=== PATIENT | female | born 1940 | race Caucasian/White ===

== ENCOUNTER 2016-12-23 20:05 | Inpatient (IN) | payer OTHER, MEDICARE ==
[~2016-12-23] VITALS: Ht 154.9 cm; Wt 76.3 kg
[~2016-12-23 20:05] MED LIST: AMLO5TAB2 PO; COEN100C; FURO40TA PO; GABA300C5 PO; INSUINJ3 SQ; LEVEMIR SQ; LIPI20TA PO; MELA5TAB15 PO; METO25TA3 PO; NOVOINJ6; PANT40TA3 PO; PLAV75TA29 PO; ZETI10TA5 PO
[2016-12-23 20:13] VITALS: BP 194/79; PULSE 51; RESP 16; TEMP 98.6; O2SAT 97
--- NOTE | 2016-12-23 20:36 | PD ---
Physical Exam Time Seen by Provider: 20:31 Narrative 76yo F presents after being seen at [facility] in [facility] for chest pain and SOB. [facility] waanted to admit her and She asked to be discharged because her son does not like that hospital and told her to come to [place]. Gonzalo came strait here from [facility]. She currently does not have chest pain or SOB. She said they did put a nitro patch on her chest when she was there. She says she only wants to talk to a doctor. Patient seen in triage. VS reviewed. Awaiting bed placement. Data Data Last Documented VS Vital Signs Date Time Temp Pulse Resp B/P (MAP) Pulse Ox O2 Delivery O2 Flow Rate FiO2 12/23/16 20:13 98.6 51 16 194/79 (117) 97 Room Air MDM Supervised Visit with CAMERON: Marielena Platt Dec 23, 2016 20:36
--- NOTE | 2016-12-23 20:59 | PD ---
HPI Chief Complaint: Medical Clearance Time Seen by Provider: 20:59 Travel History International Travel<30 days: No Contact w/Intl Traveler<30days: No Traveled to known affect area: No History of Present Illness HPI 76-year-old female with history of CAD, hypertension, diabetes, remote CVA, presents to the emergency department for evaluation of chest pain and shortness of breath. Patient states it first started 1 week ago. She contacted her primary care provider who advised she come to the emergency department at that time. Patient did not do that. She waited, thinking that it may get better, however it worsened throughout the week and today she ended up at [facility] for evaluation of this. She tells me they were going to admit her as they were concerned about her kidneys and her potassium. The gave her medication for this and she is uncertain what. She states that her intensive care specialist came and evaluated her kidneys with ultrasound and was also concerned. She states that she feels better than she did prior to arriving there, however she still is short of breath. She is not having any chest pain. Her son is a chiropractor in [facility] and did not want her to be admitted at that hospital, so he advised they come here. Unable to obtain the patient's records at this time to further understand the patient's visit there. PFSH Past Medical History Arthritis: Yes Asthma: No Autoimmune Disease: No Anxiety: Yes Depression: No Heart Rhythm Problems: No Cancer: No Cardiovascular Problems: Yes (SEVERE CAD, TIA) High Cholesterol: Yes Chemotherapy: No Chest Pain: Yes Congestive Heart Failure: No COPD: No Cerebrovascular Accident: Yes (CVA X 10 YEARS AGO AND CVA X3 RECENT 2016) Diabetes: Yes Endocrine: Yes GERD: No Genitourinary: No Headaches: Yes (OCCASIONAL ) Hiatal Hernia: No Hypertension: Yes Immune Disorder: No Kidney Stones: No Musculoskeletal: Yes Neurologic: Yes (strtoke 10 years ago) Psychiatric: Yes Reproductive: No Respiratory: Yes Migraines: No Radiation Therapy: No Renal Failure: No Seizures: No Sickle Cell Disease: No Sleep Apnea: No Thyroid Disease: No Ulcer: No Past Surgical History Abdominal Surgery: No AICD: No Arteriovenous Shunt: No Cardiac Surgery: Yes (cath procedure) Ear Surgery: No Endocrine Surgery: No Eye Surgery: Yes (BILATERAL CATARACT SURGERY) Genitourinary Surgery: No Gynecologic Surgery: No Insulin Pump: No Joint Replacement: No Oral Surgery: No Pacemaker: No Thoracic Surgery: No Other Surgery: Yes (2 C-SECTIONS) Social History Alcohol Use: No Tobacco Use: No Substance Use: No Allergies-Medications (Allergen,Severity, Reaction): Coded Allergies: Lactobacillus acidophilus (Verified Allergy, Severe, 12/23/16) Lactobacillus bulgaricus (Verified Allergy, Severe, 12/23/16) Lactobacillus gasseri (Verified Allergy, Severe, 12/23/16) Streptococcus thermophilus (Verified Allergy, Severe, 12/23/16) lovastatin (Verified Allergy, Severe, 12/23/16) N/V Reported Meds & Prescriptions Reported Meds & Active Scripts Active Gabapentin 300 Mg Cap 300 Mg PO BID Reported Levemir Inj (Insulin Detemir) 1,000 unit/ 10 ML Vial 56 Units SQ BID Do not mix with any other Insulin. Nitroglycerin SL (Nitroglycerin) 0.4 Mg Subl 0.4 Mg SL DIRECTED PRN ONE TABLET UNDER THE TONGUE NEEDED FOR CHEST PAIN, MAY REPEAT EVERY FIVE MINUTES FOR A TOTAL OF 3 DOSES OR CALL 911 IF NO RELIEF Lisinopril 5 Mg Tab 5 Mg PO DAILY Folic Acid 400 Mcg Tab 400 Mcg PO DAILY Aspirin 81 Mg Chew 81 Mg CHEW DAILY Novolin N U-100 Inj (Insulin NPH (Human) (Isophane) Inj) 100 Unit/Ml Inj 1 Units SLIDING SCALE Plavix (Clopidogrel Bisulfate) 75 Mg Tab 75 Mg PO DAILY Metoprolol Tartrate 25 Mg Tab 25 Mg PO BID Review of Systems Except as stated in HPI: all other systems reviewed are Neg Physical Exam Narrative GENERAL: Nourished female patient, appears well but between sentences and short of breath while she is talking to me. SKIN: Focused skin assessment warm/dry. HEAD: Atraumatic. Normocephalic. EYES: Pupils equal and round. No scleral icterus. No injection or drainage. ENT: No nasal bleeding or discharge. Mucous membranes pink and moist. NECK: Trachea midline. No JVD. CARDIOVASCULAR: Bradycardic rate. 2/6 murmur appreciated. RESPIRATORY: No accessory muscle use. Diminished, possibly due to girth.. Breath sounds equal bilaterally. GASTROINTESTINAL: Abdomen soft, non-tender, nondistended. Hepatic and splenic margins not palpable. MUSCULOSKELETAL: No obvious deformities. No clubbing. No cyanosis. No edema. NEUROLOGICAL: Awake and alert. No obvious cranial nerve deficits. Motor grossly within normal limits. Normal speech. Data Data Last Documented VS Vital Signs Date Time Temp Pulse Resp B/P (MAP) Pulse Ox O2 Delivery O2 Flow Rate FiO2 12/23/16 23:01 71 20 184/65 (104) 98 Room Air 12/23/16 20:13 98.6 Orders Orders Electrocardiogram (12/23/16 20:36) Complete Blood Count With Diff (12/23/16 21:09) Basic Metabolic Panel (Bmp) (12/23/16 21:09) B-Type Natriuretic Peptide (12/23/16 21:09) Act Partial Throm Time (Ptt) (12/23/16 21:09) Prothrombin Time / Inr (Pt) (12/23/16 21:09) Magnesium (Mg) (12/23/16 21:09) Ckmb (Isoenzyme) Profile (12/23/16 21:09) Troponin I (12/23/16 21:09) Urinalysis - C+S If Indicated (12/23/16 21:09) Iv Access Insert/Monitor (12/23/16 21:09) Electrocardiogram (12/23/16 21:09) Ecg Monitoring (12/23/16 21:09) Oximetry (12/23/16 21:09) Oxygen Administration (12/23/16 21:09) Chest, Single Ap (12/23/16 21:09) Sodium Chloride 0.9% Flush (Ns Flush) (12/23/16 21:15) Albuterol-Ipratropium Neb (Duoneb Neb) (12/23/16 21:15) CKMB (12/23/16 21:35) CKMB% (12/23/16 21:35) Ventilation & Perfusion Scan (12/23/16 ) Labs Laboratory Tests Test 12/23/16 21:35 12/23/16 22:10 White Blood Count 14.3 TH/MM3 Red Blood Count 3.63 MIL/MM3 Hemoglobin 11.5 GM/DL Hematocrit 34.8 % Mean Corpuscular Volume 95.9 FL Mean Corpuscular Hemoglobin 31.6 PG Mean Corpuscular Hemoglobin Concent 32.9 % Red Cell Distribution Width 13.9 % Platelet Count 308 TH/MM3 Mean Platelet Volume 9.0 FL Neutrophils (%) (Auto) 66.7 % Lymphocytes (%) (Auto) 24.0 % Monocytes (%) (Auto) 8.1 % Eosinophils (%) (Auto) 0.7 % Basophils (%) (Auto) 0.5 % Neutrophils # (Auto) 9.5 TH/MM3 Lymphocytes # (Auto) 3.4 TH/MM3 Monocytes # (Auto) 1.2 TH/MM3 Eosinophils # (Auto) 0.1 TH/MM3 Basophils # (Auto) 0.1 TH/MM3 CBC Comment DIFF FINAL Differential Comment Prothrombin Time 12.0 SEC Prothromb Time International Ratio 1.1 RATIO Activated Partial Thromboplast Time 25.6 SEC Blood Urea Nitrogen 55 MG/DL Creatinine 2.37 MG/DL Random Glucose 59 MG/DL Calcium Level 9.0 MG/DL Magnesium Level 3.0 MG/DL Sodium Level 139 MEQ/L Potassium Level 4.9 MEQ/L Chloride Level 105 MEQ/L Carbon Dioxide Level 26.1 MEQ/L Anion Gap 8 MEQ/L Estimat Glomerular Filtration Rate 20 ML/MIN Total Creatine Kinase 107 U/L Creatine Kinase MB 4.9 NG/ML Troponin I 0.02 NG/ML B-Type Natriuretic Peptide 1149 PG/ML Urine Color LIGHT-YELLOW Urine Turbidity CLEAR Urine pH 5.0 Urine Specific [place] 1.008 Urine Protein NEG mg/dL Urine Glucose (UA) NEG mg/dL Urine Ketones NEG mg/dL Urine Occult Blood NEG Urine Nitrite NEG Urine Bilirubin NEG Urine Urobilinogen LESS THAN 2.0 MG/DL Urine Leukocyte Esterase NEG Urine RBC 1 /hpf Urine Bacteria RARE /hpf Urine Hyaline Casts 2 /lpf Microscopic Urinalysis Comment CULT NOT INDICATED MDM Medical Decision Making Medical Screen Exam Complete: Yes Emergency Medical Condition: Yes Medical Record Reviewed: Yes Differential Diagnosis CHF versus pneumonia versus ACS versus electrolyte abnormality Narrative Course 76 year-old female presents to the emergency department for evaluation. Patient has been evaluated today at [facility] for chest pain and shortness of breath worsening over the last week. Here she states that she feels better but she would rather be admitted here and there. I have asked community development coordinator to obtain records, however I am told at this time there is nobody available at that hospital to get us records. Patient is not having any pain, however she is short of breath between sentences. Laboratory Tests Test 12/23/16 21:35 8/24/17 22:10 White Blood Count 14.3 TH/MM3 Red Blood Count 3.63 MIL/MM3 Hemoglobin 11.5 GM/DL Hematocrit 34.8 % Mean Corpuscular Volume 95.9 FL Mean Corpuscular Hemoglobin 31.6 PG Mean Corpuscular Hemoglobin Concent 32.9 % Red Cell Distribution Width 13.9 % Platelet Count 308 TH/MM3 Mean Platelet Volume 9.0 FL Neutrophils (%) (Auto) 66.7 % Lymphocytes (%) (Auto) 24.0 % Monocytes (%) (Auto) 8.1 % Eosinophils (%) (Auto) 0.7 % Basophils (%) (Auto) 0.5 % Neutrophils # (Auto) 9.5 TH/MM3 Lymphocytes # (Auto) 3.4 TH/MM3 Monocytes # (Auto) 1.2 TH/MM3 Eosinophils # (Auto) 0.1 TH/MM3 Basophils # (Auto) 0.1 TH/MM3 CBC Comment DIFF FINAL Differential Comment Prothrombin Time 12.0 SEC Prothromb Time International Ratio 1.1 RATIO Activated Partial Thromboplast Time 25.6 SEC Blood Urea Nitrogen 55 MG/DL Creatinine 2.37 MG/DL Random Glucose 59 MG/DL Calcium Level 9.0 MG/DL Magnesium Level 3.0 MG/DL Sodium Level 139 MEQ/L Potassium Level 4.9 MEQ/L Chloride Level 105 MEQ/L Carbon Dioxide Level 26.1 MEQ/L Anion Gap 8 MEQ/L Estimat Glomerular Filtration Rate 20 ML/MIN Total Creatine Kinase 107 U/L Creatine Kinase MB 4.9 NG/ML Troponin I 0.02 NG/ML B-Type Natriuretic Peptide 1149 PG/ML Urine Color LIGHT-YELLOW Urine Turbidity CLEAR Urine pH 5.0 Urine Specific [place] 1.008 Urine Protein NEG mg/dL Urine Glucose (UA) NEG mg/dL Urine Ketones NEG mg/dL Urine Occult Blood NEG Urine Nitrite NEG Urine Bilirubin NEG Urine Urobilinogen LESS THAN 2.0 MG/DL Urine Leukocyte Esterase NEG Urine RBC 1 /hpf Urine Bacteria RARE /hpf Urine Hyaline Casts 2 /lpf Microscopic Urinalysis Comment CULT NOT INDICATED Pt's creatinine has doubled since the last lab work that we have here in 2005. Her BNP is 1149. Patient was given Lasix at the other facility and is urinating a lot here in the emergency department. She was also given Kayexalate and is happy loose stools. He shouldn't is also hypoglycemic here with a blood sugar of 59. She is given orange juice. Check, blood sugar is 86. I discussed the patient with my attending physician who agrees that is in the patient's best interest to be admitted observation. We also further evaluate for possible PE by VQ scan. This is ordered. A call is placed to [facility] for admission. Diagnosis Primary Impression: Shortness of breath Additional Impressions: CHF (congestive heart failure) Qualified Codes: I50.9 - Heart failure, unspecified Acute kidney injury Hypoglycemia Chest pain Qualified Codes: R07.9 - Chest pain, unspecified Admitting Information Admitting Physician Requests: Observation Condition: Stable AppleAnalisa aj FIORELLA Dec 23, 2016 20:59
[2016-12-23] MEDS ORDERED: SODIUM CHLORIDE 0.9% FLUSH 10 ML FLUSH IVF PRN (21:15)
[2016-12-23] MEDS: RESP: ALBUTEROL 2.5 MG/IPRATROPIUM 0.5 MG NEB (SCH) INH ×2 (21:21→21:22)
[2016-12-23 21:30] VITALS: BP 180/65; PULSE 50; RESP 22; O2SAT 98
--- NOTE | 2016-12-23 21:45 | RADRPT ---
EXAM DATE/TIME: 12/23/2016 21:24 [facility] COMPARISON: CHEST SINGLE AP, December 25, 2015, 14:42. INDICATIONS : Shortness of breath. MEDICAL HISTORY : None. SURGICAL HISTORY : None. ENCOUNTER: Initial ACUITY: 3 weeks PAIN SCORE: 0/10 LOCATION: Bilateral chest FINDINGS: Portable AP view the chest demonstrates a normal-sized cardiac silhouette with calcification of the a daniel. There is stable interstitial prominence bilaterally. No effusion, consolidation, or pneumothora x is appreciated. The bones and soft tissues demonstrate no acute finding. CONCLUSION: Stable chest x-ray. No acute cardiopulmonary abnormality is identified. Joe Ellsworth MD on December 23, 2016 at 21:42 Board Certified Radiologist. This report was verified electronically.
[2016-12-23 22:11] VITALS: BP 180/77; PULSE 65; RESP 20; O2SAT 98
[2016-12-23 22:13] LABS: AUTOMATED NEUTROPHIL # 9.5 TH/MM3 (1.8-7.7); BASOPHIL # 0.1 TH/MM3 (0-0.2); BASOPHIL % 0.5 % (0.0-2.0); EOSINOPHIL # 0.1 TH/MM3 (0-0.4); EOSINOPHIL % 0.7 % (0.0-4.0); HEMATOCRIT 34.8 % (35.0-46.0); HEMO FLAGS DIFF FINAL; LYMPHOCYTE # 3.4 TH/MM3 (1.0-4.8); MEAN CELL VOLUME 95.9 FL (80.0-100.0); MEAN CORPUSCULAR HEMOGLOBIN 31.6 PG (27.0-34.0); MEAN CORPUSCULAR HGB CONC 32.9 % (32.0-36.0); MONO % 8.1 % (0.0-8.0); NEUT % 66.7 % (16.0-70.0); PLATELET COUNT 308 TH/MM3 (150-450); RED BLOOD COUNT 3.63 MIL/MM3 (4.00-5.30); RED CELL DISTRIBUTION WIDTH 13.9 % (11.6-17.2); WHITE BLOOD COUNT 14.3 TH/MM3 (4.0-11.0)
[2016-12-23 22:21] VITALS: BP 173/74; PULSE 63
[2016-12-23 22:27] LABS: ANION GAP 8 MEQ/L (5-15); BICARBONATE 26.1 MEQ/L (21.0-32.0); BLOOD UREA NITROGEN 55 MG/DL (7-18); CHLORIDE 105 MEQ/L (98-107); GLOMERULAR FILTRATION RATE 20 ML/MIN (>89); POTASSIUM 4.9 MEQ/L (3.5-5.1); SODIUM (NA) 139 MEQ/L (136-145)
[2016-12-23 22:31] LABS: CREATINE KINASE 107 U/L (26-192)
[2016-12-23 22:32] LABS: BACTERIA, URINE RARE /hpf; BLOOD, URINE NEG (NEG); COMMENT (UR) CULT NOT INDICATED; CULTURE IF INDICATED CULT NOT INDICATED; GLUCOSE,URINE NEG (NEG); HYALINE CAST, URINE 2 /lpf (RARE); KETONE, URINE NEG (NEG); NITRITE,URINE NEG (NEG); URINE COLOR LIGHT-YELLOW (YELLW/STRAW)
[2016-12-23] MEDS ORDERED: ASPI81CH CHEW (22:32)
[2016-12-23] MEDS ORDERED: FOLI400T PO (22:32)
[2016-12-23] MEDS ORDERED: LISI-519 PO (22:33)
[2016-12-23 22:34] LABS: APTT (PATIENT) 25.6 SEC (24.3-30.1); INTERNATIONAL NORMALIZED RATIO 1.1 RATIO
[2016-12-23] MEDS ORDERED: NITR1SUB3 SL (22:34)
[2016-12-23] MEDS ORDERED: NOVOLOGMXP SQ (22:38)
[2016-12-23] MEDS ORDERED: LEVEMIR SQ (22:40)
[2016-12-23 22:44] LABS: CKMB 4.9 NG/ML (0.5-3.6)
[2016-12-23 23:01] VITALS: BP 184/65; PULSE 71; RESP 20; O2SAT 98
[2016-12-23] MEDS ORDERED: NALOXONE HCL 0.4 MG/ML AMP IV PRN (23:30)
[2016-12-23] MEDS ORDERED: SODIUM CHLORIDE 0.9% FLUSH 10 ML FLUSH IV FLUSH PRN (23:30)
[2016-12-24] VITALS (12 sets, daily range): BP systolic 114–187; BP diastolic 50–87; PULSE 49–75; RESP 12–22; TEMP 97.5–98.7; O2SAT 96–100
[2016-12-24] MEDS ORDERED: METO25TA3 PO (00:45)
[2016-12-24] MEDS ORDERED: NITROGLYCERIN 2% OINT 1 GM PACKET TOPICAL ONE (01:00)
--- NOTE | 2016-12-24 01:26 | RADRPT ---
EXAM DATE/TIME: 12/24/2016 00:55 [facility] COMPARISON: No previous studies available for comparison. INDICATIONS : Chest pain with dyspnea. DOSE: 8.8 mCi Tc99m MAA IV 1.3 mCi Tc99m DTPA aerosol MEDICAL HISTORY : Myocardial infarction. Diabetes mellitus type 2. Hypertension. Stroke. SURGICAL HISTORY : Cardiac catherization. ENCOUNTER: Initial ACUITY: 1 week PAIN SCALE: 4/10 LOCATION: chest TECHNIQUE: Following five minutes of tidal breathing of DTPA aerosol, planar images of the lungs were performed in eight projections. The patient was then injected with MAA, and eight-view perfusion scan was perf ormed. FINDINGS: There is a homogeneous pattern of aerosol delivery to the periphery of both lungs. No focal ventilat ory defects are seen. The perfusion lung scan demonstrates a homogenous pattern of uptake in both lungs. No segmental or s ubsegmental defects are seen. CONCLUSION: Normal examination. Josef Villanueva MD on December 24, 2016 at 1:24 Board Certified Radiologist. This report was verified electronically.
[2016-12-24 04:29] LABS: AUTOMATED NEUTROPHIL # 9.6 TH/MM3 (1.8-7.7); BASOPHIL # 0.1 TH/MM3 (0-0.2); BASOPHIL % 0.7 % (0.0-2.0); EOSINOPHIL # 0.1 TH/MM3 (0-0.4); EOSINOPHIL % 0.6 % (0.0-4.0); HEMATOCRIT 31.7 % (35.0-46.0); HEMO FLAGS DIFF FINAL; LYMPH % 24.7 % (9.0-44.0); LYMPHOCYTE # 3.6 TH/MM3 (1.0-4.8); MEAN CELL VOLUME 96.4 FL (80.0-100.0); MEAN CORPUSCULAR HGB CONC 32.1 % (32.0-36.0); MONO % 7.7 % (0.0-8.0); NEUT % 66.3 % (16.0-70.0); PLATELET COUNT 198 TH/MM3 (150-450); RED BLOOD COUNT 3.29 MIL/MM3 (4.00-5.30); RED CELL DISTRIBUTION WIDTH 13.9 % (11.6-17.2); WHITE BLOOD COUNT 14.5 TH/MM3 (4.0-11.0)
[2016-12-24 04:48] LABS: BICARBONATE 24.9 MEQ/L (21.0-32.0); POTASSIUM 4.6 MEQ/L (3.5-5.1)
[2016-12-24] MEDS ORDERED: DEXTROSE 50% IN WATER 50 ML VIAL(D50) IV PRN (10:15)
[2016-12-24] MEDS ORDERED: GLUCAGON 1 MG/ML VIAL OTHER PRN (10:15)
--- NOTE | 2016-12-24 10:38 | HHI.HP ---
[facility] V[facility]ctor Bond DO Admission Diagnosis dyspnea, chest pain, chf Diagnoses: Chief Complaint: Shortness of breath Travel History International Travel<30 Days: No Contact w/Intl Traveler <30 Da: No Traveled to Known Affected Are: No History of Present Illness Written by Anibal Lawler, acting as scribe for Dr. Colón on 12/24/16 at 10:37. 76-year-old female with a past medical history of CAD, CVA, DM presented for shortness of breath. The patient has been having worsening shortness of breath and generalized ill feeling for the past week with associated chest pain or lower from any swelling.. She saw her PCP a week ago recommended she come to the ED, but she wanted to wait and see if she got better, and when she didn't she went to the hospital and [facility]. She was told that her kidneys were much worse than normal. She saw her 's senior mobile developer, Dr. Nicolas, who did an ultrasound of her kidneys and was very concerned. She states she was given medicine to make her urinate and feels like her breathing is better after that. She reports good urine output. She denies any problems with her kidneys prior to yesterday. She states that she has a history of blockages in her heart , but refused heart bypass in the past. She isn't having chest pain for the last week that has been relieved by nitroglycerin. Her weir fisherman is Dr. Olmstead. Discussed with her and her son, and they agree for assessment for renal failure and possible CHF, but do not want any invasive testing done. The patient denies any fever, chills, or cough, but has noticed some dysphagia recently. Review of Systems Except as stated in HPI: all other systems reviewed are Neg Past Family Social History Past Medical History CVA History of coronary artery disease, refused bypass Diabetes mellitus Past Surgical History Cardiac catheterization 2 PEG placement and removal Reported Medications Reported Meds & Active Scripts Active Gabapentin 300 Mg Cap 300 Mg PO BID Reported Metoprolol Tartrate 25 Mg Tab 25 Mg PO DAILY Levemir Inj (Insulin Detemir) 1,000 unit/ 10 ML Vial 56 Units SQ BID Do not mix with any other Insulin. Nitroglycerin SL (Nitroglycerin) 0.4 Mg Subl 0.4 Mg SL DIRECTED PRN ONE TABLET UNDER THE TONGUE NEEDED FOR CHEST PAIN, MAY REPEAT EVERY FIVE MINUTES FOR A TOTAL OF 3 DOSES OR CALL 911 IF NO RELIEF Lisinopril 5 Mg Tab 5 Mg PO DAILY Folic Acid 400 Mcg Tab 400 Mcg PO DAILY Aspirin 81 Mg Chew 81 Mg CHEW DAILY Novolin N U-100 Inj (Insulin NPH (Human) (Isophane) Inj) 100 Unit/Ml Inj 1 Units SLIDING SCALE Plavix (Clopidogrel Bisulfate) 75 Mg Tab 75 Mg PO DAILY Allergies: Coded Allergies: Lactobacillus acidophilus (Verified Allergy, Severe, 12/23/16) Lactobacillus bulgaricus (Verified Allergy, Severe, 12/23/16) Lactobacillus gasseri (Verified Allergy, Severe, 12/23/16) Streptococcus thermophilus (Verified Allergy, Severe, 12/23/16) lovastatin (Verified Allergy, Severe, 12/23/16) N/V Active Ordered Medications Current Medications Medications (Trade) Dose Ordered Sig/Helene Route Start Time Stop Time Status Last Admin (NS Flush) 2 ml UNSCH PRN IV FLUSH 12/23/16 23:30 (NS Flush) 2 ml BID IV FLUSH 12/24/16 09:00 (Narcan Inj) 0.4 mg UNSCH PRN IV 12/23/16 23:30 (Aspirin Chew) 81 mg DAILY CHEW 12/25/16 09:00 (Plavix) 75 mg DAILY PO 12/25/16 09:00 (Neurontin) 300 mg BID PO 12/24/16 21:00 (Lopressor) 25 mg DAILY PO 12/25/16 09:00 (D50w (Vial) Inj) 50 ml UNSCH PRN IV 12/24/16 10:15 (Glucagon Inj) 1 mg UNSCH PRN OTHER 12/24/16 10:15 (NovoLOG SUPPLEMENTAL SCALE) 1 ACHS SLIDING SCALE SQ 12/24/16 11:00 (Levemir Inj) 56 units BID SQ 12/24/16 11:15 UNV Family History Follow after car accident Mother at age 91 and was healthy Social History Former tobacco use Rare alcohol use Physical Exam Vital Signs Vital Signs Date Time Temp Pulse Resp B/P (MAP) Pulse Ox O2 Delivery O2 Flow Rate FiO2 12/24/16 07:06 97.7 55 16 141/56 (84) 98 12/24/16 03:22 98.0 75 16 140/78 (98) 97 12/24/16 01:09 12/24/16 00:40 64 20 169/72 (104) 100 Nasal Cannula 2.00 12/24/16 00:10 98.7 61 22 187/87 (120) 99 Nasal Cannula 2.00 12/23/16 23:01 71 20 184/65 (104) 98 Room Air 12/23/16 22:21 63 173/74 (107) 12/23/16 22:11 65 20 180/77 (111) 98 Room Air 12/23/16 21:30 50 22 180/65 (103) 98 Room Air 12/23/16 21:30 98 Room Air 12/23/16 21:30 98 Room Air 12/23/16 20:13 98.6 51 16 194/79 (117) 97 Room Air Physical Exam GENERAL: Well-developed well-nourished. In no acute distress. SKIN: Warm and dry. No lesions noted. HEENT: Normocephalic. Pupils equal and round. Mucous membranes pink and moist. CARDIOVASCULAR: Regular rate and rhythm. No murmur appreciated. RESPIRATORY: No accessory muscle use. Clear to auscultation. Diminished breath sounds bilateral bases. No crackles. GASTROINTESTINAL: Abdomen soft, non-tender, nondistended. Bowel sounds x4. MUSCULOSKELETAL: No obvious deformities. No clubbing or cyanosis. Trace lower extremity edema. NEUROLOGICAL: Awake and alert. No focal neurological deficits. Moves upper and lower extremities spontaneously. Normal speech. PSYCHIATRIC: Appropriate mood and affect; insight and judgment normal. Laboratory Laboratory Tests Test 12/23/16 21:35 12/23/16 22:10 12/24/16 03:56 12/24/16 09:10 White Blood Count 14.3 14.5 Red Blood Count 3.63 3.29 Hemoglobin 11.5 10.2 Hematocrit 34.8 31.7 Mean Corpuscular Volume 95.9 96.4 Mean Corpuscular Hemoglobin 31.6 31.0 Mean Corpuscular Hemoglobin Concent 32.9 32.1 Red Cell Distribution Width 13.9 13.9 Platelet Count 308 198 Mean Platelet Volume 9.0 9.2 Neutrophils (%) (Auto) 66.7 66.3 Lymphocytes (%) (Auto) 24.0 24.7 Monocytes (%) (Auto) 8.1 7.7 Eosinophils (%) (Auto) 0.7 0.6 Basophils (%) (Auto) 0.5 0.7 Neutrophils # (Auto) 9.5 9.6 Lymphocytes # (Auto) 3.4 3.6 Monocytes # (Auto) 1.2 1.1 Eosinophils # (Auto) 0.1 0.1 Basophils # (Auto) 0.1 0.1 CBC Comment DIFF FINAL DIFF FINAL Differential Comment Prothrombin Time 12.0 Prothromb Time International Ratio 1.1 Activated Partial Thromboplast Time 25.6 Blood Urea Nitrogen 55 54 Creatinine 2.37 2.20 Random Glucose 59 132 Calcium Level 9.0 8.9 Magnesium Level 3.0 Sodium Level 139 140 Potassium Level 4.9 4.6 Chloride Level 105 105 Carbon Dioxide Level 26.1 24.9 Anion Gap 8 10 Estimat Glomerular Filtration Rate 20 22 Total Creatine Kinase 107 87 Creatine Kinase MB 4.9 Troponin I 0.02 0.02 B-Type Natriuretic Peptide 1149 Urine Color LIGHT-YELLOW Urine Turbidity CLEAR Urine pH 5.0 Urine Specific [place] 1.008 Urine Protein NEG Urine Glucose (UA) NEG Urine Ketones NEG Urine Occult Blood NEG Urine Nitrite NEG Urine Bilirubin NEG Urine Urobilinogen LESS THAN 2.0 Urine Leukocyte Esterase NEG Urine RBC 1 Urine Bacteria RARE Urine Hyaline Casts 2 Microscopic Urinalysis Comment CULT NOT INDICATED Result Diagram: 12/24/16 0356 12/24/16 0356 Imaging Last Impressions Chest X-Ray 12/23/162108 Signed Impressions: Service Date/Time: November 21:24 - CONCLUSION: Stable chest x-ray. No acute cardiopulmonary abnormality is identified. Joe Ellsworth MD Lung Scan-V Nuclear Medicine 12/23/16 0000 Signed Impressions: Service Date/Time: Saturday, December 24, 2016 00:55 - CONCLUSION: Normal examination. MD Swathi Lim VTE Risk Assessment Kirsteni VTE Risk Assessment: Mod/High Risk (score >= 2) Caprini Risk Assessment Model Point Value = 1 Point Value = 2 Point Value = 3 Point Value = 5 Age 41-60 Minor surgery BMI > 25 kg/m2 Swollen legs Varicose veins or History of unexplained or recurrent spontaneous Oral contraceptives or hormone replacement Sepsis (< 1 month) Serious lung disease, including pneumonia (< 1 month) Abnormal pulmonary function Acute myocardial infarction Congestive heart failure (< 1 month) History of inflammatory bowel disease Medical patient at bed rest Age 61-74 Arthroscopic surgery Major open surgery (> 45 min) Laparoscopic surgery (> 45 min) Malignancy Confined to bed (> 72 hours) Immobilizing plaster cast Central venous access Age >= 75 History of VTE Family history of VTE Factor V Leiden Prothrombin [id number] Lupus anticoagulant Anticardiolipin antibodies Elevated serum homocysteine Heparin-induced thrombocytopenia Other congenital or acquired thrombophilia Stroke (< 1 month) Elective arthroplasty Hip, pelvis, or leg fracture Acute spinal cord injury (< 1 month) Prophylaxis Regimen Total Risk Factor Score Risk Level Prophylaxis Regimen 0-1 Low Early ambulation 2 Moderate Order ONE of the following: *Sequential Compression Device (SCD) *Heparin 5000 units SQ BID 3-4 Higher Order ONE of the following medications: *Heparin 5000 units SQ TID *Enoxaparin/Lovenox 40 mg SQ daily (WT < 150 kg, CrCl > 30 mL/min) *Enoxaparin/Lovenox 30 mg SQ daily (WT < 150 kg, CrCl > 10-29 mL/min) *Enoxaparin/Lovenox 30 mg SQ BID (WT < 150 kg, CrCl > 30 mL/min) AND/OR *Sequential Compression Device (SCD) 5 or more Highest Order ONE of the following medications: *Heparin 5000 units SQ TID (Preferred with Epidurals) *Enoxaparin/Lovenox 40 mg SQ daily (WT < 150 kg, CrCl > 30 mL/min) *Enoxaparin/Lovenox 30 mg SQ daily (WT < 150 kg, CrCl > 10-29 mL/min) *Enoxaparin/Lovenox 30 mg SQ BID (WT < 150 kg, CrCl > 30 mL/min) AND *Sequential Compression Device (SCD) Assessment and Plan Assessment and Plan 76-year-old female with a past medical history of CAD, CVA, DM presented for shortness of breath Shortness of breath: Suspect secondary to CHF/volume overload. Reviewed: Chest x-ray stable with no acute process. VQ scan negative. BNP 1149 -Consult nephrology and cardiology for assistance with volume management -Check echocardiogram -Continue metoprolol Chest pain: Reported history of medically managed CAD. Reviewed: Troponin negative 3. EKG with sinus bradycardia and nonspecific ST changes. -Radiology consulted -Continue aspirin, Plavix, beta rico MYCHAL on CKD: Creatinine 2.2, previously 1.19 on 01/01/16. -Nephrology consulted -Renal ultrasound ordered Diabetes mellitus: -Monitor Accu-Cheks -Resume home Levemir -Continue sliding scale NovoLog coverage DVT prophylaxis: SCDs This note was transcribed by scribhanna [Bucky Barnett]. I, Dr. Lucero Colón personally performed the history, physical exam, and medical decision making; and confirmed the accuracy of the information in the transcribed note. Authenticated by Dr. Lucero Colón on 12/24/16 at 10:56. Discussed Condition With Patient, patient's and son, RN Anibal Lawler Dec 24, 2016 10:38 Lucero Colón MD Dec 24, 2016 10:57
--- NOTE | 2016-12-24 11:59 | EKG ---
Date Performed: 12/24/2016 Time Performed: 03:49:25 PTAGE: 76 years EKG: ATRIAL FIBRILLATION WITH SLOW VENTRICULAR RESPONSE MODERATE ST DEPRESSION Consider anterola teral myocardial infarction - age indeterminate ABNORMAL ECG PREVIOUS TRACING : 12/23/2016 21.10 DOCTOR: Deepak Figueroa Interpretating Date/Time 12/24/2016 11:51:25
--- NOTE | 2016-12-24 11:59 | PD.CONS ---
HPI Consult Requested By Primary Care Physician Víctor Bond DO History of Present Illness 76-year-old female with a past medical history of severe CAD, CVA, DM presented for shortness of breath.She reports worsening shortness of breath for the past week. She reports states that history of CAD, but refused heart bypass in the past. She reports episodic chest pain relieved by nitroglycerin. Her lead mobile developer is Dr. Olmstead. She does not want any invasive testing. The patient denies any fever, chills, cough, nausea, vomiting, or diarrhea or noncompliance with medications. Negative troponin x3, however BNP markedly elevated. Cardiology consulted for further management and evaluation. Review of Systems Consitutional: DENIES: Fatigue, Fever, Chills, Weight gain, Weight loss Eyes: DENIES: Amaurosis [place], Change in vision HEENT: DENIES: Lightheadedness, Change in hearing Respiratory: COMPLAINS OF: Shortness of breath Cardiovascular: COMPLAINS OF: Chest pain Gastrointestinal: DENIES: Nausea, Vomiting, Change in bowel habits, Reflux, Bloody stools, Melena Genitourinary: DENIES: Urinary incontinence, Difficulty voiding Integumentary: DENIES: Rash Neurologic: DENIES: Tingling or numbness, Memory problems, Poor Balance, Stroke symptoms Musculoskeletal: DENIES: Joint pain, Muscle pain, Limited range of motion, Back pain Psychiatric: DENIES: Anxiety, Depression, Sleep disturbances Hematologic: DENIES: Bruising tendencies, Bleeding tendencies Endocrine: DENIES: Weight gain, Weight loss, Thyroid disease Past Family Social History Allergies: Coded Allergies: Lactobacillus acidophilus (Verified Allergy, Severe, 12/23/16) Lactobacillus bulgaricus (Verified Allergy, Severe, 12/23/16) Lactobacillus gasseri (Verified Allergy, Severe, 12/23/16) Streptococcus thermophilus (Verified Allergy, Severe, 12/23/16) lovastatin (Verified Allergy, Severe, 12/23/16) N/V Past Medical History CVA History of coronary artery disease, refused bypass Diabetes mellitus Past Surgical History Cardiac catheterization 2 PEG placement and removal Reported Medications Reported Meds & Active Scripts Active Gabapentin 300 Mg Cap 300 Mg PO BID Reported Metoprolol Tartrate 25 Mg Tab 25 Mg PO DAILY Levemir Inj (Insulin Detemir) 1,000 unit/ 10 ML Vial 56 Units SQ BID Do not mix with any other Insulin. Nitroglycerin SL (Nitroglycerin) 0.4 Mg Subl 0.4 Mg SL DIRECTED PRN ONE TABLET UNDER THE TONGUE NEEDED FOR CHEST PAIN, MAY REPEAT EVERY FIVE MINUTES FOR A TOTAL OF 3 DOSES OR CALL 911 IF NO RELIEF Lisinopril 5 Mg Tab 5 Mg PO DAILY Folic Acid 400 Mcg Tab 400 Mcg PO DAILY Aspirin 81 Mg Chew 81 Mg CHEW DAILY Novolin N U-100 Inj (Insulin NPH (Human) (Isophane) Inj) 100 Unit/Ml Inj 1 Units SLIDING SCALE Plavix (Clopidogrel Bisulfate) 75 Mg Tab 75 Mg PO DAILY Active Ordered Medications Current Medications Medications (Trade) Dose Ordered Sig/Helene Route Start Time Stop Time Status Last Admin (NS Flush) 2 ml UNSCH PRN IV FLUSH 12/23/16 23:30 (NS Flush) 2 ml BID IV FLUSH 12/24/16 09:00 (Narcan Inj) 0.4 mg UNSCH PRN IV 12/23/16 23:30 (Aspirin Chew) 81 mg DAILY CHEW 12/25/16 09:00 (Plavix) 75 mg DAILY PO 12/25/16 09:00 (Neurontin) 300 mg BID PO 12/24/16 21:00 (Lopressor) 25 mg DAILY PO 12/25/16 09:00 (D50w (Vial) Inj) 50 ml UNSCH PRN IV 12/24/16 10:15 (Glucagon Inj) 1 mg UNSCH PRN OTHER 12/24/16 10:15 (NovoLOG SUPPLEMENTAL SCALE) 1 ACHS SLIDING SCALE SQ 12/24/16 11:00 (Levemir Inj) 56 units BID SQ 12/24/16 11:15 Family History Noncontributory Social History Denies alcohol, tobacco or illicit drug use Physical Exam Vital Signs Vital Signs Date Time Temp Pulse Resp B/P (MAP) Pulse Ox O2 Delivery O2 Flow Rate FiO2 12/24/16 11:35 98.1 50 16 114/50 (71) 97 12/24/16 07:06 97.7 55 16 141/56 (84) 98 12/24/16 03:22 98.0 75 16 140/78 (98) 97 12/24/16 01:09 12/24/16 00:40 64 20 169/72 (104) 100 Nasal Cannula 2.00 12/24/16 00:10 98.7 61 22 187/87 (120) 99 Nasal Cannula 2.00 12/23/16 23:01 71 20 184/65 (104) 98 Room Air 12/23/16 22:21 63 173/74 (107) 12/23/16 22:11 65 20 180/77 (111) 98 Room Air 12/23/16 21:30 50 22 180/65 (103) 98 Room Air 12/23/16 21:30 98 Room Air 12/23/16 21:30 98 Room Air 12/23/16 20:13 98.6 51 16 194/79 (117) 97 Room Air Physical Exam GENERAL: Well-nourished, well-developed patient. SKIN: Warm and dry. HEAD: Normocephalic. EYES: No scleral icterus. No injection or drainage. NECK: Supple, trachea midline. No JVD or lymphadenopathy. CARDIOVASCULAR: Regular rate and rhythm without murmurs, gallops, or rubs. RESPIRATORY: Breath sounds equal bilaterally. No accessory muscle use. GASTROINTESTINAL: Abdomen soft, non-tender, nondistended. EXTREMITIES: No cyanosis, or edema. NEUROLOGICAL: Awake, alert, and oriented x 3. Laboratory Laboratory Tests Test 12/23/16 21:35 12/23/16 22:10 12/24/16 03:56 12/24/16 09:10 White Blood Count 14.3 14.5 Red Blood Count 3.63 3.29 Hemoglobin 11.5 10.2 Hematocrit 34.8 31.7 Mean Corpuscular Volume 95.9 96.4 Mean Corpuscular Hemoglobin 31.6 31.0 Mean Corpuscular Hemoglobin Concent 32.9 32.1 Red Cell Distribution Width 13.9 13.9 Platelet Count 308 198 Mean Platelet Volume 9.0 9.2 Neutrophils (%) (Auto) 66.7 66.3 Lymphocytes (%) (Auto) 24.0 24.7 Monocytes (%) (Auto) 8.1 7.7 Eosinophils (%) (Auto) 0.7 0.6 Basophils (%) (Auto) 0.5 0.7 Neutrophils # (Auto) 9.5 9.6 Lymphocytes # (Auto) 3.4 3.6 Monocytes # (Auto) 1.2 1.1 Eosinophils # (Auto) 0.1 0.1 Basophils # (Auto) 0.1 0.1 CBC Comment DIFF FINAL DIFF FINAL Differential Comment Prothrombin Time 12.0 Prothromb Time International Ratio 1.1 Activated Partial Thromboplast Time 25.6 Blood Urea Nitrogen 55 54 Creatinine 2.37 2.20 Random Glucose 59 132 Calcium Level 9.0 8.9 Magnesium Level 3.0 Sodium Level 139 140 Potassium Level 4.9 4.6 Chloride Level 105 105 Carbon Dioxide Level 26.1 24.9 Anion Gap 8 10 Estimat Glomerular Filtration Rate 20 22 Total Creatine Kinase 107 87 67 Creatine Kinase MB 4.9 Troponin I 0.02 0.02 0.02 B-Type Natriuretic Peptide 1149 Urine Color LIGHT-YELLOW Urine Turbidity CLEAR Urine pH 5.0 Urine Specific [place] 1.008 Urine Protein NEG Urine Glucose (UA) NEG Urine Ketones NEG Urine Occult Blood NEG Urine Nitrite NEG Urine Bilirubin NEG Urine Urobilinogen LESS THAN 2.0 Urine Leukocyte Esterase NEG Urine RBC 1 Urine Bacteria RARE Urine Hyaline Casts 2 Microscopic Urinalysis Comment CULT NOT INDICATED Result Diagram: 12/24/16 0356 12/24/16 0356 Imaging Last Impressions Chest X-Ray 12/23/162108 Signed Impressions: Service Date/Time: November 21:24 - CONCLUSION: Stable chest x-ray. No acute cardiopulmonary abnormality is identified. Joe Ellsworth MD Lung Scan- Nuclear Medicine 12/23/16 0000 Signed Impressions: Service Date/Time: Saturday, December 24, 2016 00:55 - CONCLUSION: Normal examination. Josef Villanueva MD Assessment and Plan Problem List: (1) CHF (congestive heart failure) ICD Codes: I50.9 - Heart failure, unspecified Status: Acute Plan: 1. IV diuresis 2. Strict I&O 3. Daily weight 4. Low salt diet 5. 2Decho 6. Cont ASA, Plavix, 7. Decrease dose of Metoprolol given significant bradycardia 8. Start Imdur 30mg PO daily 9. BP control Will be available PRN for any other questions or concerns (2) CAD (coronary artery disease) ICD Codes: I25.10 - Atherosclerotic heart disease of [place] coronary artery without angina pectoris Status: Chronic (3) MYCHAL (acute kidney injury) ICD Codes: N17.9 - Acute kidney failure, unspecified Status: Acute (4) DM (diabetes mellitus) ICD Codes: E11.9 - Type 2 diabetes mellitus without complications Status: Chronic (5) Dysphagia as late effect of cerebrovascular accident (CVA) ICD Codes: I69.391 - Dysphagia following cerebral infarction Status: Acute (6) HTN (hypertension) ICD Codes: I10 - Essential (primary) hypertension Status: Chronic (7) Shortness of breath ICD Codes: R06.02 - Shortness of breath Status: Acute (8) Chest pain ICD Codes: R07.9 - Chest pain, unspecified Status: Acute Problem Qualifiers (1) CHF (congestive heart failure): Qualified Codes: I50.9 - Heart failure, unspecified (2) Chest pain: Qualified Codes: R07.9 - Chest pain, unspecified Alex Delacruz MD Dec 24, 2016 11:59
--- NOTE | 2016-12-24 11:59 | EKG ---
Date Performed: 12/23/2016 Time Performed: 21:10:58 PTAGE: 76 years EKG: SINUS BRADYCARDIA WITH SHORT SD INTERVAL NONSPECIFIC ST & T-WAVE ABNORMALITY Consider anter olateral ischemia BORDERLINE ECG NO PREVIOUS TRACING DOCTOR: Deepak Figueroa Interpretating Date/Time 12/24/2016 11:51:01
[2016-12-24] MEDS: INSULIN ASPART SUPPLEMENTAL SCALE SQ SCH ×3 (13:37→21:52)
[2016-12-24] MEDS: INSULIN DETEMIR 100 UNITS/ML VIAL SQ SCH ×2 (14:24→21:51)
[2016-12-24] MEDS: SODIUM CHLORIDE 0.9% FLUSH 10 ML FLUSH IV FLUSH SCH ×2 (14:24→21:52)
[2016-12-24] MEDS ORDERED: FUROSEMIDE 20 MG/2 ML VIAL IV PUSH ONE (16:30)
--- NOTE | 2016-12-24 17:13 | ECHRPT ---
Indication: Heart failure, unspecified CONCLUSIONS Normal left ventricular size. Moderate concentric left ventricular hypertrophy. Moderate thickening of the mitral valve leaflets. Trace mitral valve regurgitation. Aortic valve sclerosis is present. There is moderate tricuspid regurgitation. There is estimated mild pulmonary hypertension present (48mmHg). The pulmonary valve is not well visualized. BP: 141 / 56 HR: 55 Rhythm: Sinus MEASUREMENTS (Male / Female) Normal Values Technical Quality:Good 2D ECHO LV Diastolic Diameter PLAX 3.5 cm 4.2 - 5.9 / 3.9 - 5.3 cm LV Systolic Diameter PLAX 2.7 cm IVS Diastolic Thickness 1.7 cm 0.6 - 1.0 / 0.6 - 0.9 cm LVPW Diastolic Thickness 1.0 cm 0.6 - 1.0 / 0.6 - 0.9 cm LV Relative Wall Thickness 0.8 RV Internal Dim ED PLAX 1.8 cm LA Systolic Diameter LX 3.2 cm 3.0 - 4.0 / 2.7 - 3.8 cm DOPPLER AV Peak Velocity 183.0 cm/s AV Peak Gradient 13.4 mmHg LVOT Peak Velocity 103.0 cm/s LVOT Peak Gradient 4.2 mmHg MV Peak Velocity 228.0 cm/s MV Peak Gradient 20.8 mmHg MV Mean Velocity 76.5 cm/s MV Mean Gradient 4.0 mmHg Mitral E Point Velocity 167.0 cm/s Mitral A Point Velocity 66.3 cm/s Mitral E to A Ratio 2.5 TR Peak Velocity 309.0 cm/s TR Peak Gradient 38.2 mmHg FINDINGS LEFT VENTRICLE Normal left ventricular size. Moderate concentric left ventricular hypertrophy. The left ventricular systolic function is normal with an estimated ejection fraction in the range of 60-65%. RIGHT VENTRICLE Normal right ventricular size and systolic function. LEFT ATRIUM The left atrial size is normal. RIGHT ATRIUM The right atrial size is normal. ATRIAL SEPTUM Normal atrial septal thickness without atrial level shunting by limited color doppler interrogation. AORTA The aortic root and proximal ascending aorta are normal in size on limited imaging. MITRAL VALVE Moderate thickening of the mitral valve leaflets. Trace mitral valve regurgitation. AORTIC VALVE Aortic valve sclerosis is present. TRICUSPID VALVE There is moderate tricuspid regurgitation. There is estimated mild pulmonary hypertension present (48mmHg). PULMONARY VALVE The pulmonary valve is not well visualized. VESSELS The inferior vena cava is normal in size. PERICARDIUM No pericardial effusion. Alex Delacruz MD (Electronically Signed) Final Date:24 December 2016 17:12
--- NOTE | 2016-12-24 17:23 | RADRPT ---
EXAM DATE/TIME: 12/24/2016 14:45 [facility] COMPARISON: No previous studies available for comparison. INDICATIONS : Worsening renal function. MEDICAL HISTORY : Congestive heart failure. Hypertension. Stroke. Dyspnea. Arthritis. Endocrine disorder. SURGICAL HISTORY : section. Bilateral cataract. Cardiac cath. ENCOUNTER: Initial ACUITY: 1 day PAIN SCORE: 0/10 LOCATION: Bilateral flank MEASUREMENTS: RIGHT KIDNEY: 10.4 x 4.5 x 3.9 cm LEFT KIDNEY: 11.2 x 4.3 x 5.4 cm FINDINGS: RIGHT KIDNEY: Renal cortex is normal in thickness and echotexture. No hydronephrosis, stone, or mass. LEFT KIDNEY: Renal cortex is normal in thickness and echotexture. No hydronephrosis, stone, or mass. BLADDER: Likely decompressed and not visualized. Incidental note of bilateral pleural effusions. CONCLUSION: 1. No evidence for obstructive uropathy. 2. Bladder is not visualized and likely completely decompressed. 3. Bilateral pleural effusions. Pacheco Rubio MD on December 24, 2016 at 17:20 Board Certified Radiologist. This report was verified electronically.
--- NOTE | 2016-12-24 21:25 | MB ---
cc: LAWANDA CONCEPCION MD DATE OF CONSULTATION 12/24/16 REASON FOR CONSULTATION Elevated BUN and creatinine for evaluation. HISTORY OF PRESENT ILLNESS This is a 76-year-old female with past medical history of hypertension, diabetes mellitus, ischemic heart disease, history of cerebrovascular accident, possible chronic kidney disease, came to the hospital because of worsening shortness of breath. I was called to see the patient because of elevated BUN and creatinine. The patient went to [facility] and she has elevated creatinine there and was seen by Dr. Nicolas and was told that she has some kidney dysfunction. Looking back it seems like her creatinine has been 1.1-1.3 in December of 2015. The patient denies any known history of renal disease before. She has history of ischemic heart disease and was recommended to go for coronary artery bypass grafting. This was about a year ago and at that time she refused that. She did not have any chest pain but she has this worsening shortness of breath more with exertion, has mild cough. There is no palpitation, no nausea, vomiting. No history of diarrhea. No dysuria, hematuria. She has pain in the both feet because of the neuropathy from diabetes and has been taking gabapentin and also taking Advil. According to her Advil is more effective than gabapentin. PAST MEDICAL HISTORY Hypertension, diabetes mellitus, peripheral neuropathy, ischemic heart disease, possible congestive heart failure, chronic kidney disease with some acute worsening. PAST SURGICAL HISTORY Cardiac catheterization, section, PEG placement and removal. REVIEW OF SYSTEMS The patient has generalized weakness, feeling tired, has worsening shortness of breath, more with exertion. There is no chest pain or palpitation. No history of fever. Has cough which is mainly dry. No nausea, vomiting. No abdominal pain. No history of diarrhea. She has pain and numbness in her feet because of diabetic nephropathy. SOCIAL HISTORY Patient . There is past history of smoking. Occasionally drinks alcoholic beverages. FAMILY HISTORY Noncontributory. ALLERGIES She has multiple allergies including lovastatin, lactobacillus and thermophilus. MEDICATION Currently she is on: 1. Neurontin 300 milligrams b.i.d. 2. Levemir 56 units b.i.d. 3. Aspirin 81 milligrams daily. 4. Plavix 75 milligrams once a day. 5. Metoprolol 25 milligrams once a day. 6. Insulin aspart sliding scale. 7. Narcan as needed. PHYSICAL EXAMINATION GENERAL: On examination the patient is awake, alert. She is sitting in the chair, not in acute distress. VITAL SIGNS: The last blood pressure 142/69, temperature is 97.5, oxygen saturation 96%. HEENT: Pupils are mid constricted. Nonicteric sclera, conjunctiva pale. NECK: Supple. JVD is not elevated. LUNGS: The patient has bilateral decreased air entry with occasional wheezing. HEART: S1-S2. Regular rhythm. ABDOMEN: Abdomen is soft, lax, ___ obese. There is no tenderness. EXTREMITIES: She has 1+ leg edema. INVESTIGATION WBC count is 14.5, hemoglobin 10.2, platelet count 198, neutrophils 66.3, sodium is 140. Potassium 4.6, chloride 105, bicarb 24.6, BUN 54, creatinine 2.2, glucose 132, calcium 8.9. Troponin I 0.02. BNP is 1149, INR is 1.1. Urinalysis showing that there is no proteinuria. IMAGING STUDIES The patient had ultrasound of the kidneys done which shows that both kidneys are normal in size. No evidence of obstruction. Bladder not visualized. Bilateral pleural effusions. Chest x-ray was done which shows no acute lung disease identified. VQ scan of the lung was done which was negative for any pulmonary embolism. CARDIOLOGY STUDIES Echocardiogram was done which shows that her left ventricular size is normal. There is concentric left ventricular hypertrophy. The ejection fraction estimated at 60-65%. No pericardial effusion. ASSESSMENT/PLAN 1. Chronic kidney disease, acute kidney injury. 2. Shortness of breath with possibility of diastolic dysfunction. 3. Diabetes mellitus. 4. Hypertension. 5. Anemia. 6. The patient has no proteinuria and normal size kidneys. Most likely she has hypertensive or diabetic renal disease with chronic kidney disease and there is some acute worsening possibly related to cardiorenal syndrome. At present she he is not on any diuretic. She got just one dose of Lasix. She possibly has some acute damage also because of the nonsteroidal anti-inflammatory drugs. I discussed with the patient and told her to avoid taking that. The creatinine is slightly better, now is 2.2 so possibly there is an acute element. The patient wants to follow with Dr. Nicolas after discharge since he is also taking care of her . If the creatinine continued to improve the patient can be discharged from the nephrology standpoint. Thank you for the consultation. Dr. Venegas will follow the patient over the weekend. MD SANAM AustinJ/EO /7:26 PM /9:04 PM
[2016-12-24] MEDS: GABAPENTIN 300 MG CAP PO SCH (21:52)
[2016-12-25 00:15] VITALS: PULSE 57
[2016-12-25 03:52] VITALS: BP 161/72; PULSE 56; RESP 16; TEMP 97.9; O2SAT 96
[2016-12-25 04:05] VITALS: PULSE 55
[2016-12-25 06:47] LABS: AUTOMATED NEUTROPHIL # 6.9 TH/MM3 (1.8-7.7); BASOPHIL # 0.1 TH/MM3 (0-0.2); BASOPHIL % 0.9 % (0.0-2.0); EOSINOPHIL # 0.4 TH/MM3 (0-0.4); HEMO FLAGS DIFF FINAL; LYMPH % 27.8 % (9.0-44.0); LYMPHOCYTE # 3.3 TH/MM3 (1.0-4.8); MEAN CELL VOLUME 96.2 FL (80.0-100.0); MEAN CORPUSCULAR HGB CONC 33.3 % (32.0-36.0); MONO % 9.3 % (0.0-8.0); PLATELET COUNT 232 TH/MM3 (150-450); RED BLOOD COUNT 3.22 MIL/MM3 (4.00-5.30); RED CELL DISTRIBUTION WIDTH 13.9 % (11.6-17.2); WHITE BLOOD COUNT 11.8 TH/MM3 (4.0-11.0)
[2016-12-25] MEDS: INSULIN ASPART SUPPLEMENTAL SCALE SQ SCH (07:00)
[2016-12-25 07:19] VITALS: BP 185/78; PULSE 55; RESP 16; TEMP 97.5; O2SAT 97
[2016-12-25 07:24] LABS: POTASSIUM 4.1 MEQ/L (3.5-5.1)
[2016-12-25] MEDS: GABAPENTIN 300 MG CAP PO SCH (08:27)
[2016-12-25] MEDS: INSULIN DETEMIR 100 UNITS/ML VIAL SQ SCH (08:27)
[2016-12-25] MEDS: SODIUM CHLORIDE 0.9% FLUSH 10 ML FLUSH IV FLUSH SCH (08:27)
--- NOTE | 2016-12-25 08:40 | PD.CARD.PN ---
Subjective Subjective Remarks " I feel better" Objective Medications Current Medications Medications (Trade) Dose Ordered Sig/Helene Route Start Time Stop Time Status Last Admin (NS Flush) 2 ml UNSCH PRN IV FLUSH 12/23/16 23:30 (NS Flush) 2 ml BID IV FLUSH 12/24/16 09:00 12/25/16 08:27 (Narcan Inj) 0.4 mg UNSCH PRN IV 12/23/16 23:30 (Aspirin Chew) 81 mg DAILY CHEW 12/25/16 09:00 12/25/16 08:27 (Plavix) 75 mg DAILY PO 12/25/16 09:00 12/25/16 08:27 (Neurontin) 300 mg BID PO 12/24/16 21:00 12/25/16 08:27 (Lopressor) 25 mg DAILY PO 12/25/16 09:00 12/25/16 08:27 (D50w (Vial) Inj) 50 ml UNSCH PRN IV 12/24/16 10:15 (Glucagon Inj) 1 mg UNSCH PRN OTHER 12/24/16 10:15 (NovoLOG SUPPLEMENTAL SCALE) 1 ACHS SLIDING SCALE SQ 12/24/16 11:00 12/24/16 21:52 (Levemir Inj) 56 units BID SQ 12/24/16 11:15 12/24/16 21:51 Vital Signs / I&O Vital Signs Date Time Temp Pulse Resp B/P (MAP) Pulse Ox O2 Delivery O2 Flow Rate FiO2 12/25/16 07:19 97.5 55 16 185/78 (113) 97 12/25/16 04:05 55 12/25/16 03:52 97.9 56 16 161/72 (101) 96 12/25/16 00:15 57 12/24/16 23:34 97.5 61 17 168/72 (104) 98 12/24/16 20:05 54 12/24/16 19:41 97.8 55 12 139/59 (85) 98 12/24/16 18:00 55 12/24/16 15:37 97.5 54 18 142/69 (93) 96 12/24/16 12:00 49 12/24/16 11:35 98.1 50 16 114/50 (71) 97 I/O 12/24/16 12/24/16 12/24/16 12/25/16 8/26/17 8/26/17 07:00 15:00 23:00 07:00 15:00 23:00 Intake Total 50 ml Balance 50 ml Intake Oral 50 ml Physical Exam GENERAL: Well-nourished, well-developed patient. SKIN: Warm and dry. HEAD: Normocephalic. EYES: No scleral icterus. No injection or drainage. NECK: Supple, trachea midline. No JVD or lymphadenopathy. CARDIOVASCULAR: Regular rate and rhythm without murmurs, gallops, or rubs. RESPIRATORY: Breath sounds equal bilaterally. No accessory muscle use. GASTROINTESTINAL: Abdomen soft, non-tender, nondistended. EXTREMITIES: No cyanosis, or edema. NEUROLOGICAL: Awake, alert, and oriented x 3. Non-focal. Laboratory Laboratory Tests Test 12/24/16 09:10 12/25/16 06:24 Total Creatine Kinase 67 U/L Troponin I 0.02 NG/ML White Blood Count 11.8 TH/MM3 Red Blood Count 3.22 MIL/MM3 Hemoglobin 10.3 GM/DL Hematocrit 31.0 % Mean Corpuscular Volume 96.2 FL Mean Corpuscular Hemoglobin 32.0 PG Mean Corpuscular Hemoglobin Concent 33.3 % Red Cell Distribution Width 13.9 % Platelet Count 232 TH/MM3 Mean Platelet Volume 8.7 FL Neutrophils (%) (Auto) 59.0 % Lymphocytes (%) (Auto) 27.8 % Monocytes (%) (Auto) 9.3 % Eosinophils (%) (Auto) 3.0 % Basophils (%) (Auto) 0.9 % Neutrophils # (Auto) 6.9 TH/MM3 Lymphocytes # (Auto) 3.3 TH/MM3 Monocytes # (Auto) 1.1 TH/MM3 Eosinophils # (Auto) 0.4 TH/MM3 Basophils # (Auto) 0.1 TH/MM3 CBC Comment DIFF FINAL Differential Comment Blood Urea Nitrogen 47 MG/DL Creatinine 1.74 MG/DL Random Glucose 49 MG/DL Calcium Level 8.6 MG/DL Sodium Level 138 MEQ/L Potassium Level 4.1 MEQ/L Chloride Level 102 MEQ/L Carbon Dioxide Level 27.0 MEQ/L Anion Gap 9 MEQ/L Estimat Glomerular Filtration Rate 28 ML/MIN Assessment and Plan Problem List: (1) CHF (congestive heart failure) ICD Codes: I50.9 - Heart failure, unspecified Status: Acute Plan: Plan: 1. Cont ASA, Plavix, 2. Start Imdur 30mg PO daily 3. Start Norvasc 5mg PO daily Sign off (2) CAD (coronary artery disease) ICD Codes: I25.10 - Atherosclerotic heart disease of [place] coronary artery without angina pectoris Status: Chronic (3) MYCHAL (acute kidney injury) ICD Codes: N17.9 - Acute kidney failure, unspecified Status: Acute (4) DM (diabetes mellitus) ICD Codes: E11.9 - Type 2 diabetes mellitus without complications Status: Chronic (5) Dysphagia as late effect of cerebrovascular accident (CVA) ICD Codes: I69.391 - Dysphagia following cerebral infarction Status: Acute (6) HTN (hypertension) ICD Codes: I10 - Essential (primary) hypertension Status: Chronic (7) Shortness of breath ICD Codes: R06.02 - Shortness of breath Status: Acute (8) Chest pain ICD Codes: R07.9 - Chest pain, unspecified Status: Acute Problem Qualifiers (1) CHF (congestive heart failure): Qualified Codes: I50.9 - Heart failure, unspecified (2) Chest pain: Qualified Codes: R07.9 - Chest pain, unspecified Lowry-Alex Stephens MD Dec 25, 2016 08:40
[2016-12-25] MEDS ORDERED: CLOPIDOGREL 75 MG TAB PO SCH (09:00)
[2016-12-25] MEDS ORDERED: amLODIPine BESYLATE 5 MG TAB PO SCH (09:00)
[2016-12-25] MEDS ORDERED: ASPIRIN 81 MG CHEW TAB CHEW SCH (09:00)
[2016-12-25] MEDS ORDERED: METOPROLOL TARTRATE 25 MG TAB PO SCH (09:00)
[2016-12-25 10:32] VITALS: PULSE 62
[2016-12-25 11:00] VITALS: BP 136/62; O2SAT 92
[2016-12-25] MEDS ORDERED: AMLO5 PO (11:06)
[2016-12-25] MEDS ORDERED: ISOS30TA3 PO (11:06)
--- NOTE | 2016-12-25 11:06 | HHI.DCPOC ---
Discharge Care Plan Diagnosis: (1) HTN (hypertension) (2) DM (diabetes mellitus) (3) CAD (coronary artery disease) (4) Acute kidney injury (5) CHF (congestive heart failure) (6) Shortness of breath Goals to Promote Your Health * To prevent worsening of your condition and complications * To maintain your health at the optimal level Directions to Meet Your Goals Take your medications as prescribed Follow your dietary instruction Follow activity as directed Keep your appointments as scheduled Take your immunizations and boosters as scheduled If your symptoms worsen call your PCP, if no PCP go to Urgent Care Center or Emergency Room Smoking is Dangerous to Your Health. Avoid second hand smoke Call the 24-hour hour crisis hotline for domestic abuse at Mehnaz Mcgraw PA-C Dec 25, 2016 11:06
--- NOTE | 2016-12-25 11:28 | HHI.PR ---
Subjective Remarks Follow up for MYCHAL, chest pain, shortness of breath. The patient reports feeling much better today and wants to go home. She denies any further chest pains or shortness of breath. She has ambulated without difficulty. She admits to heavy sodium use, counseled on restricting sodium intake. She has no other medical complaints at this time. Objective Vitals Vital Signs Date Time Temp Pulse Resp B/P (MAP) Pulse Ox O2 Delivery O2 Flow Rate FiO2 12/25/16 11:00 136/62 (86) 92 12/25/16 10:32 62 12/25/16 07:19 97.5 55 16 185/78 (113) 97 12/25/16 04:05 55 12/25/16 03:52 97.9 56 16 161/72 (101) 96 12/25/16 00:15 57 12/24/16 23:34 97.5 61 17 168/72 (104) 98 12/24/16 20:05 54 12/24/16 19:41 97.8 55 12 139/59 (85) 98 12/24/16 18:00 55 12/24/16 15:37 97.5 54 18 142/69 (93) 96 12/24/16 12:00 49 12/24/16 11:35 98.1 50 16 114/50 (71) 97 I/O 12/24/16 12/24/16 12/24/16 12/25/16 12/25/16 12/25/16 07:00 15:00 23:00 07:00 15:00 23:00 Intake Total 50 ml Balance 50 ml Intake Oral 50 ml Result Diagram: 12/25/16 0624 12/25/16 0624 Imaging Last Impressions Renal Ultrasound 12/24/16 0000 Signed Impressions: Service Date/Time: Saturday, December 24, 2016 14:45 - CONCLUSION: 1. No evidence for obstructive uropathy. 2. Bladder is not visualized and likely completely decompressed. 3. Bilateral pleural effusions. Pacheco Rubio MD Chest X-Ray [id number]/[id number] Signed Impressions: Service Date/Time: November 21:24 - CONCLUSION: Stable chest x-ray. No acute cardiopulmonary abnormality is identified. Joe Ellsworth MD Lung Scan- Nuclear Medicine 12/23/16 0000 Signed Impressions: Service Date/Time: Saturday, December 24, 2016 00:55 - CONCLUSION: Normal examination. Josef Villanueva MD Objective Remarks GENERAL: Well-nourished, well-developed elderly female patient in NAD. SKIN: Warm and dry. No rash. HEENT: Normocephalic. Atraumatic.Pupils equal and round. Mucous membranes pink and moist. CARDIOVASCULAR: Regular rate and rhythm. S1, S2 noted. No murmur appreciated. RESPIRATORY: No accessory muscle use. Clear to auscultation. Breath sounds equal bilaterally. GASTROINTESTINAL: Abdomen soft, non-tender, nondistended. Normoactive bowel sounds x4. MUSCULOSKELETAL: No obvious deformities. Extremities without clubbing, cyanosis , or edema. NEUROLOGICAL: Awake and alert. No obvious cranial nerve deficits. Motor grossly within normal limits. Normal speech. PSYCHIATRIC: Appropriate mood and affect; insight and judgment normal. Medications and IVs Current Medications Medications (Trade) Dose Ordered Sig/Helene Route Start Time Stop Time Status Last Admin (NS Flush) 2 ml UNSCH PRN IV FLUSH 12/23/16 23:30 (NS Flush) 2 ml BID IV FLUSH 12/24/16 09:00 12/25/16 08:27 (Narcan Inj) 0.4 mg UNSCH PRN IV 12/23/16 23:30 (Aspirin Chew) 81 mg DAILY CHEW 12/25/16 09:00 12/25/16 08:27 (Plavix) 75 mg DAILY PO 12/25/16 09:00 12/25/16 08:27 (Neurontin) 300 mg BID PO 12/24/16 21:00 12/25/16 08:27 (Lopressor) 25 mg DAILY PO 12/25/16 09:00 12/25/16 08:27 (D50w (Vial) Inj) 50 ml UNSCH PRN IV 12/24/16 10:15 (Glucagon Inj) 1 mg UNSCH PRN OTHER 12/24/16 10:15 (NovoLOG SUPPLEMENTAL SCALE) 1 ACHS SLIDING SCALE SQ 12/24/16 11:00 12/24/16 21:52 (Levemir Inj) 56 units BID SQ 12/24/16 11:15 12/24/16 21:51 (Imdur) 30 mg DAILY@07 PO 12/26/16 07:00 (Norvasc) 5 mg DAILY PO 12/25/16 09:00 12/25/16 09:30 A/P Assessment and Plan 76-year-old female with a past medical history of CAD, CVA, DM presented for shortness of breath Dyspnea: Suspect secondary to CHF/volume overload. Reviewed: CXR stable with no acute process. VQ scan negative. BNP elevated at 1149 -Consult nephrology and cardiology for assistance with volume management -Given IV Lasix 20mg x1 -Echocardiogram with EF 60-65% mod TR, aortic valve sclerosis, mild pulmonary hypertension -Continue BB -patient counseled on low sodium diet and monitoring weight -SOB much improved, O2 sat stable on room air -cardiology cleared for d/c Chest pain: Reported history of medically managed CAD. Reviewed: Troponin negative 3. EKG with sinus bradycardia and nonspecific ST changes. -Cardiology consulted, no further work up initiated, chest pains resolved -Continue aspirin, Plavix, beta rico -Cardiology started patient on Imdur -outpatient f/up with employment manager Dr. Olmstead MYCHAL on CKD: Creatinine 2.2, previously 1.19 on 01/01/16. -Cr trended 2.37 --> 2.20 --> 1.74 -Renal ultrasound with no acute findings -Nephrology consulted, cleared for discharge with downtrending creatinine -Outpatient follow up with chief librarian branch Dr. Nicolas Diabetes mellitus: -Monitor Accu-Cheks -Resume home Levemir -Continue sliding scale NovoLog coverage Hypertension: BP uncontrolled -Continued patient's metoprolol, d/c lisinopril with MYCHAL -cardiology also added Norvasc and Imdur, BP much improved DVT prophylaxis: SCDs Discharge Planning Patient had a remarkable response to treatment with more rapid improvement than expected. She is being discharged home. PT eval done, no PT needed at discharge. Discharge patient to home Condition on discharge: Improved Heart Healthy/Diabetic Diet as tolerated Ad Bridgette activity Rx written: Norvasc 5 mg daily, Imdur 30 mg daily Follow-up with primary care physician Dr. Bond, employment manager Dr. Olmstead, chief librarian branch Dr. Maria Isabel Mcgraw,Mehnaz Ireland PA-C Dec 25, 2016 11:28
--- NOTE | 2016-12-25 18:52 | EKG ---
Date Performed: 12/24/2016 Time Performed: 09:10:25 PTAGE: 76 years EKG: JUNCTIONAL RHYTHM NONSPECIFIC ST & T-WAVE ABNORMALITY ABNORMAL ECG PREVIOUS TRACING : 12/24/2016 03.49 Compared to prior tracing no significant change DOCTOR: Keyona Tavarez Interpretating Date/Time 12/25/2016 18:52:05
[2016-12-26] MEDS ORDERED: ISOSORBIDE MONONITRATE 30 MG TAB PO SCH (07:00)
[2017-01-31] MEDS ORDERED: GABA300C5 PO (10:54)
== END 2016-12-25 11:57 | disposition home or self-care (01) | DRG 292 ==
LOC: NEPC 20:05 → NEDA 23:17 → NEPHCDU 12-24 01:49 → OBSVTOIN 12-24 11:09
PROVIDERS: ADMIT Family Medicine; ATTEND Family Medicine
DX: I13.0 Hypertensive heart and chronic kidney disease with heart failure and stage 1 through stage 4 chronic kidney disease, or unspecified chronic kidney disease (principal); N17.9 Acute kidney failure, unspecified; E11.22 Type 2 diabetes mellitus with diabetic chronic kidney disease; E11.42 Type 2 diabetes mellitus with diabetic polyneuropathy; D64.9 Anemia, unspecified; I50.9 Heart failure, unspecified; R07.9 Chest pain, unspecified; M19.90 Unspecified osteoarthritis, unspecified site; F41.9 Anxiety disorder, unspecified; I25.10 Atherosclerotic heart disease of native coronary artery without angina pectoris; N18.9 Chronic kidney disease, unspecified; E11.649 Type 2 diabetes mellitus with hypoglycemia without coma; E78.00 Pure hypercholesterolemia, unspecified; I27.2 Other secondary pulmonary hypertension; I35.8 Other nonrheumatic aortic valve disorders; Z79.4 Long term (current) use of insulin; I69.391 Dysphagia following cerebral infarction; Z87.891 Personal history of nicotine dependence
CPT/HCPCS: 71010; 76775; 78582; 80048; 81001; 82550; 82552; 82948; 83735; 83880; 84484; 85025; 85610; 85730; 93005; 93306; 94640; 94664; 99285; A9540; A9567; G0378; G8987-GP; G8988-GP; J1815; J1940

== ENCOUNTER 2016-12-31 13:56 | Inpatient (IN) | payer OTHER, MEDICARE ==
[~2016-12-31] VITALS: Ht 154.9 cm; Wt 79.0 kg
[2016-12-31] VITALS (10 sets, daily range): BP systolic 115–188; BP diastolic 53–92; PULSE 38–104; RESP 14–20; TEMP 98.8–98.9; O2SAT 93–99
[~2016-12-31 13:56] MED LIST changes: +AMLO5 PO; -AMLO5TAB2 PO; +ASPI81CH CHEW; -COEN100C; +FOLI400T PO; -FURO40TA PO; -INSUINJ3 SQ; +ISOS30TA3 PO; -LIPI20TA PO; -MELA5TAB15 PO; +NITR1SUB3 SL; -PANT40TA3 PO; -ZETI10TA5 PO
--- NOTE | 2016-12-31 15:02 | PD ---
Physical Exam Date Seen by Provider: Dec 31, 2016 Time Seen by Provider: 14:59 Narrative 76 yr old female with DM, HTN, CHF, here with trouble breathing. Recently discharged 2 days ago for heart failure. Tells me she was put on two meds and thinks this could be the issues. states she may have had seizures while sitting in the lobby. She c/o confusion for 2 days. PCP Varun. Data Data Last Documented VS Vital Signs Date Time Temp Pulse Resp B/P (MAP) Pulse Ox O2 Delivery O2 Flow Rate FiO2 12/31/16 15:01 98.9 104 20 163/92 (115) 97 MDM Medical Record Reviewed: Yes Supervised Visit with CAMERON: No Condition: Stable Gauri Hassan Dec 31, 2016 15:02
[2016-12-31] MEDS ORDERED: SODIUM CHLORIDE 0.9% FLUSH 10 ML FLUSH IVF PRN ×2 (15:15)
[2016-12-31 15:37] LABS: AUTOMATED NEUTROPHIL # 10.7 TH/MM3 (1.8-7.7); BASOPHIL # 0.1 TH/MM3 (0-0.2); BASOPHIL % 0.6 % (0.0-2.0); EOSINOPHIL % 0.2 % (0.0-4.0); HEMATOCRIT 37.3 % (35.0-46.0); HEMO FLAGS DIFF FINAL; LYMPHOCYTE # 1.7 TH/MM3 (1.0-4.8); MEAN CELL VOLUME 96.9 FL (80.0-100.0); MEAN CORPUSCULAR HEMOGLOBIN 30.7 PG (27.0-34.0); MEAN CORPUSCULAR HGB CONC 31.7 % (32.0-36.0); MONO % 4.9 % (0.0-8.0); NEUT % 81.3 % (16.0-70.0); PLATELET COUNT 286 TH/MM3 (150-450); RED BLOOD COUNT 3.85 MIL/MM3 (4.00-5.30); RED CELL DISTRIBUTION WIDTH 14.4 % (11.6-17.2); WHITE BLOOD COUNT 13.1 TH/MM3 (4.0-11.0)
[2016-12-31 15:54] LABS: APTT (PATIENT) 24.7 SEC (24.3-30.1); PROTHROMBIN TIME - PATIENT 10.7 SEC (9.8-11.6)
[2016-12-31 16:11] LABS: POTASSIUM 6.5 MEQ/L (3.5-5.1)
[2016-12-31] MEDS ORDERED: FUROSEMIDE 40 MG/4 ML VIAL IV PUSH ONE (16:15)
--- NOTE | 2016-12-31 16:16 | RADRPT ---
EXAM DATE/TIME: 12/31/2016 15:35 [facility] COMPARISON: CHEST PA & LAT, December 29, 2015, 17:17. INDICATIONS : Patient complains of shortness of breath. Patient was here two days ago for shortness of breath. MEDICAL HISTORY : Hypertension. Myocardial infarction. Cardiovascular disease. Diabetic. SURGICAL HISTORY : Cardiac catheterization. ENCOUNTER: Initial ACUITY: 1 day PAIN SCORE: 0/10 LOCATION: chest FINDINGS: PA and lateral views the chest show interstitial prominence to the lungs which is a new finding. Tiny effusions blunt the posterior costophrenic sulci bilaterally. These are new. Heart is mildly enlarge d. Bony structures are unremarkable. CONCLUSION: Bilateral interstitial prominence with small effusions and cardiomegaly. Interstitial edema suspected . Trace Flood Jr., MD on December 31, 2016 at 16:09 Board Certified Radiologist. This report was verified electronically.
[2016-12-31] MEDS ORDERED: ATROPINE SULFATE 1 MG/10 ML SYRINGE ONE (16:31)
[2016-12-31] MEDS ORDERED: SODIUM BICARBONATE 8.4% SOLN 50 MEQ/50 ML VIAL SLOW IVP ONE (16:45)
[2016-12-31] MEDS ORDERED: DEXTROSE 50% IN WATER 50 ML VIAL(D50) IV PUSH ONE (16:45)
[2016-12-31] MEDS ORDERED: INSULIN HUMAN REGULAR 1,000 UNITS/10 ML VIAL IV PUSH ONE (16:45)
[2016-12-31] MEDS ORDERED: SODIUM POLYSTYRENE SULFONATE SUSP 15 GM/60 ML CUP PO ONE (16:45)
[2016-12-31] MEDS ORDERED: CALCIUM GLUCONATE 10% 1 GM/10 ML VIAL SLOW IVP ONE (16:45)
[2016-12-31] MEDS ORDERED: DEXTROSE 50% IN WATER 50 ML SYRINGE IV ONE (17:00)
--- NOTE | 2016-12-31 17:23 | PD ---
HPI Chief Complaint: Respiratory Symptoms Time Seen by Provider: 16:13 Travel History International Travel<30 days: No Contact w/Intl Traveler<30days: No Traveled to known affect area: No History of Present Illness HPI Patient is a 76-year-old female with history of CAD, CVA, diabetes, returns to emergency room for evaluation of shortness of breath. Patient reports that she was discharged from the hospital 2 days ago after evaluation for CHF. Patient reports that she was initially admitted to the hospital because shortness of breath. Patient reports that for the past 2 days, she is not feeling any better. Patient reports that she still feels very short of breath at rest as well as exertion. Patient denies any chest pain at this time, denies any fevers or chills. Patient denies any headache or dizziness. Patient's reports the patient had a seizure-like episode while sitting the lobby care prior to coming into the emergency room. Patient with complaints of shortness of breath at this time. PFSH Past Medical History Arthritis: Yes Asthma: No Autoimmune Disease: No Anxiety: Yes Depression: No Heart Rhythm Problems: Yes (chf) Cancer: No Cardiac Catheterization: Yes (twice) Cardiovascular Problems: Yes (HTN, CHF) High Cholesterol: No Chemotherapy: No Chest Pain: Yes Congestive Heart Failure: Yes COPD: No Cerebrovascular Accident: Yes (CVA X 10 YEARS AGO AND CVA X3 RECENT 2016) Diabetes: Yes Patient Takes Glucophage: No Endocrine: Yes GERD: No Genitourinary: No Headaches: Yes (OCCASIONAL ) Hiatal Hernia: No Hypertension: Yes Immune Disorder: No Kidney Stones: No Musculoskeletal: Yes Neurologic: Yes (strtoke 10 years ago) Psychiatric: Yes Reproductive: No Respiratory: Yes Migraines: No Radiation Therapy: No Renal Failure: No Seizures: No Sickle Cell Disease: No Sleep Apnea: No Thyroid Disease: No Ulcer: No Past Surgical History Abdominal Surgery: No AICD: No Arteriovenous Shunt: No Cardiac Surgery: Yes (cath procedure) Coronary Artery Bypass Graft: No Ear Surgery: No Endocrine Surgery: No Eye Surgery: Yes (BILATERAL CATARACT SURGERY) Genitourinary Surgery: No Gynecologic Surgery: No Insulin Pump: No Joint Replacement: No Oral Surgery: No Pacemaker: No Thoracic Surgery: No Other Surgery: Yes (2 C-SECTIONS) Social History Alcohol Use: No Tobacco Use: No Substance Use: No Allergies-Medications (Allergen,Severity, Reaction): Coded Allergies: Lactobacillus acidophilus (Verified Allergy, Severe, 12/31/16) Lactobacillus bulgaricus (Verified Allergy, Severe, 12/31/16) Lactobacillus gasseri (Verified Allergy, Severe, 12/31/16) Streptococcus thermophilus (Verified Allergy, Severe, 12/31/16) lovastatin (Verified Allergy, Severe, 12/31/16) N/V Reported Meds & Prescriptions Reported Meds & Active Scripts Active Norvasc (Amlodipine Besylate) 5 Mg Tab 5 Mg PO DAILY Isosorbide Mononitrate ER (Isosorbide Mononitrate) 30 Mg Conrad 30 Mg PO DAILY@07 Gabapentin 300 Mg Cap 300 Mg PO BID Reported Metoprolol Tartrate 25 Mg Tab 25 Mg PO DAILY Levemir Inj (Insulin Detemir) 1,000 unit/ 10 ML Vial 56 Units SQ BID Do not mix with any other Insulin. Nitroglycerin SL (Nitroglycerin) 0.4 Mg Subl 0.4 Mg SL DIRECTED PRN ONE TABLET UNDER THE TONGUE NEEDED FOR CHEST PAIN, MAY REPEAT EVERY FIVE MINUTES FOR A TOTAL OF 3 DOSES OR CALL 911 IF NO RELIEF Folic Acid 400 Mcg Tab 400 Mcg PO DAILY Aspirin 81 Mg Chew 81 Mg CHEW DAILY Novolin N U-100 Inj (Insulin NPH (Human) (Isophane) Inj) 100 Unit/Ml Inj 1 Units SLIDING SCALE Plavix (Clopidogrel Bisulfate) 75 Mg Tab 75 Mg PO DAILY Review of Systems General / Constitutional: No: Fever Eyes: No: Visual changes HENT: No: Headaches Cardiovascular: No: Chest Pain or Discomfort Respiratory: Positive: Shortness of Breath Gastrointestinal: No: Abdominal Pain Genitourinary: No: Dysuria Musculoskeletal: No: Pain Skin: No Rash Neurologic: No: Weakness Psychiatric: No: Depression Endocrine: No: Polydipsia Hematologic/Lymphatic: No: Easy Bruising Physical Exam Narrative GENERAL: Moderate distress SKIN: Focused skin assessment warm/dry. HEAD: Atraumatic. Normocephalic. EYES: Pupils equal and round. No scleral icterus. No injection or drainage. ENT: No nasal bleeding or discharge. Mucous membranes pink and moist. NECK: Trachea midline. No JVD. CARDIOVASCULAR: Bradycardic. No murmur appreciated. RESPIRATORY: No accessory muscle use. Clear to auscultation. Breath sounds equal bilaterally. GASTROINTESTINAL: Abdomen soft, non-tender, nondistended. Hepatic and splenic margins not palpable. MUSCULOSKELETAL: No obvious deformities. No clubbing. No cyanosis. No edema. NEUROLOGICAL: Awake and alert. No obvious cranial nerve deficits. Motor grossly within normal limits. Normal speech. PSYCHIATRIC: Appropriate mood and affect; insight and judgment normal. Data Data Last Documented VS Vital Signs Date Time Temp Pulse Resp B/P (MAP) Pulse Ox O2 Delivery O2 Flow Rate FiO2 12/31/16 18:10 40 18 180/74 (109) 99 Room Air 12/31/16 17:25 2.00 12/31/16 15:01 98.9 Orders Orders Complete Blood Count With Diff (12/31/16 15:03) Basic Metabolic Panel (Bmp) (12/31/16 15:03) B-Type Natriuretic Peptide (12/31/16 15:03) Urinalysis - C+S If Indicated (12/31/16 15:03) Electrocardiogram (12/31/16 15:03) Sodium Chloride 0.9% Flush (Ns Flush) (12/31/16 15:15) Act Partial Throm Time (Ptt) (12/31/16 15:04) Prothrombin Time / Inr (Pt) (12/31/16 15:04) Sodium Chloride 0.9% Flush (Ns Flush) (12/31/16 15:15) Chest, Pa & Lat (12/31/16 15:03) Furosemide Inj (Lasix Inj) (12/31/16 16:15) Atropine Inj (Atropine Inj) (12/31/16 16:31) Magnesium (Mg) (12/31/16 16:35) Potassium, Serum (K) (12/31/16 19:35) Calcium Gluconate Inj (Calcium Gluconate (12/31/16 16:45) Insulin Human Regular Inj (Novolin R Inj (12/31/16 16:45) Sodium Bicarbonate 8.4% Inj (Sodium Bica (12/31/16 16:45) Sodium Polysty Sulfate Liq (Kayexalate L (12/31/16 16:45) Ct Brain W/O Iv Contrast(Rout) (12/31/16 16:40) Ecg Monitoring (12/31/16 16:40) Oximetry (12/31/16 16:40) Dextrose 50% In Estephanie (Syr) Inj (D50w (Syr (12/31/16 17:00) Atropine Inj (Atropine Inj) (12/31/16 17:30) Atropine Inj (Atropine Inj) (12/31/16 17:45) Admit Order (Ed Use Only) (12/31/16 18:52) Labs Laboratory Tests Test 12/31/16 15:20 12/31/16 16:30 White Blood Count 13.1 TH/MM3 Red Blood Count 3.85 MIL/MM3 Hemoglobin 11.8 GM/DL Hematocrit 37.3 % Mean Corpuscular Volume 96.9 FL Mean Corpuscular Hemoglobin 30.7 PG Mean Corpuscular Hemoglobin Concent 31.7 % Red Cell Distribution Width 14.4 % Platelet Count 286 TH/MM3 Mean Platelet Volume 8.3 FL Neutrophils (%) (Auto) 81.3 % Lymphocytes (%) (Auto) 13.0 % Monocytes (%) (Auto) 4.9 % Eosinophils (%) (Auto) 0.2 % Basophils (%) (Auto) 0.6 % Neutrophils # (Auto) 10.7 TH/MM3 Lymphocytes # (Auto) 1.7 TH/MM3 Monocytes # (Auto) 0.6 TH/MM3 Eosinophils # (Auto) 0.0 TH/MM3 Basophils # (Auto) 0.1 TH/MM3 CBC Comment DIFF FINAL Differential Comment Prothrombin Time 10.7 SEC Prothromb Time International Ratio 1.0 RATIO Activated Partial Thromboplast Time 24.7 SEC Blood Urea Nitrogen 41 MG/DL Creatinine 2.69 MG/DL Random Glucose 282 MG/DL Calcium Level 9.4 MG/DL Sodium Level 136 MEQ/L Potassium Level 6.5 MEQ/L Chloride Level 103 MEQ/L Carbon Dioxide Level 24.0 MEQ/L Anion Gap 9 MEQ/L Estimat Glomerular Filtration Rate 17 ML/MIN B-Type Natriuretic Peptide 936 PG/ML Magnesium Level 2.7 MG/DL MDM Medical Decision Making Medical Screen Exam Complete: Yes Emergency Medical Condition: Yes Interpretation(s) Initial EKG at 1601: Junctional rhythm at 65 bpm EKG at 1626: Bradycardic at 26 bpm Vital Signs Date Time Temp Pulse Resp B/P (MAP) Pulse Ox O2 Delivery O2 Flow Rate FiO2 12/31/16 17:25 44 16 163/71 (101) 98 Nasal Cannula 2.00 12/31/16 16:45 66 12/31/16 16:25 38 16 139/67 (91) 98 Nasal Cannula 2.00 12/31/16 15:01 98.9 104 20 163/92 (115) 97 Differential Diagnosis Differential includes coronary artery disease, CHF, medication overdose, hyperkalemia, possible new onset seizure, electrolyte abnormality Narrative Course 76-year-old female returns to emergency room with complete or shortness of breath. Recently seen and admitted and discharged from the hospital or similar symptoms, patient was admitted for CHF exacerbation. Patient reports that since being home, she has not been feeling any better and return to the emergency for evaluation. Presentation to emergency room, patient is bradycardic with a heart rate in the high 20s. Patient denies chest pain/sob. Patient asymptomatic. Patient was given atropine 0.5mg - HR went up to 66. External pacer pads currently on patiet. 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 BNP 936 - Cr 2.69 which is elevated from baseline Chest x-ray shows bilateral interstitial prominence with small effusions and cardiomegaly, interstitial edema suspected lasix ordered for patient Patient with continued bradycardia. patient asymptomatic will admit to ICU Critical Care Narrative Aggregate critical care time was 30 minutes. Time to perform other separately billable procedures was not included in the critical care time. My time did not include minutes spent treating any other patients simultaneously or on activities that did not directly contribute to the patient's treatment. The services I provided to this patient were to treat and/or prevent clinically significant deterioration that could result in: , decompensation, deterioration I provided critical care services requiring my management, as noted below: Chart data review, documentation time, medication orders and management, vital sign assessments/reviewing monitor data, ordering and reviewing lab tests, ordering and interpreting/reviewing x-rays and diagnostic studies, care of the patient and discussion of the patient with the admitting physicians. Diagnosis Primary Impression: Bradycardia Additional Impressions: CHF exacerbation Hyperkalemia Condition: Stable Sarah Vuong DO Dec 31, 2016 17:23
[2016-12-31] MEDS ORDERED: ATROPINE SULFATE 1 MG/ML VIAL IV PUSH ONE ×2 (17:30→17:45)
--- NOTE | 2016-12-31 19:22 | HHI.HP ---
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 She has known coronary artery disease but refused bypass in the past and indicated that she did not want any invasive testing during her hospitalization. Serial troponins were negative and she was evaluated by cardiology, Dr. Lowry, and she was diuresed and started on Imdur and Norvasc. She was continued on metoprolol. She states that ever since discharge she "has not been thinking right" and has been having "wild dreams". She states she is otherwise neurologically at baseline with left hemiparesis. She and her state that her speech is at baseline but she has intermittently had some confusion. She presented to [facility] emergency department today because she remains dypneic with orthopnea. While in the waiting room she had 2 episodes where her legs stiffened for 10 seconds. These episodes were 15 minutes apart. Her did not take noted any eye deviation. He states she was unresponsive during the episode but has returned quickly to neurologic baseline. She was brought back to the ED when this episode occurred and she was in junctional rhythm in the 20s. She was given atropine and responded with heart rate in the 40s to 50s, hypertensive in the 180s. She is alert and talkative. Pacer pads are in place. Labs indicate MYCHAL overlying CKD with creatinine of 2.69 and potassium of 6.5 without reported hemolysis. She was treated medically with Kayexalate, bicarbonate, insulin, calcium gluconate. Patient denies chest pain, headache, new focal neurologic deficit. Remainder review of systems negative Past Family Social History Allergies: Coded Allergies: Lactobacillus acidophilus (Verified Allergy, Severe, 12/31/16) Lactobacillus bulgaricus (Verified Allergy, Severe, 12/31/16) Lactobacillus gasseri (Verified Allergy, Severe, 12/31/16) Streptococcus thermophilus (Verified Allergy, Severe, 12/31/16) lovastatin (Verified Allergy, Severe, 12/31/16) N/V Past Medical History Stroke reportedly 10 years ago with residual left hemiparesis and incontinence. She states she had an additional stroke after cardiac catheterization Diabetes mellitus Hypertension History of coronary artery disease, previously refused bypass. 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 Olmstead Chronic diastolic heart failure Chronic kidney disease stage 3-4 Past Surgical History Cardiac catheterization. section 2 PEG placement and removal Bilateral cataract surgery Reported Medications Plavix 75 mg by mouth daily Isosorbide mononitrate 30 mils grams by mouth daily Metoprolol 25 mg by mouth daily Norvasc 5 mill grams by mouth daily Aspirin 81 mill grams by mouth daily Gabapentin 100 mg by mouth twice a day Detemir 56 units subcutaneous twice a day Sliding scale...unclear regimen. Folic acid 400 g by mouth to Family History Patient denies family history of coronary artery disease Social History She is formally a 2 pack per day smoker for about 50 years. She quit smoking 10 years ago after her stroke Very rarely drinks alcohol Illicit drug use Her son is a chiropractor who lives in [place]. His number is [phone] Physical Exam Vital Signs Vital Signs Date Time Temp Pulse Resp B/P (MAP) Pulse Ox O2 Delivery O2 Flow Rate FiO2 12/31/16 18:10 40 18 180/74 (109) 99 Room Air 12/31/16 17:25 44 16 163/71 (101) 98 Nasal Cannula 2.00 12/31/16 16:45 66 12/31/16 16:25 38 16 139/67 (91) 98 Nasal Cannula 2.00 12/31/16 15:01 98.9 104 20 163/92 (115) 97 Physical Exam GENERAL: Well-nourished, well-developed patient who is laying in ED stretcher. Alert and talkative. SKIN: Warm and dry, well perfused.. HEAD: Atraumatic. Normocephalic. EYES: Pupils equal and round, reactive bilaterally. No scleral icterus. No injection or drainage. ENT: No nasal bleeding or discharge. Mucous membranes pink and moist. NECK: Trachea midline. No JVD. CARDIOVASCULAR: Regular, heart rate 50s on the monitor.. No murmurs rubs or gallops. RESPIRATORY: No accessory muscle use. Clear to auscultation. Breath sounds equal bilaterally. On room air GASTROINTESTINAL: Abdomen soft, non-tender, nondistended. Bowel sounds present MUSCULOSKELETAL: Extremities without clubbing, cyanosis, or edema. No obvious deformities. NEUROLOGICAL: Awake and alert. Speech seems slightly slurred but patient has been stated this is baseline. Pupils reactive and neck struck her movements intact. Normal tongue protrusion. Strength 5 out of 5 right upper and right lower extremities. Strength 4 out of 5 left upper extremity biceps and triceps. 5 out of 5 left ankle dorsiflexion, 4 out of 5 left ankle plantarflexion. She reports intact sensation to soft touch. She has normal naming. Laboratory Laboratory Tests Test 12/31/16 15:20 12/31/16 16:30 White Blood Count 13.1 Red Blood Count 3.85 Hemoglobin 11.8 Hematocrit 37.3 Mean Corpuscular Volume 96.9 Mean Corpuscular Hemoglobin 30.7 Mean Corpuscular Hemoglobin Concent 31.7 Red Cell Distribution Width 14.4 Platelet Count 286 Mean Platelet Volume 8.3 Neutrophils (%) (Auto) 81.3 Lymphocytes (%) (Auto) 13.0 Monocytes (%) (Auto) 4.9 Eosinophils (%) (Auto) 0.2 Basophils (%) (Auto) 0.6 Neutrophils # (Auto) 10.7 Lymphocytes # (Auto) 1.7 Monocytes # (Auto) 0.6 Eosinophils # (Auto) 0.0 Basophils # (Auto) 0.1 CBC Comment DIFF FINAL Differential Comment Prothrombin Time 10.7 Prothromb Time International Ratio 1.0 Activated Partial Thromboplast Time 24.7 Blood Urea Nitrogen 41 Creatinine 2.69 Random Glucose 282 Calcium Level 9.4 Sodium Level 136 Potassium Level 6.5 Chloride Level 103 Carbon Dioxide Level 24.0 Anion Gap 9 Estimat Glomerular Filtration Rate 17 B-Type Natriuretic Peptide 936 Magnesium Level 2.7 Result Diagram: 12/31/16 1520 12/31/16 1520 Caprini VTE Risk Assessment Caprini VTE Risk Assessment: Mod/High Risk (score >= 2) Caprini Risk Assessment Model Point Value = 1 Point Value = 2 Point Value = 3 Point Value = 5 Age 41-60 Minor surgery BMI > 25 kg/m2 Swollen legs Varicose veins or History of unexplained or recurrent spontaneous Oral contraceptives or hormone replacement Sepsis (< 1 month) Serious lung disease, including pneumonia (< 1 month) Abnormal pulmonary function Acute myocardial infarction Congestive heart failure (< 1 month) History of inflammatory bowel disease Medical patient at bed rest Age 61-74 Arthroscopic surgery Major open surgery (> 45 min) Laparoscopic surgery (> 45 min) Malignancy Confined to bed (> 72 hours) Immobilizing plaster cast Central venous access Age >= 75 History of VTE Family history of VTE Factor V Leiden Prothrombin [id number] Lupus anticoagulant Anticardiolipin antibodies Elevated serum homocysteine Heparin-induced thrombocytopenia Other congenital or acquired thrombophilia Stroke (< 1 month) Elective arthroplasty Hip, pelvis, or leg fracture Acute spinal cord injury (< 1 month) Prophylaxis Regimen Total Risk Factor Score Risk Level Prophylaxis Regimen 0-1 Low Early ambulation 2 Moderate Order ONE of the following: *Sequential Compression Device (SCD) *Heparin 5000 units SQ BID 3-4 Higher Order ONE of the following medications: *Heparin 5000 units SQ TID *Enoxaparin/Lovenox 40 mg SQ daily (WT < 150 kg, CrCl > 30 mL/min) *Enoxaparin/Lovenox 30 mg SQ daily (WT < 150 kg, CrCl > 10-29 mL/min) *Enoxaparin/Lovenox 30 mg SQ BID (WT < 150 kg, CrCl > 30 mL/min) AND/OR *Sequential Compression Device (SCD) 5 or more Highest Order ONE of the following medications: *Heparin 5000 units SQ TID (Preferred with Epidurals) *Enoxaparin/Lovenox 40 mg SQ daily (WT < 150 kg, CrCl > 30 mL/min) *Enoxaparin/Lovenox 30 mg SQ daily (WT < 150 kg, CrCl > 10-29 mL/min) *Enoxaparin/Lovenox 30 mg SQ BID (WT < 150 kg, CrCl > 30 mL/min) AND *Sequential Compression Device (SCD) Assessment and Plan Assessment and Plan NEURO: History of stroke with residual left-sided weakness Acute delirium ?Seizure Had ???seizure event in waiting room though this very likely could be secondary to syncope due to symptomatic bradycardia. Does have h/o stroke with residual L sided weakness but without known h/o seizure Does not appear postictal Describes mental status changes that appear c/w acute delirium ever since recent hospital discharge. Followup CT brain that is pending. Obtain MRI and EEG. Anticonvulsant does not appear to be indicated at this time. Will avoid benzodiazepines. Check B 12, TSH RESP: Dyspnea History of tobacco abuse On room air CXR 12/31 with interstitial opacities consistent with edema.. Received Lasix 60 mg IV. Shortness of breath previously worked up with negative V/Q scan 12/24/16 CV: Acute symptomatic bradycardia Chronic diastolic heart failure Coronary artery disease Hypertension Echo 12/24/16 - Normal left ventricular size with EF 60-65%. +LVH ; moderate thickening of mitral valve leaflets. +Aortic valve sclerosis +mod TR mild pulmonary artery hypertension (48 mmHg) Hold metoprolol due to bradycardia. Atropine 0.5 mg IV as needed for symptomatic bradycardia. Patient is currently hypertensive, alert and communicative without apparent symptoms with heart rate 46-55 so do not feel requires further therapy. Medically treating hyperkalemia which may be contributing.. Holding beta rico Resume Plavix 75 mg by mouth daily is CT brain is negative for hemorrhage Serial cardiac markers. Consult cardiology as she may require pacemaker if symptomatic bradycardia does not improve and to allow for optimization of therapy for chronic diastolic heart failure GI: NPO currently. Speech therapy to evaluate due to history of significant dysphagia FEN/RENAL: Acute hyperkalemia Acute kidney injury overlying chronic kidney disease stage III-IV Chronic urinary incontinence Renal u/s 12/24 - no e/o obstruction. Acute hyperkalemia treated medically with Kayexalate, bicarbonate, insulin, dextrose. Will follow up BMP. Nephrology consult if renal function and hyperkalemia and are not improving ID: Mild leukocytosis (consistently elevated 11-16 during all prior admits...? Chronic aspiration) UA negative for evidence of infection HEME: Coags and hemoglobin normal. Platelet count is normal. ENDO: Diabetes mellitus Patient did not eat dinner tonight. She took detemir this morning. Glucose 102. Will hold detemir. Medium dose insulin sliding scale ac/hs. Follow-up TSH as per above PROPH: Heparin 5000 subcutaneous every 8 hours for DVT prophylaxis if head CT is negative for hemorrhage. Protonix 40 mg by mouth daily for stress ulcer prophylaxis. ACCESS: Peripheral IV providing adequate access at this time. updated. Patient's son is a chiropractor and reportedly he would like an update tomorrow Level III H&P Chioma Carranza MD Dec 31, 2016 19:22
[2016-12-31] MEDS ORDERED: SODIUM CHLORIDE 0.9% FLUSH 10 ML FLUSH IV FLUSH PRN (19:30)
[2016-12-31] MEDS ORDERED: SENNOSIDES 8.6 MG TAB PO PRN (19:30)
[2016-12-31] MEDS ORDERED: MISCELLANEOUS NURSING INFORMATION XX SCH (19:30)
[2016-12-31] MEDS ORDERED: ONDANSETRON HCL 4 MG/2 ML VIAL IV PRN (19:30)
[2016-12-31] MEDS ORDERED: ACETAMINOPHEN 325 MG TAB PO PRN (19:30)
[2016-12-31] MEDS ORDERED: DEXTROSE 50% IN WATER 50 ML VIAL(D50) IV PRN (19:30)
[2016-12-31] MEDS ORDERED: MAGNESIUM HYDROXIDE SUSP 30 ML CUP PO PRN (19:30)
[2016-12-31] MEDS ORDERED: GLUCAGON 1 MG/ML VIAL OTHER PRN (19:30)
[2016-12-31] MEDS ORDERED: RESP: ALBUTEROL 2.5 MG/3 ML NEB (PRN) INH (19:30)
[2016-12-31] MEDS ORDERED: CHLORHEXIDINE GLUCONATE 2 % 1 PACK (2 CLOTHS) TOP PRN (19:30)
[2016-12-31] MEDS ORDERED: BISACODYL 10 MG SUPP RECTAL PRN (19:30)
[2016-12-31] MEDS ORDERED: LACTULOSE SYRUP 20 GM/30 ML CUP PO PRN (19:30)
[2016-12-31 20:24] LABS: BLOOD GAS BASE EXCESS 1.7 mmol/L (-2-2); BLOOD GAS CARBOXYHEMOGLOBIN 1.6 % (0-4); BLOOD GAS HCO3 26 mmol/L (22-26); BLOOD GAS METHEMOGLOBIN 0.5 % (0-2); BLOOD GAS O2 HGB SATURATION 89 % (90-100); BLOOD GAS OXYGEN CONTENT 14.1 Vol % (12.0-20.0); BLOOD GAS PCO2 44 mmHg (38-42); BLOOD GAS PO2 69 mmHG (61-120); BLOOD GAS TOTAL HGB 11.3 G/DL (12.0-16.0); TEMP CORR TO 98.6
[2016-12-31 20:25] LABS: CRITICAL VALUE YES; DRAW SITE LT RADIAL; FIO2 21 %; NUMBER OF ARTERIAL PUNCTURES 2; STAT YES; ULNAR PULSE PRESENT
[2016-12-31 20:34] LABS: BACTERIA, URINE RARE /hpf; BLOOD, URINE NEG (NEG); COMMENT (UR) CULT NOT INDICATED; CULTURE IF INDICATED CULT NOT INDICATED; GLUCOSE,URINE TRACE mg/dL (NEG); KETONE, URINE NEG (NEG); NITRITE,URINE NEG (NEG); SQUAMOUS EPITHELIAL CELL URINE <1 /hpf (0-5); URINE COLOR LIGHT-YELLOW (YELLW/STRAW)
[2016-12-31] MEDS: DOCUSATE SODIUM 50 MG/SENNA 8.6 MG TAB PO SCH (21:00)
[2016-12-31] MEDS: SODIUM CHLORIDE 0.9% FLUSH 10 ML FLUSH IV FLUSH SCH (21:00)
[2016-12-31] MEDS: INSULIN ASPART SUPPLEMENTAL SCALE SQ SCH (22:15)
[2016-12-31] MEDS: CHLORHEXIDINE GLUCONATE 2 % 1 PACK (2 CLOTHS) TOP SCH (22:44)
[2017-01-01] VITALS (17 sets, daily range): BP systolic 138–188; BP diastolic 58–119; PULSE 62–74; RESP 15–24; TEMP 98.2–98.9; O2SAT 93–97
[2017-01-01] MEDS ORDERED: hydrALAZINE HCL 20 MG/ML VIAL IV PUSH PRN ×2 (00:15→08:15)
[2017-01-01 02:38] LABS: BASOPHIL # 0.2 TH/MM3 (0-0.2); BASOPHIL % 1.2 % (0.0-2.0); EOSINOPHIL # 0.2 TH/MM3 (0-0.4); EOSINOPHIL % 1.8 % (0.0-4.0); HEMATOCRIT 33.7 % (35.0-46.0); HEMO FLAGS DIFF FINAL; LYMPH % 31.3 % (9.0-44.0); LYMPHOCYTE # 4.3 TH/MM3 (1.0-4.8); MEAN CELL VOLUME 95.5 FL (80.0-100.0); MEAN CORPUSCULAR HEMOGLOBIN 31.3 PG (27.0-34.0); MEAN CORPUSCULAR HGB CONC 32.7 % (32.0-36.0); MONO % 6.9 % (0.0-8.0); NEUT % 58.8 % (16.0-70.0); PLATELET COUNT 250 TH/MM3 (150-450); RED BLOOD COUNT 3.53 MIL/MM3 (4.00-5.30); RED CELL DISTRIBUTION WIDTH 13.8 % (11.6-17.2); WHITE BLOOD COUNT 13.6 TH/MM3 (4.0-11.0)
[2017-01-01 03:35] LABS: ALKALINE PHOSPHATASE 84 U/L (45-117); ALT (GPT) 41 U/L (10-53); ANION GAP 9 MEQ/L (5-15); AST (GOT) 20 U/L (15-37); BICARBONATE 29.1 MEQ/L (21.0-32.0); BLOOD UREA NITROGEN 40 MG/DL (7-18); CHLORIDE 104 MEQ/L (98-107); GLOMERULAR FILTRATION RATE 23 ML/MIN (>89); MAGNESIUM 2.4 MG/DL (1.5-2.5); POTASSIUM 4.7 MEQ/L (3.5-5.1); SODIUM (NA) 142 MEQ/L (136-145); TOTAL BILIRUBIN ADULT 0.5 MG/DL (0.2-1.0)
[2017-01-01] MEDS: INSULIN ASPART SUPPLEMENTAL SCALE SQ SCH ×4 (06:24→21:00)
[2017-01-01] MEDS ORDERED: ISOSORBIDE MONONITRATE 30 MG TAB PO SCH (07:00)
--- NOTE | 2017-01-01 07:02 | PD.TRANSFR ---
Transfer Summary Admission Date Dec 31, 2016 at 18:54 Admitting Diagnosis Bradycardia, CHF exacerbation Diagnoses: (1) Bradycardia Diagnosis: Principal (2) CHF exacerbation Diagnosis: Principal (3) Leukocytosis Diagnosis: Principal (4) MYCHAL (acute kidney injury) Diagnosis: Principal Significant Findings Chest x-ray 12/31 - bilateral pleural effusions Transfer Summary/Subjective 76-year-old female with history of CAD on baby aspirin and Plavix, right basal ganglia/thalamic CVA, diabetes mellitus and congestive heart failure unclear etiology really presented to [place] ED evaluation of shortness of breath. Patient reports that she was discharged from the hospital 2 days ago after evaluation for CHF/evaluated by Dr. Lowry. Patient reports that she was initially admitted to the hospital because shortness of breath. Patient denies any chest pain at this time, denies any fevers or chills. Patient denies any headache or dizziness. Patient's reports the patient had a seizure- like episode while sitting the lobby care prior to coming into the emergency room. Patient with complaints of shortness of breath at this time. She was noted to be bradycardiac with elevated potassium of 6.5. Received 2 g calcium gluconate, one ampule D50, insulin R 10 units IV and one ampule sodium bicarbonate. Also received 0.5 mg atropine 1 now. Objective Vital Signs Date Time Temp Pulse Resp B/P (MAP) Pulse Ox O2 Delivery O2 Flow Rate FiO2 01/01/17 06:00 66 01/01/17 04:00 98.9 15 166/119 (135) 94 12/31/16 21:32 Room Air 12/31/16 17:25 2.00 Intake and Output 01/01/17 01/01/17 01/02/17 08:00 16:00 00:00 Intake Total 0 ml Output Total 1150 ml Balance -1150 ml Result Diagram: 01/01/17 0212 01/01/17 0212 Imaging Last Impressions Chest X-Ray 12/31/16 1503 Signed Impressions: Service Date/Time: Saturday, December 31, 2016 15:35 - CONCLUSION: Bilateral interstitial prominence with small effusions and cardiomegaly. Interstitial edema suspected. Trace Flood Jr., MD Objective Remarks GENERAL: 68-year-old female, resting in bed in no acute distress SKIN: Warm and dry. HEAD: Atraumatic. Normocephalic. EYES: Pupils equal and round. No scleral icterus. No injection or drainage. ENT: No nasal bleeding or discharge. Mucous membranes pink and moist. NECK: Trachea midline. No JVD. CARDIOVASCULAR: Regular rate and rhythm. 1/6 murmur appreciated at the left upper sternal border. RESPIRATORY: Diminished breath sounds at the bases bilaterally. Few crackles appreciated anteriorly cleared with cough GASTROINTESTINAL: Abdomen soft, non-tender, nondistended. I Yi bowel sounds MUSCULOSKELETAL: Extremities without clubbing, cyanosis, or edema. No obvious deformities. NEUROLOGICAL: Awake and alert. No facial droop. Strength 4-5 left upper extremity. 5 out of 5 right upper lobe extremity. Normal sensation.. Five out of 5 muscle strength in the arms and legs. Normal speech. Gait was not assessed. No pronator drift. Urinary Catheter: No Assessment to: Continue A/P Assessment and Plan NEURO: History of right basal ganglia/thalamic with residual left-sided weakness Acute delirium unclear etiology Tonic/clonic activity question of seizure Neuropathy - diabetes Documented questionable seizure activity event in waiting room and/ CT brain ordered last night still not completed. 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 Her latest documented EEG 12/2015 showed generalized slowing with no epileptiform. B12 elevated. TSH within normal limits Seizure precautions Holding gabapentin 300 mg by mouth twice a day in light of delirium. Check level. Resume when clinically indicated RESP: History of prior Tobaccoism Prior document of COPD. No PFTs available Bilateral pleural effusions CXR 12/31 with interstitial processes. Received Lasix 60 mg IV. Shortness of breath previously worked up with negative V/Q scan 12/24/16 Nasal cannula to maintain saturations greater than or equal to 92% Incentive spirometry while awake Albuterol/ipratropium aerosols every 6 hours with albuterol aerosols every 2 hours. Dyspnea Speech therapy rule out aspiration. Does have history dysphasia. She crushes all her pills with applesauce at home. CV: Acute symptomatic bradycardia Chronic diastolic heart failure Coronary artery disease Hypertension Echo 12/24/16 - Normal left ventricular size with EF 60-65%. +LVH ; moderate thickening of mitral valve leaflets. +Aortic valve sclerosis +mod TR mild pulmonary artery hypertension (48 mmHg) Holding metoprolol 25 mg by mouth twice a day Continue amlodipine 5 mg by mouth daily and isosorbide dinitrate 10 mg 3 times a day (holding isosorbide mononitrate 30 mg daily in light of dysphasia/unable to crush Resume Clopidogrel 75 mg by mouth daily and aspirin 81 mg by mouth daily if brain imaging is negative for hemorrhage Cardiology consultation GI: Placed on mechanical soft diet./ADA 1800 kcal Speech therapy to evaluate for dysphasia Pantoprazole for GI prophylaxis Docusate sodium/senna 1 tablet twice a day for bowel regimen FEN/RENAL: Acute hyperkalemia Acute kidney injury overlying chronic kidney disease stage III-IV - resolving Chronic urinary incontinence Check urine electrolytes and eosinophils Potassium has been corrected currently within normal limits. ID: UA negative for evidence of infection Will check blood cultures 2. Currently no indication for empiric Biaxin at this time HEME: Mild leukocytosis Normocytic anemia Monitor CBC daily. Follow trends. Coags and hemoglobin normal. Platelet count is normal. ENDO: Diabetes mellitus Home medication is detemir 55 units twice a day with isophane sliding-scale insulin scale Medium dose Novulog insulin sliding scale ac/hs. Follow-up TSH normal at 1.2 PROPH: Heparin 5000 subcutaneous every 8 hours for DVT prophylaxis if head CT is negative for hemorrhage. Pantoprazole 40 mg by mouth daily for stress ulcer prophylaxis. ACCESS: Peripheral IV providing adequate access at this time. Level II follow-up. Patient is stable from a critical care medicine standpoint. Assign care to hospitalist in a.m. 01/02 Guy Mejia MD Jan 01, 2017 07:02
[2017-01-01] MEDS ORDERED: NITROGLYCERIN 2% OINT 1 GM PACKET TOPICAL PRN (08:15)
--- NOTE | 2017-01-01 09:22 | RADRPT ---
EXAM DATE/TIME: 01/01/2017 08:37 [place] COMPARISON: MRI BRAIN W/O CONTRAST, December 21, 2015, 8:18. INDICATIONS : Seizures. MEDICAL HISTORY : Diabetes mellitus type 2. Congestive heart failure. Cardiovascular disease. CVA. SURGICAL HISTORY : section. ENCOUNTER: Initial ACUITY: 1 day PAIN SCORE: 0/10 LOCATION: cranial TECHNIQUE: Multiplanar, multisequence MRI of the brain was performed without contrast. FINDINGS: Diffusion weighted images demonstrate no evidence for acute infarction. There is mild diffuse atrophy identified. There is a remote right lacunar infarct. No signs of acute infarct, mass or hemorrhage. CONCLUSION: 1. Atrophy and remote right thalamic lacunar infarct. Gustavo Charles MD on January 01, 2017 at 9:19 Board Certified Radiologist. This report was verified electronically.
[2017-01-01] MEDS: DOCUSATE SODIUM 50 MG/SENNA 8.6 MG TAB PO SCH ×2 (09:26→20:37)
[2017-01-01] MEDS: PANTOPRAZOLE SOD 40 MG DELAYED RELEASE TAB PO SCH (09:26)
[2017-01-01] MEDS: amLODIPine BESYLATE 5 MG TAB PO SCH (09:26)
[2017-01-01] MEDS: SODIUM CHLORIDE 0.9% FLUSH 10 ML FLUSH IV FLUSH SCH ×2 (09:28→20:37)
--- NOTE | 2017-01-01 09:46 | EKG ---
Date Performed: 12/31/2016 Time Performed: 16:26:04 PTAGE: 76 years EKG: ATRIAL FIBRILLATION WITH SLOW VENTRICULAR RESPONSE NONSPECIFIC ST & T-WAVE ABNORMALITY ABNO RMAL RHYTHM ECG INTERPRETATION BASED ON A DEFAULT AGE OF 40 YEARS PREVIOUS TRACING : 12/24/2016 09.10 DOCTOR: Josef Shrestha Interpretating Date/Time 01/01/2017 09:44:44
--- NOTE | 2017-01-01 09:48 | EKG ---
Date Performed: 12/31/2016 Time Performed: 16:01:11 PTAGE: 76 years EKG: ECTOPIC ATRIAL RHYTHM ST DEVIATION AND MODERATE T-WAVE ABNORMALITY, CONSIDER LATERAL ISCHEM IA ABNORMAL ECG NO PREVIOUS TRACING DOCTOR: Josef Shrestha Interpretating Date/Time 01/01/2017 09:47:38
[2017-01-01] MEDS: RESP: ALBUTEROL 2.5 MG/IPRATROPIUM 0.5 MG NEB (SCH) NEB ×3 (10:00→22:21)
[2017-01-01] MEDS: ISOSORBIDE DINITRATE 10 MG TAB PO SCH ×2 (12:36→22:24)
--- NOTE | 2017-01-01 17:13 | EKG ---
Date Performed: 01/01/2017 Time Performed: 14:03:10 PTAGE: 76 years EKG: Sinus rhythm . Lateral ST-T changes are nonspecific Borderline ECG PREVIOUS TRACING : 12/31/2016 16.26 DOCTOR: Josef Shrestha Interpretating Date/Time 01/01/2017 17:13:21
--- NOTE | 2017-01-01 17:16 | MB ---
cc: LAWANDA CONCEPCION MD DATE OF CONSULTATION 01/01/17 REASON FOR CONSULTATION Elevated BUN and creatinine for evaluation. HISTORY OF PRESENT ILLNESS This is a 76-year-old female known to me from her previous admission with past medical history of hypertension, diabetes mellitus, ischemic heart disease, cerebrovascular accident, chronic kidney disease who came to the hospital because of shortness of breath. I was called to see the patient for elevated BUN and creatinine. She has known history of chronic kidney disease, was seen by Dr. Nicolas in the past and I saw her when she was here about a week ago. At that time, her creatinine was 2.3 and 2.2 and it improved to 1.7 when she was discharged. She again came with a creatinine of 2.6. The patient came mainly because of worsening shortness of breath and also she has bradycardia. Now the patient is feeling better. Her breathing improved and she is currently on room air. The potassium was elevated at 6.5 when she came in and it improved with medical treatment. The patient is passing urine. She is feeling much better and the creatinine has come down now to 2.0. Her baseline seems to be close to 1.7 or 1.8. She was taking nonsteroidal anti-inflammatory drugs before, but has stopped taking it since she was here the last time when I saw her. She denies any vomiting. She has mild nausea, has decreased appetite, not drinking too much fluid, not eating well according to the . No history of diarrhea. PAST MEDICAL HISTORY 1. Hypertension, 2. Diabetes mellitus, 3. Ischemic heart disease, 4. Cerebrovascular accident 5. Congestive heart failure, 6. Chronic kidney disease. PAST SURGICAL HISTORY 1. Caesarean section 2. Placement of PEG and removal 3. Cardiac catheterization. REVIEW OF SYSTEMS There is no history of fever. No headache, dizziness. She has nausea, decreased appetite, not eating well, has shortness of breath. There was no chest pain. No palpitation. No abdominal pain. No history of diarrhea. She has not been taking any nonsteroidal anti-inflammatory drugs since she was discharged from here. SOCIAL HISTORY The patient is . Past history of smoking. There is no history of heavy alcoholism. FAMILY HISTORY Noncontributory. ALLERGIES LOVASTATIN LACTOBACILLUS MEDICATIONS Currently 1. Nelly-Colace 1 tablet b.i.d. 2. Protonix 40 mg once a day. 3. Norvasc 5 mg daily. 4. Aspirin 81 mg daily. 5. Plavix 75 mg once a day. 6. DuoNeb nebulizer 7. Isordil 10 mg q. 8-hour. 8. Insulin sliding scale. 9. Tylenol as needed. 10. Zofran as needed PHYSICAL EXAMINATION GENERAL: The patient is awake, alert. She is not in acute distress. VITAL SIGNS: The last blood pressure was 138/60, before that her blood pressure had been high. HEENT: Pupils mid constricted. Nonicteric sclerae, conjunctivae normal. NECK: Supple. JVD is not elevated. LUNGS: The patient has bilateral decreased air entry with occasional wheezing. HEART: S1, S2, regular rhythm. ABDOMEN: Distended, soft, lax. There is no tenderness. Bowel sounds positive. EXTREMITIES: She has mild edema in the legs. WBC count is 13.6, hemoglobin 11.0, platelet count of 250, neutrophils 58.8%. Sodium 142. Potassium 4.7, chloride 104, bicarb 29.1, BUN 40, creatinine 2.0, glucose 62, AST, ALT normal. Trop I is less than 0.02, albumin 3.3. Vitamin B12 1200, TSH 2.1. INR 1.0. Urinalysis showing that there is no proteinuria. IMAGING STUDIES The patient had ultrasound of the kidneys done when she was here the last time and it showed that both kidneys were normal in size. No evidence of obstruction. Bladder is not visualized because it is decompressed, bilateral pleural effusion. ASSESSMENT/PLAN 1. Chronic kidney disease acute kidney injury 2. Hyperkalemia. 3. Bradycardia. 4. Hypertension 5. History of cerebrovascular accident 6. Diabetes mellitus The patient has high potassium when she came in. Now the potassium has normalized. She also has acute kidney injury with history of chronic kidney disease. 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 Her blood pressure has been on the higher side. Currently she is on amlodipine. Need to be monitored closely and if it is still high, we will increase the amlodipine dose. She does not have proteinuria. She was told again to avoid nonsteroidal anti-inflammatory drugs. Avoid any nephrotoxins. Thank you for the consultation. I will follow the patient while she is in the hospital. MD TOMAS Austin/ /1:20 PM /4:59 PM
--- NOTE | 2017-01-01 17:48 | MB ---
cc: ASTRID COLLINS M.D. DATE OF CONSULTATION 01/01/17 ELECTROPHYSIOLOGY CONSULT REASON FOR CONSULTATION Syncopal episode and severe bradycardia. HISTORY OF PRESENT ILLNESS Mrs. Louie is a 76-year-old female with history of coronary artery disease, symptomatic congestive heart failure despite ejection fraction around 60%. The patient refused any invasive procedure. She has a severe coronary artery disease and refused also having coronary artery bypass grafting. She was recently admitted in the hospital, was discharged home. Yesterday morning she was at home, the reported seizure like episode. She was brought to the emergency room. Heart rate was in the 20s. She received atropine, heart rate increased in the 60s. Potassium was 6.5. Subsequently condition significantly improved. Potassium stabilized. She was in ICU and transferred to the step-down unit. I was consulted for evaluation. The chart was reviewed. The patient was evaluated. I did have a long conversation with her and her . ALLERGIES LACTOBACILLUS, LOVASTATIN. SOCIAL HISTORY The patient denies smoking and drinking. FAMILY HISTORY Noncontributory to her current medical condition. MEDICATIONS The patient currently is on: 1. Acetaminophen. 2. Amlodipine 5 milligrams a day. 3. Aspirin 81 milligrams a day for. 4. Plavix 75 milligrams a day. 5. Lasix IV. 6. Imdur 30 milligrams a day. 7. Protonix 40 milligrams a day. REVIEW OF SYSTEMS Currently she refers no chest pain or dizziness. No chest discomfort. No syncope, no near syncope. No vomiting. No fever. PHYSICAL EXAMINATION GENERAL: Alert, fully oriented, pleasant, in bed. VITAL SIGNS: Blood pressure is 138/60, pulse in the ___ telemetry currently is 67, respiratory rate 18. LUNGS: Ventilated. CARDIOVASCULAR: S1-S2 regular. ABDOMEN: Soft. No mass. No bruits. EXTREMITIES: With no edema. Electrocardiogram indicated sinus rhythm, is in a low atrial rhythm, diffuse ST changes. LABORATORY DATA Hemoglobin is 11.0, white blood cells 13.6, potassium today at 2 in the morning at 4.7. Troponin 0.02. ASSESSMENT AND RECOMMENDATIONS Mrs. Louie's condition significantly improved. No chest pain. No shortness of breath. Heart rate is in the 60s. Potassium corrected. Last echo, as mentioned before, ejection fraction is around 60, 65%. At this point my recommendation, continue with current management. If the patient has some pauses or develops symptomatic bradycardia then pacing support will be considered. As mentioned before case is discussed extensively with her and her . Astrid Collins MD HS/CLAUDIA /2:22 PM /5:33 PM
--- NOTE | 2017-01-01 20:04 | MG ---
cc: KHLOE EDWARDS MD Lab No: [id number] Date: 01/01/17 Age: 76 Sex: F Race: DATE OF [address] Carranza Admitted with shortness of breath. Photic done. Awake, drowsy, asleep study. MRI shows atrophy. EEG last year showed encephalopathy. Female admitted with trouble breathing, discharged with heart failure. She had a witnessed seizure apparently by her while in the waiting room and confused. Imdur Apresoline Protonix Norvas DESCRIPTION OF RECORD The patient has an alpha rhythm of 8 to 8.5 Hz, 20 microvolts symmetrical background, fairly well-organized and diffuse. No epileptiform features are seen. Hyperventilation was not performed. Photic stimulation does elicit a driving response. IMPRESSION Overall normal-appearing EEG. There are no epileptiform features in this one recording. Clinical correlation. Khloe Edwards MD DF/ /6:47 PM /7:52 PM
[2017-01-02] VITALS (13 sets, daily range): BP systolic 129–147; BP diastolic 54–65; PULSE 68–86; RESP 16–18; TEMP 98.1–98.4; O2SAT 96
[2017-01-02] MEDS: CHLORHEXIDINE GLUCONATE 2 % 1 PACK (2 CLOTHS) TOP SCH (04:00)
[2017-01-02] MEDS: RESP: ALBUTEROL 2.5 MG/IPRATROPIUM 0.5 MG NEB (SCH) NEB ×2 (04:03→07:37)
[2017-01-02] MEDS: ISOSORBIDE DINITRATE 10 MG TAB PO SCH (05:34)
[2017-01-02] MEDS: INSULIN ASPART SUPPLEMENTAL SCALE SQ SCH ×2 (06:09→10:59)
[2017-01-02] MEDS: DOCUSATE SODIUM 50 MG/SENNA 8.6 MG TAB PO SCH (07:58)
[2017-01-02] MEDS: PANTOPRAZOLE SOD 40 MG DELAYED RELEASE TAB PO SCH (07:58)
[2017-01-02] MEDS: amLODIPine BESYLATE 5 MG TAB PO SCH (07:58)
[2017-01-02] MEDS: SODIUM CHLORIDE 0.9% FLUSH 10 ML FLUSH IV FLUSH SCH (07:58)
[2017-01-02 08:01] LABS: HEMATOCRIT 33.3 % (35.0-46.0); MEAN CORPUSCULAR HEMOGLOBIN 32.3 PG (27.0-34.0); PLATELET COUNT 199 TH/MM3 (150-450); RED CELL DISTRIBUTION WIDTH 13.9 % (11.6-17.2); REVIEW FLAG FINAL; WHITE BLOOD COUNT 10.2 TH/MM3 (4.0-11.0)
[2017-01-02 08:42] LABS: BICARBONATE 26.5 MEQ/L (21.0-32.0); MAGNESIUM 1.9 MG/DL (1.5-2.5); POTASSIUM 4.4 MEQ/L (3.5-5.1)
--- NOTE | 2017-01-02 08:58 | HHI.PR ---
Subjective Remarks This is a pleasant 76 y/o Female who was admitted to Intensive Care Unit on 05/18 with Diagnosis of Bradycardia, CHF exacerbation on CXR Bilateral pleural Effusions, she has CAD, Baby aspirin and Plavix, right basal ganglia/thalamic CVA, diabetes mellitus and congestive heart failure unclear etiology really presented to [place] ED evaluation of shortness of breath. Patient reports that she was discharged from the hospital 2 days ago after evaluation for CHF/evaluated by Dr. Lowry. Patient reports that she was initially admitted to the hospital because shortness of breath. Patient denies any chest pain at this time, denies any fevers or chills. Patient denies any headache or dizziness. Patient's reports the patient had a seizure- like episode while sitting the lobby care prior to coming into the emergency room. Patient with complaints of shortness of breath at this time. She was noted to be bradycardiac with elevated potassium of 6.5. Received 2 g calcium gluconate, one ampule D50, insulin R 10 units IV and one ampule sodium bicarbonate. Also received 0.5 mg atropine 1. Transferred to Medical floor and follow up by Hospitalist Team. 01/02: Nephrology specialist and Cardiology following, as per music specialist the patient is improving her condition, recommended to continue present care. Probable pacing is continue with Bradycardia. Discussed at this time with music specialist Doctor Jeffery Yan today sinus rhythm, no bradycardia, doing better, has Atherosclerotic Heart disease of [place] coronary artery without angina pectoris, states the patient is able to be discharge from his standpoint will follow Cardiology and Nephrology as outpatient. Objective Vital Signs Date Time Temp Pulse Resp B/P (MAP) Pulse Ox O2 Delivery O2 Flow Rate FiO2 01/02/17 06:00 68 01/02/17 05:00 74 01/02/17 04:00 73 01/02/17 04:00 98.1 73 18 135/58 (83) 96 01/02/17 03:00 69 01/02/17 02:00 68 01/02/17 01:00 74 01/02/17 00:00 98.4 72 18 146/54 (84) 96 01/02/17 00:00 72 01/01/17 23:00 67 01/01/17 22:00 72 01/01/17 21:00 67 01/01/17 20:00 98.2 70 20 150/64 (92) 97 01/01/17 20:00 70 01/01/17 18:00 74 01/01/17 17:00 68 01/01/17 16:34 16 01/01/17 16:00 65 01/01/17 16:00 98.4 69 18 141/58 (85) 96 01/01/17 15:00 66 01/01/17 14:00 70 01/01/17 12:00 70 01/01/17 12:00 70 21 93 01/01/17 12:00 70 21 93 01/01/17 10:00 68 20 93 01/01/17 10:00 68 01/01/17 10:00 68 I/O 01/01/17 01/01/17 01/01/17 01/02/17 01/02/17 01/02/17 06:59 14:59 22:59 06:59 14:59 22:59 Intake Total 0 ml 420 ml 420 ml 240 ml Output Total 1150 ml 600 ml 350 ml 550 ml Balance -1150 ml -180 ml 70 ml -310 ml Intake Oral 420 ml 420 ml 240 ml IV Total 0 ml Output Urine Total 1150 ml 600 ml 350 ml 550 ml # Bowel Movements 0 0 0 Result Diagram: 01/02/17 0735 01/02/17 0735 Imaging Last Impressions Brain MRI 01/01/17 0725 Signed Impressions: Service Date/Time: Sunday, January 01, 2017 08:37 - CONCLUSION: 1. Atrophy and remote right thalamic lacunar infarct. Gustavo Charles MD Chest X-Ray 12/31/16 1503 Signed Impressions: Service Date/Time: Saturday, December 31, 2016 15:35 - CONCLUSION: Bilateral interstitial prominence with small effusions and cardiomegaly. Interstitial edema suspected. Trace Flood Jr., MD Procedures None Other Results Laboratory Tests Test 12/31/16 15:20 12/31/16 19:55 12/31/16 20:05 01/01/17 02:00 Prothrombin Time 10.7 SEC Prothromb Time International Ratio 1.0 RATIO Activated Partial Thromboplast Time 24.7 SEC B-Type Natriuretic Peptide 936 PG/ML Urine Color LIGHT-YELLOW Urine Turbidity CLEAR Urine pH 5.0 Urine Specific [place] 1.009 Urine Protein NEG mg/dL Urine Glucose (UA) TRACE mg/dL Urine Ketones NEG mg/dL Urine Occult Blood NEG Urine Nitrite NEG Urine Bilirubin NEG Urine Urobilinogen LESS THAN 2.0 MG/DL Urine Leukocyte Esterase TRACE Urine WBC LESS THAN 1 /hpf Urine Squamous Epithelial Cells <1 /hpf Urine Bacteria RARE /hpf Microscopic Urinalysis Comment CULT NOT INDICATED Blood Gas Puncture Site LT RADIAL Blood Gas Patient Temperature 98.6 Blood Gas HCO3 26 mmol/L Blood Gas Base Excess 1.7 mmol/L Blood Gas Oxygen Saturation 89 % Arterial Blood pH 7.39 Arterial Blood Partial Pressure CO2 44 mmHg Arterial Blood Partial Pressure O2 69 mmHG Arterial Blood Oxygen Content 14.1 Vol % Arterial Blood Carboxyhemoglobin 1.6 % Arterial Blood Methemoglobin 0.5 % Blood Gas Hemoglobin 11.3 G/DL Blood Gas Inspired Oxygen 21 % Nasal Screen MRSA (PCR) MRSA NOT DETECTED Test 01/01/17 02:12 01/01/17 11:49 01/01/17 13:20 01/02/17 07:35 Neutrophils (%) (Auto) 58.8 % Lymphocytes (%) (Auto) 31.3 % Monocytes (%) (Auto) 6.9 % Eosinophils (%) (Auto) 1.8 % Basophils (%) (Auto) 1.2 % Neutrophils # (Auto) 8.0 TH/MM3 Lymphocytes # (Auto) 4.3 TH/MM3 Monocytes # (Auto) 0.9 TH/MM3 Eosinophils # (Auto) 0.2 TH/MM3 Basophils # (Auto) 0.2 TH/MM3 CBC Comment DIFF FINAL Differential Comment Blood Urea Nitrogen 40 MG/DL 35 MG/DL Creatinine 2.09 MG/DL 1.78 MG/DL Random Glucose 62 MG/DL 188 MG/DL Total Protein 7.2 GM/DL Albumin 3.3 GM/DL Calcium Level 9.3 MG/DL 8.9 MG/DL Phosphorus Level 4.8 MG/DL 4.7 MG/DL Magnesium Level 2.4 MG/DL 1.9 MG/DL Alkaline Phosphatase 84 U/L Aspartate Amino Transf (AST/SGOT) 20 U/L Alanine Aminotransferase (ALT/SGPT) 41 U/L Total Bilirubin 0.5 MG/DL Sodium Level 142 MEQ/L 138 MEQ/L Potassium Level 4.7 MEQ/L 4.4 MEQ/L Chloride Level 104 MEQ/L 101 MEQ/L Carbon Dioxide Level 29.1 MEQ/L 26.5 MEQ/L Troponin I LESS THAN 0.02 NG/ML Vitamin B12 Level 1200 PG/ML Thyroid Stimulating Hormone 3rd Gen 2.110 uIU/ML Total Creatine Kinase 70 U/L Urine Eosinophils NONE SEEN /HPF Urine Random Sodium 91 MEQ/L White Blood Count 10.2 TH/MM3 Red Blood Count 3.50 MIL/MM3 Hemoglobin 11.3 GM/DL Hematocrit 33.3 % Mean Corpuscular Volume 95.0 FL Mean Corpuscular Hemoglobin 32.3 PG Mean Corpuscular Hemoglobin Concent 34.0 % Red Cell Distribution Width 13.9 % Platelet Count 199 TH/MM3 Mean Platelet Volume 8.8 FL Anion Gap 11 MEQ/L Estimat Glomerular Filtration Rate 28 ML/MIN Objective Remarks GENERAL: No acute distress, in sitting position no chest pain wants to go home. SKIN: Warm and dry. HEAD: Atraumatic. Normocephalic. EYES: Pupils equal and round. No scleral icterus. No injection or drainage. ENT: No nasal bleeding or discharge. Mucous membranes pink and moist. NECK: Trachea midline. No JVD. CARDIOVASCULAR: Regular rate and rhythm. 1/6 murmur appreciated at the left upper sternal border. RESPIRATORY: Diminished breath sounds at the bases bilaterally. GASTROINTESTINAL: Abdomen soft, non-tender, nondistended. MUSCULOSKELETAL: Extremities without clubbing, cyanosis, or edema. NEUROLOGICAL: Awake and alert. No focal deficits. Medications and IVs Current Medications Medications (Trade) Dose Ordered Sig/Helene Route Start Time Stop Time Status Last Admin (NS Flush) 2 ml UNSCH PRN IV FLUSH 12/31/16 19:30 (NS Flush) 2 ml BID IV FLUSH 12/31/16 21:00 01/02/17 07:58 (Tylenol) 650 mg Q6H PRN PO 12/31/16 19:30 01/01/17 15:47 (Protonix) 40 mg DAILY PO 01/01/17 09:00 01/02/17 07:58 (Zofran Inj) 4 mg Q6H PRN IV 12/31/16 19:30 (Albuterol Neb) 2.5 mg Q2HR NEB PRN INH 12/31/16 19:30 Miscellaneous Information 1 Q361D XX 12/31/16 19:30 12/31/16 19:30 (Chlorhexidine 2% Cloth) 3 pack Taper DAILY@04 TOP 01/01/17 04:00 12/28/17 03:59 12/31/16 22:44 (Chlorhexidine 2% Cloth) 3 pack UNSCH PRN TOP 12/31/16 19:30 (Nelly-Colace) 1 tab BID PO 12/31/16 21:00 01/02/17 07:58 (Milk Of Magnesia Liq) 30 ml Q12H PRN PO 12/31/16 19:30 (Senokot) 17.2 mg Q12H PRN PO 12/31/16 19:30 (Dulcolax Supp) 10 mg DAILY PRN RECTAL 12/31/16 19:30 (Lactulose Liq) 30 ml DAILY PRN PO 12/31/16 19:30 (D50w (Vial) Inj) 50 ml UNSCH PRN IV 12/31/16 19:30 (Glucagon Inj) 1 mg UNSCH PRN OTHER 12/31/16 19:30 (NovoLOG SUPPLEMENTAL SCALE) 1 ACHS SLIDING SCALE SQ 12/31/16 21:00 01/02/17 06:09 (Norvasc) 5 mg DAILY PO 01/01/17 09:00 01/02/17 07:58 (Duoneb Neb) 1 ampule Q6HR NEB NEB 01/01/17 10:00 01/02/17 07:37 (Isordil) 10 mg Q8HR PO 01/01/17 14:00 01/02/17 05:34 (Apresoline Inj) 10 mg Q1HR PRN IV PUSH 01/01/17 08:15 (Nitroglycerin 2% Oint) 2 inch Q6HR PRN TOPICAL 01/01/17 08:15 (Aspirin Chew) 81 mg DAILY CHEW 01/02/17 09:00 01/02/17 07:58 (Plavix) 75 mg DAILY PO 01/02/17 09:00 01/02/17 07:58 A/P Assessment and Plan 1. 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 B12 elevated. TSH within normal limits Seizure precautions 2. COPD/Bilateral Pleural Effusions, CXR 12/31 with interstitial processes. Received Lasix 60 mg IV. Shortness of breath previously worked up with negative V/Q scan 12/24/16 Nasal cannula to maintain saturations greater than or equal to 92% Bronchodilator, Mucolytic and Incentive spirometry. Optimize medicines for discharge home. 3. Chronic Diastolic Heart Failure/CAD/Hypertension Echo 12/24/16 - Normal left ventricular size with EF 60-65%. +LVH ; moderate thickening of mitral valve leaflets. +Aortic valve sclerosis +mod TR mild pulmonary artery hypertension (48 mmHg) music specialist following. discussed with Doctor Jeffery Yan music specialist recommend to discharge home and follow as outpatient the Bradycardia improved. 4. Acute Kidney Injury on chronic Kidney disease III-IV/Chronic Urinary Incontinence. at this time at baseline will follow with Nephrology as outpatient. 5. Empiric antibiotic management with Biaxin UA negative for infection following Blood cultures x 2, continue Biaxin to complete seven days. 6. DM II continue Long lasting Insulin and sliding scale. 7. Hyperkalemia improved. Continue Mechanical soft diet/ADA 1800 Kcal Speech therapy to rule out for dysphagia, patient eating at this time without difficulty. GI prophylaxis PPIs. DVT prophylaxis with Heparin Discharge Planning discharge home with [facility] for PT. to decrease fall risk. Yahir Shaffer MD Jan 02, 2017 08:58
[2017-01-02] MEDS ORDERED: ASPIRIN 81 MG CHEW TAB CHEW SCH (09:00)
[2017-01-02] MEDS ORDERED: CLOPIDOGREL 75 MG TAB PO SCH (09:00)
[2017-01-02] MEDS ORDERED: MAGNESIUM OXIDE 400 MG TAB PO ONE (09:15)
--- NOTE | 2017-01-02 12:43 | HHI.PR ---
Subjective Remarks Feeling good Objective Vital Signs Date Time Temp Pulse Resp B/P (MAP) Pulse Ox O2 Delivery O2 Flow Rate FiO2 01/02/17 12:00 98.2 77 16 147/65 (92) 96 01/02/17 12:00 68 01/02/17 11:00 68 01/02/17 10:00 82 01/02/17 09:00 86 01/02/17 08:00 98.1 80 16 129/57 (81) 96 01/02/17 08:00 74 01/02/17 07:00 72 01/02/17 06:00 68 01/02/17 05:00 74 01/02/17 04:00 73 01/02/17 04:00 98.1 73 18 135/58 (83) 96 01/02/17 03:00 69 01/02/17 02:00 68 01/02/17 01:00 74 01/02/17 00:00 98.4 72 18 146/54 (84) 96 01/02/17 00:00 72 01/01/17 23:00 67 01/01/17 22:00 72 01/01/17 21:00 67 01/01/17 20:00 98.2 70 20 150/64 (92) 97 01/01/17 20:00 70 01/01/17 18:00 74 01/01/17 17:00 68 01/01/17 16:34 16 01/01/17 16:00 65 01/01/17 16:00 98.4 69 18 141/58 (85) 96 01/01/17 15:00 66 01/01/17 14:00 70 I/O 01/01/17 01/01/17 01/01/17 01/02/17 01/02/17 01/02/17 07:00 15:00 23:00 07:00 15:00 23:00 Intake Total 0 ml 420 ml 420 ml 240 ml Output Total 1150 ml 600 ml 350 ml 550 ml Balance -1150 ml -180 ml 70 ml -310 ml Intake Oral 420 ml 420 ml 240 ml IV Total 0 ml Output Urine Total 1150 ml 600 ml 350 ml 550 ml # Bowel Movements 0 0 0 Result Diagram: 01/02/1735 01/02/17 0735 Imaging Alert, fully oriented Lungs: ventilated HeartS1, S2 regular , no gallop Abdomen: soft, no mass Ext: no edema Last Impressions Brain MRI 01/01/17 0779 Signed Impressions: Service Date/Time: Sunday, January 01, 2017 08:37 - CONCLUSION: 1. Atrophy and remote right thalamic lacunar infarct. Gustavo Charles MD Chest X-Ray 12/31/16 1503 Signed Impressions: Service Date/Time: Saturday, December 31, 2016 15:35 - CONCLUSION: Bilateral interstitial prominence with small effusions and cardiomegaly. Interstitial edema suspected. Trace Flood Jr., MD Current Medications Medications (Trade) Dose Ordered Sig/Helene Route Start Time Stop Time Status Last Admin (NS Flush) 2 ml UNSCH PRN IV FLUSH 12/31/16 19:30 (NS Flush) 2 ml BID IV FLUSH 12/31/16 21:00 01/02/17 07:58 (Tylenol) 650 mg Q6H PRN PO 12/31/16 19:30 01/01/17 15:47 (Protonix) 40 mg DAILY PO 01/01/17 09:00 01/02/17 07:58 (Zofran Inj) 4 mg Q6H PRN IV 12/31/16 19:30 (Albuterol Neb) 2.5 mg Q2HR NEB PRN INH 12/31/16 19:30 Miscellaneous Information 1 Q361D XX 12/31/16 19:30 12/31/16 19:30 (Chlorhexidine 2% Cloth) 3 pack Taper DAILY@04 TOP 01/01/17 04:00 12/28/17 03:59 12/31/16 22:44 (Chlorhexidine 2% Cloth) 3 pack UNSCH PRN TOP 12/31/16 19:30 (Nelly-Colace) 1 tab BID PO 12/31/16 21:00 01/02/17 07:58 (Milk Of Magnesia Liq) 30 ml Q12H PRN PO 12/31/16 19:30 (Senokot) 17.2 mg Q12H PRN PO 12/31/16 19:30 (Dulcolax Supp) 10 mg DAILY PRN RECTAL 12/31/16 19:30 (Lactulose Liq) 30 ml DAILY PRN PO 12/31/16 19:30 (D50w (Vial) Inj) 50 ml UNSCH PRN IV 12/31/16 19:30 (Glucagon Inj) 1 mg UNSCH PRN OTHER 12/31/16 19:30 (NovoLOG SUPPLEMENTAL SCALE) 1 ACHS SLIDING SCALE SQ 12/31/16 21:00 01/02/17 10:59 (Norvasc) 5 mg DAILY PO 01/01/17 09:00 01/02/17 07:58 (Duoneb Neb) 1 ampule Q6HR NEB NEB 01/01/17 10:00 01/02/17 07:37 (Isordil) 10 mg Q8HR PO 01/01/17 14:00 01/02/17 05:34 (Apresoline Inj) 10 mg Q1HR PRN IV PUSH 01/01/17 08:15 (Nitroglycerin 2% Oint) 2 inch Q6HR PRN TOPICAL 01/01/17 08:15 (Aspirin Chew) 81 mg DAILY CHEW 01/02/17 09:00 01/02/17 07:58 (Plavix) 75 mg DAILY PO 01/02/17 09:00 01/02/17 07:58 Procedures None Assessment and Plan Problem List: (1) Bradycardia ICD Codes: R00.1 - Bradycardia, unspecified Status: Acute Plan: Sinus rhythm. HR 63 No ifrah recorded Doing better Continuer with current management (2) HTN (hypertension) ICD Codes: I10 - Essential (primary) hypertension Status: Chronic Plan: SBP 147 (3) CAD (coronary artery disease) ICD Codes: I25.10 - Atherosclerotic heart disease of [place] coronary artery without angina pectoris Status: Chronic Plan: No chest pain reported Jeffery Yan MD Jan 02, 2017 12:43
--- NOTE | 2017-01-02 13:43 | HHI.FF ---
Face to Face Verification Diagnosis: (1) Encephalopathy acute (2) Bradycardia (3) Hemiparesis Physical Therapy Order: Evaluate and Treat, Improve ambulation, Strength and gait training I have seen patient Liz Louie on 01/02/17. My clinical findings support the need for the requested home health care services because: Ltd mobility - disease progression I certify that my clinical findings support that this patient is homebound because: Unsafe to leave home unassisted Yahir Shaffer MD Jan 02, 2017 13:43
[2017-01-02] MEDS ORDERED: SYMB160A INH (13:47)
--- NOTE | 2017-01-02 13:54 | HHI.DS ---
Discharge Summary Admission Date Dec 31, 2016 at 18:54 Discharge Date: Jan 02, 2017 Admitting Diagnosis Bradycardia, CHF exacerbation (1) Bradycardia ICD Code: R00.1 - Bradycardia, unspecified Diagnosis: Principal Status: Acute (2) CHF exacerbation ICD Code: I50.9 - Heart failure, unspecified Diagnosis: Principal Status: Acute (3) Leukocytosis ICD Code: D72.829 - Elevated white blood cell count, unspecified Diagnosis: Principal Status: Acute (4) MYCHAL (acute kidney injury) ICD Code: N17.9 - Acute kidney failure, unspecified Diagnosis: Principal Status: Acute (5) Hyperkalemia ICD Code: E87.5 - Hyperkalemia Diagnosis: Principal Status: Acute Procedures None Brief History - From Admission 76 year-old [id number] female with past medical history 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 12/24-12/25 due to symptoms of dyspnea and was treated for acute CHF exacerbation. She has known coronary artery disease but refused bypass in the past and indicated that she did not want any invasive testing during her hospitalization. Serial troponins were negative and she was evaluated by cardiology, Dr. Lowry, and she was diuresed and started on Imdur and Norvasc. She was continued on metoprolol. She states that ever since discharge she "has not been thinking right" and has been having "wild dreams". She states she is otherwise neurologically at baseline with left hemiparesis. She and her state that her speech is at baseline but she has intermittently had some confusion. She presented to [facility] emergency department today because she remains dypneic with orthopnea. While in the waiting room she had 2 episodes where her legs stiffened for 10 seconds. These episodes were 15 minutes apart. Her did not take noted any eye deviation. He states she was unresponsive during the episode but has returned quickly to neurologic baseline. She was brought back to the ED when this episode occurred and she was in junctional rhythm in the 20s. She was given atropine and responded with heart rate in the 40s to 50s, hypertensive in the 180s. She is alert and talkative. Pacer pads are in place. Labs indicate MYCHAL overlying CKD with creatinine of 2.69 and potassium of 6.5 without reported hemolysis. She was treated medically with Kayexalate, bicarbonate, insulin, calcium gluconate. Patient denies chest pain, headache, new focal neurologic deficit. Remainder review of systems negative CBC/BMP: 01/02/17 0735 01/02/17 0735 Significant Findings Laboratory Tests Test 12/31/16 15:20 12/31/16 16:30 12/31/16 19:10 12/31/16 19:55 White Blood Count 13.1 TH/MM3 (4.0-11.0) Red Blood Count 3.85 MIL/MM3 (4.00-5.30) Mean Corpuscular Hemoglobin Concent 31.7 % (32.0-36.0) Neutrophils (%) (Auto) 81.3 % (16.0-70.0) Neutrophils # (Auto) 10.7 TH/MM3 (1.8-7.7) Blood Urea Nitrogen 41 MG/DL (7-18) Creatinine 2.69 MG/DL (0.50-1.00) Random Glucose 282 MG/DL (74-106) Potassium Level 6.5 MEQ/L (3.5-5.1) 5.5 MEQ/L (3.5-5.1) Estimat Glomerular Filtration Rate 17 ML/MIN (>89) B-Type Natriuretic Peptide 936 PG/ML (0-100) Magnesium Level 2.7 MG/DL (1.5-2.5) Troponin I LESS THAN 0.02 NG/ML Urine Leukocyte Esterase TRACE (NEG) Urine Bacteria RARE /hpf (NONE) Test 12/31/16 20:05 01/01/17 02:00 01/01/17 02:12 01/01/17 11:49 Blood Gas Oxygen Saturation 89 % (90-100) Arterial Blood Partial Pressure CO2 44 mmHg (38-42) Blood Gas Hemoglobin 11.3 G/DL (12.0-16.0) White Blood Count 13.6 TH/MM3 (4.0-11.0) Red Blood Count 3.53 MIL/MM3 (4.00-5.30) Hemoglobin 11.0 GM/DL (11.6-15.3) Hematocrit 33.7 % (35.0-46.0) Neutrophils # (Auto) 8.0 TH/MM3 (1.8-7.7) Blood Urea Nitrogen 40 MG/DL (7-18) Creatinine 2.09 MG/DL (0.50-1.00) Random Glucose 62 MG/DL (74-106) Albumin 3.3 GM/DL (3.4-5.0) Estimat Glomerular Filtration Rate 23 ML/MIN (>89) Troponin I LESS THAN 0.02 NG/ML Vitamin B12 Level 1200 PG/ML (193-986) Test 01/01/17 13:20 01/02/17 07:35 Red Blood Count 3.50 MIL/MM3 (4.00-5.30) Hemoglobin 11.3 GM/DL (11.6-15.3) Hematocrit 33.3 % (35.0-46.0) Blood Urea Nitrogen 35 MG/DL (7-18) Creatinine 1.78 MG/DL (0.50-1.00) Random Glucose 188 MG/DL (74-106) Estimat Glomerular Filtration Rate 28 ML/MIN (>89) Imaging Last Impressions Brain MRI 01/01/17 0725 Signed Impressions: Service Date/Time: Sunday, January 01, 2017 08:37 - CONCLUSION: 1. Atrophy and remote right thalamic lacunar infarct. Gustavo Charles MD Chest X-Ray 12/31/16 1503 Signed Impressions: Service Date/Time: Saturday, December 31, 2016 15:35 - CONCLUSION: Bilateral interstitial prominence with small effusions and cardiomegaly. Interstitial edema suspected. Trace Flood Jr., MD PE at Discharge GENERAL: No acute distress, in sitting position no chest pain wants to go home. SKIN: Warm and dry. HEAD: Atraumatic. Normocephalic. EYES: Pupils equal and round. No scleral icterus. No injection or drainage. ENT: No nasal bleeding or discharge. Mucous membranes pink and moist. NECK: Trachea midline. No JVD. CARDIOVASCULAR: Regular rate and rhythm. 1/6 murmur appreciated at the left upper sternal border. RESPIRATORY: Diminished breath sounds at the bases bilaterally. GASTROINTESTINAL: Abdomen soft, non-tender, nondistended. MUSCULOSKELETAL: Extremities without clubbing, cyanosis, or edema. NEUROLOGICAL: Awake and alert. No focal deficits. Transfer Summary 76-year-old female with history of CAD on baby aspirin and Plavix, right basal ganglia/thalamic CVA, diabetes mellitus and congestive heart failure unclear etiology really presented to [facility] ED evaluation of shortness of breath. Patient reports that she was discharged from the hospital 2 days ago after evaluation for CHF/evaluated by Dr. Lowry. Patient reports that she was initially admitted to the hospital because shortness of breath. Patient denies any chest pain at this time, denies any fevers or chills. Patient denies any headache or dizziness. Patient's reports the patient had a seizure- like episode while sitting the lobby care prior to coming into the emergency room. Patient with complaints of shortness of breath at this time. She was noted to be bradycardiac with elevated potassium of 6.5. Received 2 g calcium gluconate, one ampule D50, insulin R 10 units IV and one ampule sodium bicarbonate. Also received 0.5 mg atropine 1 now. Hospital Course This is a pleasant 76 y/o Female who was admitted to Intensive Care Unit on 05/18 with Diagnosis of Bradycardia, CHF exacerbation on CXR Bilateral pleural Effusions, she has CAD, Baby aspirin and Plavix, right basal ganglia/thalamic CVA, diabetes mellitus and congestive heart failure unclear etiology really presented to [facility] ED evaluation of shortness of breath. Patient reports that she was discharged from the hospital 2 days ago after evaluation for CHF/evaluated by Dr. Lowry. Patient reports that she was initially admitted to the hospital because shortness of breath. Patient denies any chest pain at this time, denies any fevers or chills. Patient denies any headache or dizziness. Patient's reports the patient had a seizure- like episode while sitting the lobby care prior to coming into the emergency room. Patient with complaints of shortness of breath at this time. She was noted to be bradycardiac with elevated potassium of 6.5. Received 2 g calcium gluconate, one ampule D50, insulin R 10 units IV and one ampule sodium bicarbonate. Also received 0.5 mg atropine 1. Transferred to Medical floor and follow up by Hospitalist Team. 01/02: Nephrology specialist and Cardiology following, as per sales and training specialist the patient is improving her condition, recommended to continue present care. Probable pacing is continue with Bradycardia. Discussed at this time with sales and training specialist Doctor Jeffery Yan today sinus rhythm, no bradycardia, doing better, has Atherosclerotic Heart disease of ute coronary artery without angina pectoris, states the patient is able to be discharge from his standpoint will follow Cardiology and Nephrology as outpatient. Assessment and Plan 1. 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 B12 elevated. TSH within normal limits Seizure precautions 2. COPD/Bilateral Pleural Effusions, CXR 12/31 with interstitial processes. Received Lasix 60 mg IV. Shortness of breath previously worked up with negative V/Q scan 12/24/16 Nasal cannula to maintain saturations greater than or equal to 92% Bronchodilator, Mucolytic and Incentive spirometry. Optimize medicines for discharge home. 3. Chronic Diastolic Heart Failure/CAD/Hypertension Echo 12/24/16 - Normal left ventricular size with EF 60-65%. +LVH ; moderate thickening of mitral valve leaflets. +Aortic valve sclerosis +mod TR mild pulmonary artery hypertension (48 mmHg) sales and training specialist following. discussed with Doctor Jeffery Yan sales and training specialist recommend to discharge home and follow as outpatient the Bradycardia improved. 4. Acute Kidney Injury on chronic Kidney disease III-IV/Chronic Urinary Incontinence. at this time at baseline will follow with Nephrology as outpatient. 5. Empiric antibiotic management with Biaxin UA negative for infection following Blood cultures x 2, continue Biaxin to complete seven days. 6. DM II continue Long lasting Insulin and sliding scale. 7. Hyperkalemia improved. Continue Mechanical soft diet/ADA 1800 Kcal Speech therapy to rule out for dysphagia, patient eating at this time without difficulty. GI prophylaxis PPIs. DVT prophylaxis with Heparin Discharge Planning discharge home with [facility] for PT. to decrease fall risk. Pt Condition on Discharge: Good Discharge Disposition: Disch w/ Home Health Serv Discharge Time: <= 30 minutes Discharge Instructions DIET: Follow Instructions for: Heart Healthy Diet Activities you can perform: Regular-No Restrictions Other Activity Instructions: Follow PT recommendations at home. Yahir Shaffer MD Jan 02, 2017 13:54
--- NOTE | 2017-01-02 14:48 | HHI.NPPN ---
Subjective History of Present Illness 76-year-old female known to me from her previous admission with past medical history of hypertension, diabetes mellitus, ischemic heart disease, cerebrovascular accident, chronic kidney disease who came to the hospital because of shortness of breath. I was called to see the patient for elevated BUN and creatinine. She has known history of chronic kidney disease, was seen by Dr. Nicolas in the past and I saw her when she was here about a week ago. Additional Remarks Patient is feeling better, no SOB, no chest pain. Objective Data Data Vital Signs Date Time Temp Pulse Resp B/P (MAP) Pulse Ox O2 Delivery O2 Flow Rate FiO2 01/02/17 12:00 98.2 77 16 147/65 (92) 96 01/02/17 12:00 68 01/02/17 11:00 68 01/02/17 10:00 82 01/02/17 09:00 86 01/02/17 08:00 98.1 80 16 129/57 (81) 96 01/02/17 08:00 74 01/02/17 07:00 72 01/02/17 06:00 68 01/02/17 05:00 74 01/02/17 04:00 73 01/02/17 04:00 98.1 73 18 135/58 (83) 96 01/02/17 03:00 69 01/02/17 02:00 68 01/02/17 01:00 74 01/02/17 00:00 98.4 72 18 146/54 (84) 96 01/02/17 00:00 72 01/01/17 23:00 67 01/01/17 22:00 72 01/01/17 21:00 67 01/01/17 20:00 98.2 70 20 150/64 (92) 97 01/01/17 20:00 70 01/01/17 18:00 74 01/01/17 17:00 68 01/01/17 16:34 16 01/01/17 16:00 65 01/01/17 16:00 98.4 69 18 141/58 (85) 96 01/01/17 15:00 66 -: 01/02/17 0735 01/02/17 0735 Physical Exam General Appearance: No Acute Distress, Comfortable Eyes Eye Exam: Pupils Equal Throat Throat Exam: Oral Mucosa Anchor & Moist Neck Neck Exam: Neck Supple Pulmonary Resp Exam: Breath Sounds Equal, No Distress, Rhonchi, Decreased Bases Cardiology CV Exam: Regular, Normal Sinus Rhythm Gastrointestinal/Abdomen GI Exam: Soft, Non-Tender, Bowel Sounds Present Extremeties Extremities Exam: Trace Edema Neurologic Neuro Exam: Alert, Awake, Oriented Psychiatric Psych Exam: Appropriate Responses Assessment/Plan Assessment Summary: MYCHAL/Acute Renal Failure, CKD Stage III Problem List: (1) Chronic kidney disease (CKD) ICD Codes: N18.9 - Chronic kidney disease, unspecified (2) HTN (hypertension) ICD Codes: I10 - Essential (primary) hypertension Status: Chronic (3) DM (diabetes mellitus) ICD Codes: E11.9 - Type 2 diabetes mellitus without complications Status: Chronic (4) MYCHAL (acute kidney injury) ICD Codes: N17.9 - Acute kidney failure, unspecified Status: Acute Plan Patient has further improvement in the Creatinine. Possibly at her baseline. She has chronic kidney disease, possibly related to Hypertensive or Diabetic renal disease. Now for D/C, to follow with Dr. Nicolas. Dwight Salas MD Jan 02, 2017 14:48
--- NOTE | 2017-01-02 15:36 | HHI.FF ---
Face to Face Verification Diagnosis: (1) Bradycardia (2) Encephalopathy acute (3) Hemiparesis Physical Therapy Order: Evaluate and Treat, Improve ambulation, Strength and gait training Home Health Nursing Order: Medical education Signs/symptoms of disease process Medication education-adverse effect Nursing assessment with vital signs I have seen patient Liz Louie on 01/02/17. My clinical findings support the need for the requested home health care services because: Ltd mobility - disease progression I certify that my clinical findings support that this patient is homebound because: Unsafe to leave home unassisted Yahir Shaffer MD Jan 02, 2017 15:36
[2017-01-31] MEDS ORDERED: GABA300C5 PO (10:54)
== END 2017-01-02 14:33 | disposition home health service (06) | DRG 309 ==
LOC: NEPC 13:56 → NEDA 18:54 → HIME 22:30 → HCIS 01-01 13:43
PROVIDERS: ADMIT Internal Medicine; ATTEND Internal Medicine
DX: R00.1 Bradycardia, unspecified (principal); N17.9 Acute kidney failure, unspecified; I69.354 Hemiplegia and hemiparesis following cerebral infarction affecting left non-dominant side; E11.22 Type 2 diabetes mellitus with diabetic chronic kidney disease; I50.32 Chronic diastolic (congestive) heart failure; I13.0 Hypertensive heart and chronic kidney disease with heart failure and stage 1 through stage 4 chronic kidney disease, or unspecified chronic kidney disease; I27.2 Other secondary pulmonary hypertension; N18.3 Chronic kidney disease, stage 3 (moderate); J44.9 Chronic obstructive pulmonary disease, unspecified; R56.9 Unspecified convulsions; I25.10 Atherosclerotic heart disease of native coronary artery without angina pectoris; M19.90 Unspecified osteoarthritis, unspecified site; F41.9 Anxiety disorder, unspecified; D72.829 Elevated white blood cell count, unspecified; E11.40 Type 2 diabetes mellitus with diabetic neuropathy, unspecified; R32 Unspecified urinary incontinence; I08.2 Rheumatic disorders of both aortic and tricuspid valves; E87.5 Hyperkalemia; R63.0 Anorexia; R11.0 Nausea; Z79.4 Long term (current) use of insulin; Z87.891 Personal history of nicotine dependence
CPT/HCPCS: 36600; 70551; 71020; 80048; 80053; 80171; 81001; 82550; 82607; 82805; 82948; 83735; 83880; 84100; 84132; 84300; 84443; 84484; 85025; 85027; 85610; 85730; 87205; 87641; 93005; 94640; 94664; 95819; 96374; 96375; J0360; J0461; J0610; J1815; J1940

== ENCOUNTER 2017-05-07 13:52 | Emergency (ER) | payer OTHER ==
[~2017-05-07 13:52] MED LIST changes: +ASPI-516 CHEW; -ASPI81CH CHEW; +CEFU1TAB18 PO; -METO25TA3 PO
[2017-05-07 13:54] VITALS: BP 136/62; PULSE 78; RESP 16; TEMP 98.7; O2SAT 98
[2017-05-07] MEDS ORDERED: SODIUM CHLORIDE 0.9% FLUSH 10 ML FLUSH IVF PRN (14:30)
--- NOTE | 2017-05-07 14:36 | PD ---
HPI Chief Complaint: Respiratory Symptoms Time Seen by Provider: 14:13 Travel History International Travel<30 days: No Contact w/Intl Traveler<30days: No Traveled to known affect area: No History of Present Illness HPI 76 y/o female presents with cough, congestion and general ill feeling over the past couple of days. Her is here in the hospital of pneumonia. Multiple sick contacts at home with similar symptoms. She states she did not get the flu shot this year but has had the pneumonia vaccine. She states her sugars have been okay with the last one being 190 which is good for her as she usually is in the 300s. She feels worse when she moves around. She denies other modifying factors. Duration is past couple of days. She is present with her daughter who helps supplement history. Quality is cough. Severity is progressive per daughter. PFSH Past Medical History Arthritis: Yes (Bilateral hands.) Asthma: No Autoimmune Disease: No Blood Disorders: No Anxiety: No Depression: No Heart Rhythm Problems: No Cancer: No Cardiac Catheterization: Yes (twice) Cardiovascular Problems: Yes (HTN, CHF) High Cholesterol: No Chemotherapy: No Chest Pain: Yes (heart cath 2016) Congestive Heart Failure: Yes COPD: No Cerebrovascular Accident: Yes (CVA X 10 YEARS AGO AND CVA 2016) Diabetes: Yes Endocrine: Yes GERD: No Genitourinary: No Headaches: Yes (OCCASIONAL ) Hiatal Hernia: No Hypertension: Yes Immune Disorder: No Kidney Stones: No Musculoskeletal: Yes Neurologic: Yes (2 strokes, 10 years/1 year ago) Psychiatric: No Reproductive: No Respiratory: Yes Migraines: No Radiation Therapy: No Renal Failure: No Seizures: No Sickle Cell Disease: No Sleep Apnea: No Thyroid Disease: No Ulcer: No Past Surgical History Abdominal Surgery: No AICD: No Arteriovenous Shunt: No Cardiac Surgery: Yes (cath procedure) Coronary Artery Bypass Graft: No Ear Surgery: No Endocrine Surgery: No Eye Surgery: Yes (BILATERAL CATARACT SURGERY) Genitourinary Surgery: No Gynecologic Surgery: No Insulin Pump: No Joint Replacement: No Oral Surgery: No Pacemaker: No Thoracic Surgery: No Other Surgery: Yes (2 C-SECTIONS) Social History Alcohol Use: No Tobacco Use: No Substance Use: No Allergies-Medications (Allergen,Severity, Reaction): Coded Allergies: Lactobacillus acidophilus (Verified Allergy, Severe, 12/31/16) Lactobacillus bulgaricus (Verified Allergy, Severe, 12/31/16) Lactobacillus gasseri (Verified Allergy, Severe, 12/31/16) Streptococcus thermophilus (Verified Allergy, Severe, 12/31/16) lovastatin (Verified Allergy, Severe, 12/31/16) N/V Reported Meds & Prescriptions Reported Meds & Active Scripts Active Azithromycin 250 Mg Tab 250 Mg PO DIRECTED Take 2 tabs (500 mg) on day 1 then 1 tab daily x 4 days. Ceftin (Cefuroxime Axetil) 250 Mg Tab 250 Mg PO DAILY Gabapentin 300 Mg Cap 300 Mg PO BID Norvasc (Amlodipine Besylate) 5 Mg Tab 5 Mg PO DAILY Isosorbide Mononitrate ER (Isosorbide Mononitrate) 30 Mg [place] 30 Mg PO DAILY@07 Reported Levemir Inj (Insulin Detemir) 1,000 unit/ 10 ML Vial 56 Units SQ BID Do not mix with any other Insulin. Nitroglycerin SL (Nitroglycerin) 0.4 Mg Subl 0.4 Mg SL DIRECTED PRN ONE TABLET UNDER THE TONGUE NEEDED FOR CHEST PAIN, MAY REPEAT EVERY FIVE MINUTES FOR A TOTAL OF 3 DOSES OR CALL 911 IF NO RELIEF Folic Acid 400 Mcg Tab 400 Mcg PO DAILY Aspirin 81 Mg Chew 81 Mg CHEW DAILY Novolin N U-100 Inj (Insulin NPH (Human) (Isophane) Inj) 100 Unit/Ml Inj 1 Units SLIDING SCALE Plavix (Clopidogrel Bisulfate) 75 Mg Tab 75 Mg PO DAILY Review of Systems Except as stated in HPI: all other systems reviewed are Neg Physical Exam Narrative GENERAL: Well-nourished, well-developed patient. Well-appearing SKIN: Warm and dry. HEAD: Normocephalic and atraumatic. EYES: No injection or drainage. ENT: No nasal drainage noted. Bilateral TMs clear, posterior oropharynx without exudate or erythema NECK: Supple, trachea midline. No meningeal signs CARDIOVASCULAR: Regular rate and rhythm RESPIRATORY: Breath sounds equal bilaterally. No accessory muscle use. GASTROINTESTINAL: Abdomen soft, non-tender, nondistended. EXTREMITIES: No edema. NEUROLOGICAL: Awake and alert. Motor and sensory grossly within normal limits. Normal speech. Data Data Last Documented VS Vital Signs Date Time Temp Pulse Resp B/P (MAP) Pulse Ox O2 Delivery O2 Flow Rate FiO2 05/07/17 17:24 79 16 141/60 (87) 96 Room Air 05/07/17 13:54 98.7 Orders Orders Complete Blood Count With Diff (05/07/17 14:20) Basic Metabolic Panel (Bmp) (05/07/17 14:20) Influenzae A/B Antigen (05/07/17 14:20) Iv Access Insert/Monitor (05/07/17 14:20) Ecg Monitoring (05/07/17 14:20) Oximetry (05/07/17 14:20) Chest, Pa & Lat (05/07/17 14:20) Sodium Chloride 0.9% Flush (Ns Flush) (05/07/17 14:30) Urinalysis - C+S If Indicated (05/07/17 15:13) Sodium Chlorid 0.9% 500 Ml Inj (Ns 500 M (05/07/17 15:15) Urine Culture (05/07/17 16:15) Ed Discharge Order (05/07/17 17:44) Labs Laboratory Tests Test 05/07/17 14:35 05/07/17 16:15 White Blood Count 17.6 TH/MM3 Red Blood Count 4.26 MIL/MM3 Hemoglobin 13.3 GM/DL Hematocrit 40.0 % Mean Corpuscular Volume 94.0 FL Mean Corpuscular Hemoglobin 31.3 PG Mean Corpuscular Hemoglobin Concent 33.3 % Red Cell Distribution Width 12.9 % Platelet Count 177 TH/MM3 Mean Platelet Volume 9.3 FL Neutrophils (%) (Auto) 80.6 % Lymphocytes (%) (Auto) 10.6 % Monocytes (%) (Auto) 8.0 % Eosinophils (%) (Auto) 0.3 % Basophils (%) (Auto) 0.5 % Neutrophils # (Auto) 14.2 TH/MM3 Lymphocytes # (Auto) 1.9 TH/MM3 Monocytes # (Auto) 1.4 TH/MM3 Eosinophils # (Auto) 0.1 TH/MM3 Basophils # (Auto) 0.1 TH/MM3 CBC Comment AUTO DIFF Differential Comment AUTO DIFF CONFIRMED Blood Urea Nitrogen 34 MG/DL Creatinine 1.57 MG/DL Random Glucose 172 MG/DL Calcium Level 9.3 MG/DL Sodium Level 137 MEQ/L Potassium Level 5.2 MEQ/L Chloride Level 108 MEQ/L Carbon Dioxide Level 21.9 MEQ/L Anion Gap 7 MEQ/L Estimat Glomerular Filtration Rate 32 ML/MIN Urine Color YELLOW Urine Turbidity CLEAR Urine pH 5.0 Urine Specific [place] 1.015 Urine Protein TRACE mg/dL Urine Glucose (UA) NEG mg/dL Urine Ketones NEG mg/dL Urine Occult Blood NEG Urine Nitrite NEG Urine Bilirubin NEG Urine Urobilinogen LESS THAN 2.0 MG/DL Urine Leukocyte Esterase NEG Urine WBC LESS THAN 1 /hpf Urine Squamous Epithelial Cells <1 /hpf Urine Calcium Oxalate Crystals FEW /hpf Urine Bacteria RARE /hpf Urine Mucus FEW /lpf Microscopic Urinalysis Comment CATH-CULTURE IND MDM Medical Decision Making Medical Screen Exam Complete: Yes Emergency Medical Condition: Yes Medical Record Reviewed: Yes (past history confirmed) Interpretation(s) CBC & BMP Diagram 05/07/17 14:35 Calcium Level 9.3 Last 24 hours Impressions Chest X-Ray 05/07/17 1420 Signed Impressions: Service Date/Time: Tuesday, May 07, 2017 14:40 - CONCLUSION: 1. No acute cardiopulmonary disease. Pj Layton MD Creatinine near baseline, patient only has mild hypokalemia. Discussed this with daughter and how to avoid with diet and need to follow up closely Differential Diagnosis Pneumonia, URI, pharyngitis, renal failure Narrative Course Will check blood work, influenza, chest x-ray and reevaluate Chest x-ray shows no pneumonia. Lengthy discussion with patient and daughter and agreed to azithromycin for possible bronchitis and close follow-up with primary care physician, Patient denies any new complaints and states that they are feeling better. Patient happy with care, all questions answered. Patient knows that follow up is incumbent on them and to return to the emergency room immediately if new or worsening symptoms develop. Patient given strict return precautions, vitals reviewed and are normal, agrees to further workup as an outpatient. Diagnosis Primary Impression: Upper respiratory infection Qualified Codes: J06.9 - Acute upper respiratory infection, unspecified Additional Impression: Leukocytosis Qualified Codes: D72.829 - Elevated white blood cell count, unspecified Patient Instructions: General Instructions Additional Instructions: return as needed, follow with primary tuesday, tylenol as needed for pain, keep hydrated Med/Other Pt SpecificInfo: Prescription(s) given Scripts Azithromycin (Azithromycin) 250 Mg Tab 250 MG PO DIRECTED for Infection, #6 TAB 0 Refills Take 2 tabs (500 mg) on day 1 then 1 tab daily x 4 days. Prov: Selma Velarde MD 05/07/17 Disposition: 01 DISCHARGE HOME Condition: Stable Selma Velarde MD May 07, 2017 14:36
[2017-05-07 14:39] VITALS: O2SAT 98
[2017-05-07 14:49] LABS: AUTOMATED NEUTROPHIL # 14.2 TH/MM3 (1.8-7.7); BASOPHIL # 0.1 TH/MM3 (0-0.2); BASOPHIL % 0.5 % (0.0-2.0); EOSINOPHIL # 0.1 TH/MM3 (0-0.4); EOSINOPHIL % 0.3 % (0.0-4.0); HEMOGLOBIN 13.3 GM/DL (11.6-15.3); LYMPH % 10.6 % (9.0-44.0); LYMPHOCYTE # 1.9 TH/MM3 (1.0-4.8); MEAN CORPUSCULAR HEMOGLOBIN 31.3 PG (27.0-34.0); MEAN CORPUSCULAR HGB CONC 33.3 % (32.0-36.0); MEAN PLATELET VOLUME 9.3 FL (7.0-11.0); MONOCYTE # 1.4 TH/MM3 (0-0.9); NEUT % 80.6 % (16.0-70.0); RED BLOOD COUNT 4.26 MIL/MM3 (4.00-5.30); RED CELL DISTRIBUTION WIDTH 12.9 % (11.6-17.2); WHITE BLOOD COUNT 17.6 TH/MM3 (4.0-11.0)
[2017-05-07 15:07] LABS: BICARBONATE 21.9 MEQ/L (21.0-32.0); CALCIUM 9.3 MG/DL (8.5-10.1); CREATININE 1.57 MG/DL (0.50-1.00)
[2017-05-07] MEDS ORDERED: SODIUM CHLORID 0.9% 500 ML INJ 500 ML IV ONE (15:15)
[2017-05-07 15:51] LABS: PLATELET COUNT 177 TH/MM3 (150-450)
--- NOTE | 2017-05-07 15:57 | RADRPT ---
EXAM DATE/TIME: 05/07/2017 14:40 [facility] COMPARISON: CHEST PA & LAT, December 31, 2016, 15:35. INDICATIONS : Short of breath. Cough. MEDICAL HISTORY : Congestive heart failure. Diabetes mellitus type II. Hypertension. SURGICAL HISTORY : None. ENCOUNTER: Initial ACUITY: 2 days PAIN SCORE: 0/10 LOCATION: Bilateral chest. FINDINGS: PA and lateral views of the chest demonstrate the lungs to be symmetrically aerated without evidence of mass, infiltrate or effusion. The cardiomediastinal contours are unremarkable. Osseous structure s are intact. There is prominence of the aortic knob is with calcification characteristic of atherosc lerotic vascular disease. CONCLUSION: 1. No acute cardiopulmonary disease. Pj Layton MD on May 07, 2017 at 15:55 Board Certified Radiologist. This report was verified electronically.
[2017-05-07 16:45] LABS: BACTERIA, URINE RARE /hpf; BILIRUBIN, URINE NEG (NEG); BLOOD, URINE NEG (NEG); CALCIUM OXALATE CRYSTALS,URINE FEW /hpf; GLUCOSE,URINE NEG (NEG); KETONE, URINE NEG (NEG); MUCUS URINE FEW /lpf (OCC); NITRITE,URINE NEG (NEG); SQUAMOUS EPITHELIAL CELL URINE <1 /hpf (0-5); URINE COLOR YELLOW (YELLW/STRAW); URINE LEUKOCYTE ESTERASE NEG (NEG)
[2017-05-07 17:24] VITALS: BP 141/60; PULSE 79; RESP 16; O2SAT 96
[2017-05-07] MEDS ORDERED: AZIT250T3 PO (17:46)
== END 2017-05-07 18:28 | disposition home or self-care (01) ==
LOC: NEPE 13:52
DX: J06.9 Acute upper respiratory infection, unspecified (principal); D72.829 Elevated white blood cell count, unspecified; E87.6 Hypokalemia; M19.042 Primary osteoarthritis, left hand; M19.041 Primary osteoarthritis, right hand; I11.0 Hypertensive heart disease with heart failure; I50.9 Heart failure, unspecified; E11.9 Type 2 diabetes mellitus without complications; Z86.73 Personal history of transient ischemic attack (TIA), and cerebral infarction without residual deficits
CPT/HCPCS: 71046; 80048; 81001; 85025; 87086; 87804; 96360; 99284; J7040

== ENCOUNTER 2017-05-13 13:42 | Emergency (ER) | payer OTHER ==
[~2017-05-13] VITALS: Ht 154.9 cm; Wt 71.8 kg
[~2017-05-13 13:42] MED LIST changes: +AZIT250T3 PO
[2017-05-13 13:48] VITALS: BP 106/54; PULSE 72; RESP 16; TEMP 98.1; O2SAT 93
--- NOTE | 2017-05-13 15:18 | RADRPT ---
EXAM DATE/TIME: 05/13/2017 14:34 [facility] COMPARISON: CHEST PA & LAT, May 07, 2017, 14:40. INDICATIONS : Weak from coughing, sent by the dr. MEDICAL HISTORY : Congestive heart failure. Hypertension Stroke. renal failure. SURGICAL HISTORY : None. ENCOUNTER: Initial ACUITY: 3 weeks PAIN SCORE: 0/10 LOCATION: Bilateral chest FINDINGS: PA and lateral views of the chest demonstrate the lungs to be symmetrically aerated without evidence of mass, infiltrate or effusion. Interval improvement from 05/07/17 The cardiomediastinal contours are unremarkable. Osseous structures are intact. CONCLUSION: Improved without infiltrate or failure Víctor Aleman MD FACR on May 13, 2017 at 15:15 Board Certified Radiologist. This report was verified electronically.
[2017-05-13] MEDS ORDERED: SODIUM CHLOR 0.9% 250 ML INJ 250 ML IV ONE (16:00)
[2017-05-13] MEDS ORDERED: RESP: ALBUTEROL 2.5 MG/IPRATROPIUM 0.5 MG NEB (SCH) NEB ONE (16:00)
[2017-05-13] MEDS ORDERED: methylPREDNISolone SOD SUCC 125 MG/2 ML VIAL IV PUSH ONE (16:00)
--- NOTE | 2017-05-13 16:09 | PD ---
HPI Chief Complaint: Cold / Flu Symptoms Time Seen by Provider: 15:02 Travel History International Travel<30 days: No Contact w/Intl Traveler<30days: No Traveled to known affect area: No History of Present Illness HPI The patient is a 76-year-old female who presents emergency department for cough and cold symptoms. The patient developed cough and cold symptoms approximately one month ago. The daughter states the entire family appeared to have some type of viral infection, most family members improved, however, the patient and her continue to have symptoms. The patient's was then diagnosed with pneumonia and was admitted to the hospital where he had fluid drained off of a long period the daughter states the patient was in the emergency department 2 days ago and had a chest x-ray performed, flu test performed, and laboratory evaluation performed. The patient is already been treated with Zithromax, finished a course of antibiotics, but continues to have some generalized symptoms. The patient does note a productive cough producing brown sputum. She does note decreased appetite, but was able to the oranges and raspberries this morning with apple sauce to take her medications. The patient does complain of some generalized fatigue. She denies any chest pain, nausea, vomiting, diarrhea, or abdominal pain. She does complain of chest wall pain with coughing. 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 Shell, who referred them to the emergency department for further evaluation. PFSH Past Medical History Hx Anticoagulant Therapy: Yes Arthritis: Yes (Bilateral hands.) Asthma: No Autoimmune Disease: No Blood Disorders: No Anxiety: No Depression: No Heart Rhythm Problems: No Cancer: No Cardiac Catheterization: Yes (twice) Cardiovascular Problems: Yes (CHF) High Cholesterol: No Chemotherapy: No Chest Pain: Yes (heart cath 2016) Congestive Heart Failure: Yes COPD: No Cerebrovascular Accident: Yes Diabetes: Yes Endocrine: Yes GERD: No Genitourinary: No Headaches: Yes (OCCASIONAL ) Hiatal Hernia: No Hypertension: Yes Immune Disorder: No Kidney Stones: No Musculoskeletal: Yes Neurologic: Yes (2 strokes, 10 years/1 year ago) Psychiatric: No Reproductive: No Respiratory: Yes Migraines: No Radiation Therapy: No Renal Failure: No Seizures: No Sickle Cell Disease: No Sleep Apnea: No Thyroid Disease: No Ulcer: No Past Surgical History Abdominal Surgery: No AICD: No Arteriovenous Shunt: No Cardiac Surgery: Yes (cath procedure) Coronary Artery Bypass Graft: No Ear Surgery: No Endocrine Surgery: No Eye Surgery: Yes (BILATERAL CATARACT SURGERY) Genitourinary Surgery: No Gynecologic Surgery: No Insulin Pump: No Joint Replacement: No Oral Surgery: No Pacemaker: No Thoracic Surgery: No Other Surgery: Yes (2 C-SECTIONS) Social History Alcohol Use: No Tobacco Use: No Substance Use: No Allergies-Medications (Allergen,Severity, Reaction): Coded Allergies: Lactobacillus acidophilus (Verified Allergy, Severe, 12/31/16) Lactobacillus bulgaricus (Verified Allergy, Severe, 12/31/16) Lactobacillus gasseri (Verified Allergy, Severe, 12/31/16) Streptococcus thermophilus (Verified Allergy, Severe, 12/31/16) lovastatin (Verified Allergy, Severe, 12/31/16) N/V Reported Meds & Prescriptions Reported Meds & Active Scripts Active Albuterol Neb (Albuterol Sulfate) 2.5 Mg/3 Ml Neb 2.5 Mg NEB Q4HR NEB PRN Ventolin Hfa 18 GM Inh (Albuterol Sulfate) 90 Mcg/Act Aer 2 Puff INH Q4H PRN Deltasone (Prednisone) 20 Mg Tab 40 Mg PO DAILY 4 Days Azithromycin 250 Mg Tab 250 Mg PO DIRECTED Take 2 tabs (500 mg) on day 1 then 1 tab daily x 4 days. Gabapentin 300 Mg Cap 300 Mg PO BID Norvasc (Amlodipine Besylate) 5 Mg Tab 5 Mg PO DAILY Isosorbide Mononitrate ER (Isosorbide Mononitrate) 30 Mg Conrad 30 Mg PO DAILY@07 Reported Levemir Inj (Insulin Detemir) 1,000 unit/ 10 ML Vial 56 Units SQ BID Do not mix with any other Insulin. Nitroglycerin SL (Nitroglycerin) 0.4 Mg Subl 0.4 Mg SL DIRECTED PRN ONE TABLET UNDER THE TONGUE NEEDED FOR CHEST PAIN, MAY REPEAT EVERY FIVE MINUTES FOR A TOTAL OF 3 DOSES OR CALL 911 IF NO RELIEF Folic Acid 400 Mcg Tab 400 Mcg PO DAILY Aspirin 81 Mg Chew 81 Mg CHEW DAILY Novolin N U-100 Inj (Insulin NPH (Human) (Isophane) Inj) 100 Unit/Ml Inj 1 Units SLIDING SCALE Plavix (Clopidogrel Bisulfate) 75 Mg Tab 75 Mg PO DAILY Review of Systems Except as stated in HPI: all other systems reviewed are Neg General / Constitutional: No: Fever, Chills HENT: Positive: Lightheadedness Cardiovascular: Positive: Chest Pain or Discomfort (secondary to coughing) Respiratory: Positive: Cough, Wheezing, No: Shortness of Breath Gastrointestinal: Positive: Loss of Appetite, No: Nausea, Vomiting, Abdominal Pain Musculoskeletal: Positive: Weakness, No: Edema Neurologic: Positive: Weakness Physical Exam Narrative GENERAL: Awake, alert, pleasant 76-year-old female appears her stated age is in no acute respiratory distress. SKIN: Focused skin assessment warm/dry. HEAD: Atraumatic. Normocephalic. EYES: Pupils equal and round. No scleral icterus. No injection or drainage. ENT: No nasal bleeding or discharge. Slightly dry mucous membranes. NECK: Trachea midline. No JVD. CARDIOVASCULAR: Regular rate and rhythm. No murmur appreciated. RESPIRATORY: No accessory muscle use. Scattered wheezes noted. GASTROINTESTINAL: Abdomen soft, non-tender, nondistended. No rebound tenderness. MUSCULOSKELETAL: No obvious deformities. No clubbing. No cyanosis. No edema. NEUROLOGICAL: Awake and alert. No obvious cranial nerve deficits. Motor grossly within normal limits. Normal speech. PSYCHIATRIC: Appropriate mood and affect; insight and judgment normal. Data Data Last Documented VS Vital Signs Date Time Temp Pulse Resp B/P (MAP) Pulse Ox O2 Delivery O2 Flow Rate FiO2 05/13/17 17:58 74 15 124/60 (81) 96 05/13/17 15:40 Room Air 05/13/17 13:48 98.1 Orders Orders Complete Blood Count With Diff (05/13/17 14:16) Basic Metabolic Panel (Bmp) (05/13/17 14:16) B-Type Natriuretic Peptide (05/13/17 14:16) Act Partial Throm Time (Ptt) (05/13/17 14:16) Prothrombin Time / Inr (Pt) (05/13/17 14:16) Magnesium (Mg) (05/13/17 14:16) Ckmb (Isoenzyme) Profile (05/13/17 14:16) Troponin I (05/13/17 14:16) Urinalysis - C+S If Indicated (05/13/17 14:16) Electrocardiogram (05/13/17 14:16) Chest, Pa & Lat (05/13/17 14:16) Methylprednisolone So Succ Inj (Solumedr (05/13/17 16:00) Albuterol-Ipratropium Neb (Duoneb Neb) (05/13/17 16:00) Sodium Chlor 0.9% 250 Ml Inj (Ns 250 Ml (05/13/17 16:00) Sodium Chlorid 0.9% 500 Ml Inj (Ns 500 M (05/13/17 17:30) Labs Laboratory Tests Test 05/13/17 15:40 05/13/17 18:35 White Blood Count 12.0 TH/MM3 Red Blood Count 3.96 MIL/MM3 Hemoglobin 12.2 GM/DL Hematocrit 37.2 % Mean Corpuscular Volume 93.8 FL Mean Corpuscular Hemoglobin 30.8 PG Mean Corpuscular Hemoglobin Concent 32.9 % Red Cell Distribution Width 12.9 % Platelet Count 272 TH/MM3 Mean Platelet Volume 9.2 FL Neutrophils (%) (Auto) 71.0 % Lymphocytes (%) (Auto) 18.7 % Monocytes (%) (Auto) 7.3 % Eosinophils (%) (Auto) 2.1 % Basophils (%) (Auto) 0.9 % Neutrophils # (Auto) 8.5 TH/MM3 Lymphocytes # (Auto) 2.2 TH/MM3 Monocytes # (Auto) 0.9 TH/MM3 Eosinophils # (Auto) 0.3 TH/MM3 Basophils # (Auto) 0.1 TH/MM3 CBC Comment DIFF FINAL Differential Comment Prothrombin Time 10.2 SEC Prothromb Time International Ratio 1.0 RATIO Activated Partial Thromboplast Time 19.2 SEC Blood Urea Nitrogen 36 MG/DL Creatinine 2.05 MG/DL Random Glucose 122 MG/DL Calcium Level 10.3 MG/DL Magnesium Level 2.5 MG/DL Sodium Level 137 MEQ/L Potassium Level 5.0 MEQ/L Chloride Level 102 MEQ/L Carbon Dioxide Level 28.6 MEQ/L Anion Gap 6 MEQ/L Estimat Glomerular Filtration Rate 23 ML/MIN Total Creatine Kinase 37 U/L Troponin I LESS THAN 0.02 NG/ML B-Type Natriuretic Peptide 92 PG/ML Urine Color YELLOW Urine Turbidity HAZY Urine pH 5.0 Urine Specific Alva 1.019 Urine Protein TRACE mg/dL Urine Glucose (UA) NEG mg/dL Urine Ketones NEG mg/dL Urine Occult Blood NEG Urine Nitrite NEG Urine Bilirubin NEG Urine Urobilinogen LESS THAN 2.0 MG/DL Urine Leukocyte Esterase NEG Urine RBC LESS THAN 1 /hpf Urine WBC 1 /hpf Urine Squamous Epithelial Cells 1 /hpf Urine Hyaline Casts 12 /lpf Urine Mucus FEW /lpf Microscopic Urinalysis Comment CATH-CULT NOT IND MDM Medical Decision Making Medical Screen Exam Complete: Yes Emergency Medical Condition: Yes Medical Record Reviewed: Yes Interpretation(s) Laboratory Tests Test 05/13/17 15:40 05/13/17 18:35 White Blood Count 12.0 TH/MM3 Red Blood Count 3.96 MIL/MM3 Hemoglobin 12.2 GM/DL Hematocrit 37.2 % Mean Corpuscular Volume 93.8 FL Mean Corpuscular Hemoglobin 30.8 PG Mean Corpuscular Hemoglobin Concent 32.9 % Red Cell Distribution Width 12.9 % Platelet Count 272 TH/MM3 Mean Platelet Volume 9.2 FL Neutrophils (%) (Auto) 71.0 % Lymphocytes (%) (Auto) 18.7 % Monocytes (%) (Auto) 7.3 % Eosinophils (%) (Auto) 2.1 % Basophils (%) (Auto) 0.9 % Neutrophils # (Auto) 8.5 TH/MM3 Lymphocytes # (Auto) 2.2 TH/MM3 Monocytes # (Auto) 0.9 TH/MM3 Eosinophils # (Auto) 0.3 TH/MM3 Basophils # (Auto) 0.1 TH/MM3 CBC Comment DIFF FINAL Differential Comment Prothrombin Time 10.2 SEC Prothromb Time International Ratio 1.0 RATIO Activated Partial Thromboplast Time 19.2 SEC Blood Urea Nitrogen 36 MG/DL Creatinine 2.05 MG/DL Random Glucose 122 MG/DL Calcium Level 10.3 MG/DL Magnesium Level 2.5 MG/DL Sodium Level 137 MEQ/L Potassium Level 5.0 MEQ/L Chloride Level 102 MEQ/L Carbon Dioxide Level 28.6 MEQ/L Anion Gap 6 MEQ/L Estimat Glomerular Filtration Rate 23 ML/MIN Total Creatine Kinase 37 U/L Troponin I LESS THAN 0.02 NG/ML B-Type Natriuretic Peptide 92 PG/ML Urine Color YELLOW Urine Turbidity HAZY Urine pH 5.0 Urine Specific Alva 1.019 Urine Protein TRACE mg/dL Urine Glucose (UA) NEG mg/dL Urine Ketones NEG mg/dL Urine Occult Blood NEG Urine Nitrite NEG Urine Bilirubin NEG Urine Urobilinogen LESS THAN 2.0 MG/DL Urine Leukocyte Esterase NEG Urine RBC LESS THAN 1 /hpf Urine WBC 1 /hpf Urine Squamous Epithelial Cells 1 /hpf Urine Hyaline Casts 12 /lpf Urine Mucus FEW /lpf Microscopic Urinalysis Comment CATH-CULT NOT IND Last Impressions Chest X-Ray 05/13/17 1416 Signed Impressions: Service Date/Time: Saturday, May 13, 2017 14:34 - CONCLUSION: Improved without infiltrate or failure Víctor Aleman MD FACR Differential Diagnosis Differential diagnosis includes bronchitis, pneumonia, pleural effusion, influenza, viral syndrome, dehydration, pulmonary edema, congestive heart failure, cardiomyopathy. Narrative Course IV was established, labs are drawn and sent, and the patient was placed on cardiac telemetry monitoring and continuous pulse oximetry monitoring. EKG was ordered and interpreted. Chest x-rays obtained. I reviewed the patient's results from several days ago, her chest x-ray was unremarkable at that time and influenza screen was negative. Repeat chest x-ray was obtained in triage, there are no acute changes. White count is lower, at 12.0. BNP is unremarkable. Creatinine is slightly elevated at 2, her baseline appears to be between 1.5 and 2.4. Lab requested a repeat UA, therefore, a repeat UA was sent to lab. If UA is positive, we'll treat for UTI, if negative will treat with prednisone and albuterol inhaler and nebulizers for her bronchitis. Diagnosis Primary Impression: Bronchitis Additional Impression: Dehydration Patient Instructions: General Instructions Additional Instructions: Medications as directed. Please provide the family a copy of labs and x-ray results at discharge. Follow-up with your primary physician. Return if symptoms worsen or progress. Med/Other Pt SpecificInfo: Prescription(s) given Scripts Albuterol Neb (Albuterol Neb) 2.5 Mg/3 Ml Neb 2.5 MG NEB Q4HR NEB Y for SHORTNESS OF BREATH, #60 NEBULE 0 Refills Prov: Nirmal Alvarado MD 05/13/17 Albuterol 18 GM Inh (Ventolin Hfa 18 GM Inh) 90 Mcg/Act Aer 2 PUFF INH Q4H Y for SHORTNESS OF BREATH, #1 INHALER 0 Refills Prov: Nirmal Alvarado MD 05/13/17 Prednisone (Deltasone) 20 Mg Tab 40 MG PO DAILY for 4 Days, #8 TAB 0 Refills Prov: Nirmal Alvarado MD 05/13/17 Disposition: 01 DISCHARGE HOME Condition: Stable Nirmal Alvarado MD May 13, 2017 16:09
[2017-05-13 16:12] LABS: AUTOMATED NEUTROPHIL # 8.5 TH/MM3 (1.8-7.7); BASOPHIL # 0.1 TH/MM3 (0-0.2); BASOPHIL % 0.9 % (0.0-2.0); EOSINOPHIL # 0.3 TH/MM3 (0-0.4); EOSINOPHIL % 2.1 % (0.0-4.0); HEMATOCRIT 37.2 % (35.0-46.0); HEMOGLOBIN 12.2 GM/DL (11.6-15.3); LYMPH % 18.7 % (9.0-44.0); LYMPHOCYTE # 2.2 TH/MM3 (1.0-4.8); MEAN CELL VOLUME 93.8 FL (80.0-100.0); MEAN CORPUSCULAR HEMOGLOBIN 30.8 PG (27.0-34.0); MEAN CORPUSCULAR HGB CONC 32.9 % (32.0-36.0); MEAN PLATELET VOLUME 9.2 FL (7.0-11.0); MONO % 7.3 % (0.0-8.0); MONOCYTE # 0.9 TH/MM3 (0-0.9); PLATELET COUNT 272 TH/MM3 (150-450); RED BLOOD COUNT 3.96 MIL/MM3 (4.00-5.30); RED CELL DISTRIBUTION WIDTH 12.9 % (11.6-17.2)
[2017-05-13 16:22] LABS: PROTHROMBIN TIME - PATIENT 10.2 SEC (9.8-11.6)
[2017-05-13 16:33] LABS: BICARBONATE 28.6 MEQ/L (21.0-32.0); BLOOD UREA NITROGEN 36 MG/DL (7-18); CALCIUM 10.3 MG/DL (8.5-10.1); CHLORIDE 102 MEQ/L (98-107); CREATININE 2.05 MG/DL (0.50-1.00); GLOMERULAR FILTRATION RATE 23 ML/MIN (>89); GLUCOSE,RANDOM 122 MG/DL (74-106); MAGNESIUM 2.5 MG/DL (1.5-2.5); SODIUM (NA) 137 MEQ/L (136-145)
[2017-05-13 16:38] LABS: TROPONIN I LESS THAN 0.02 NG/ML (0.02-0.05)
[2017-05-13] MEDS ORDERED: SODIUM CHLORID 0.9% 500 ML INJ 500 ML IV ONE (17:30)
[2017-05-13 17:58] VITALS: BP 124/60; PULSE 74; RESP 15; O2SAT 96
[2017-05-13] MEDS ORDERED: VENTAER INH (18:45)
[2017-05-13] MEDS ORDERED: PRED-503 PO (18:45)
[2017-05-13] MEDS ORDERED: ALBU0.08 NEB (18:45)
[2017-05-13 18:50] LABS: BILIRUBIN, URINE NEG (NEG); BLOOD, URINE NEG (NEG); GLUCOSE,URINE NEG (NEG); HYALINE CAST, URINE 12 /lpf (RARE); KETONE, URINE NEG (NEG); MUCUS URINE FEW /lpf (OCC); NITRITE,URINE NEG (NEG); SQUAMOUS EPITHELIAL CELL URINE 1 /hpf (0-5); URINE COLOR YELLOW (YELLW/STRAW); URINE LEUKOCYTE ESTERASE NEG (NEG)
--- NOTE | 2017-05-14 16:49 | EKG ---
Date Performed: 05/13/2017 Time Performed: 15:34:26 PTAGE: 76 years EKG: Sinus rhythm Compared to previous tracing, ST-T wave changes markedly improved from the prior tracing NORMAL ECG PREVIOUS TRACING : 04/22/2017 02.23 DOCTOR: Saran Lee Interpretating Date/Time 05/14/2017 16:47:48
== END 2017-05-13 19:57 | disposition home or self-care (01) ==
LOC: NEPE 13:42
DX: J40 Bronchitis, not specified as acute or chronic (principal); E86.0 Dehydration; E11.9 Type 2 diabetes mellitus without complications; I11.0 Hypertensive heart disease with heart failure; I50.9 Heart failure, unspecified; Z79.02 Long term (current) use of antithrombotics/antiplatelets; Z79.4 Long term (current) use of insulin; Z79.899 Other long term (current) drug therapy; Z86.73 Personal history of transient ischemic attack (TIA), and cerebral infarction without residual deficits
CPT/HCPCS: 71046; 80048; 81001; 82550; 83735; 83880; 84484; 85025; 85610; 85730; 93005; 94664; 96374; 99285; J2930; J7040; J7050

== ENCOUNTER 2017-08-05 13:52 | Inpatient (IN) | payer OTHER, MEDICARE ==
[~2017-08-05] VITALS: Ht 154.9 cm; Wt 73.9 kg
[2017-08-05] VITALS (7 sets, daily range): BP systolic 121–150; BP diastolic 56–70; PULSE 71–82; RESP 16–18; TEMP 97.1–97.9; O2SAT 95–99
[~2017-08-05 13:52] MED LIST changes: +ALBU0.08 NEB; -CEFU1TAB18 PO; +PRED-503 PO; +VENTAER INH
[2017-08-05] MEDS ORDERED: NOVOLOGP2 SQ (16:20)
--- NOTE | 2017-08-05 16:27 | PD ---
HPI Chief Complaint: Fall Time Seen by Provider: 16:03 Travel History International Travel<30 days: No Contact w/Intl Traveler<30days: No Traveled to known affect area: No History of Present Illness HPI 76-year-old female patient with history of previous CAD, CVA, CHF, presents to the ER today because she states that she had fallen when she was trying to get out of bed this morning onto her right side, hit her head, and has been having dizziness since she hit her head. She is not sure whether she lost consciousness. She denies any chest pains, complains of right shoulder pains. She denies any vomiting or any other issues. She states that she uses a walker and she feels that since then she does not feel quite right and cannot get up well. Modifying Factors: None Associated Signs & Symptoms: Fall, head injury, dizziness Risk Factors: Elderly PFSH Past Medical History Hx Anticoagulant Therapy: Yes Arthritis: Yes (Bilateral hands.) Asthma: No Autoimmune Disease: No Blood Disorders: No Anxiety: No Depression: No Heart Rhythm Problems: No Cancer: No Cardiac Catheterization: Yes (twice) Cardiovascular Problems: Yes (CHF) High Cholesterol: No Chemotherapy: No Chest Pain: Yes (heart cath 2016) Congestive Heart Failure: Yes COPD: No Cerebrovascular Accident: Yes (CVA X 2, TIA X 3) Diabetes: Yes Patient Takes Glucophage: No Endocrine: Yes GERD: No Genitourinary: No Headaches: Yes (OCCASIONAL ) Hiatal Hernia: No Hypertension: Yes Immune Disorder: No Kidney Stones: No Musculoskeletal: Yes Neurologic: Yes (2 strokes, 10 years/1 year ago) Psychiatric: No Reproductive: No Respiratory: Yes Migraines: No Radiation Therapy: No Renal Failure: No Seizures: No Sickle Cell Disease: No Sleep Apnea: No Thyroid Disease: No Ulcer: No ?: Not Menopausal: Yes Past Surgical History Abdominal Surgery: No AICD: No Arteriovenous Shunt: No Cardiac Surgery: Yes (cath procedure) Coronary Artery Bypass Graft: No Ear Surgery: No Endocrine Surgery: No Eye Surgery: Yes (BILATERAL CATARACT SURGERY) Genitourinary Surgery: No Gynecologic Surgery: No Insulin Pump: No Joint Replacement: No Oral Surgery: No Pacemaker: No Thoracic Surgery: No Other Surgery: Yes (2 C-SECTIONS) Social History Alcohol Use: No Tobacco Use: No Substance Use: No Allergies-Medications (Allergen,Severity, Reaction): Coded Allergies: Lactobacillus acidophilus (Verified Allergy, Severe, 08/05/17) Lactobacillus bulgaricus (Verified Allergy, Severe, 08/05/17) Lactobacillus gasseri (Verified Allergy, Severe, 08/05/17) Streptococcus thermophilus (Verified Allergy, Severe, 08/05/17) lovastatin (Verified Allergy, Severe, 08/05/17) N/V Reported Meds & Prescriptions Reported Meds & Active Scripts Active Gabapentin 300 Mg Cap 300 Mg PO BID Norvasc (Amlodipine Besylate) 5 Mg Tab 5 Mg PO DAILY Reported Novolog Inj (Insulin Aspart) 1,000 Unit/10 Ml Vial 0 SQ DIRECTED Sliding Scale as directed. Levemir Inj (Insulin Detemir) 1,000 unit/ 10 ML Vial 56 Units SQ BID Do not mix with any other Insulin. Nitroglycerin SL (Nitroglycerin) 0.4 Mg Subl 0.4 Mg SL DIRECTED PRN ONE TABLET UNDER THE TONGUE NEEDED FOR CHEST PAIN, MAY REPEAT EVERY FIVE MINUTES FOR A TOTAL OF 3 DOSES OR CALL 911 IF NO RELIEF Folic Acid 400 Mcg Tab 400 Mcg PO DAILY Aspirin 81 Mg Chew 81 Mg CHEW DAILY Plavix (Clopidogrel Bisulfate) 75 Mg Tab 75 Mg PO DAILY Review of Systems Except as stated in HPI: all other systems reviewed are Neg Physical Exam Narrative GENERAL: Well-developed elderly female patient currently in mild distress. Awake and oriented 3. SKIN: Focused skin assessment warm/dry. HEAD: Small hematomas to the posterior scalp and top of the scalp. Normocephalic. EYES: Pupils equal and round. No scleral icterus. No injection or drainage. ENT: No nasal bleeding or discharge. Mucous membranes pink and moist. NECK: Trachea midline. No JVD. CARDIOVASCULAR: Regular rate and rhythm. No murmur appreciated. RESPIRATORY: No accessory muscle use. Clear to auscultation. Breath sounds equal bilaterally. GASTROINTESTINAL: Abdomen soft, non-tender, nondistended. Hepatic and splenic margins not palpable. MUSCULOSKELETAL: No obvious deformities. No clubbing. No cyanosis. No edema. NEUROLOGICAL: Awake and alert. No obvious cranial nerve deficits. Motor grossly within normal limits. Normal speech. PSYCHIATRIC: Appropriate mood and affect; insight and judgment normal. Data Data Last Documented VS Vital Signs Date Time Temp Pulse Resp B/P (MAP) Pulse Ox O2 Delivery O2 Flow Rate FiO2 08/05/17 16:33 78 18 95 Room Air 08/05/17 13:54 97.1 Orders Orders Electrocardiogram (08/05/17 16:18) Complete Blood Count With Diff (08/05/17 16:18) Comprehensive Metabolic Panel (08/05/17 16:18) Troponin I (08/05/17 16:18) Act Partial Throm Time (Ptt) (08/05/17 16:18) Prothrombin Time / Inr (Pt) (08/05/17 16:18) Urinalysis - C+S If Indicated (08/05/17 16:18) Chest, Single Ap (08/05/17 16:18) Ct Brain W/O Iv Contrast(Rout) (08/05/17 16:18) Ecg Monitoring (08/05/17 16:18) Iv Access Insert/Monitor (08/05/17 16:18) Oximetry (08/05/17 16:18) Sodium Chloride 0.9% Flush (Ns Flush) (08/05/17 16:30) Shoulder, Complete (>2vws) (08/05/17 ) Admit Order (Ed Use Only) (08/05/17 18:30) Labs Laboratory Tests Test 08/05/17 16:25 White Blood Count 12.8 TH/MM3 Red Blood Count 4.17 MIL/MM3 Hemoglobin 13.3 GM/DL Hematocrit 39.4 % Mean Corpuscular Volume 94.5 FL Mean Corpuscular Hemoglobin 31.8 PG Mean Corpuscular Hemoglobin Concent 33.6 % Red Cell Distribution Width 13.7 % Platelet Count 212 TH/MM3 Mean Platelet Volume 9.5 FL Neutrophils (%) (Auto) 73.6 % Lymphocytes (%) (Auto) 16.8 % Monocytes (%) (Auto) 7.3 % Eosinophils (%) (Auto) 1.8 % Basophils (%) (Auto) 0.5 % Neutrophils # (Auto) 9.4 TH/MM3 Lymphocytes # (Auto) 2.1 TH/MM3 Monocytes # (Auto) 0.9 TH/MM3 Eosinophils # (Auto) 0.2 TH/MM3 Basophils # (Auto) 0.1 TH/MM3 CBC Comment AUTO DIFF Prothrombin Time 10.5 SEC Prothromb Time International Ratio 1.0 RATIO Activated Partial Thromboplast Time 23.3 SEC Blood Urea Nitrogen 19 MG/DL Creatinine 1.55 MG/DL Random Glucose 267 MG/DL Total Protein 7.9 GM/DL Albumin 3.4 GM/DL Calcium Level 9.6 MG/DL Alkaline Phosphatase 81 U/L Aspartate Amino Transf (AST/SGOT) 23 U/L Alanine Aminotransferase (ALT/SGPT) 17 U/L Total Bilirubin 0.3 MG/DL Sodium Level 138 MEQ/L Potassium Level 4.7 MEQ/L Chloride Level 103 MEQ/L Carbon Dioxide Level 26.2 MEQ/L Anion Gap 9 MEQ/L Estimat Glomerular Filtration Rate 32 ML/MIN Troponin I 0.21 NG/ML [facility] Medical Decision Making Medical Screen Exam Complete: Yes Emergency Medical Condition: Yes Medical Record Reviewed: Yes Interpretation(s) EKG shows A. fib at a rate of 77 bpm with T-wave depressions in the lateral leads. No signs of acute ST elevations. Laboratory Tests Test 08/05/17 16:25 White Blood Count 12.8 TH/MM3 (4.0-11.0) Neutrophils (%) (Auto) 73.6 % (16.0-70.0) Neutrophils # (Auto) 9.4 TH/MM3 (1.8-7.7) Activated Partial Thromboplast Time 23.3 SEC (24.3-30.1) Blood Urea Nitrogen 19 MG/DL (7-18) Creatinine 1.55 MG/DL (0.50-1.00) Random Glucose 267 MG/DL (74-106) Estimat Glomerular Filtration Rate 32 ML/MIN (>89) Troponin I 0.21 NG/ML (0.02-0.05) Last [address] 08/05/17 1618 Signed Impressions: Service Date/Time: Saturday, August 05, 2017 16:45 - CONCLUSION: 1. No acute findings in the brain. Trace Carver MD Chest X-Ray 08/05/17 1618 Signed Impressions: Service Date/Time: Saturday, August 05, 2017 16:25 - CONCLUSION: The lungs are clear. Trace Carver MD Shoulder X-Ray 08/05/17 0000 Signed Impressions: Service Date/Time: Saturday, August 05, 2017 16:38 - CONCLUSION: 1. Daniel of calcium inferior to the glenoid may be associated with triceps tendon origin/tendinopathy. 2. Otherwise negative. No acute osseous injury. No significant degenerative changes. Jan Damon MD Differential Diagnosis Head injury, dizziness: Contusions versus concussion versus intracranial injuries Narrative Course X-rays and CAT scans do not show any signs of acute injuries. She did not have any chest pains. However, lab work is showing an elevated troponin of unknown reason. At this point, considering the dizziness and symptoms, my plan would be to admit her for further evaluation of her heart. Case was discussed with Dr. Granados for admission. Diagnosis Primary Impression: Fall Additional Impressions: Impaired mobility and activities of daily living Elevated troponin Admitting Information Admitting Physician Requests: Admit Yakelin Torres MD Aug 05, 2017 16:27
[2017-08-05] MEDS ORDERED: SODIUM CHLORIDE 0.9% FLUSH 10 ML FLUSH IVF PRN (16:30)
[2017-08-05 16:52] LABS: HEMATOCRIT 39.4 % (35.0-46.0); HEMOGLOBIN 13.3 GM/DL (11.6-15.3); MEAN CELL VOLUME 94.5 FL (80.0-100.0); MEAN CORPUSCULAR HEMOGLOBIN 31.8 PG (27.0-34.0); MEAN CORPUSCULAR HGB CONC 33.6 % (32.0-36.0); MEAN PLATELET VOLUME 9.5 FL (7.0-11.0); NEUT % 73.6 % (16.0-70.0); PLATELET COUNT 212 TH/MM3 (150-450); RED BLOOD COUNT 4.17 MIL/MM3 (4.00-5.30); RED CELL DISTRIBUTION WIDTH 13.7 % (11.6-17.2); WHITE BLOOD COUNT 12.8 TH/MM3 (4.0-11.0)
[2017-08-05 16:53] LABS: AUTOMATED NEUTROPHIL # 9.4 TH/MM3 (1.8-7.7); BASOPHIL # 0.1 TH/MM3 (0-0.2); BASOPHIL % 0.5 % (0.0-2.0); EOSINOPHIL # 0.2 TH/MM3 (0-0.4); EOSINOPHIL % 1.8 % (0.0-4.0); LYMPH % 16.8 % (9.0-44.0); LYMPHOCYTE # 2.1 TH/MM3 (1.0-4.8); MONO % 7.3 % (0.0-8.0); MONOCYTE # 0.9 TH/MM3 (0-0.9)
--- NOTE | 2017-08-05 16:56 | RADRPT ---
EXAM DATE/TIME: 08/05/2017 16:38 [facility] COMPARISON: No previous studies available for comparison. INDICATIONS : Trauma. Fall. MEDICAL HISTORY : Congestive heart failure. Hypertension Stroke. renal failure. SURGICAL HISTORY : section. ENCOUNTER: Initial ACUITY: 1 day PAIN SCORE: 5/10 LOCATION: Right Shoulder. FINDINGS: Multiple view examination of the right shoulder demonstrates no evidence of fracture or dislocation. The glenohumeral and acromioclavicular joints are maintained. There is normal range of motion betwe en internal and external rotation. Bony mineralization is normal. Tiny daniel of calcium identified i nferior to the glenoid may be associated with the triceps tendon origin. CONCLUSION: 1. Daniel of calcium inferior to the glenoid may be associated with triceps tendon origin/tendinopathy . 2. Otherwise negative. No acute osseous injury. No significant degenerative changes. Jan Damon MD on August 05, 2017 at 16:49 Board Certified Radiologist. This report was verified electronically.
[2017-08-05 16:59] LABS: PROTHROMBIN TIME - PATIENT 10.5 SEC (9.8-11.6)
--- NOTE | 2017-08-05 16:59 | RADRPT ---
EXAM DATE/TIME: 08/05/2017 16:25 [facility] COMPARISON: CHEST SINGLE AP, April 22, 2017, 1:55. INDICATIONS : Pain in chest and shortness of breath after falling today. MEDICAL HISTORY : Diabetes mellitus type II. Congestive heart failure. Hypertension. SURGICAL HISTORY : None. ENCOUNTER: Initial ACUITY: 1 day PAIN SCORE: 5/10 LOCATION: Bilateral chest FINDINGS: A single view of the chest demonstrates the lungs to be symmetrically aerated without evidence of mas s, infiltrate or effusion. Stable thin linear area of scarring in lateral left lung. The cardiomedi astinal contours are unremarkable. Osseous structures are intact. CONCLUSION: The lungs are clear. Trace Carver MD on August 05, 2017 at 16:56 Board Certified Radiologist. This report was verified electronically.
[2017-08-05 17:05] LABS: ALBUMIN 3.4 GM/DL (3.4-5.0); AST (GOT) 23 U/L (15-37); BICARBONATE 26.2 MEQ/L (21.0-32.0); BLOOD UREA NITROGEN 19 MG/DL (7-18); CALCIUM 9.6 MG/DL (8.5-10.1); CHLORIDE 103 MEQ/L (98-107); CREATININE 1.55 MG/DL (0.50-1.00); GLOMERULAR FILTRATION RATE 32 ML/MIN (>89); GLUCOSE,RANDOM 267 MG/DL (74-106); SODIUM (NA) 138 MEQ/L (136-145)
[2017-08-05 17:09] LABS: ALKALINE PHOSPHATASE 81 U/L (45-117); ALT (GPT) 17 U/L (10-53); TOTAL BILIRUBIN ADULT 0.3 MG/DL (0.2-1.0); TOTAL PROTEIN 7.9 GM/DL (6.4-8.2); TROPONIN I 0.21 NG/ML (0.02-0.05)
--- NOTE | 2017-08-05 17:46 | RADRPT ---
EXAM DATE/TIME: 08/05/2017 16:45 [place] COMPARISON: CT BRAIN W/O CONTRAST, January 08, 2016, 12:44. INDICATIONS : Fell getting out of bed this morning, states there is a lump on the back of her head. RADIATION DOSE: 39.37 CTDIvol (mGy) MEDICAL HISTORY : Cerebrovascular disease. Cardiovascular disease Congestive heart failure.Diabetes, HTN SURGICAL HISTORY : Angioplasty, ENCOUNTER: Initial ACUITY: 1 day PAIN SCALE: 5/10 LOCATION: occipital TECHNIQUE: Multiple contiguous axial images were obtained of the head. Using automated exposure control and adj ustment of the mA and/or kV according to patient size, radiation dose was kept as low as reasonably a chievable to obtain optimal diagnostic quality images. DICOM format image data is available electro nically for review and comparison. FINDINGS: CEREBRUM: The ventricles are normal for age. No evidence of midline shift, mass lesion, hemorrhage or acute in farction. Small lacunar infarct in the medial right thalamus. No extra-axial fluid collections are s een. POSTERIOR FOSSA: The cerebellum and brainstem are intact. The 4th ventricle is midline. The cerebellopontine angle i s unremarkable. EXTRACRANIAL: The visualized portion of the orbits is intact. SKULL: The calvaria is intact. No evidence of skull fracture. CONCLUSION: 1. No acute findings in the brain. Trace Carver MD on August 05, 2017 at 17:42 Board Certified Radiologist. This report was verified electronically.
[2017-08-05] MEDS ORDERED: ONDANSETRON HCL 4 MG/2 ML VIAL IVP PRN (18:30)
[2017-08-05] MEDS ORDERED: ACETAMINOPHEN 325 MG TAB PO PRN (18:30)
[2017-08-05] MEDS ORDERED: LACTULOSE SYRUP 20 GM/30 ML CUP PO PRN (18:30)
[2017-08-05] MEDS ORDERED: SENNOSIDES 8.6 MG TAB PO PRN (18:30)
[2017-08-05] MEDS ORDERED: NALOXONE HCL 0.4 MG/ML AMP IV PUSH PRN (18:30)
[2017-08-05] MEDS ORDERED: MAGNESIUM HYDROXIDE SUSP 30 ML CUP PO PRN (18:30)
[2017-08-05] MEDS ORDERED: BISACODYL 10 MG SUPP RECTAL PRN (18:30)
[2017-08-05] MEDS ORDERED: SODIUM CHLORIDE 0.9% FLUSH 10 ML FLUSH IV FLUSH PRN (18:30)
[2017-08-05 19:14] LABS: BACTERIA, URINE MANY /hpf; BILIRUBIN, URINE NEG (NEG); BLOOD, URINE NEG (NEG); GLUCOSE,URINE 150 mg/dL (NEG); HYALINE CAST, URINE 8 /lpf (RARE); KETONE, URINE NEG (NEG); NITRITE,URINE POS (NEG); SQUAMOUS EPITHELIAL CELL URINE 7 /hpf (0-5); URINE COLOR YELLOW (YELLW/STRAW); URINE LEUKOCYTE ESTERASE LARGE (NEG); WHITE BLOOD CELL CLUMPS RARE
[2017-08-05] MEDS: SODIUM CHLOR 0.9% 1000 ML INJ 1,000 ML IV SCH (19:32)
[2017-08-05] MEDS: SODIUM CHLORIDE 0.9% FLUSH 10 ML FLUSH IV FLUSH SCH (19:32)
[2017-08-05] MEDS ORDERED: GLUCAGON 1 MG/ML VIAL OTHER PRN (20:30)
--- NOTE | 2017-08-05 20:34 | HHI.HP ---
HPI Service [facility] Primary Care Physician Víctor Bond, DO Admission Diagnosis Fall/dizziness/elevated troponin . Diagnoses: (1) Fall (2) Elevated troponin Chief Complaint: Dizziness after a fall Travel History International Travel<30 Days: No Contact w/Intl Traveler <30 Da: No Traveled to Known Affected Are: No History of Present Illness Mrs. Louie is a 76-year-old female with a history of CVA 2, TIA 3, congestive heart failure, hypertension, arthritis, and diabetes who presents to the emergency room on 08/05/2017 reporting that she had fallen while trying to get out of bed, hit her head, and has been having dizziness since that time. Laboratory studies revealed elevated troponin in the emergency room and the patient was admitted to the hospitalist service for further evaluation. Head CT with no acute findings in the brain. Chest x-ray shows no acute abnormalities. Right shoulder x-ray shows a maria del carmen of calcium inferior to the glenoid that might be associated with triceps tendon origin tendinopathy, otherwise a negative study. The patient is seen in the CDU. She reports that she has been feeling dizzy for about the past 4-5 months. She reports that she became so dizzy upon standing up today that she fell despite having a walker to steady her. She continued to feel dizzy in the CDU and I ordered some meclizine for her and she does report improvement at the time of my visit. She also reports that she has been having chest pain since last year that is intermittent and worse when laying flat. She was not having chest pain at the time of her fall. She did hit her head and had a CT scan which was negative. She also hurt her right arm in the shoulder area and the x-ray was negative with the exception of a maria del carmen of calcium inferior to the glenoid. She denies any associated fever, chills, shortness of breath, diaphoresis, nausea, vomiting, hematuria, dysuria, or frequency. Review of Systems Except as stated in HPI: all other systems reviewed are Neg Past Family Social History Past Medical History CVA 2 - 2007 and 2017 TIA 3 Congestive heart failure Coronary artery disease status post angioplasty Hypertension Arthritis Diabetes mellitus . Past Surgical History Cardiac catheterization. section 2 PEG placement and removal Bilateral cataract surgery . Reported Medications Reported Meds & Active Scripts Active Gabapentin 300 Mg Cap 300 Mg PO BID Norvasc (Amlodipine Besylate) 5 Mg Tab 5 Mg PO DAILY Reported Novolog Inj (Insulin Aspart) 1,000 Unit/10 Ml Vial 0 SQ DIRECTED Sliding Scale as directed. Levemir Inj (Insulin Detemir) 1,000 unit/ 10 ML Vial 56 Units SQ BID Do not mix with any other Insulin. Nitroglycerin SL (Nitroglycerin) 0.4 Mg Subl 0.4 Mg SL DIRECTED PRN ONE TABLET UNDER THE TONGUE NEEDED FOR CHEST PAIN, MAY REPEAT EVERY FIVE MINUTES FOR A TOTAL OF 3 DOSES OR CALL 911 IF NO RELIEF Folic Acid 400 Mcg Tab 400 Mcg PO DAILY Aspirin 81 Mg Chew 81 Mg CHEW DAILY Plavix (Clopidogrel Bisulfate) 75 Mg Tab 75 Mg PO DAILY . Allergies: Coded Allergies: Lactobacillus acidophilus (Verified Allergy, Severe, 08/05/17) Lactobacillus bulgaricus (Verified Allergy, Severe, 08/05/17) Lactobacillus gasseri (Verified Allergy, Severe, 08/05/17) Streptococcus thermophilus (Verified Allergy, Severe, 08/05/17) lovastatin (Verified Allergy, Severe, 08/05/17) N/V Family History Mother with dementia, in her 's Father killed accidentally Denies FH of CVA or CAD . Social History Tobacco: Formerly smoked for about 50 years and quit smoking in 2007 Alcohol: Very rarely drinks alcohol Her son is a chiropractor who lives in [place]. His number is [phone] Physical Exam Vital Signs Vital Signs Date Time Temp Pulse Resp B/P (MAP) Pulse Ox O2 Delivery O2 Flow Rate FiO2 08/05/17 18:37 71 18 144/63 (90) 95 Room Air 08/05/17 16:33 78 18 95 Room Air 08/05/17 16:08 75 18 150/70 (96) 99 Room Air 08/05/17 16:08 82 18 99 Room Air 08/05/17 13:54 97.1 82 16 126/61 (82) 97 Physical Exam CONSTITUTIONAL: This is a very pleasant, elderly female patient, in no apparent distress. INTEGUMENTARY: No rashes. Cool and dry. HEAD: Atraumatic. Normocephalic. EYES: No scleral icterus. No injection or drainage. ENT: Nose without bleeding, purulent drainage. NECK: Trachea midline. No JVD. CARDIOVASCULAR: Regular rate and rhythm without murmurs, gallops, or rubs. Trace bilateral lower extremity edema, diminished but palpable bilateral dorsalis pedis. RESPIRATORY: Clear to auscultation. Breath sounds equal bilaterally. No wheezes , rales, or rhonchi. GASTROINTESTINAL: Abdomen soft, non-tender, nondistended. No guarding. MUSCULOSKELETAL: Extremities without clubbing, cyanosis. No calf tenderness. NEUROLOGICAL: Awake and alert. Sensory grossly within normal limits. Minimal left herberth-paresis. Normal speech. . Laboratory Laboratory Tests Test 08/05/17 16:25 08/05/17 18:25 08/05/17 19:05 White Blood Count 12.8 Red Blood Count 4.17 Hemoglobin 13.3 Hematocrit 39.4 Mean Corpuscular Volume 94.5 Mean Corpuscular Hemoglobin 31.8 Mean Corpuscular Hemoglobin Concent 33.6 Red Cell Distribution Width 13.7 Platelet Count 212 Mean Platelet Volume 9.5 Neutrophils (%) (Auto) 73.6 Lymphocytes (%) (Auto) 16.8 Monocytes (%) (Auto) 7.3 Eosinophils (%) (Auto) 1.8 Basophils (%) (Auto) 0.5 Neutrophils # (Auto) 9.4 Lymphocytes # (Auto) 2.1 Monocytes # (Auto) 0.9 Eosinophils # (Auto) 0.2 Basophils # (Auto) 0.1 CBC Comment AUTO DIFF Differential Comment AUTO DIFF CONFIRMED Platelet Estimate NORMAL Platelet Morphology Comment CLUMPED Red Cell Morphology Comment NORMAL Prothrombin Time 10.5 Prothromb Time International Ratio 1.0 Activated Partial Thromboplast Time 23.3 Blood Urea Nitrogen 19 Creatinine 1.55 Random Glucose 267 Total Protein 7.9 Albumin 3.4 Calcium Level 9.6 Alkaline Phosphatase 81 Aspartate Amino Transf (AST/SGOT) 23 Alanine Aminotransferase (ALT/SGPT) 17 Total Bilirubin 0.3 Sodium Level 138 Potassium Level 4.7 Chloride Level 103 Carbon Dioxide Level 26.2 Anion Gap 9 Estimat Glomerular Filtration Rate 32 Troponin I 0.21 0.18 Urine Color YELLOW Urine Turbidity HAZY Urine pH 5.0 Urine Specific [place] 1.026 Urine Protein TRACE Urine Glucose (UA) 150 Urine Ketones NEG Urine Occult Blood NEG Urine Nitrite POS Urine Bilirubin NEG Urine Urobilinogen LESS THAN 2.0 Urine Leukocyte Esterase LARGE Urine RBC 6 Urine WBC 74 Urine WBC Clumps RARE Urine Squamous Epithelial Cells 7 Urine Bacteria MANY Urine Hyaline Casts 8 Microscopic Urinalysis Comment CULTURE INDICATED Date/Time Source Procedure Growth Status 08/05/17 18:25 Urine Clean Catch Urine Culture Pending Received Result Diagram: 08/05/17 1625 08/05/17 1625 Imaging Last Impressions Head CT 08/05/17 1618 Signed Impressions: Service Date/Time: Saturday, August 05, 2017 16:45 - CONCLUSION: 1. No acute findings in the brain. Trace Carver MD Chest X-Ray 08/05/17 1618 Signed Impressions: Service Date/Time: Saturday, August 05, 2017 16:25 - CONCLUSION: The lungs are clear. Trace Carver MD Shoulder X-Ray 08/05/17 0000 Signed Impressions: Service Date/Time: Saturday, August 05, 2017 16:38 - CONCLUSION: 1. Maria Del Carmen of calcium inferior to the glenoid may be associated with triceps tendon origin/tendinopathy. 2. Otherwise negative. No acute osseous injury. No significant degenerative changes. Jan Damon MD Caprini VTE Risk Assessment Caprini VTE Risk Assessment: Mod/High Risk (score >= 2) Caprini Risk Assessment Model Point Value = 1 Point Value = 2 Point Value = 3 Point Value = 5 Age 41-60 Minor surgery BMI > 25 kg/m2 Swollen legs Varicose veins or History of unexplained or recurrent spontaneous Oral contraceptives or hormone replacement Sepsis (< 1 month) Serious lung disease, including pneumonia (< 1 month) Abnormal pulmonary function Acute myocardial infarction Congestive heart failure (< 1 month) History of inflammatory bowel disease Medical patient at bed rest Age 61-74 Arthroscopic surgery Major open surgery (> 45 min) Laparoscopic surgery (> 45 min) Malignancy Confined to bed (> 72 hours) Immobilizing plaster cast Central venous access Age >= 75 History of VTE Family history of VTE Factor V Leiden Prothrombin [id number] Lupus anticoagulant Anticardiolipin antibodies Elevated serum homocysteine Heparin-induced thrombocytopenia Other congenital or acquired thrombophilia Stroke (< 1 month) Elective arthroplasty Hip, pelvis, or leg fracture Acute spinal cord injury (< 1 month) Prophylaxis Regimen Total Risk Factor Score Risk Level Prophylaxis Regimen 0-1 Low Early ambulation 2 Moderate Order ONE of the following: *Sequential Compression Device (SCD) *Heparin 5000 units SQ BID 3-4 Higher Order ONE of the following medications: *Heparin 5000 units SQ TID *Enoxaparin/Lovenox 40 mg SQ daily (WT < 150 kg, CrCl > 30 mL/min) *Enoxaparin/Lovenox 30 mg SQ daily (WT < 150 kg, CrCl > 10-29 mL/min) *Enoxaparin/Lovenox 30 mg SQ BID (WT < 150 kg, CrCl > 30 mL/min) AND/OR *Sequential Compression Device (SCD) 5 or more Highest Order ONE of the following medications: *Heparin 5000 units SQ TID (Preferred with Epidurals) *Enoxaparin/Lovenox 40 mg SQ daily (WT < 150 kg, CrCl > 30 mL/min) *Enoxaparin/Lovenox 30 mg SQ daily (WT < 150 kg, CrCl > 10-29 mL/min) *Enoxaparin/Lovenox 30 mg SQ BID (WT < 150 kg, CrCl > 30 mL/min) AND *Sequential Compression Device (SCD) Assessment and Plan Assessment and Plan Mrs. Louie is a 76-year-old female with a history of CVA 2, TIA 3, congestive heart failure, hypertension, arthritis, and diabetes who presents to the emergency room on 08/05/2017 reporting that she had fallen while trying to get out of bed, hit her head, and has been having dizziness since that time. Laboratory studies revealed elevated troponin in the emergency room and the patient was admitted to the hospitalist service for further evaluation. Fall Dizziness -Head CT with no acute findings in the brain -Continuous cardiac telemetry to monitor for cardiac arrhythmia -Consult physical therapy to prevent further debility -Meclizine 25 mg p.o. q8h PRN dizziness UTI -UA consistent with urinary tract infection Leukocytosis with neutrophilia -Ceftriaxone 1 gm IV q24h -await urine culture results and adjust treatment if indicated -Repeat CBC in a.m. and follow results Type 2 Diabetes Mellitus - Accu-Cheks before meals and at bedtime with low-dose NovoLog sliding scale coverage - Hypoglycemia protocol - Monitor trends and blood glucose readings and adjust treatments as indicated Troponin I elevation of uncertain significance -Troponin I is 0.21 and 0.18 -await third result -May be secondary to chronic renal insufficiency though currently trending downward -Further cardiac workup pending trend and patient's symptoms -currently asymptomatic Chronic atypical chest pain -The patient had a cardiac catheterization for this last year but denies having a stent placed -she states that when she woke up from the cardiac catheterization, she had suffered multiple strokes. She indicates she would not be interested in ever having another cardiac catheterization again. -Her EKG on admission is personally reviewed and showed some lateral T-wave inversions in lateral leads which was not present on her last twelve-lead EKG in May -I have ordered another 12-lead EKG for comparison -Consider consulting cardiology if abnormalities persist Chronic renal insufficiency -BUN 19, creatinine 1.55, estimated GFR 32 -stable compared to other previous labs -IVF hydration with NS at 100 cc/hr -Avoid nephrotoxins -Repeat BMP in a.m. and follow trends and renal indices DVT prophylaxis -Heparin 5000 units subq q24h . Discussed Condition With Dr. Granados, patient, and RN . Bertha Olivares Aug 05, 2017 20:34
[2017-08-05] MEDS: DOCUSATE SODIUM 50 MG/SENNA 8.6 MG TAB PO SCH (22:22)
[2017-08-05] MEDS: MECLIZINE HCL 25 MG TAB PO SCH (22:22)
[2017-08-05] MEDS: HEPARIN SODIUM - SQ 10,000 UNITS/ML VIAL SQ SCH (22:23)
[2017-08-05] MEDS: GABAPENTIN 300 MG CAP PO SCH (22:23)
[2017-08-05] MEDS: INSULIN ASPART SUPPLEMENTAL SCALE SQ SCH (22:24)
[2017-08-05] MEDS: INSULIN DETEMIR 100 UNITS/ML VIAL SQ SCH (22:24)
[2017-08-05] MEDS: cefTRIAXone INJ 1,000 MG in SODIUM CHLORIDE 0.9% INJ 100 ML IV SCH (22:25)
[2017-08-06] VITALS (10 sets, daily range): BP systolic 125–191; BP diastolic 58–98; PULSE 71–102; RESP 18–22; TEMP 98–98.7; O2SAT 85–99
[2017-08-06 04:31] LABS: AUTOMATED NEUTROPHIL # 6.7 TH/MM3 (1.8-7.7); BASOPHIL # 0.1 TH/MM3 (0-0.2); BASOPHIL % 0.7 % (0.0-2.0); EOSINOPHIL # 0.3 TH/MM3 (0-0.4); EOSINOPHIL % 2.4 % (0.0-4.0); HEMATOCRIT 32.6 % (35.0-46.0); HEMOGLOBIN 11.2 GM/DL (11.6-15.3); LYMPH % 25.1 % (9.0-44.0); LYMPHOCYTE # 2.7 TH/MM3 (1.0-4.8); MEAN CELL VOLUME 93.7 FL (80.0-100.0); MEAN CORPUSCULAR HEMOGLOBIN 32.2 PG (27.0-34.0); MEAN CORPUSCULAR HGB CONC 34.4 % (32.0-36.0); MEAN PLATELET VOLUME 9.5 FL (7.0-11.0); MONO % 8.7 % (0.0-8.0); MONOCYTE # 0.9 TH/MM3 (0-0.9); NEUT % 63.1 % (16.0-70.0); PLATELET COUNT 202 TH/MM3 (150-450); RED BLOOD COUNT 3.48 MIL/MM3 (4.00-5.30); RED CELL DISTRIBUTION WIDTH 13.7 % (11.6-17.2); WHITE BLOOD COUNT 10.7 TH/MM3 (4.0-11.0)
[2017-08-06 04:39] LABS: BICARBONATE 26.4 MEQ/L (21.0-32.0); CALCIUM 8.2 MG/DL (8.5-10.1); CREATININE 1.32 MG/DL (0.50-1.00)
[2017-08-06 04:43] LABS: TROPONIN I 0.13 NG/ML (0.02-0.05)
[2017-08-06] MEDS: SODIUM CHLOR 0.9% 1000 ML INJ 1,000 ML IV SCH ×2 (05:10→14:33)
[2017-08-06] MEDS: MECLIZINE HCL 25 MG TAB PO SCH ×3 (05:10→22:00)
[2017-08-06] MEDS: HEPARIN SODIUM - SQ 10,000 UNITS/ML VIAL SQ SCH ×2 (05:10→14:31)
[2017-08-06] MEDS: INSULIN ASPART SUPPLEMENTAL SCALE SQ SCH ×4 (08:00→21:00)
[2017-08-06] MEDS: GABAPENTIN 300 MG CAP PO SCH ×2 (08:13→21:00)
[2017-08-06] MEDS: DOCUSATE SODIUM 50 MG/SENNA 8.6 MG TAB PO SCH ×2 (08:13→21:00)
[2017-08-06] MEDS: CLOPIDOGREL 75 MG TAB PO SCH (08:14)
[2017-08-06] MEDS: SODIUM CHLORIDE 0.9% FLUSH 10 ML FLUSH IV FLUSH SCH ×2 (08:14→21:00)
[2017-08-06] MEDS: ASPIRIN 81 MG CHEW TAB CHEW SCH (08:14)
[2017-08-06] MEDS: INSULIN DETEMIR 100 UNITS/ML VIAL SQ SCH ×2 (09:00→21:00)
--- NOTE | 2017-08-06 12:46 | HHI.PR ---
Subjective Remarks Follow-up visit history of CVA 2, TIA 3, CHF, HTN, DM. Patient seen and examined today laying in bed. No acute issues overnight as reported by patient. States she is not dizzy But she has not gotten out of bed. Denies pain and discomfort. Denies SOB/ dyspnea. Denies chest pain, palpitations, headaches. Denies fevers, chills, n/v/d. Denies dysuria. Objective Vitals Vital Signs Date Time Temp Pulse Resp B/P (MAP) Pulse Ox O2 Delivery O2 Flow Rate FiO2 08/06/17 12:00 98.3 79 18 129/97 (108) 97 08/06/17 08:00 98.0 74 18 127/58 (81) 97 08/06/17 03:40 98.0 86 20 125/59 (81) 96 08/05/17 23:01 97.9 82 16 121/56 (77) 98 08/05/17 20:50 75 08/05/17 20:32 97.7 72 16 146/64 (91) 99 08/05/17 18:37 71 18 144/63 (90) 95 Room Air 08/05/17 16:33 78 18 95 Room Air 08/05/17 16:08 75 18 150/70 (96) 99 Room Air 08/05/17 16:08 82 18 99 Room Air 08/05/17 13:54 97.1 82 16 126/61 (82) 97 I/O 08/05/17 08/05/17 08/05/17 08/06/17 08/06/17 08/06/17 07:00 15:00 23:00 07:00 15:00 23:00 Intake Total 100 ml Balance 100 ml Intake IV Total 100 ml Result Diagram: 08/06/17 0351 08/06/17 0351 Imaging Last Impressions Head CT 08/05/171617 Signed Impressions: Service Date/Time: Saturday, August 05, 2017 16:45 - CONCLUSION: 1. No acute findings in the brain. Trace Carver MD Chest X-Ray 08/05/171617 Signed Impressions: Service Date/Time: Saturday, August 05, 2017 16:25 - CONCLUSION: The lungs are clear. Trace Carver MD Shoulder X-Ray 08/05/17 0000 Signed Impressions: Service Date/Time: Saturday, August 05, 2017 16:38 - CONCLUSION: 1. Daniel of calcium inferior to the glenoid may be associated with triceps tendon origin/tendinopathy. 2. Otherwise negative. No acute osseous injury. No significant degenerative changes. Jan Damon MD Objective Remarks GENERAL: This is a well-nourished, well-developed patient, in no apparent distress. SKIN: Warm and dry HEENT: Normocephalic. Pupils equal round and reactive. Nose without bleeding. Airway patent. Left facial droop. NECK: Trachea midline. No JVD. Supple. CARDIOVASCULAR: Regular rate and rhythm without murmurs, gallops, or rubs. RESPIRATORY: Clear to auscultation. Breath sounds equal bilaterally. No wheezes , rales, or rhonchi. GASTROINTESTINAL: Abdomen soft, non-tender, nondistended. Bowel Sounds normoactive x4. MUSCULOSKELETAL: Extremities without clubbing, cyanosis, or edema. NEUROLOGICAL: Awake and alert. Oriented to place, person. Left upper extremity weakness. Mildly slurred speech. A/P Problem List: (1) Fall ICD Code: W19.XXXA - Unspecified fall, initial encounter (2) Elevated troponin ICD Code: R74.8 - Abnormal levels of other serum enzymes Status: Acute Assessment and Plan 76-year-old female with a history of CVA 2, TIA 3, congestive heart failure, hypertension, arthritis, and diabetes who presents to the emergency room on 2017 reporting that she had fallen while trying to get out of bed, hit her head , and has been having dizziness since that time. Laboratory studies revealed elevated troponin in the emergency room and the patient was admitted to the hospitalist service for further evaluation. Status post fall Dizziness -Head CT with no acute findings in the brain -Continuous cardiac telemetry to monitor for cardiac arrhythmia -Consult physical therapy to prevent further debility -Meclizine 25 mg p.o. q8h PRN dizziness UTI -UA consistent with urinary tract infection Leukocytosis with neutrophilia -Ceftriaxone 1 gm IV q24h -Urine culture gram-positive leny >100K, pending sensitivity -No leukocytosis, recent WBC 10.7 Type 2 Diabetes Mellitus -Accu-Cheks before meals and at bedtime with low-dose NovoLog sliding scale coverage -Levemir 56 units twice daily - Hypoglycemia protocol - Monitor Accu-Cheks Troponin I elevation of uncertain significance -Troponin I is 0.21 and 0.18, 0.13 -May be secondary to chronic renal insufficiency though currently trending downward -Asymptomatic Chronic atypical chest pain -The patient had a cardiac catheterization for this last year but denies having a stent placed -she states that when she woke up from the cardiac catheterization, she had suffered multiple strokes. She indicates she would not be interested in ever having another cardiac catheterization again. -EKG showed Afib with some lateral T-wave inversions in lateral leads which was not present on her last twelve-lead EKG in May -Repeat EKG today. Consider consulting cardiology if abnormalities persist Chronic renal insufficiency - CUSHION SEWER 1.55 --> 1.32 -IVF hydration with NS at 100 cc/hr -Avoid nephrotoxins -Improving HTN -Continue home medication -Trend BP DVT prophylaxis -Heparin 5000 units subq q24h Discharge Planning Discharge when clinically improved. Physical therapy recommends rehab for patient. Maru Valiente Aug 06, 2017 12:46
--- NOTE | 2017-08-06 19:35 | EKG ---
Date Performed: 08/05/2017 Time Performed: 16:21:43 PTAGE: 76 years EKG: ATRIAL FIBRILLATION DIFFUSE NONSPECIFIC ST-T CHANGE Compared to previous tracing, there's a rhythm change from Sinus rhythm to atrial fibrillation. The ST-T changes are more prominent ABNORMAL ECG PREVIOUS TRACING : 05/13/17 @ 1534 DOCTOR: Smooth Edwards Interpretating Date/Time 08/06/2017 19:33:46
[2017-08-06] MEDS ORDERED: NITROGLYCERIN 0.4 MG SL 25 TABS/BTL SL ONE (21:07)
[2017-08-06] MEDS ORDERED: FUROSEMIDE 40 MG/4 ML VIAL IV PUSH ONE (21:15)
[2017-08-06] MEDS ORDERED: HEPARIN SODIUM - IV 10,000 UNITS/10 ML VIAL IV PUSH ONE (21:30)
[2017-08-06] MEDS ORDERED: NITROGLYCERIN-D5W 50 MG/250 ML 250 ML IV PRN (21:30)
[2017-08-06] MEDS: NITROGLYCERIN 0.4 MG SL 25 TABS/BTL SL PRN ×2 (21:34→21:56)
[2017-08-06 21:54] LABS: AUTOMATED NEUTROPHIL # 8.3 TH/MM3 (1.8-7.7); BASOPHIL # 0.1 TH/MM3 (0-0.2); BASOPHIL % 0.7 % (0.0-2.0); EOSINOPHIL # 0.6 TH/MM3 (0-0.4); EOSINOPHIL % 3.9 % (0.0-4.0); HEMATOCRIT 44.3 % (35.0-46.0); HEMOGLOBIN 14.6 GM/DL (11.6-15.3); LYMPH % 30.1 % (9.0-44.0); LYMPHOCYTE # 4.3 TH/MM3 (1.0-4.8); MEAN CELL VOLUME 96.4 FL (80.0-100.0); MEAN CORPUSCULAR HEMOGLOBIN 31.9 PG (27.0-34.0); MEAN PLATELET VOLUME 8.6 FL (7.0-11.0); MONO % 7.4 % (0.0-8.0); MONOCYTE # 1.1 TH/MM3 (0-0.9); NEUT % 57.9 % (16.0-70.0); PLATELET COUNT 318 TH/MM3 (150-450); RED CELL DISTRIBUTION WIDTH 13.9 % (11.6-17.2); WHITE BLOOD COUNT 14.3 TH/MM3 (4.0-11.0)
--- NOTE | 2017-08-06 22:07 | PD.CONS ---
[facility] Service Critical Care Medicine Consult Requested By Family medicine service, Dr. Glover Reason for Consult Critical care management of patient with hypercapnic respiratory failure Primary Care Physician Víctor Bond, History of Present Illness History from patient is somewhat limited due to labored breathing but history was obtained from patient, review of medical record, discussion with family medicine residents, discussion with bedside nurse Ms. Louie is a 76-year-old female with past medical history of CAD , CHF with preserved ejection fraction, hypertension, diabetes, chronic kidney disease stage III, prior tobacco abuse, prior stroke x2 with residual L sided weakness for which she uses a walker to ambulate. She presented to [facility] emergency department the afternoon of 08/05/16 after she fell while trying to get out of bed and hit her head and right shoulder. No certain LOC. She was complaining of dizziness. CT brain was negative for acute abnormality. At the time of admission she was not complaining of any chest pain but was admitted to the CDU because of troponin of 0.21. Pandaroel Galeassherron called due to respiratory distress with hypoxia. She had gotten up to go to the bathroom and then sats were 80% on RA. She was placed on NC and then NR. She was complaining of chest pain in midchest, lower half of sternum, 5-7/10 severity, nonpleuritic, "tightness". Skin is diaphoretic. No nausea or vomiting or radiation of pain. Blood pressure is 199/88. She states she often has similar symptoms when she lays down to sleep at night and it is relieved with NTG 1-3 doses. This is similar in quality but worse in severity. She has had a dry nonproductive cough that she states is chronic. No fever. No hemoptysis. No leg swelling or calf pain EKG was obtained and shows sinus rhythm with a rate of 97. There is lateral ST depression in V4 through V6. There is no ST elevation. These were present on EKG 08/05 and on a prior tracing 04/2017. Troponins have been downtrending. She has been started on a nitroglycerin drip and heparin drip per family medicine and repeat labs have been drawn. She is in acute hypercapnic respiratory failure with pH of 7.23/ PCO2 of 64/PaO2 of 138. I have recommended initiation of BiPAP. Chest x-ray demonstrates vascular congestion and she has received Lasix 40 mg IV. Patient had prior cardiac catheterization in December 2015 that reportedly showed three-vessel coronary disease. The plan was initially to proceed with CABG however this was canceled after her post catheterization course was complicated by an acute stroke. She previously was followed by Dr. Olmstead but states that Dr. Shell is her electricity trader now. Past Family Social History Allergies: Coded Allergies: Lactobacillus acidophilus (Verified Allergy, Severe, 08/05/17) Lactobacillus bulgaricus (Verified Allergy, Severe, 08/05/17) Lactobacillus gasseri (Verified Allergy, Severe, 08/05/17) Streptococcus thermophilus (Verified Allergy, Severe, 08/05/17) lovastatin (Verified Allergy, Severe, 08/05/17) N/V Past Medical History Coronary artery disease Stroke about 10 years ago Stroke 1 year ago with residual left-sided weakness Diabetes Hypertension Peripheral neuropathy Chronic kidney disease stage III Obesity Former tobacco abuse Past Surgical History Bilateral cataract surgery section 2 Reported Medications Plavix 75 mill grams p.o. daily Nitroglycerin 0.4 mg sublingual as needed for chest pain Norvasc 5 mill grams p.o. daily Aspirin 81 mg p.o. daily Gabapentin 300 mg p.o. twice daily Insulin sliding scale Detemir 56 units subcu twice daily Folic acid 400 mcg p.o. daily Family History Mother with dementia, in her 's Father killed in an accident Denies FH of CAD or stroke. . Social History Former smoker, 2ppd for 50 years, who quit smoking 10 years ago Very rare EtOH use No illicit drug use Uses a walker to ambulate Her son is a chiropractor who lives in [place]. Physical Exam Vital Signs Vital Signs Date Time Temp Pulse Resp B/P (MAP) Pulse Ox O2 Delivery O2 Flow Rate FiO2 08/06/17 21:35 102 22 191/88 (122) 98 08/06/17 20:43 96 20 188/98 (128) 96 08/06/17 20:35 85 08/06/17 19:33 98.0 78 18 135/62 (86) 98 08/06/17 16:00 98.7 77 18 148/62 (90) 96 08/06/17 12:00 98.3 79 18 129/97 (108) 97 08/06/17 08:00 98.0 74 18 127/58 (81) 97 08/06/17 08:00 71 08/06/17 03:40 98.0 86 20 125/59 (81) 96 08/05/17 23:01 97.9 82 16 121/56 (77) 98 Physical Exam GENERAL: Well-nourished, well-developed patient who is sitting up in CDU bed, tachypneic and in distress on nonrebreather. SKIN: Diaphoretic HEAD: Atraumatic. Normocephalic. EYES: Pupils equal and round. No scleral icterus. No injection or drainage. ENT: No nasal bleeding or discharge. Mucous membranes pink and moist. NECK: Trachea midline. No JVD. CARDIOVASCULAR: Regular rate and rhythm, tachycardic around 105.. No murmurs rubs or gallops appreciated. RESPIRATORY: Tachypneic but without accessory muscle use. Bibasilar rales. Speaks short sentences. No wheeze GASTROINTESTINAL: Abdomen soft, non-tender, nondistended. Bowel sounds present. MUSCULOSKELETAL: Extremities without clubbing, cyanosis, or edema. No obvious deformities. NEUROLOGICAL: Awake and alert, oriented. No obvious cranial nerve deficits. Strength 5/5 RUE and RLE. 4/5 LUE and LLE. Laboratory Laboratory Tests Test 08/06/17 03:51 08/06/17 21:13 08/06/17 21:15 White Blood Count 10.7 14.3 Red Blood Count 3.48 4.60 Hemoglobin 11.2 14.6 Hematocrit 32.6 44.3 Mean Corpuscular Volume 93.7 96.4 Mean Corpuscular Hemoglobin 32.2 31.9 Mean Corpuscular Hemoglobin Concent 34.4 33.0 Red Cell Distribution Width 13.7 13.9 Platelet Count 202 318 Mean Platelet Volume 9.5 8.6 Neutrophils (%) (Auto) 63.1 57.9 Lymphocytes (%) (Auto) 25.1 30.1 Monocytes (%) (Auto) 8.7 7.4 Eosinophils (%) (Auto) 2.4 3.9 Basophils (%) (Auto) 0.7 0.7 Neutrophils # (Auto) 6.7 8.3 Lymphocytes # (Auto) 2.7 4.3 Monocytes # (Auto) 0.9 1.1 Eosinophils # (Auto) 0.3 0.6 Basophils # (Auto) 0.1 0.1 CBC Comment DIFF FINAL DIFF FINAL Differential Comment Blood Urea Nitrogen 18 Creatinine 1.32 Random Glucose 122 Calcium Level 8.2 Sodium Level 142 Potassium Level 4.1 Chloride Level 108 Carbon Dioxide Level 26.4 Anion Gap 8 Estimat Glomerular Filtration Rate 39 Troponin I 0.13 Blood Gas Puncture Site RT RADIAL Blood Gas Patient Temperature 98.6 Blood Gas HCO3 26 Blood Gas Base Excess -0.9 Blood Gas Oxygen Saturation 97 Arterial Blood pH 7.23 Arterial Blood Partial Pressure CO2 64 Arterial Blood Partial Pressure O2 138 Arterial Blood Oxygen Content 19.1 Arterial Blood Carboxyhemoglobin 1.0 Arterial Blood Methemoglobin 0.5 Blood Gas Hemoglobin 13.9 Oxygen Delivery Device Non-Rebreathing Mask Blood Gas Liter Flow 15 Date/Time Source Procedure Growth Status 08/05/17 18:25 Urine Clean Catch Urine Culture - Preliminary Gram Negative Xavi Resulted Result Diagram: 08/06/17211408/06/17 0351 Assessment and Plan Assessment and Plan NEURO: History of stroke 2 with residual left-sided weakness Peripheral neuropathy Continue gabapentin 300 mg p.o. 3 times daily Has been receiving meclizine 25 mg p.o. every 8 hours for dizziness. On dual antiplatelet therapy. Appears may have had statin intolerance in past, will address with patient when she is more capable of providing history. RESP: Acute hypoxemic and hypercapnic respiratory failure Former smoker Bipap now and titrate off when able Duoneb q6 hours. Diuresis and HTN management as per below. CV: Chest pain Coronary artery disease Hypertension Hyperlipidemia Chronic diastolic heart failure Pulmonary hypertension Patient has uncontrolled hypertension in setting of diastolic heart failure and now with pulmonary edema. Labetalol now to address HTN, continue NTG drip which is relieving chest pain. Has received Lasix 40 mg IV. Has moderate pulmonary HTN with PAP 48 mmHg on Echo 12/24 so will make aggressive efforts to correct her respiratory acidemia with Bipap. Resume norvasc 5 mg po daily. She has been off betablocker ever since bradycardic episode in Dec 2016 which was associated with potassium level of 6.5. Would probably benefit from parts counterman beta rico for CAD but will defer to cardiology. EKG with no ST elevation, will repeat. Trend troponins. Continue ASA/Plavix Cardiology has been consulted, will f/u recommendations. GI: Obesity Heart healthy diet. FEN/RENAL: Chronic kidney disease stage III Insert Mery while on Bipap and receiving diuretics ID: UTI On rocephin since 08/05 #2. Urine culture 08/05 +GNR. Will followup identification and sensitivity. HEME: No acute hematologic issues ENDO: Diabetes mellitus Continue detemir 56 units subcu twice daily Continue NovoLog low-dose sliding scale PROPH: Heparin drip as per above will provide DVT prophylaxis. Famotidine 10 mg p.o. twice daily for stress ulcer prophylaxis ACCESS: Peripheral IV providing adequate access at this time. Patient is critically ill with chest pain and hypercapnic respiratory failure. She is at risk for further decompensation Plan of care discussed with patient. Discussed with family life educator who responded to the initial [facility] Critical care time 45 minutes exclusive of separately billable procedures Chioma Carranza MD Aug 06, 2017 22:07
--- NOTE | 2017-08-06 22:12 | HHI.PR ---
Addendum to Inpatient Note Additional Information S: Elkin called at 2100 for SOB, CP. Patient is a 76 yo F with PMH of CVA x2, TIA x3, CHF, HTN, DM who was admitted after a fall due to dizziness. Nursing staff reports patient became SOB and started complaining of crushing chest pain after getting up to go to the bathroom. O2 sats dropped to 85 prior to being placed on Oxygen. She had received Nitroglycerin, IV Lasix x 1 prior to resident team arriving and she reported her chest pain was "medium" on a severity scale. Her breathing had improved on non-rebreather. O: VS Afebrile, HR 102, RR 22 BP 190's/110's, 98% on non-rebreather Gen: in moderate respiratory distress, non-rebreather in place. Answering questions appropriately. Occasionally moaning CV: tachycardic in the 100's. Regular rate with no murmurs appreciated Resp: Bibasilar rales appreciated. Moving air well bilaterally Abd: soft, nontender Ext: no BLE edema noted, no calf tenderness A/P: 76 yo F with PMH of CVA x2, TIA x3, CHF, HTN, DM who was admitted after a fall due to dizziness. Elkin called for acute SOB and chest pain. Transferring patient to the unit. -EKG showing ST depression in V4, V5 - not noted on prior EKG Spoke with and consulting Cardiology Starting Heparin drip protocol Starting Nitro drip protocol repeat troponin pending (had been elevated to 0.21 but trending down on admission) CKMB pending D dimer pending -CXR showing bibasilar pulmonary congestion Received Lasix 40mg IV x1 Echocardiogram pending -ABG showing PH 7.23 with CO2 retention (64) Spoke with and consulting roller cleaner, will likely require Bipap SDW Demetrio Momin MD R1 Aug 06, 2017 22:12
--- NOTE | 2017-08-06 22:18 | RADRPT ---
EXAM DATE/TIME: 08/06/2017 21:25 [facility] COMPARISON: CHEST SINGLE AP, August 05, 2017, 16:25. INDICATIONS : Short of breath and chest pain MEDICAL HISTORY : Cerebrovascular disease. Cardiovascular disease Congestive heart failure.Diabetes, HTN SURGICAL HISTORY : Angioplasty ENCOUNTER: Subsequent ACUITY: 3 days PAIN SCORE: 5/10 LOCATION: chest FINDINGS: The heart size is normal. The lung shows a diffuse increased interstitial markings. There is further aveolar density seen at the right base. The costophrenic angles are grossly clear. CONCLUSION: Suspected edema. Joe Carrizales MD on August 06, 2017 at 22:15 Board Certified Radiologist. This report was verified electronically.
[2017-08-06 22:31] LABS: BICARBONATE 24.2 MEQ/L (21.0-32.0); BLOOD UREA NITROGEN 18 MG/DL (7-18); CHLORIDE 104 MEQ/L (98-107); CREATININE 1.36 MG/DL (0.50-1.00); GLOMERULAR FILTRATION RATE 38 ML/MIN (>89); GLUCOSE,RANDOM 164 MG/DL (74-106); SODIUM (NA) 136 MEQ/L (136-145); TROPONIN I 0.05 NG/ML (0.02-0.05)
[2017-08-06] MEDS ORDERED: CHLORHEXIDINE GLUCONATE 2 % 1 PACK (2 CLOTHS)(extra cloths) TOPICAL PRN (23:00)
[2017-08-06] MEDS ORDERED: LORazepam 2 MG/ML VIAL IV PUSH ONE (23:30)
[2017-08-06] MEDS ORDERED: LABETALOL HCL 100 MG/20 ML VIAL IV PUSH PRN (23:30)
[2017-08-06 23:31] LABS: INTERNATIONAL NORMALIZED RATIO 1.1 RATIO; PROTHROMBIN TIME - PATIENT 10.8 SEC (9.8-11.6)
[2017-08-06 23:33] LABS: D-DIMER 1.54 MG/L FEU (0.00-0.50)
[2017-08-06] MEDS: cefTRIAXone INJ 1,000 MG in SODIUM CHLORIDE 0.9% INJ 100 ML IV SCH (23:35)
[2017-08-06] MEDS: HEPARIN-D5W 25,000 U/250 ML 250 ML IV PRN (23:36)
[2017-08-07] VITALS (21 sets, daily range): BP systolic 120–149; BP diastolic 56–69; PULSE 67–86; RESP 12–25; TEMP 98.1–98.9; O2SAT 92–100
[2017-08-07] MEDS: RESP: ALBUTEROL 2.5 MG/IPRATROPIUM 0.5 MG NEB (SCH) NEB ×5 (00:34→20:27)
[2017-08-07 02:21] LABS: BILIRUBIN, URINE NEG (NEG); BLOOD, URINE NEG (NEG); GLUCOSE,URINE NEG (NEG); HYALINE CAST, URINE 8 /lpf (RARE); KETONE, URINE NEG (NEG); MUCUS URINE FEW /lpf (OCC); NITRITE,URINE NEG (NEG); URINE COLOR COLORLESS (YELLW/STRAW); URINE LEUKOCYTE ESTERASE NEG (NEG)
[2017-08-07] MEDS ORDERED: HEPARIN SODIUM - IV 10,000 UNITS/10 ML VIAL IV PUSH PRN ×2 (03:30)
[2017-08-07] MEDS: CHLORHEXIDINE GLUCONATE 2 % 1 PACK (2 CLOTHS)(taper/protocol) TOPICAL SCH (03:45)
[2017-08-07] MEDS: MECLIZINE HCL 25 MG TAB PO SCH ×3 (06:00→21:24)
[2017-08-07] MEDS: INSULIN DETEMIR 100 UNITS/ML VIAL SQ SCH ×2 (08:17→21:00)
[2017-08-07] MEDS: DOCUSATE SODIUM 50 MG/SENNA 8.6 MG TAB PO SCH ×2 (08:17→21:00)
[2017-08-07] MEDS: ASPIRIN 81 MG CHEW TAB CHEW SCH (08:17)
[2017-08-07] MEDS: amLODIPine BESYLATE 5 MG TAB PO SCH (08:17)
[2017-08-07] MEDS: GABAPENTIN 300 MG CAP PO SCH ×2 (08:17→21:00)
[2017-08-07] MEDS: FAMOTIDINE 20 MG TAB PO SCH ×2 (08:17→21:00)
[2017-08-07] MEDS: CLOPIDOGREL 75 MG TAB PO SCH (08:18)
[2017-08-07] MEDS: SODIUM CHLORIDE 0.9% FLUSH 10 ML FLUSH IV FLUSH SCH ×2 (08:18→21:00)
[2017-08-07] MEDS: INSULIN ASPART SUPPLEMENTAL SCALE SQ SCH ×4 (08:25→21:00)
--- NOTE | 2017-08-07 10:50 | HHI.CCPN ---
Subjective Remarks/Hospital Course Ms. Louie is a 76-year-old female with past medical history of CAD , CHF with preserved ejection fraction, hypertension, diabetes, chronic kidney disease stage III, prior tobacco abuse, prior stroke x2 with residual L sided weakness for which she uses a walker to ambulate. She presented to [facility] emergency department the afternoon of 08/05/16 after she fell while trying to get out of bed and hit her head and right shoulder. No certain LOC. She was complaining of dizziness. CT brain was negative for acute abnormality. At the time of admission she was not complaining of any chest pain but was admitted to the CDU because of troponin of 0.21. Tasia Granger called due to respiratory distress with hypoxia. She had gotten up to go to the bathroom and then sats were 80% on RA. She was placed on NC and then NR. She was complaining of chest pain in midchest, lower half of sternum, 5-7/10 severity, nonpleuritic, "tightness". Skin is diaphoretic. No nausea or vomiting or radiation of pain. Blood pressure is 199/88. She states she often has similar symptoms when she lays down to sleep at night and it is relieved with NTG 1-3 doses. This is similar in quality but worse in severity. She has had a dry nonproductive cough that she states is chronic. No fever. No hemoptysis. No leg swelling or calf pain EKG was obtained and shows sinus rhythm with a rate of 97. There is lateral ST depression in V4 through V6. There is no ST elevation. These were present on EKG 08/05 and on a prior tracing 04/2017. Troponins have been downtrending. She has been started on a nitroglycerin drip and heparin drip per family medicine and repeat labs have been drawn. She is in acute hypercapnic respiratory failure with pH of 7.23/ PCO2 of 64/PaO2 of 138. I have recommended initiation of BiPAP. Chest x-ray demonstrates vascular congestion and she has received Lasix 40 mg IV. Patient had prior cardiac catheterization in December 2015 that reportedly showed three-vessel coronary disease. The plan was initially to proceed with CABG however this was canceled after her post catheterization course was complicated by an acute stroke. She previously was followed by Dr. Olmstead but states that Dr. Shell is her medication technician now. SUBJ 08/07: Patient lying comfortably on bed no chest pain. Currently on heparin and IV nitroglycerin infusions. Troponin peaked at 0.89. Discussed with Dr. An patient is not interested in cardiac catheterization or any invasive procedure. Objective Vital Signs Date Time Temp Pulse Resp B/P (MAP) Pulse Ox O2 Delivery O2 Flow Rate FiO2 08/07/17 07:36 100 Simple Mask 7.00 08/07/17 06:13 68 134/63 08/07/17 04:00 98.1 13 08/06/17 22:48 40 Intake and Output 08/07/17 08/07/17 08/08/17 08:00 16:00 00:00 Intake Total 75.7 ml Output Total 700 ml Balance -624.3 ml Result Diagram: 08/06/17211408/06/172114 Other Results Laboratory Tests Test 08/06/17 21:13 Blood Gas Puncture Site RT RADIAL Blood Gas Patient Temperature 98.6 Blood Gas HCO3 26 mmol/L (22-26) Blood Gas Base Excess -0.9 mmol/L (-2-2) Blood Gas Oxygen Saturation 97 % (90-100) Arterial Blood pH 7.23 (7.380-7.420) Arterial Blood Partial Pressure CO2 64 mmHg (38-42) Arterial Blood Partial Pressure O2 138 mmHG (61-120) Arterial Blood Oxygen Content 19.1 Vol % (12.0-20.0) Arterial Blood Carboxyhemoglobin 1.0 % (0-4) Arterial Blood Methemoglobin 0.5 % (0-2) Blood Gas Hemoglobin 13.9 G/DL (12.0-16.0) Oxygen Delivery Device Non-Rebreathing Mask Blood Gas Liter Flow 15 L/M Objective Remarks GENERAL: Well-nourished, well-developed patient who is lying in ICU bed, appears comfortable SKIN: Dry HEAD: Atraumatic. Normocephalic. EYES: Pupils equal and round. No scleral icterus. No injection or drainage. ENT: No nasal bleeding or discharge. Mucous membranes pink and moist. NECK: Trachea midline. No JVD. CARDIOVASCULAR: Regular rate and rhythm, tachycardic. No murmurs rubs or gallops appreciated. RESPIRATORY: Air entry equal bilaterally. Bibasilar rales. Speaks short sentences. No wheeze GASTROINTESTINAL: Abdomen soft, non-tender, nondistended. Bowel sounds present. MUSCULOSKELETAL: Extremities without clubbing, cyanosis, or edema. No obvious deformities. NEUROLOGICAL: Awake and alert, oriented. No obvious cranial nerve deficits. Strength 5/5 RUE and RLE. 4/5 LUE and LLE. A/P Assessment and Plan NEURO: History of stroke 2 with residual left-sided weakness Peripheral neuropathy Continue gabapentin 300 mg p.o. 3 times daily Has been receiving meclizine 25 mg p.o. every 8 hours for dizziness. On dual antiplatelet therapy. Appears may have had statin intolerance in past RESP: Acute hypoxemic and hypercapnic respiratory failure-improving Former smoker Bipap PRN, currently on nasal cannula Duoneb q6 hours. Diuresis and HTN management as per below. CV: Chest pain/NSTEMI Coronary artery disease Hypertension Hyperlipidemia Chronic diastolic heart failure Pulmonary hypertension Patient has uncontrolled hypertension in setting of diastolic heart failure and now with pulmonary edema. Labetalol now to address HTN, continue NTG drip which is relieving chest pain- wean to DC nitroglycerin Continue heparin drip for another 24 hours Continue aspirin Plavix Has received Lasix 40 mg IV. Give additional 20 mg IV x1 Has moderate pulmonary HTN with PAP 48 mmHg on Echo 12/24 so will make aggressive efforts to correct her respiratory acidemia with Bipap. Resume norvasc 5 mg po daily. She has been off beta rico ever since bradycardic episode in Dec 2016 which was associated with potassium level of 6.5. Would probably benefit from fdc beta rico for CAD but will defer to cardiology. EKG with no ST elevation, troponin peaked at 0.89 Cardiology has been consulted, Dr. An. Patient requests no invasive procedures GI: Obesity Heart healthy diet. FEN/RENAL: Chronic kidney disease stage III Insert Ordonez while on Bipap and receiving diuretics ID: UTI On rocephin since 08/05 #3. Urine culture 08/05 +GNR. Will followup identification and sensitivity. HEME: No acute hematologic issues ENDO: Diabetes mellitus Continue detemir Continue NovoLog low-dose sliding scale PROPH: Heparin drip as per above will provide DVT prophylaxis. Famotidine 10 mg p.o. twice daily for stress ulcer prophylaxis ACCESS: Peripheral IV providing adequate access at this time. Patient is critically ill with chest pain and hypercapnic respiratory failure. She is at risk for further decompensation Plan of care discussed with patient. Level 2 Consult hospitalist to assume care in a.m. Transfer to [facility] Tanisha Diaz MD Aug 07, 2017 10:50
[2017-08-07] MEDS ORDERED: ISOSORBIDE MONONITRATE 30 MG CR TAB (IMDUR) PO ONE (15:00)
[2017-08-07] MEDS ORDERED: PILL SPLITTER OTHER PRN (15:00)
--- NOTE | 2017-08-07 15:31 | MB ---
cc: Jonathan An DO DATE: 08/07/2017 REASON FOR CONSULTATION: Elevated troponin, chest pain, abnormal EKG. HISTORY OF PRESENT ILLNESS: Liz Louie is a pleasant 76-year-old female who originally presented to [facility] Emergency Room on 08/05/2017 due to a fall while getting out of bed. Apparently, she was attempting to get out of bed, fell and hit her head and has been having some dizziness since the episode. After being admitted, she started noticing she was having significant chest pain that was worse when lying flat. EKG was done and there was a concern for ST depressions laterally, although in reviewing of this, it appears to be similar to her previous that she has had for a number of years. Pain within the center of her chest has been crushing in nature. She was upgraded to the ICU, started on a heparin drip and a nitroglycerin drip at 5 mg per minute. In seeing her this morning, she states that she has no chest pain and feels much better than last night. She states that she has had these episodes where she gets pain with lying down and it is usually relieved with 1 to 3 nitroglycerin doses. As far as previous cardiac history goes, she saw one of my partners, Dr. Olmstead and had a cardiac catheterization in 12/2015 at [facility] which showed 3-vessel disease. She was recommended to have CABG, but this was canceled after her course post-catheterization was complicated by an acute stroke. Since that time, she states that she had 5 strokes initially after the catheterization and then no further strokes. She now follows with my partner, Dr. Shell in the outpatient office. PAST MEDICAL HISTORY: 1. Coronary artery disease. 2. History of cerebrovascular accident after cardiac catheterization (12/2015) with residual left-sided weakness. 3. Diabetes. 4. Hypertension. 5. Peripheral neuropathy. 6. Chronic kidney disease, stage III. 7. Obesity. 8. Former tobacco abuse. PAST SURGICAL HISTORY: 1. Cardiac catheterization (12/2015), which showed triple vessel disease. 2. Bilateral cataract surgery. 3. x 2. ALLERGIES: 1. LACTOBACILLUS. 2. LOVASTATIN. MEDICATIONS: 1. Plavix 75 mg daily. 2. Nitro sublingual as needed. 3. Norvasc 5 mg daily. 4. Aspirin 81 mg daily. 5. Gabapentin 300 mg b.i.d. 6. NovoLog sliding scale. 7. Levemir 56 units b.i.d. 8. Folic acid 400 mcg daily. FAMILY HISTORY: Denies premature coronary artery disease or sudden cardiac within the family. SOCIAL HISTORY: The patient previously smoked 2 packs a day for 50 years, but quit around 10 years ago. She denies alcohol or drug abuse. REVIEW OF SYSTEMS: Fourteen systems were reviewed including osteopathic pertinent positives and negatives above, otherwise negative. PHYSICAL EXAMINATION: VITAL SIGNS: Temperature 98.1, heart rate 71, blood pressure 124/57, respirations 15, pulse oximetry 100%. GENERAL: The patient appears well in no acute distress, alert, awake and oriented x 3. HEENT: Extraocular muscles intact. Minimal weakness noted on the left side of the face. Extraocular muscles intact. Mucous membranes moist. NECK: Supple. No JVD at 45 degrees. No carotid bruits heard bilaterally. Carotid upstroke is brisk in nature. HEART: Regular rate and rhythm. Positive first and second heart sounds, but noted murmurs, gallops or rubs. LUNGS: Clear to auscultation bilaterally. No wheezes, rales or rhonchi. ABDOMEN: Soft, nontender, nondistended. No organomegaly noted. EXTREMITIES: Show no clubbing, cyanosis or edema. Femoral and distal pulses are intact bilaterally. NEUROLOGIC: Left-sided weakness globally is noted. No focal deficits noted. SKIN: Warm, dry and intact. OSTEOPATHIC: No kyphoscoliosis, lordosis or paraspinal tender points. LABORATORY DATA: Hemoglobin 14.6, hematocrit 44.3, platelets 318. Potassium 4.1, BUN 18, creatinine 1.36. Troponin 0.89. Electrocardiogram (08/07/2017 at 01:29) sinus rhythm with PACs, poor R-wave progression, probable normal variant, ST-T wave changes anterior laterally. No significant change from previous. IMPRESSIONS: 1. NSTEMI. 2. Known multivessel coronary artery disease. 3. History of stroke after cardiac catheterization with residual left-sided weakness. 4. Peripheral neuropathy. 5. History of tobacco abuse. 6. Hypertension. 7. Hyperlipidemia. RECOMMENDATIONS: 1. Ms. Louie appeared to have chest pain last night which was concerning for coronary insufficiency and has an elevated troponin. 2. I sat down and discussed with her a long time consideration of ischemic evaluation and she states that due to her previous history of stroke after her cardiac catheterization and known 3-vessel disease that she would not want cardiac catheterization or the possibility of coronary artery bypass grafting in the future. She wants to continue on medical therapy. 3. As she has these episodes of chest pain when lying down, this may be due to an overall increase in her LVEDP with heart failure. Nitroglycerin usually relieves these episodes and so I will place her on Imdur therapy daily. I would also continue her on her Norvasc for its antianginal effects and will plan to add metoprolol tartrate at a low dose, which can be titrated up. 4. Would attempt to wean off nitroglycerin drip at the minimal dose that it is at. 5. Would leave her on heparin for another 24 hours. 6. Further recommendations will be made based on the hospital course. Thank you for allowing me to see Liz Louie. If there are any questions, please do not hesitate to call. Jonathan An DO VGP/TL , 02:48 PM , 03:30 PM
[2017-08-07] MEDS: HEPARIN-D5W 25,000 U/250 ML 250 ML IV PRN (15:36)
[2017-08-07] MEDS: METOPROLOL TARTRATE 25 MG TAB PO SCH (21:00)
[2017-08-07] MEDS: cefTRIAXone INJ 1,000 MG in SODIUM CHLORIDE 0.9% INJ 100 ML IV SCH (21:00)
[2017-08-08] VITALS (27 sets, daily range): BP systolic 110–137; BP diastolic 53–65; PULSE 64–85; RESP 19–20; TEMP 98–99.8; O2SAT 92–98
[2017-08-08] MEDS: RESP: ALBUTEROL 2.5 MG/IPRATROPIUM 0.5 MG NEB (SCH) NEB ×4 (03:40→21:39)
[2017-08-08] MEDS: CHLORHEXIDINE GLUCONATE 2 % 1 PACK (2 CLOTHS)(taper/protocol) TOPICAL SCH (04:00)
[2017-08-08] MEDS: ISOSORBIDE MONONITRATE 30 MG CR TAB (IMDUR) PO SCH (06:14)
[2017-08-08] MEDS: MECLIZINE HCL 25 MG TAB PO SCH (06:14)
[2017-08-08] MEDS: INSULIN ASPART SUPPLEMENTAL SCALE SQ SCH ×4 (08:00→21:00)
[2017-08-08] MEDS: amLODIPine BESYLATE 5 MG TAB PO SCH (09:22)
[2017-08-08] MEDS: DOCUSATE SODIUM 50 MG/SENNA 8.6 MG TAB PO SCH ×2 (09:22→20:50)
[2017-08-08] MEDS: GABAPENTIN 300 MG CAP PO SCH ×2 (09:22→20:49)
[2017-08-08] MEDS: ASPIRIN 81 MG CHEW TAB CHEW SCH (09:22)
[2017-08-08] MEDS: SODIUM CHLORIDE 0.9% FLUSH 10 ML FLUSH IV FLUSH SCH ×2 (09:22→20:49)
[2017-08-08] MEDS: METOPROLOL TARTRATE 25 MG TAB PO SCH ×2 (09:22→20:49)
[2017-08-08] MEDS: CLOPIDOGREL 75 MG TAB PO SCH (09:22)
[2017-08-08] MEDS: FAMOTIDINE 20 MG TAB PO SCH ×2 (09:23→20:50)
[2017-08-08] MEDS: INSULIN DETEMIR 100 UNITS/ML VIAL SQ SCH ×2 (09:25→20:55)
--- NOTE | 2017-08-08 09:38 | HHI.PR ---
Subjective Remarks Patient complains of weakness and fatigue. No respiratory distress. No chest pain. Objective Vital Signs Date Time Temp Pulse Resp B/P (MAP) Pulse Ox O2 Delivery O2 Flow Rate FiO2 08/08/17 09:00 77 08/08/17 08:00 73 08/08/17 07:00 98.8 75 19 123/55 (77) 94 08/08/17 07:00 77 08/08/17 06:04 75 08/08/17 05:12 77 08/08/17 04:12 98.1 71 136/65 (88) 92 08/08/17 04:00 77 08/08/17 03:41 92 21 08/08/17 03:00 68 08/08/17 02:00 68 08/08/17 01:00 70 08/08/17 00:16 94 Room Air 08/08/17 00:14 98.0 85 137/60 (85) 94 08/08/17 00:00 80 08/07/17 23:00 80 08/07/17 22:39 98.2 81 134/58 (83) 100 08/07/17 22:37 100 Nasal Cannula 2.00 08/07/17 22:00 78 08/07/17 21:00 84 08/07/17 20:30 99 Nasal Cannula 2.00 08/07/17 20:00 82 08/07/17 16:00 98.2 86 20 149/60 (89) 93 08/07/17 16:00 86 08/07/17 15:00 72 15 133/58 (83) 94 08/07/17 15:00 72 08/07/17 14:00 72 15 125/56 (79) 98 08/07/17 14:00 72 08/07/17 13:00 69 12 120/58 (78) 99 08/07/17 13:00 69 08/07/17 12:00 71 08/07/17 12:00 98.6 71 19 136/69 (91) 96 08/07/17 11:00 73 25 138/62 (87) 98 08/07/17 11:00 73 08/07/17 10:00 68 14 133/62 (85) 96 08/07/17 10:00 68 I/O 08/07/17 08/07/17 08/07/17 08/08/17 08/08/17 4/9/18 07:00 15:00 23:00 07:00 15:00 23:00 Intake Total 175.7 ml 588 ml 372 ml Output Total 700 ml 550 ml 100 ml Balance -524.3 ml 38 ml 272 ml Intake Oral 0 ml 480 ml 150 ml IV Total 175.7 ml 108 ml 222 ml Output Urine Total 700 ml 550 ml 100 ml # Voids 1 1 # Bowel Movements 0 0 Result Diagram: 08/06/17211408/06/172114 Objective Remarks GENERAL: NAD, A&Ox3 HEAD: Normocephalic. NECK: Supple, trachea midline. No lymphadenopathy. EYES: No scleral icterus. No injection or drainage. CARDIOVASCULAR: Regular rate and rhythm without murmurs, gallops, or rubs. RESPIRATORY: Breath sounds equal bilaterally. No accessory muscle use. GASTROINTESTINAL: Abdomen soft, non-tender, nondistended. MUSCULOSKELETAL: No cyanosis, or edema. SKIN: Warm and dry. NEURO: No focal neurological deficitis. Global weakness. A/P Problem List: (1) Dysphagia as late effect of cerebrovascular accident (CVA) ICD Code: I69.391 - Dysphagia following cerebral infarction Status: Acute (2) Apraxia ICD Code: R48.2 - Apraxia Status: Acute (3) DM (diabetes mellitus) ICD Code: E11.9 - Type 2 diabetes mellitus without complications Status: Chronic Assessment and Plan 76-year-old female admitted secondary to hypoxia who also had NSTEMI and CVA History of stroke 2 Left Side Hemiplegia Peripheral neuropathy Continue gabapentin 300 mg p.o. 3 times daily Continue Meclizine PT Acute hypoxemic/hypercapnic respiratory failure Improved O2 as needed PRN Nebulized treatments Chest pain Status post NSTEMI Coronary artery disease Chronic CHF (diastolic) Aspirin Plavix Diuresis if needed Hypertension Pulmonary HTN Continue baseline treatment Follow blood pressures Adjust treatments as needed Daily Norvasc Hyperlipidemia Statin intolerance Follow as an outpatient Chronic kidney disease stage III Follow renal function Avoid nephrotoxins UTI Continue Rocephin Follow urine cultures Diabetes mellitus type 2 Follow blood sugars Insulin sliding scale Diabetic diet Continue detemir DVT Prophylaxis Heparin Dane Ulrich MD Aug 08, 2017 09:38
--- NOTE | 2017-08-08 09:43 | EKG ---
Date Performed: 08/06/2017 Time Performed: 15:40:14 PTAGE: 76 years EKG: Sinus rhythm Diffuse nonspecific ST-T wave change PREVIOUS TRACING 08/05/17 Since previous tracing, there is a rhythm change from atrial fib rillation to sinus rhythm. ST-T changes are about the same. DOCTOR: Smooth Edwards Interpretating Date/Time 08/08/2017 09:41:48
--- NOTE | 2017-08-08 09:43 | EKG ---
Date Performed: 08/06/2017 Time Performed: 20:51:39 PTAGE: 76 years EKG: Sinus rhythm Diffuse nonspecific ST-T wave change PREVIOUS TRACING : 08/05/2017 16.21 Since previous tracing, no significant change. DOCTOR: Smooth Edwards Interpretating Date/Time 08/08/2017 09:42:15
--- NOTE | 2017-08-08 09:44 | EKG ---
Date Performed: 08/07/2017 Time Performed: 01:29:28 PTAGE: 76 years EKG: Sinus rhythm with PAC(s). Dfiffuse nonspecific ST-T wave changes Abnormal ECG PREVIOUS TRACING Since previous tracing, no significant change. DOCTOR: Smooth Edwards Interpretating Date/Time 08/08/2017 09:43:05
[2017-08-08] MEDS ORDERED: diphenhydrAMINE HCL 2%/ZINC ACETATE 0.1% CREAM 30 APPLIC/30 GM TUBE TOPICAL PRN (14:15)
--- NOTE | 2017-08-08 14:49 | PD.CARD.PN ---
Subjective Subjective Remarks No events overnight Lethargic today, most likely secondary to Meclizine No chest pain Objective Medications Current Medications Medications (Trade) Dose Ordered Sig/Helene Route Start Time Stop Time Status Last Admin (NS Flush) 2 ml UNSCH PRN IV FLUSH 08/05/17 18:30 (NS Flush) 2 ml BID IV FLUSH 08/05/17 21:00 08/08/17 09:22 (Tylenol) 650 mg Q4H PRN PO 08/05/17 18:30 (Zofran Inj) 4 mg Q6H PRN IVP 08/05/17 18:30 (Narcan Inj) 0.4 mg UNSCH PRN IV PUSH 08/05/17 18:30 (Nelly-Colace) 1 tab BID PO 08/05/17 21:00 08/08/17 09:22 (Milk Of Magnesia Liq) 30 ml Q12H PRN PO 08/05/17 18:30 (Senokot) 17.2 mg Q12H PRN PO 08/05/17 18:30 (Dulcolax Supp) 10 mg DAILY PRN RECTAL 08/05/17 18:30 (Lactulose Liq) 30 ml DAILY PRN PO 08/05/17 18:30 Ceftriaxone Sodium 1000 mg/ Sodium Chloride 100 ml @ 200 mls/hr Q24H IV 08/05/17 21:00 08/07/17 21:00 (Aspirin Chew) 81 mg DAILY CHEW 08/06/17 09:00 08/08/17 09:22 (Plavix) 75 mg DAILY PO 08/06/17 09:00 08/08/17 09:22 (Neurontin) 300 mg BID PO 08/05/17 21:00 08/08/17 09:22 (D50w (Vial) Inj) 50 ml UNSCH PRN IV PUSH 08/05/17 20:30 (Glucagon Inj) 1 mg UNSCH PRN OTHER 08/05/17 20:30 (NovoLOG SUPPLEMENTAL SCALE) 1 ACHS SLIDING SCALE SQ 08/05/17 21:00 08/07/17 17:00 (Levemir Inj) 56 units BID SQ 08/05/17 21:00 08/08/17 09:25 (Nitrostat Sl) 0.4 mg Q5M PRN SL 08/06/17 21:15 08/06/17 21:56 (Heparin Inj) 5,000 units UNSCH PRN IV PUSH 08/07/17 03:30 (Heparin Inj) 2,500 units UNSCH PRN IV PUSH 08/07/17 03:30 08/07/17 22:31 Heparin Sodium/ Dextrose 250 ml @ 9 mls/hr TITRATE PRN IV 08/06/17 21:30 08/07/17 15:36 Nitroglycerin/ Dextrose 250 ml @ 1.5 mls/hr TITRATE PRN IV 08/06/17 21:30 08/06/17 23:35 Miscellaneous Information Patient in critical care unit? Ass... Q361D .XX 08/06/17 23:00 (Chlorhexidine 2% Cloth) 3 pack DAILY@04 TOPICAL 08/07/17 04:00 08/11/17 04:01 08/07/17 03:45 (Chlorhexidine 2% Cloth) 3 pack UNSCH PRN TOPICAL 08/06/17 23:00 08/11/17 22:47 (Trandate Inj) 10 mg Q4H PRN IV PUSH 08/06/17 23:30 (Duoneb Neb) 1 ampule Q6HR NEB NEB 08/06/17 23:30 08/08/17 12:01 (Norvasc) 5 mg DAILY PO 08/07/17 09:00 08/08/17 09:22 (Pepcid) 10 mg BID PO 08/07/17 09:00 08/08/17 09:23 (Lopressor) 12.5 mg Q12HR PO 08/07/17 21:00 08/08/17 09:22 (Imdur) 30 mg DAILY@07 PO 08/08/17 07:00 08/08/17 06:14 (Pill Splitter) 1 ea UNSCH PRN OTHER 08/07/17 15:00 (Benadryl 2% Cream) 1 applic TID PRN TOPICAL 08/08/17 14:15 Vital Signs / I&O Vital Signs Date Time Temp Pulse Resp B/P (MAP) Pulse Ox O2 Delivery O2 Flow Rate FiO2 08/08/17 13:00 70 08/08/17 12:02 97 Nasal Cannula 2.00 08/08/17 12:00 64 08/08/17 11:01 99.8 70 20 127/56 (79) 93 4/9/18 11:00 71 08/08/17 10:00 74 08/08/17 09:00 77 08/08/17 08:00 73 08/08/17 07:00 98.8 75 19 123/55 (77) 94 08/08/17 07:00 77 08/08/17 06:04 75 08/08/17 05:12 77 08/08/17 04:12 98.1 71 136/65 (88) 92 08/08/17 04:00 77 08/08/17 03:41 92 21 08/08/17 03:00 68 08/08/17 02:00 68 08/08/17 01:00 70 08/08/17 00:16 94 Room Air 08/08/17 00:14 98.0 85 137/60 (85) 94 08/08/17 00:00 80 08/07/17 23:00 80 08/07/17 22:39 98.2 81 134/58 (83) 100 08/07/17 22:37 100 Nasal Cannula 2.00 08/07/17 22:00 78 08/07/17 21:00 84 08/07/17 20:30 99 Nasal Cannula 2.00 08/07/17 20:00 82 08/07/17 16:00 98.2 86 20 149/60 (89) 93 08/07/17 16:00 86 08/07/17 15:00 72 15 133/58 (83) 94 08/07/17 15:00 72 I/O 08/07/17 08/07/17 08/07/17 08/08/17 08/08/17 08/08/17 07:00 15:00 23:00 07:00 15:00 23:00 Intake Total 175.7 ml 588 ml 372 ml Output Total 700 ml 550 ml 100 ml Balance -524.3 ml 38 ml 272 ml Intake Oral 0 ml 480 ml 150 ml IV Total 175.7 ml 108 ml 222 ml Output Urine Total 700 ml 550 ml 100 ml # Voids 1 1 # Bowel Movements 0 0 Physical Exam GENERAL: NAD, AAOx3 SKIN: Warm and dry. HEAD: Atraumatic. Normocephalic. EYES: Pupils equal and round. No scleral icterus. No injection or drainage. ENT: No nasal bleeding or discharge. Mucous membranes pink and moist. NECK: Trachea midline. No JVD. CARDIOVASCULAR: Regular rate and rhythm. RESPIRATORY: No accessory muscle use. Clear to auscultation. Breath sounds equal bilaterally. GASTROINTESTINAL: Abdomen soft, non-tender, nondistended. Hepatic and splenic margins not palpable. MUSCULOSKELETAL: Extremities without clubbing, cyanosis, or edema. No obvious deformities. NEUROLOGICAL: Awake and alert. Overall left sided weakness, baseline PSYCHIATRIC: Appropriate mood and affect; insight and judgment normal. Laboratory Laboratory Tests Test 08/07/17 21:01 08/08/17 03:22 08/08/17 12:25 Activated Partial Thromboplast Time 37.1 SEC 53.4 SEC 46.2 SEC Assessment and Plan Problem List: (1) CAD (coronary artery disease) ICD Codes: I25.10 - Atherosclerotic heart disease of [place] coronary artery without angina pectoris Status: Chronic (2) Elevated troponin ICD Codes: R74.8 - Abnormal levels of other serum enzymes Status: Acute (3) Hemiparesis ICD Codes: G81.90 - Hemiplegia, unspecified affecting unspecified side Status: Acute (4) Chronic kidney disease (CKD) ICD Codes: N18.9 - Chronic kidney disease, unspecified (5) HTN (hypertension) ICD Codes: I10 - Essential (primary) hypertension Status: Chronic (6) History of CVA (cerebrovascular accident) ICD Codes: Z86.73 - Personal history of transient ischemic attack (TIA), and cerebral infarction without residual deficits Assessment and Plan 1) Known triple vessel CAD with elevated trop Patient adimently refuses invasive management (i.e. cath, consideration of CABG) Con't ASA/Plavix/Imdur/BB/Norvasc Increase anti-anginals as needed 2) Hx of CVA after cardiac catheterization 3) Plan to stop heparin drip today 4) Overall lethargic today, most likely due to Meclizine 5) No further cardiovascular work up Can follow up with Dr. Shell on discharge Jonathan An DO Aug 08, 2017 14:49
--- NOTE | 2017-08-08 17:01 | ECHRPT ---
Indication: Shortness of Breath CONCLUSIONS The left ventricular systolic function is hyperdynamic with an estimated ejection fraction in the ra nge of 65- 70%. Normal left ventricular size. Mild concentric left ventricular hypertrophy. The left atrial size is slightly enlarged.Severe mitral annular calcification. Trace mitral valve regurgitation. Aortic valve sclerosis is present. There is mild tricuspid valve regurgitation. The estimated pulmonary arterial pressure is 33 mmHg. BP: 123 / 55 HR: 75 Rhythm: Sinus MEASUREMENTS (Male / Female) Normal Values Technical Quality:Fair 2D ECHO LV Diastolic Diameter PLAX 4.1 cm 4.2 - 5.9 / 3.9 - 5.3 cm LV Systolic Diameter PLAX 3.2 cm IVS Diastolic Thickness 1.5 cm 0.6 - 1.0 / 0.6 - 0.9 cm LVPW Diastolic Thickness 1.1 cm 0.6 - 1.0 / 0.6 - 0.9 cm LV Relative Wall Thickness 0.6 RV Internal Dim ED PLAX 2.2 cm LA Systolic Diameter LX 3.6 cm 3.0 - 4.0 / 2.7 - 3.8 cm M-MODE Aortic Root Diameter MM 2.3 cm LA Systolic Diameter MM 4.1 cm LA Ao Ratio MM 1.8 AV Cusp Separation MM 1.4 cm DOPPLER AV Peak Velocity 147.0 cm/s AV Peak Gradient 8.6 mmHg LVOT Peak Velocity 104.0 cm/s LVOT Peak Gradient 4.3 mmHg MV Peak Velocity 144.5 cm/s MV Peak Gradient 8.4 mmHg MV Mean Velocity 83.3 cm/s MV Mean Gradient 3.0 mmHg MV Area PHT 2.1 cm Mitral E Point Velocity 140.0 cm/s Mitral A Point Velocity 115.0 cm/s Mitral E to A Ratio 1.2 LV E' Lateral Velocity 4.0 cm/s Mitral E to LV E' Lateral Ratio 34.7 LV E' Septal Velocity 4.0 cm/s Mitral E to LV E' Septal Ratio 34.7 TR Peak Velocity 240.0 cm/s TR Peak Gradient 23.0 mmHg Right Atrial Pressure 10.0 mmHg Pulmonary Artery Systolic Pressu 33.0 mmHg Right Ventricular Systolic Press 33.0 mmHg FINDINGS LEFT VENTRICLE The left ventricular systolic function is hyperdynamic with an estimated ejection fraction in the ra nge of 65- 70%. Normal left ventricular size. Mild concentric left ventricular hypertrophy. RIGHT VENTRICLE Normal right ventricular size and systolic function. LEFT ATRIUM The left atrial size is slightly enlarged. RIGHT ATRIUM The right atrial size is normal. ATRIAL SEPTUM Normal atrial septal thickness without atrial level shunting by limited color doppler interrogation. AORTA The aortic root and proximal ascending aorta are normal in size on limited imaging. MITRAL VALVE Severe mitral annular calcification. Trace mitral valve regurgitation. AORTIC VALVE Trileaflet aortic valve. Aortic valve sclerosis is present. TRICUSPID VALVE Structurally normal tricuspid valve. There is mild tricuspid valve regurgitation. The estimated pulmonary arterial pressure is 33 mmHg. PULMONARY VALVE No pulmonary valve regurgitation or stenosis. VESSELS The inferior vena cava is normal in size. PERICARDIUM No pericardial effusion. Saran Lee MD (Electronically Signed) Final Date:08 August 2017 17:00
[2017-08-08] MEDS: cefTRIAXone INJ 1,000 MG in SODIUM CHLORIDE 0.9% INJ 100 ML IV SCH (20:49)
[2017-08-09] VITALS (31 sets, daily range): BP systolic 105–140; BP diastolic 51–62; PULSE 64–82; RESP 20; TEMP 98.1–99.5; O2SAT 92–98
[2017-08-09] MEDS: RESP: ALBUTEROL 2.5 MG/IPRATROPIUM 0.5 MG NEB (SCH) NEB ×4 (03:16→20:41)
[2017-08-09] MEDS: CHLORHEXIDINE GLUCONATE 2 % 1 PACK (2 CLOTHS)(taper/protocol) TOPICAL SCH (04:00)
[2017-08-09 05:14] LABS: AUTOMATED NEUTROPHIL # 7.6 TH/MM3 (1.8-7.7); BASOPHIL # 0.1 TH/MM3 (0-0.2); BASOPHIL % 0.8 % (0.0-2.0); EOSINOPHIL # 0.4 TH/MM3 (0-0.4); EOSINOPHIL % 3.5 % (0.0-4.0); HEMATOCRIT 33.9 % (35.0-46.0); HEMOGLOBIN 11.4 GM/DL (11.6-15.3); LYMPH % 21.3 % (9.0-44.0); LYMPHOCYTE # 2.5 TH/MM3 (1.0-4.8); MEAN CELL VOLUME 92.6 FL (80.0-100.0); MEAN CORPUSCULAR HEMOGLOBIN 31.1 PG (27.0-34.0); MEAN CORPUSCULAR HGB CONC 33.6 % (32.0-36.0); MEAN PLATELET VOLUME 9.5 FL (7.0-11.0); MONO % 8.4 % (0.0-8.0); PLATELET COUNT 166 TH/MM3 (150-450); RED BLOOD COUNT 3.66 MIL/MM3 (4.00-5.30); RED CELL DISTRIBUTION WIDTH 13.5 % (11.6-17.2); WHITE BLOOD COUNT 11.5 TH/MM3 (4.0-11.0)
[2017-08-09 05:18] LABS: AST (GOT) 21 U/L (15-37); BICARBONATE 25.5 MEQ/L (21.0-32.0); BLOOD UREA NITROGEN 18 MG/DL (7-18); CALCIUM 9.1 MG/DL (8.5-10.1); CHLORIDE 105 MEQ/L (98-107); GLOMERULAR FILTRATION RATE 40 ML/MIN (>89); GLUCOSE,RANDOM 58 MG/DL (74-106); SODIUM (NA) 139 MEQ/L (136-145)
[2017-08-09 05:22] LABS: ALKALINE PHOSPHATASE 68 U/L (45-117); ALT (GPT) 14 U/L (10-53); TOTAL BILIRUBIN ADULT 0.3 MG/DL (0.2-1.0); TOTAL PROTEIN 7.6 GM/DL (6.4-8.2)
[2017-08-09] MEDS: DEXTROSE 50% IN WATER 50 ML VIAL(D50) IV PUSH PRN (05:44)
[2017-08-09] MEDS: ISOSORBIDE MONONITRATE 30 MG CR TAB (IMDUR) PO SCH (05:44)
[2017-08-09] MEDS: INSULIN ASPART SUPPLEMENTAL SCALE SQ SCH ×4 (08:00→21:00)
[2017-08-09] MEDS: DOCUSATE SODIUM 50 MG/SENNA 8.6 MG TAB PO SCH ×2 (09:03→21:20)
[2017-08-09] MEDS: INSULIN DETEMIR 100 UNITS/ML VIAL SQ SCH ×2 (09:03→21:00)
[2017-08-09] MEDS: amLODIPine BESYLATE 5 MG TAB PO SCH (09:03)
[2017-08-09] MEDS: CLOPIDOGREL 75 MG TAB PO SCH (09:03)
[2017-08-09] MEDS: GABAPENTIN 300 MG CAP PO SCH ×2 (09:03→21:20)
[2017-08-09] MEDS: ASPIRIN 81 MG CHEW TAB CHEW SCH (09:03)
[2017-08-09] MEDS: METOPROLOL TARTRATE 25 MG TAB PO SCH ×2 (09:03→21:20)
[2017-08-09] MEDS: FAMOTIDINE 20 MG TAB PO SCH ×2 (09:03→21:20)
[2017-08-09] MEDS: SODIUM CHLORIDE 0.9% FLUSH 10 ML FLUSH IV FLUSH SCH ×2 (09:04→21:20)
--- NOTE | 2017-08-09 09:33 | PD.CARD.PN ---
Subjective Subjective Remarks No events overnight Less lethargic today, just feels weak No chest pain Objective Medications Current Medications Medications (Trade) Dose Ordered Sig/Helene Route Start Time Stop Time Status Last Admin (NS Flush) 2 ml UNSCH PRN IV FLUSH 08/05/17 18:30 (NS Flush) 2 ml BID IV FLUSH 08/05/17 21:00 08/09/17 09:04 (Tylenol) 650 mg Q4H PRN PO 08/05/17 18:30 (Zofran Inj) 4 mg Q6H PRN IVP 08/05/17 18:30 (Narcan Inj) 0.4 mg UNSCH PRN IV PUSH 08/05/17 18:30 (Nelly-Colace) 1 tab BID PO 08/05/17 21:00 08/09/17 09:03 (Milk Of Magnesia Liq) 30 ml Q12H PRN PO 08/05/17 18:30 (Senokot) 17.2 mg Q12H PRN PO 08/05/17 18:30 (Dulcolax Supp) 10 mg DAILY PRN RECTAL 08/05/17 18:30 (Lactulose Liq) 30 ml DAILY PRN PO 08/05/17 18:30 Ceftriaxone Sodium 1000 mg/ Sodium Chloride 100 ml @ 200 mls/hr Q24H IV 08/05/17 21:00 08/08/17 20:49 (Aspirin Chew) 81 mg DAILY CHEW 08/06/17 09:00 08/09/17 09:03 (Plavix) 75 mg DAILY PO 08/06/17 09:00 08/09/17 09:03 (Neurontin) 300 mg BID PO 08/05/17 21:00 08/09/17 09:03 (D50w (Vial) Inj) 50 ml UNSCH PRN IV PUSH 08/05/17 20:30 08/09/17 05:44 (Glucagon Inj) 1 mg UNSCH PRN OTHER 08/05/17 20:30 (NovoLOG SUPPLEMENTAL SCALE) 1 ACHS SLIDING SCALE SQ 08/05/17 21:00 08/07/17 17:00 (Levemir Inj) 56 units BID SQ 08/05/17 21:00 08/09/17 09:03 (Nitrostat Sl) 0.4 mg Q5M PRN SL 08/06/17 21:15 08/06/17 21:56 Nitroglycerin/ Dextrose 250 ml @ 1.5 mls/hr TITRATE PRN IV 08/06/17 21:30 08/06/17 23:35 Miscellaneous Information Patient in critical care unit? Ass... Q361D .XX 08/06/17 23:00 (Chlorhexidine 2% Cloth) 3 pack DAILY@04 TOPICAL 08/07/17 04:00 08/11/17 04:01 08/07/17 03:45 (Chlorhexidine 2% Cloth) 3 pack UNSCH PRN TOPICAL 08/06/17 23:00 08/11/17 22:47 (Trandate Inj) 10 mg Q4H PRN IV PUSH 08/06/17 23:30 (Duoneb Neb) 1 ampule Q6HR NEB NEB 08/06/17 23:30 08/09/17 08:41 (Norvasc) 5 mg DAILY PO 08/07/17 09:00 08/09/17 09:03 (Pepcid) 10 mg BID PO 08/07/17 09:00 08/09/17 09:03 (Lopressor) 12.5 mg Q12HR PO 08/07/17 21:00 08/09/17 09:03 (Imdur) 30 mg DAILY@07 PO 08/08/17 07:00 08/09/17 05:44 (Pill Splitter) 1 ea UNSCH PRN OTHER 08/07/17 15:00 (Benadryl 2% Cream) 1 applic TID PRN TOPICAL 08/08/17 14:15 Vital Signs / I&O Vital Signs Date Time Temp Pulse Resp B/P (MAP) Pulse Ox O2 Delivery O2 Flow Rate FiO2 08/09/17 09:00 72 08/09/17 08:42 95 21 08/09/17 08:00 74 08/09/17 07:23 99.5 70 20 113/53 (73) 94 08/09/17 07:00 70 08/09/17 06:10 72 08/09/17 05:00 71 08/09/17 04:17 98.1 70 140/62 (88) 98 08/09/17 04:00 70 08/09/17 03:00 64 08/09/17 02:00 66 08/09/17 01:00 74 08/09/17 00:10 98.3 76 130/60 (83) 97 08/09/17 00:00 76 08/08/17 23:00 74 08/08/17 22:00 72 08/08/17 21:40 97 Nasal Cannula 2.00 08/08/17 21:00 78 08/08/17 20:00 76 08/08/17 19:00 98.9 75 127/58 (81) 98 08/08/17 19:00 78 08/08/17 15:01 98.6 70 20 110/53 (72) 98 08/08/17 15:01 70 08/08/17 14:00 72 08/08/17 13:00 70 08/08/17 12:02 97 Nasal Cannula 2.00 08/08/17 12:00 64 08/08/17 11:01 99.8 70 20 127/56 (79) 93 08/08/17 11:00 71 08/08/17 10:00 74 I/O 08/08/17 08/08/17 08/08/17 08/09/17 08/09/17 08/09/17 07:00 15:00 23:00 07:00 15:00 23:00 Intake Total 372 ml 225 ml 240 ml 120 ml Output Total 100 ml Balance 272 ml 225 ml 240 ml 120 ml Intake Oral 150 ml 240 ml 120 ml IV Total 222 ml 225 ml Output Urine Total 100 ml # Voids 1 3 1 # Bowel Movements 0 Physical Exam GENERAL: NAD, AAOx3 SKIN: Warm and dry. HEAD: Atraumatic. Normocephalic. EYES: Pupils equal and round. No scleral icterus. No injection or drainage. ENT: No nasal bleeding or discharge. Mucous membranes pink and moist. NECK: Trachea midline. No JVD. CARDIOVASCULAR: Regular rate and rhythm. RESPIRATORY: No accessory muscle use. Clear to auscultation. Breath sounds equal bilaterally. GASTROINTESTINAL: Abdomen soft, non-tender, nondistended. Hepatic and splenic margins not palpable. MUSCULOSKELETAL: Extremities without clubbing, cyanosis, or edema. No obvious deformities. NEUROLOGICAL: Awake and alert. Overall left sided weakness, baseline PSYCHIATRIC: Appropriate mood and affect; insight and judgment normal. Laboratory Laboratory Tests Test 08/08/17 12:25 08/09/17 03:15 Activated Partial Thromboplast Time 46.2 SEC 26.2 SEC White Blood Count 11.5 TH/MM3 Red Blood Count 3.66 MIL/MM3 Hemoglobin 11.4 GM/DL Hematocrit 33.9 % Mean Corpuscular Volume 92.6 FL Mean Corpuscular Hemoglobin 31.1 PG Mean Corpuscular Hemoglobin Concent 33.6 % Red Cell Distribution Width 13.5 % Platelet Count 166 TH/MM3 Mean Platelet Volume 9.5 FL Neutrophils (%) (Auto) 66.0 % Lymphocytes (%) (Auto) 21.3 % Monocytes (%) (Auto) 8.4 % Eosinophils (%) (Auto) 3.5 % Basophils (%) (Auto) 0.8 % Neutrophils # (Auto) 7.6 TH/MM3 Lymphocytes # (Auto) 2.5 TH/MM3 Monocytes # (Auto) 1.0 TH/MM3 Eosinophils # (Auto) 0.4 TH/MM3 Basophils # (Auto) 0.1 TH/MM3 CBC Comment DIFF FINAL Differential Comment Blood Urea Nitrogen 18 MG/DL Creatinine 1.30 MG/DL Random Glucose 58 MG/DL Total Protein 7.6 GM/DL Albumin 3.0 GM/DL Calcium Level 9.1 MG/DL Alkaline Phosphatase 68 U/L Aspartate Amino Transf (AST/SGOT) 21 U/L Alanine Aminotransferase (ALT/SGPT) 14 U/L Total Bilirubin 0.3 MG/DL Sodium Level 139 MEQ/L Potassium Level 3.9 MEQ/L Chloride Level 105 MEQ/L Carbon Dioxide Level 25.5 MEQ/L Anion Gap 9 MEQ/L Estimat Glomerular Filtration Rate 40 ML/MIN Assessment and Plan Problem List: (1) CAD (coronary artery disease) ICD Codes: I25.10 - Atherosclerotic heart disease of [place] coronary artery without angina pectoris Status: Chronic (2) Elevated troponin ICD Codes: R74.8 - Abnormal levels of other serum enzymes Status: Acute (3) Hemiparesis ICD Codes: G81.90 - Hemiplegia, unspecified affecting unspecified side Status: Acute (4) Chronic kidney disease (CKD) ICD Codes: N18.9 - Chronic kidney disease, unspecified (5) HTN (hypertension) ICD Codes: I10 - Essential (primary) hypertension Status: Chronic (6) History of CVA (cerebrovascular accident) ICD Codes: Z86.73 - Personal history of transient ischemic attack (TIA), and cerebral infarction without residual deficits Assessment and Plan 1) Known triple vessel CAD with elevated trop Patient adamantly refuses invasive management (i.e. cath, consideration of CABG) Con't ASA/Plavix/Imdur/BB/Norvasc Increase anti-anginals as needed Chest pain free on medications 2) Hx of CVA after cardiac catheterization 3) No further cardiovascular work up Can follow up with Dr. Shell on discharge Jonathan An DO Aug 09, 2017 09:33
--- NOTE | 2017-08-09 12:31 | HHI.PR ---
Subjective Remarks Patient is less lethargic after stopping meclizine. No new complaints. She says she was ambulating with a walker prior to admit. Objective Vital Signs Date Time Temp Pulse Resp B/P (MAP) Pulse Ox O2 Delivery O2 Flow Rate FiO2 08/09/17 12:00 64 08/09/17 11:22 98.5 72 20 105/51 (69) 95 08/09/17 11:00 65 08/09/17 10:00 81 08/09/17 09:00 72 08/09/17 08:42 95 21 08/09/17 08:00 74 08/09/17 07:23 99.5 70 20 113/53 (73) 94 08/09/17 07:00 70 08/09/17 06:10 72 08/09/17 05:00 71 08/09/17 04:17 98.1 70 140/62 (88) 98 08/09/17 04:00 70 08/09/17 03:00 64 08/09/17 02:00 66 08/09/17 01:00 74 08/09/17 00:10 98.3 76 130/60 (83) 97 08/09/17 00:00 76 08/08/17 23:00 74 08/08/17 22:00 72 08/08/17 21:40 97 Nasal Cannula 2.00 08/08/17 21:00 78 08/08/17 20:00 76 08/08/17 19:00 98.9 75 127/58 (81) 98 08/08/17 19:00 78 08/08/17 15:01 98.6 70 20 110/53 (72) 98 08/08/17 15:01 70 08/08/17 14:00 72 08/08/17 13:00 70 I/O 08/08/17 08/08/17 08/08/17 08/09/17 08/09/17 08/09/17 07:00 15:00 23:00 07:00 15:00 23:00 Intake Total 372 ml 225 ml 240 ml 120 ml Output Total 100 ml Balance 272 ml 225 ml 240 ml 120 ml Intake Oral 150 ml 240 ml 120 ml IV Total 222 ml 225 ml Output Urine Total 100 ml # Voids 1 3 1 # Bowel Movements 0 Result Diagram: 08/09/1731408/09/17314 Objective Remarks GENERAL: NAD, A&Ox3 HEAD: Normocephalic. NECK: Supple, trachea midline. No lymphadenopathy. EYES: No scleral icterus. No injection or drainage. CARDIOVASCULAR: Regular rate and rhythm without murmurs, gallops, or rubs. RESPIRATORY: Breath sounds equal bilaterally. No accessory muscle use. GASTROINTESTINAL: Abdomen soft, non-tender, nondistended. MUSCULOSKELETAL: No cyanosis, or edema. SKIN: Warm and dry. NEURO: No focal neurological deficitis. Global weakness. A/P Problem List: (1) Dysphagia as late effect of cerebrovascular accident (CVA) ICD Code: I69.391 - Dysphagia following cerebral infarction Status: Acute (2) Apraxia ICD Code: R48.2 - Apraxia Status: Acute (3) DM (diabetes mellitus) ICD Code: E11.9 - Type 2 diabetes mellitus without complications Status: Chronic Assessment and Plan 76-year-old female admitted secondary to hypoxia who also had NSTEMI and CVA Continue to rehabilitation towards prior baseline. Monitor respiratory status. Patient improving slowly. History of stroke 2 (last CVA in 2011) Chronic Left Side Hemiplegia Peripheral neuropathy Continue gabapentin 300 mg p.o. 3 times daily Meclizine discontinued due to lethargy PT Acute hypoxemic/hypercapnic respiratory failure Improved O2 as needed PRN Nebulized treatments Chest pain Status post NSTEMI Coronary artery disease Chronic CHF (diastolic) Aspirin Plavix Diuresis if needed Hypertension Pulmonary HTN Continue baseline treatment Follow blood pressures Adjust treatments as needed Daily Norvasc Hyperlipidemia Statin intolerance Follow as an outpatient Chronic kidney disease stage III Follow renal function Avoid nephrotoxins UTI Continue Rocephin Follow urine cultures Diabetes mellitus type 2 Follow blood sugars Insulin sliding scale Diabetic diet Continue detemir DVT Prophylaxis Heparin Dane Ulrich MD Aug 09, 2017 12:31
[2017-08-09] MEDS: cefTRIAXone INJ 1,000 MG in SODIUM CHLORIDE 0.9% INJ 100 ML IV SCH (21:19)
[2017-08-10] VITALS (29 sets, daily range): BP systolic 114–146; BP diastolic 51–67; PULSE 68–84; RESP 16–20; TEMP 97.7–98.4; O2SAT 94–99
[2017-08-10] MEDS: RESP: ALBUTEROL 2.5 MG/IPRATROPIUM 0.5 MG NEB (SCH) NEB ×4 (03:01→20:16)
[2017-08-10] MEDS: CHLORHEXIDINE GLUCONATE 2 % 1 PACK (2 CLOTHS)(taper/protocol) TOPICAL SCH (04:00)
[2017-08-10] MEDS: ISOSORBIDE MONONITRATE 30 MG CR TAB (IMDUR) PO SCH (06:19)
[2017-08-10] MEDS: INSULIN ASPART SUPPLEMENTAL SCALE SQ SCH ×4 (08:00→22:43)
[2017-08-10] MEDS: INSULIN DETEMIR 100 UNITS/ML VIAL SQ SCH ×2 (08:16→22:43)
[2017-08-10] MEDS: amLODIPine BESYLATE 5 MG TAB PO SCH (08:17)
[2017-08-10] MEDS: CLOPIDOGREL 75 MG TAB PO SCH (08:17)
[2017-08-10] MEDS: FAMOTIDINE 20 MG TAB PO SCH ×2 (08:17→20:41)
[2017-08-10] MEDS: METOPROLOL TARTRATE 25 MG TAB PO SCH ×2 (08:17→20:41)
[2017-08-10] MEDS: GABAPENTIN 300 MG CAP PO SCH ×2 (08:17→20:40)
[2017-08-10] MEDS: DOCUSATE SODIUM 50 MG/SENNA 8.6 MG TAB PO SCH ×2 (08:17→20:40)
[2017-08-10] MEDS: ASPIRIN 81 MG CHEW TAB CHEW SCH (08:17)
[2017-08-10] MEDS: SODIUM CHLORIDE 0.9% FLUSH 10 ML FLUSH IV FLUSH SCH ×2 (08:18→20:40)
[2017-08-10] MEDS ORDERED: BACT800T5 PO (09:08)
[2017-08-10] MEDS ORDERED: MAGN30S PO (09:08)
[2017-08-10] MEDS ORDERED: METO25TA3 PO (09:08)
[2017-08-10] MEDS ORDERED: ISOS30TA3 PO (09:08)
--- NOTE | 2017-08-10 10:09 | HHI.DS ---
Discharge Summary Admission Date Aug 06, 2017 at 21:13 Discharge Date: Aug 10, 2017 Admitting Diagnosis Fall/dizziness/elevated troponin . (1) Fall ICD Code: W19.XXXA - Unspecified fall, initial encounter Diagnosis: Principal (2) Elevated troponin ICD Code: R74.8 - Abnormal levels of other serum enzymes Diagnosis: Principal Status: Acute Procedures None Brief History - From Admission Mrs. Louie is a 76-year-old female with a history of CVA 2, TIA 3, congestive heart failure, hypertension, arthritis, and diabetes who presents to the emergency room on 08/05/2017 reporting that she had fallen while trying to get out of bed, hit her head, and has been having dizziness since that time. Laboratory studies revealed elevated troponin in the emergency room and the patient was admitted to the hospitalist service for further evaluation. Head CT with no acute findings in the brain. Chest x-ray shows no acute abnormalities. Right shoulder x-ray shows a maria dle carmen of calcium inferior to the glenoid that might be associated with triceps tendon origin tendinopathy, otherwise a negative study. The patient is seen in the CDU. She reports that she has been feeling dizzy for about the past 4-5 months. She reports that she became so dizzy upon standing up today that she fell despite having a walker to steady her. She continued to feel dizzy in the CDU and I ordered some meclizine for her and she does report improvement at the time of my visit. She also reports that she has been having chest pain since last year that is intermittent and worse when laying flat. She was not having chest pain at the time of her fall. She did hit her head and had a CT scan which was negative. She also hurt her right arm in the shoulder area and the x-ray was negative with the exception of a maria del carmen of calcium inferior to the glenoid. She denies any associated fever, chills, shortness of breath, diaphoresis, nausea, vomiting, hematuria, dysuria, or frequency. CBC/BMP: 08/09/17 0315 08/09/17 0315 Significant Findings Laboratory Tests Test 08/07/17 12:46 4/8/18 21:01 08/08/17 03:22 08/08/17 12:25 Activated Partial Thromboplast Time 42.9 SEC (24.3-30.1) 37.1 SEC (24.3-30.1) 53.4 SEC (24.3-30.1) 46.2 SEC (24.3-30.1) Test 08/09/17 03:15 White Blood Count 11.5 TH/MM3 (4.0-11.0) Red Blood Count 3.66 MIL/MM3 (4.00-5.30) Hemoglobin 11.4 GM/DL (11.6-15.3) Hematocrit 33.9 % (35.0-46.0) Monocytes (%) (Auto) 8.4 % (0.0-8.0) Monocytes # (Auto) 1.0 TH/MM3 (0-0.9) Creatinine 1.30 MG/DL (0.50-1.00) Random Glucose 58 MG/DL (74-106) Albumin 3.0 GM/DL (3.4-5.0) Estimat Glomerular Filtration Rate 40 ML/MIN (>89) PE at Discharge GENERAL: This is a well-nourished, well-developed patient, in no apparent distress. SKIN: Warm and dry HEENT: Normocephalic. Pupils equal round and reactive. Nose without bleeding. Airway patent. Left facial droop. NECK: Trachea midline. No JVD. Supple. CARDIOVASCULAR: Regular rate and rhythm without murmurs, gallops, or rubs. RESPIRATORY: Clear to auscultation. Breath sounds equal bilaterally. No wheezes , rales, or rhonchi. GASTROINTESTINAL: Abdomen soft, non-tender, nondistended. Bowel Sounds normoactive x4. MUSCULOSKELETAL: Extremities without clubbing, cyanosis, or edema. NEUROLOGICAL: Awake and alert. Oriented to place, person. Left upper extremity weakness. Mildly slurred speech. Hospital Course Mrs. Louie is a 76-year-old female. She was admitted secondary to a fall with dizziness and had elevated troponins. Heart catheter was recommended and patient refused. NSTEMI suspected. Monitoring occurred and patient had no arrhythmias or other complications. She does have progression of her baseline weakness related to previous CVAs. At this point she will need chcf facility at time of discharge. She is medically stable for discharge to chcf facility today. Pt Condition on Discharge: Stable Discharge Disposition: Discharge to SNF Discharge Time: > 30 minutes Discharge Instructions DIET: Follow Instructions for: Heart Healthy Diet Activities you can perform: Regular-No Restrictions Other Activity Instructions: With PT Follow up Referrals: Cardiology - 2 Weeks PCP Follow-up - 2 Weeks New Medications: Sulfamethoxazole-Trimethoprim (Bactrim DS) 800-160 Mg Tab 1 TAB PO BID for Infection, #10 TAB 0 Refills Isosorbide Mononitrate ER (Isosorbide Mononitrate ER) 30 Mg Conrad 30 MG PO DAILY@07 for Cardiac Medicine, #30 TAB Magnesium Hydroxide (Qc Milk of Magnesia) 400 Mg/5 Ml Ivon 30 ML PO Q12H PRN for Mild constipation, #1 BOTTLE Metoprolol Tartrate (Metoprolol Tartrate) 25 Mg Tab 12.5 MG PO Q12HR for Blood Pressure Management, #60 TAB Continued Medications: Amlodipine (Norvasc) 5 Mg Tab 5 MG PO DAILY for Blood Pressure Management, #30 TAB 1 Refill Aspirin (Aspirin) 81 Mg Chew 81 MG CHEW DAILY, TAB 0 Refills Clopidogrel (Plavix) 75 Mg Tab 75 MG PO DAILY for Blood Clot Prevention, #30 TAB 0 Refills Folic Acid (Folic Acid) 400 Mcg Tab 400 MCG PO DAILY for Nutritional Supplement, TAB 0 Refills Gabapentin (Gabapentin) 300 Mg Cap 300 MG PO BID, #60 CAP 0 Refills Insulin Aspart Inj (Novolog Inj) 1,000 Unit/10 Ml Vial 0 SQ DIRECTED for Blood Sugar Management, ML 0 Refills Sliding Scale as directed. Insulin Detemir Inj (Levemir Inj) 1,000 unit/ 10 ML Vial 56 UNITS SQ BID for Blood Sugar Management, VIAL 0 Refills Do not mix with any other Insulin. Nitroglycerin SL (Nitroglycerin SL) 0.4 Mg Subl 0.4 MG SL DIRECTED PRN for CHEST PAIN, #100 TAB.SL 0 Refills ONE TABLET UNDER THE TONGUE NEEDED FOR CHEST PAIN, MAY REPEAT EVERY FIVE MINUTES FOR A TOTAL OF 3 DOSES OR CALL 911 IF NO RELIEF Dane Ulrich MD Aug 10, 2017 10:09
--- NOTE | 2017-08-10 18:42 | MB ---
cc: Nils Navarro MD, Olimpio F MD DATE: 08/10/2017 HISTORY OF PRESENT ILLNESS: A 76-year-old woman seen in neurological consultation. The daughter is at bedside. She fell and hit her head about 5 days ago. She was brought to the hospital, admitted on 08/05 and she has been fairly stable. She was going to be discharged today, then the daughter asked for additional evaluation. I came to see her and she was alert, pleasant, oriented, but has dysarthric speech. There is some left hemiparesis, but the hemiparesis appears to be chronic from previous stroke, as per daughter at bedside. There is some probable bilateral upgoing toe responses and the sensory exam was normal. The patient was seen at bedside. The laboratory data is reviewed. The CT brain on admission showed no acute abnormality. Yesterday's lab work shows white count 11.5, hemoglobin 11.4, platelets 166. Chemistry with a creatinine of 1.3, BUN 18, glucose 58, otherwise, normal findings. ASSESSMENT AND PLAN: Recent fall with closed head injury and a negative CT initially. The patient has had some dysarthric speech, which appears to be new. Daughter is at bedside. There is a history of some neurologic impairment from previous stroke including left hemiparesis, but the patient was functioning semi-independently, living with her and there were caregivers but she did not drive, etc. I agree we should obtain an MRI brain without contrast before she is discharged. She normally takes aspirin and I believe she also takes Plavix at home. She is on blood pressure medications and I am going to check her lipid profile as well. We will wait on these to be reviewed and then make disposition arrangements. Thank you for asking us to assist in her care. MD ERNESTO Teran//roya , 05:22 PM , 05:51 PM
[2017-08-10] MEDS: cefTRIAXone INJ 1,000 MG in SODIUM CHLORIDE 0.9% INJ 100 ML IV SCH (20:40)
--- NOTE | 2017-08-10 23:09 | PD.CARD.PN ---
Subjective Subjective Remarks Patient was seen earlier today, late entry note No events overnight Overall weak No chest pain Objective Medications Current Medications Medications (Trade) Dose Ordered Sig/Helene Route Start Time Stop Time Status Last Admin (NS Flush) 2 ml UNSCH PRN IV FLUSH 08/05/17 18:30 (NS Flush) 2 ml BID IV FLUSH 08/05/17 21:00 08/10/17 20:40 (Tylenol) 650 mg Q4H PRN PO 08/05/17 18:30 (Zofran Inj) 4 mg Q6H PRN IVP 08/05/17 18:30 (Narcan Inj) 0.4 mg UNSCH PRN IV PUSH 08/05/17 18:30 (Nelly-Colace) 1 tab BID PO 08/05/17 21:00 08/10/17 20:40 (Milk Of Magnesia Liq) 30 ml Q12H PRN PO 08/05/17 18:30 (Senokot) 17.2 mg Q12H PRN PO 08/05/17 18:30 08/10/17 06:19 (Dulcolax Supp) 10 mg DAILY PRN RECTAL 08/05/17 18:30 (Lactulose Liq) 30 ml DAILY PRN PO 08/05/17 18:30 Ceftriaxone Sodium 1000 mg/ Sodium Chloride 100 ml @ 200 mls/hr Q24H IV 08/05/17 21:00 08/10/17 20:40 (Aspirin Chew) 81 mg DAILY CHEW 08/06/17 09:00 08/10/17 08:17 (Plavix) 75 mg DAILY PO 08/06/17 09:00 08/10/17 08:17 (Neurontin) 300 mg BID PO 08/05/17 21:00 08/10/17 20:40 (D50w (Vial) Inj) 50 ml UNSCH PRN IV PUSH 08/05/17 20:30 08/09/17 05:44 (Glucagon Inj) 1 mg UNSCH PRN OTHER 08/05/17 20:30 (NovoLOG SUPPLEMENTAL SCALE) 1 ACHS SLIDING SCALE SQ 08/05/17 21:00 08/10/17 22:43 (Levemir Inj) 56 units BID SQ 08/05/17 21:00 08/10/17 22:43 (Nitrostat Sl) 0.4 mg Q5M PRN SL 08/06/17 21:15 08/06/17 21:56 Nitroglycerin/ Dextrose 250 ml @ 1.5 mls/hr TITRATE PRN IV 08/06/17 21:30 08/06/17 23:35 Miscellaneous Information Patient in critical care unit? Ass... Q361D .XX 08/06/17 23:00 (Chlorhexidine 2% Cloth) 3 pack DAILY@04 TOPICAL 08/07/17 04:00 08/11/17 04:01 08/07/17 03:45 (Chlorhexidine 2% Cloth) 3 pack UNSCH PRN TOPICAL 08/06/17 23:00 08/11/17 22:47 (Trandate Inj) 10 mg Q4H PRN IV PUSH 08/06/17 23:30 (Duoneb Neb) 1 ampule Q6HR NEB NEB 08/06/17 23:30 08/10/17 20:16 (Norvasc) 5 mg DAILY PO 08/07/17 09:00 08/10/17 08:17 (Pepcid) 10 mg BID PO 08/07/17 09:00 08/10/17 20:41 (Lopressor) 12.5 mg Q12HR PO 08/07/17 21:00 08/10/17 20:41 (Imdur) 30 mg DAILY@07 PO 08/08/17 07:00 08/10/17 06:19 (Pill Splitter) 1 ea UNSCH PRN OTHER 08/07/17 15:00 (Benadryl 2% Cream) 1 applic TID PRN TOPICAL 08/08/17 14:15 Vital Signs / I&O Vital Signs Date Time Temp Pulse Resp B/P (MAP) Pulse Ox O2 Delivery O2 Flow Rate FiO2 08/10/17 20:17 99 21 08/10/17 18:00 72 08/10/17 17:00 77 08/10/17 16:00 74 08/10/17 15:39 97.9 78 18 135/63 (87) 95 08/10/17 15:00 78 08/10/17 14:00 72 08/10/17 13:00 80 08/10/17 12:00 83 08/10/17 11:25 97.7 74 18 146/67 (93) 96 08/10/17 11:06 95 21 4/11/18 11:00 74 08/10/17 10:00 68 08/10/17 09:00 74 08/10/17 08:00 77 08/10/17 07:46 98.2 76 18 114/51 (72) 97 08/10/17 07:00 76 08/10/17 06:00 81 08/10/17 05:00 71 08/10/17 04:00 98.4 75 20 145/65 (91) 94 08/10/17 04:00 75 08/10/17 03:00 77 08/10/17 02:00 76 08/10/17 01:00 74 08/10/17 00:00 79 I/O 08/10/17 08/10/17 08/10/17 08/11/17 08/11/17 08/11/17 07:00 15:00 23:00 07:00 15:00 23:00 Intake Total 300 ml 920 ml Output Total 200 ml Balance 100 ml 920 ml Intake Oral 200 ml 820 ml IV Total 100 ml 100 ml Output Urine Total 200 ml # Voids 4 # Bowel Movements 1 Physical Exam GENERAL: NAD, AAOx3 SKIN: Warm and dry. HEAD: Atraumatic. Normocephalic. EYES: Pupils equal and round. No scleral icterus. No injection or drainage. ENT: No nasal bleeding or discharge. Mucous membranes pink and moist. NECK: Trachea midline. No JVD. CARDIOVASCULAR: Regular rate and rhythm. RESPIRATORY: No accessory muscle use. Clear to auscultation. Breath sounds equal bilaterally. GASTROINTESTINAL: Abdomen soft, non-tender, nondistended. Hepatic and splenic margins not palpable. MUSCULOSKELETAL: Extremities without clubbing, cyanosis, or edema. No obvious deformities. NEUROLOGICAL: Awake and alert. Overall left sided weakness, baseline PSYCHIATRIC: Appropriate mood and affect; insight and judgment normal. Assessment and Plan Problem List: (1) CAD (coronary artery disease) ICD Codes: I25.10 - Atherosclerotic heart disease of [place] coronary artery without angina pectoris Status: Chronic (2) Elevated troponin ICD Codes: R74.8 - Abnormal levels of other serum enzymes Status: Acute (3) Hemiparesis ICD Codes: G81.90 - Hemiplegia, unspecified affecting unspecified side Status: Acute (4) Chronic kidney disease (CKD) ICD Codes: N18.9 - Chronic kidney disease, unspecified (5) HTN (hypertension) ICD Codes: I10 - Essential (primary) hypertension Status: Chronic (6) History of CVA (cerebrovascular accident) ICD Codes: Z86.73 - Personal history of transient ischemic attack (TIA), and cerebral infarction without residual deficits Assessment and Plan 1) Known triple vessel CAD with elevated trop Patient adamantly refuses invasive management (i.e. cath, consideration of CABG) Con't ASA/Plavix/Imdur/BB/Norvasc Increase anti-anginals as needed Chest pain free on medications 2) Hx of CVA after cardiac catheterization previous 3) No further cardiovascular work up Can follow up with Dr. Shell on discharge Jonathan An DO Aug 10, 2017 23:09
[2017-08-11] VITALS (18 sets, daily range): BP systolic 122–155; BP diastolic 60–65; PULSE 62–78; RESP 16–20; TEMP 98–98.7; O2SAT 92–96
[2017-08-11] MEDS: CHLORHEXIDINE GLUCONATE 2 % 1 PACK (2 CLOTHS)(taper/protocol) TOPICAL SCH (04:00)
[2017-08-11 06:23] LABS: CHOLESTEROL/ HDL RATIO 6.36 RATIO; HDL CHOLESTEROL 33.8 MG/DL (40.0-60.0)
[2017-08-11] MEDS: ISOSORBIDE MONONITRATE 30 MG CR TAB (IMDUR) PO SCH (07:00)
[2017-08-11] MEDS: INSULIN ASPART SUPPLEMENTAL SCALE SQ SCH ×4 (08:00→20:58)
[2017-08-11] MEDS: GABAPENTIN 300 MG CAP PO SCH ×2 (09:25→20:54)
[2017-08-11] MEDS: ASPIRIN 81 MG CHEW TAB CHEW SCH (09:25)
[2017-08-11] MEDS: DOCUSATE SODIUM 50 MG/SENNA 8.6 MG TAB PO SCH ×2 (09:25→20:54)
[2017-08-11] MEDS: CLOPIDOGREL 75 MG TAB PO SCH (09:25)
[2017-08-11] MEDS: amLODIPine BESYLATE 5 MG TAB PO SCH (09:25)
[2017-08-11] MEDS: FAMOTIDINE 20 MG TAB PO SCH ×2 (09:25→20:54)
[2017-08-11] MEDS: METOPROLOL TARTRATE 25 MG TAB PO SCH ×2 (09:25→20:54)
[2017-08-11] MEDS: INSULIN DETEMIR 100 UNITS/ML VIAL SQ SCH ×2 (09:25→20:55)
[2017-08-11] MEDS ORDERED: LORazepam 1 MG TAB PO ONE (10:45)
--- NOTE | 2017-08-11 16:43 | RADRPT ---
EXAM DATE/TIME: 08/11/2017 11:02 [facility] COMPARISON: CT BRAIN W/O CONTRAST, August 05, 2017, 16:45. MRI BRAIN W/O CONTRAST, January 01, 2017, 8:37. INDICATIONS : CVA. Left sided weakness. Fall one week ago. MEDICAL HISTORY : Diabetes mellitus type 2. Congestive heart failure. Renal failure, chronic. SURGICAL HISTORY : section. ENCOUNTER: Initial ACUITY: 1 day PAIN SCORE: 0/10 LOCATION: Head. TECHNIQUE: Multiplanar, multisequence MRI of the brain was performed without contrast. FINDINGS: CEREBRUM: The ventricles are normal for age. No evidence of midline shift, mass lesion, hemorrhage or acute in farction. No extraaxial fluid collections are seen. The pituitary gland and suprasellar cistern are normal in configuration. WHITE MATTER: Few scattered areas of increased periventricular T2 flair signal intensity. Isolated sub-cortical are a of increased T2 flair signal in the high right parietal lobe POSTERIOR FOSSA: The cerebellum and brainstem are intact. The 4th ventricle is midline. The cerebellopontine angle is unremarkable. The cerebellar tonsils are normal in position. DIFFUSION IMAGING: Discrete areas of true diffusion restriction are identified in a periventricular distribution along t he top of the lateral ventricles bilaterally as well as in segments of the corpus callosum. These karen e areas show diminished signal on the ADC maps. EXTRACRANIAL: The visualized portions of the orbits and paranasal sinuses are unremarkable. CONCLUSION: 1. Acute or subacute embolic type infarcts in the distribution of the pericallosal artery with areas of diffusion restriction along the roof of both lateral ventricles and in scattered areas of the ronda us callosum. 2. No acute intracranial hemorrhage. Jan Damon MD on August 11, 2017 at 16:23 Board Certified Radiologist. This report was verified electronically.
--- NOTE | 2017-08-11 18:32 | HHI.PR ---
Review/Management Daily Summary 08/11 sleepy post mri but received ativan for mri mri seen earlier today, acute infarcts corpus callosum discussed with staff echo pending sinus rhythm continue asa and plavix unless cardio status warrant anticoagulation rehab care, [facility] nursing facility Subjective Subjective Comments No acute events reported No headache Active Medications Current Medications Medications (Trade) Dose Ordered Sig/Helene Route Start Time Stop Time Status Last Admin (NS Flush) 2 ml UNSCH PRN IV FLUSH 08/05/17 18:30 (NS Flush) 2 ml BID IV FLUSH 08/05/17 21:00 08/10/17 20:40 (Tylenol) 650 mg Q4H PRN PO 08/05/17 18:30 (Zofran Inj) 4 mg Q6H PRN IVP 08/05/17 18:30 (Narcan Inj) 0.4 mg UNSCH PRN IV PUSH 08/05/17 18:30 (Nelly-Colace) 1 tab BID PO 08/05/17 21:00 08/11/17 09:25 (Milk Of Magnesia Liq) 30 ml Q12H PRN PO 08/05/17 18:30 (Senokot) 17.2 mg Q12H PRN PO 08/05/17 18:30 08/10/17 06:19 (Dulcolax Supp) 10 mg DAILY PRN RECTAL 08/05/17 18:30 (Lactulose Liq) 30 ml DAILY PRN PO 08/05/17 18:30 Ceftriaxone Sodium 1000 mg/ Sodium Chloride 100 ml @ 200 mls/hr Q24H IV 08/05/17 21:00 08/10/17 20:40 (Aspirin Chew) 81 mg DAILY CHEW 08/06/17 09:00 08/11/17 09:25 (Plavix) 75 mg DAILY PO 08/06/17 09:00 08/11/17 09:25 (Neurontin) 300 mg BID PO 08/05/17 21:00 08/11/17 09:25 (D50w (Vial) Inj) 50 ml UNSCH PRN IV PUSH 08/05/17 20:30 08/09/17 05:44 (Glucagon Inj) 1 mg UNSCH PRN OTHER 08/05/17 20:30 (NovoLOG SUPPLEMENTAL SCALE) 1 ACHS SLIDING SCALE SQ 08/05/17 21:00 08/10/17 22:43 (Levemir Inj) 56 units BID SQ 08/05/17 21:00 08/11/17 09:25 (Nitrostat Sl) 0.4 mg Q5M PRN SL 08/06/17 21:15 08/06/17 21:56 Nitroglycerin/ Dextrose 250 ml @ 1.5 mls/hr TITRATE PRN IV 08/06/17 21:30 08/06/17 23:35 Miscellaneous Information Patient in critical care unit? Ass... Q361D .XX 08/06/17 23:00 (Chlorhexidine 2% Cloth) 3 pack UNSCH PRN TOPICAL 08/06/17 23:00 08/11/17 22:47 (Trandate Inj) 10 mg Q4H PRN IV PUSH 08/06/17 23:30 (Norvasc) 5 mg DAILY PO 08/07/17 09:00 08/11/17 09:25 (Pepcid) 10 mg BID PO 08/07/17 09:00 08/11/17 09:25 (Lopressor) 12.5 mg Q12HR PO 08/07/17 21:00 08/11/17 09:25 (Imdur) 30 mg DAILY@07 PO 08/08/17 07:00 08/10/17 06:19 (Pill Splitter) 1 ea UNSCH PRN OTHER 08/07/17 15:00 (Benadryl 2% Cream) 1 applic TID PRN TOPICAL 08/08/17 14:15 Allergies Allergies Coded Allergies Lactobacillus acidophilus (Verified Allergy, Severe, 08/05/17) Lactobacillus bulgaricus (Verified Allergy, Severe, 08/05/17) Lactobacillus gasseri (Verified Allergy, Severe, 08/05/17) Streptococcus thermophilus (Verified Allergy, Severe, 08/05/17) lovastatin (Verified Allergy, Severe, 08/05/17) Exam I&O / VS 08/11/17 08/11/17 08/12/17 15:00 23:00 07:00 Output Total 1600 ml Balance -1600 ml Output Urine Total 1600 ml Vital Signs Date Time Temp Pulse Resp B/P (MAP) Pulse Ox O2 Delivery O2 Flow Rate FiO2 08/11/17 12:00 98.4 62 16 122/60 (80) 93 08/11/17 08:19 98.2 70 16 132/63 (86) 95 08/11/17 08:18 92 Nasal Cannula 21 08/11/17 06:00 70 08/11/17 05:00 70 08/11/17 04:00 72 08/11/17 04:00 98.0 72 16 155/63 (93) 95 08/11/17 03:00 70 08/11/17 02:00 72 08/11/17 01:00 76 08/11/17 00:00 78 08/11/17 00:00 98.2 78 18 125/63 (83) 96 08/10/17 23:00 78 08/10/17 22:00 82 08/10/17 21:00 84 08/10/17 20:17 99 21 08/10/17 20:00 79 08/10/17 20:00 98.3 79 16 123/60 (81) 96 08/10/17 19:00 76 Respiratory: Lungs CTA, Non-labored respirations Cardiology: Normal rate, Regular Rhythm Musculoskeletal: ROM, Swelling, Other Objective Radiology Results Last 48 hours Impressions Brain MRI 08/11/17 0000 Signed Impressions: Service Date/Time: July 11:02 - CONCLUSION: 1. Acute or subacute embolic type infarcts in the distribution of the pericallosal artery with areas of diffusion restriction along the roof of both lateral ventricles and in scattered areas of the corpus callosum. 2. No acute intracranial hemorrhage. Jan Damon MD Micro and Labs Laboratory Tests Test 08/11/17 04:46 Triglycerides Level 249 Cholesterol Level 215 LDL Cholesterol 131 HDL Cholesterol 33.8 Cholesterol/HDL Ratio 6.36 Date/Time Source Procedure Growth Status 08/05/17 18:25 Urine Clean Catch Urine Culture - Final Escherichia Coli Complete Nils Navarro MD Aug 11, 2017 18:32
[2017-08-11] MEDS: SODIUM CHLORIDE 0.9% FLUSH 10 ML FLUSH IV FLUSH SCH (20:53)
[2017-08-11] MEDS: cefTRIAXone INJ 1,000 MG in SODIUM CHLORIDE 0.9% INJ 100 ML IV SCH (20:54)
--- NOTE | 2017-08-11 22:14 | PD.CARD.PN ---
Subjective Subjective Remarks Patient was seen earlier today, late entry note No events overnight Overall weak, received Ativan for MRI No chest pain Objective Medications Current Medications Medications (Trade) Dose Ordered Sig/Helene Route Start Time Stop Time Status Last Admin (NS Flush) 2 ml UNSCH PRN IV FLUSH 08/05/17 18:30 (NS Flush) 2 ml BID IV FLUSH 08/05/17 21:00 08/10/17 20:40 (Tylenol) 650 mg Q4H PRN PO 08/05/17 18:30 (Zofran Inj) 4 mg Q6H PRN IVP 08/05/17 18:30 (Narcan Inj) 0.4 mg UNSCH PRN IV PUSH 08/05/17 18:30 (Nelly-Colace) 1 tab BID PO 08/05/17 21:00 08/11/17 09:25 (Milk Of Magnesia Liq) 30 ml Q12H PRN PO 08/05/17 18:30 (Senokot) 17.2 mg Q12H PRN PO 08/05/17 18:30 08/10/17 06:19 (Dulcolax Supp) 10 mg DAILY PRN RECTAL 08/05/17 18:30 (Lactulose Liq) 30 ml DAILY PRN PO 08/05/17 18:30 Ceftriaxone Sodium 1000 mg/ Sodium Chloride 100 ml @ 200 mls/hr Q24H IV 08/05/17 21:00 08/10/17 20:40 (Aspirin Chew) 81 mg DAILY CHEW 08/06/17 09:00 08/11/17 09:25 (Plavix) 75 mg DAILY PO 08/06/17 09:00 08/11/17 09:25 (Neurontin) 300 mg BID PO 08/05/17 21:00 08/11/17 09:25 (D50w (Vial) Inj) 50 ml UNSCH PRN IV PUSH 08/05/17 20:30 08/09/17 05:44 (Glucagon Inj) 1 mg UNSCH PRN OTHER 08/05/17 20:30 (NovoLOG SUPPLEMENTAL SCALE) 1 ACHS SLIDING SCALE SQ 08/05/17 21:00 08/10/17 22:43 (Levemir Inj) 56 units BID SQ 08/05/17 21:00 08/11/17 09:25 (Nitrostat Sl) 0.4 mg Q5M PRN SL 08/06/17 21:15 08/06/17 21:56 Nitroglycerin/ Dextrose 250 ml @ 1.5 mls/hr TITRATE PRN IV 08/06/17 21:30 08/06/17 23:35 Miscellaneous Information Patient in critical care unit? Ass... Q361D .XX 08/06/17 23:00 (Chlorhexidine 2% Cloth) 3 pack UNSCH PRN TOPICAL 08/06/17 23:00 08/11/17 22:47 (Trandate Inj) 10 mg Q4H PRN IV PUSH 08/06/17 23:30 (Norvasc) 5 mg DAILY PO 08/07/17 09:00 08/11/17 09:25 (Pepcid) 10 mg BID PO 08/07/17 09:00 08/11/17 09:25 (Lopressor) 12.5 mg Q12HR PO 08/07/17 21:00 08/11/17 09:25 (Imdur) 30 mg DAILY@07 PO 08/08/17 07:00 08/10/17 06:19 (Pill Splitter) 1 ea UNSCH PRN OTHER 08/07/17 15:00 (Benadryl 2% Cream) 1 applic TID PRN TOPICAL 08/08/17 14:15 Vital Signs / I&O Vital Signs Date Time Temp Pulse Resp B/P (MAP) Pulse Ox O2 Delivery O2 Flow Rate FiO2 08/11/17 21:00 70 08/11/17 20:00 98.5 65 20 135/65 (88) 93 08/11/17 20:00 64 08/11/17 19:20 93 08/11/17 19:00 66 08/11/17 16:00 98.7 66 18 126/62 (83) 92 08/11/17 12:00 98.4 62 16 122/60 (80) 93 08/11/17 11:00 78 08/11/17 08:19 98.2 70 16 132/63 (86) 95 08/11/17 08:18 92 Nasal Cannula 21 08/11/17 06:00 70 08/11/17 05:00 70 08/11/17 04:00 72 08/11/17 04:00 98.0 72 16 155/63 (93) 95 08/11/17 03:00 70 08/11/17 02:00 72 08/11/17 01:00 76 08/11/17 00:00 78 08/11/17 00:00 98.2 78 18 125/63 (83) 96 08/10/17 23:00 78 I/O 08/10/17 08/10/17 08/10/17 08/11/17 08/11/17 08/11/17 07:00 15:00 23:00 07:00 15:00 23:00 Intake Total 300 ml 920 ml 240 ml Output Total 200 ml 200 ml 1600 ml Balance 100 ml 920 ml 40 ml -1600 ml Intake Oral 200 ml 820 ml 240 ml IV Total 100 ml 100 ml Output Urine Total 200 ml 200 ml 1600 ml # Voids 4 # Bowel Movements 1 0 Physical Exam GENERAL: NAD, AAOx3 SKIN: Warm and dry. HEAD: Atraumatic. Normocephalic. EYES: Pupils equal and round. No scleral icterus. No injection or drainage. ENT: No nasal bleeding or discharge. Mucous membranes pink and moist. NECK: Trachea midline. No JVD. CARDIOVASCULAR: Regular rate and rhythm. RESPIRATORY: No accessory muscle use. Clear to auscultation. Breath sounds equal bilaterally. GASTROINTESTINAL: Abdomen soft, non-tender, nondistended. Hepatic and splenic margins not palpable. MUSCULOSKELETAL: Extremities without clubbing, cyanosis, or edema. No obvious deformities. NEUROLOGICAL: Awake and alert. Overall left sided weakness, baseline PSYCHIATRIC: Appropriate mood and affect; insight and judgment normal. Laboratory Laboratory Tests Test 08/11/17 04:46 Triglycerides Level 249 MG/DL Cholesterol Level 215 MG/DL LDL Cholesterol 131 MG/DL HDL Cholesterol 33.8 MG/DL Cholesterol/HDL Ratio 6.36 RATIO Imaging Last 24 hours Impressions Brain MRI 08/11/17 0000 Signed Impressions: Service Date/Time: July 11:02 - CONCLUSION: 1. Acute or subacute embolic type infarcts in the distribution of the pericallosal artery with areas of diffusion restriction along the roof of both lateral ventricles and in scattered areas of the corpus callosum. 2. No acute intracranial hemorrhage. Jan Damon MD Assessment and Plan Problem List: (1) CAD (coronary artery disease) ICD Codes: I25.10 - Atherosclerotic heart disease of [place] coronary artery without angina pectoris Status: Chronic (2) Elevated troponin ICD Codes: R74.8 - Abnormal levels of other serum enzymes Status: Acute (3) Hemiparesis ICD Codes: G81.90 - Hemiplegia, unspecified affecting unspecified side Status: Acute (4) Chronic kidney disease (CKD) ICD Codes: N18.9 - Chronic kidney disease, unspecified (5) HTN (hypertension) ICD Codes: I10 - Essential (primary) hypertension Status: Chronic (6) History of CVA (cerebrovascular accident) ICD Codes: Z86.73 - Personal history of transient ischemic attack (TIA), and cerebral infarction without residual deficits (7) CVA (cerebral vascular accident) ICD Codes: I63.9 - Cerebral infarction, unspecified Status: Acute Assessment and Plan 1) Known triple vessel CAD with elevated trop Patient adamantly refuses invasive management (i.e. cath, consideration of CABG) Con't ASA/Plavix/Imdur/BB/Norvasc Increase anti-anginals as needed Chest pain free on medications 2) Hx of CVA after cardiac catheterization previous 3) No further cardiovascular work up Can follow up with Dr. Shell on discharge 4) Acute/Subacute CVA on MRI Outpatient follow up for consideration of assistant terminal manager rhythm analysis No evidence of Afib on telemetry Jonathan An DO Aug 11, 2017 22:14
[2017-08-12] VITALS (26 sets, daily range): BP systolic 122–152; BP diastolic 59–69; PULSE 56–93; RESP 18–20; TEMP 97.6–99; O2SAT 92–98
[2017-08-12] MEDS: ISOSORBIDE MONONITRATE 30 MG CR TAB (IMDUR) PO SCH (05:17)
[2017-08-12 05:25] LABS: HEMATOCRIT 34.2 % (35.0-46.0); HEMOGLOBIN 11.4 GM/DL (11.6-15.3); MEAN CELL VOLUME 93.4 FL (80.0-100.0); MEAN CORPUSCULAR HEMOGLOBIN 31.3 PG (27.0-34.0); MEAN CORPUSCULAR HGB CONC 33.4 % (32.0-36.0); MEAN PLATELET VOLUME 9.6 FL (7.0-11.0); PLATELET COUNT 280 TH/MM3 (150-450); RED BLOOD COUNT 3.66 MIL/MM3 (4.00-5.30); RED CELL DISTRIBUTION WIDTH 13.2 % (11.6-17.2); WHITE BLOOD COUNT 12.6 TH/MM3 (4.0-11.0)
[2017-08-12] MEDS: INSULIN ASPART SUPPLEMENTAL SCALE SQ SCH ×4 (08:00→21:00)
--- NOTE | 2017-08-12 08:50 | HHI.PR ---
Subjective Remarks Pt does have expressive aphasia, but when asked if she wants breakfast she did answer yes, she follows commands and moves lower and right upper ext. Left upper doesn't move. she smiles at me at times. Discussed w RN, pt lost IV access last night. Notifies me that daughter would like gabapentin held Objective Vitals Vital Signs Date Time Temp Pulse Resp B/P (MAP) Pulse Ox O2 Delivery O2 Flow Rate FiO2 08/12/17 07:15 97 21 08/12/17 06:00 68 08/12/17 05:00 68 08/12/17 04:00 76 08/12/17 03:39 98.4 74 20 139/64 (89) 95 08/12/17 03:00 79 08/12/17 02:00 66 08/12/17 01:00 64 08/12/17 00:00 68 08/12/17 00:00 99.0 68 20 132/61 (84) 98 08/11/17 23:00 68 08/11/17 22:00 68 08/11/17 21:00 70 08/11/17 20:00 98.5 65 20 135/65 (88) 93 08/11/17 20:00 64 08/11/17 19:20 93 08/11/17 19:00 66 08/11/17 16:00 98.7 66 18 126/62 (83) 92 08/11/17 12:00 98.4 62 16 122/60 (80) 93 08/11/17 11:00 78 I/O 08/11/17 08/11/17 08/11/17 08/12/17 08/12/17 08/12/17 07:00 15:00 23:00 07:00 15:00 23:00 Intake Total 240 ml 50 ml Output Total 200 ml 1600 ml 250 ml Balance 40 ml -1600 ml -200 ml Intake Oral 240 ml 50 ml Output Urine Total 200 ml 1600 ml 250 ml Emesis 0 ml # Voids 1 # Bowel Movements 0 2 Result Diagram: 08/12/17 0426 08/09/17 0315 Imaging Last Impressions Brain MRI 08/11/17 0000 Signed Impressions: Service Date/Time: July 11:02 - CONCLUSION: 1. Acute or subacute embolic type infarcts in the distribution of the pericallosal artery with areas of diffusion restriction along the roof of both lateral ventricles and in scattered areas of the corpus callosum. 2. No acute intracranial hemorrhage. Jan Damon MD Chest X-Ray 08/06/17 0000 Signed Impressions: Service Date/Time: Sunday, August 06, 2017 21:25 - CONCLUSION: Suspected edema. Joe Carrizales MD Head CT 08/05/17 1618 Signed Impressions: Service Date/Time: Saturday, August 05, 2017 16:45 - CONCLUSION: 1. No acute findings in the brain. Trace Carver MD Shoulder X-Ray 08/05/17 0000 Signed Impressions: Service Date/Time: Saturday, August 05, 2017 16:38 - CONCLUSION: 1. Daniel of calcium inferior to the glenoid may be associated with triceps tendon origin/tendinopathy. 2. Otherwise negative. No acute osseous injury. No significant degenerative changes. Jan Damon MD Objective Remarks GENERAL: laying in bed, appears comfortable. SKIN: rash noted in the groin area bilaterally. CARDIOVASCULAR: Regular rate and rhythm without murmurs RESPIRATORY: Clear to auscultation. Breath sounds equal bilaterally. No wheezes GASTROINTESTINAL: Abdomen soft, non-tender, nondistended. MUSCULOSKELETAL: Extremities without edema. NEUROLOGICAL: Awake and alert. Left upper extremity weakness, doesn't squeeze my hand w left hand, moves other ext. She is able to move the left lower ext w stimulation. Does have some expressive aphasia. Procedures None A/P Problem List: (1) Fall ICD Code: W19.XXXA - Unspecified fall, initial encounter (2) Elevated troponin ICD Code: R74.8 - Abnormal levels of other serum enzymes Status: Acute Assessment and Plan medical mgt update 08/12/16: held gabapentin per daughter's request (RN notified me), d/c IV rocephin and switched to po Bactrim DS BID as pt did loose IV access although I did request that a new IV be restarted. Rash noted in the groin area, treat w ketoconazole cream and apply nystatin powder. Notified RN to keep area dry as much as possible. CM assisting w d/c planning. 76-year-old female admitted secondary to hypoxia who also had NSTEMI and CVA History of stroke 2 (last CVA in 2011). While in the hospital new CVA diagnosed. MRI shows acute or subacute embolic type infarcts in the distribution of the pericallosal art w areas of diffusion restriction along the roof of both lat ventricles and in scattered areas of the copus callosum. Chronic Left Side Hemiplegia although she seems to move the left lower ext w stimulation. Peripheral neuropathy hold gabapentin 300 mg p.o. 3 times daily per family's request Meclizine discontinued due to lethargy PT following. Plans for d/c to rehab Acute hypoxemic/hypercapnic respiratory failure Improved,O2 as needed PRN Nebulized treatments Chest pain Status post NSTEMI Coronary artery disease Chronic CHF (diastolic) Con't ASA/Plavix/Imdur/BB/Norvasc Patient adamantly refused invasive management (i.e. cath, consideration of CABG) follow up with Dr. Shell on discharge. Outpatient follow up for consideration of jail rhythm analysis. No evidence of Afib on telemetry Hypertension Pulmonary HTN Continue baseline treatment Follow blood pressures Adjust treatments as needed Daily Norvasc Hyperlipidemia Statin intolerance Follow as an outpatient Chronic kidney disease stage III Follow renal function Avoid nephrotoxins UTI s/p IV Rocephin and now switched bactrim DS urine cultures growing E. Coli Diabetes mellitus type 2 Follow blood sugars Insulin sliding scale Diabetic diet Continue detemir DVT Prophylaxis Heparin Discharge Planning CM assisting w d/c plans. [facility] Moira Rico MD Aug 12, 2017 08:50
[2017-08-12] MEDS: SODIUM CHLORIDE 0.9% FLUSH 10 ML FLUSH IV FLUSH SCH ×2 (09:00→20:52)
[2017-08-12] MEDS: amLODIPine BESYLATE 5 MG TAB PO SCH (09:00)
[2017-08-12] MEDS: ASPIRIN 81 MG CHEW TAB CHEW SCH (09:00)
[2017-08-12] MEDS: FAMOTIDINE 20 MG TAB PO SCH ×2 (09:00→20:52)
[2017-08-12] MEDS: CLOPIDOGREL 75 MG TAB PO SCH (09:00)
[2017-08-12] MEDS: DOCUSATE SODIUM 50 MG/SENNA 8.6 MG TAB PO SCH ×2 (09:00→20:52)
[2017-08-12] MEDS: INSULIN DETEMIR 100 UNITS/ML VIAL SQ SCH ×2 (09:00→20:51)
[2017-08-12] MEDS: KETOCONAZOLE 2% CREAM 15 GM TOPICAL SCH ×2 (09:00→21:00)
[2017-08-12] MEDS: METOPROLOL TARTRATE 25 MG TAB PO SCH ×2 (09:00→20:52)
[2017-08-12] MEDS: SULFAMETHOXAZOLE-TRIMETHOPRIM DS 800-160 MG TAB PO SCH ×2 (10:00→20:52)
[2017-08-12] MEDS: NYSTATIN 100,000 U/GM PWD 15 GM BTL TOPICAL SCH ×3 (10:00→21:06)
[2017-08-12 11:15] LABS: BICARBONATE 25.4 MEQ/L (21.0-32.0); CREATININE 1.37 MG/DL (0.50-1.00)
--- NOTE | 2017-08-12 13:09 | PD.CARD.PN ---
Subjective Subjective Remarks No events overnight Overall weak, lethargic Objective Medications Current Medications Medications (Trade) Dose Ordered Sig/Helene Route Start Time Stop Time Status Last Admin (NS Flush) 2 ml UNSCH PRN IV FLUSH 08/05/17 18:30 (NS Flush) 2 ml BID IV FLUSH 08/05/17 21:00 08/12/17 09:00 (Tylenol) 650 mg Q4H PRN PO 08/05/17 18:30 (Zofran Inj) 4 mg Q6H PRN IVP 08/05/17 18:30 (Narcan Inj) 0.4 mg UNSCH PRN IV PUSH 08/05/17 18:30 (Nelly-Colace) 1 tab BID PO 08/05/17 21:00 08/12/17 09:00 (Milk Of Magnesia Liq) 30 ml Q12H PRN PO 08/05/17 18:30 (Senokot) 17.2 mg Q12H PRN PO 08/05/17 18:30 08/10/17 06:19 (Dulcolax Supp) 10 mg DAILY PRN RECTAL 08/05/17 18:30 (Lactulose Liq) 30 ml DAILY PRN PO 08/05/17 18:30 (Aspirin Chew) 81 mg DAILY CHEW 08/06/17 09:00 08/12/17 09:00 (Plavix) 75 mg DAILY PO 08/06/17 09:00 08/12/17 09:00 (Neurontin) 300 mg BID PO 08/05/17 21:00 Future Hold 08/11/17 09:25 (D50w (Vial) Inj) 50 ml UNSCH PRN IV PUSH 08/05/17 20:30 08/09/17 05:44 (Glucagon Inj) 1 mg UNSCH PRN OTHER 08/05/17 20:30 (NovoLOG SUPPLEMENTAL SCALE) 1 ACHS SLIDING SCALE SQ 08/05/17 21:00 08/10/17 22:43 (Levemir Inj) 56 units BID SQ 08/05/17 21:00 08/12/17 09:00 (Nitrostat Sl) 0.4 mg Q5M PRN SL 08/06/17 21:15 08/06/17 21:56 Nitroglycerin/ Dextrose 250 ml @ 1.5 mls/hr TITRATE PRN IV 08/06/17 21:30 08/06/17 23:35 Miscellaneous Information Patient in critical care unit? Ass... Q361D .XX 08/06/17 23:00 (Trandate Inj) 10 mg Q4H PRN IV PUSH 08/06/17 23:30 (Norvasc) 5 mg DAILY PO 08/07/17 09:00 08/12/17 09:00 (Pepcid) 10 mg BID PO 08/07/17 09:00 08/12/17 09:00 (Lopressor) 12.5 mg Q12HR PO 08/07/17 21:00 08/12/17 09:00 (Imdur) 30 mg DAILY@07 PO 08/08/17 07:00 08/12/17 05:17 (Pill Splitter) 1 ea UNSCH PRN OTHER 08/07/17 15:00 (Benadryl 2% Cream) 1 applic TID PRN TOPICAL 08/08/17 14:15 (Nizoral 2% Cream) 1 applic Q12HR TOPICAL 08/12/17 09:00 08/12/17 09:00 (Mycostatin Powder) 1 applic Q8HR TOPICAL 08/12/17 10:00 08/12/17 10:00 (Bactrim Ds 800-160 Mg) 1 tab Q12HR PO 08/12/17 10:00 08/12/17 10:00 Vital Signs / I&O Vital Signs Date Time Temp Pulse Resp B/P (MAP) Pulse Ox O2 Delivery O2 Flow Rate FiO2 08/12/17 07:15 97 21 08/12/17 06:00 68 08/12/17 05:00 68 08/12/17 04:00 76 08/12/17 03:39 98.4 74 20 139/64 (89) 95 08/12/17 03:00 79 08/12/17 02:00 66 08/12/17 01:00 64 08/12/17 00:00 68 08/12/17 00:00 99.0 68 20 132/61 (84) 98 08/11/17 23:00 68 08/11/17 22:00 68 08/11/17 21:00 70 08/11/17 20:00 98.5 65 20 135/65 (88) 93 08/11/17 20:00 64 08/11/17 19:20 93 08/11/17 19:00 66 08/11/17 16:00 98.7 66 18 126/62 83 92 I/O 08/11/17 08/11/17 08/11/17 08/12/17 08/12/17 08/12/17 07:00 15:00 23:00 07:00 15:00 23:00 Intake Total 240 ml 50 ml Output Total 200 ml 1600 ml 250 ml Balance 40 ml -1600 ml -200 ml Intake Oral 240 ml 50 ml Output Urine Total 200 ml 1600 ml 250 ml Emesis 0 ml # Voids 1 # Bowel Movements 0 2 Physical Exam GENERAL: NAD, AAOx3 SKIN: Warm and dry. HEAD: Atraumatic. Normocephalic. EYES: Pupils equal and round. No scleral icterus. No injection or drainage. ENT: No nasal bleeding or discharge. Mucous membranes pink and moist. NECK: Trachea midline. No JVD. CARDIOVASCULAR: Regular rate and rhythm. RESPIRATORY: No accessory muscle use. Clear to auscultation. Breath sounds equal bilaterally. GASTROINTESTINAL: Abdomen soft, non-tender, nondistended. Hepatic and splenic margins not palpable. MUSCULOSKELETAL: Extremities without clubbing, cyanosis, or edema. No obvious deformities. NEUROLOGICAL: Awake and alert. Overall left sided weakness, baseline PSYCHIATRIC: Appropriate mood and affect; insight and judgment normal. Laboratory Laboratory Tests Test 08/12/17 04:26 08/12/17 10:10 White Blood Count 12.6 TH/MM3 Red Blood Count 3.66 MIL/MM3 Hemoglobin 11.4 GM/DL Hematocrit 34.2 % Mean Corpuscular Volume 93.4 FL Mean Corpuscular Hemoglobin 31.3 PG Mean Corpuscular Hemoglobin Concent 33.4 % Red Cell Distribution Width 13.2 % Platelet Count 280 TH/MM3 Mean Platelet Volume 9.6 FL Blood Urea Nitrogen 28 MG/DL Creatinine 1.37 MG/DL Random Glucose 110 MG/DL Calcium Level 9.0 MG/DL Sodium Level 141 MEQ/L Potassium Level 4.2 MEQ/L Chloride Level 107 MEQ/L Carbon Dioxide Level 25.4 MEQ/L Anion Gap 9 MEQ/L Estimat Glomerular Filtration Rate 37 ML/MIN Assessment and Plan Problem List: (1) CAD (coronary artery disease) ICD Codes: I25.10 - Atherosclerotic heart disease of [place] coronary artery without angina pectoris Status: Chronic (2) Elevated troponin ICD Codes: R74.8 - Abnormal levels of other serum enzymes Status: Acute (3) Hemiparesis ICD Codes: G81.90 - Hemiplegia, unspecified affecting unspecified side Status: Acute (4) Chronic kidney disease (CKD) ICD Codes: N18.9 - Chronic kidney disease, unspecified (5) HTN (hypertension) ICD Codes: I10 - Essential (primary) hypertension Status: Chronic (6) History of CVA (cerebrovascular accident) ICD Codes: Z86.73 - Personal history of transient ischemic attack (TIA), and cerebral infarction without residual deficits (7) CVA (cerebral vascular accident) ICD Codes: I63.9 - Cerebral infarction, unspecified Status: Acute Assessment and Plan 1) Known triple vessel CAD with elevated trop Patient adamantly refuses invasive management (i.e. cath, consideration of CABG) Con't ASA/Plavix/Imdur/BB/Norvasc Increase anti-anginals as needed Chest pain free on medications 2) Hx of CVA after cardiac catheterization previous 3) No further cardiovascular work up Can follow up with Dr. Shell on discharge 4) Acute/Subacute CVA on MRI Outpatient follow up for consideration of manager intermediate rhythm analysis No evidence of Afib on telemetry 5) Will see PRN, call with questions Jonathan An DO Aug 12, 2017 13:09
[2017-08-12] MEDS: HEPARIN SODIUM - SQ 10,000 UNITS/ML VIAL SQ SCH (20:52)
[2017-08-13] VITALS (14 sets, daily range): BP systolic 113–143; BP diastolic 53–66; PULSE 57–82; RESP 16–19; TEMP 97.9–98.5; O2SAT 93–96
[2017-08-13 04:35] LABS: AUTOMATED NEUTROPHIL # 8.5 TH/MM3 (1.8-7.7); BASOPHIL # 0.1 TH/MM3 (0-0.2); BASOPHIL % 0.9 % (0.0-2.0); EOSINOPHIL # 0.4 TH/MM3 (0-0.4); HEMATOCRIT 35.3 % (35.0-46.0); HEMOGLOBIN 11.9 GM/DL (11.6-15.3); LYMPH % 18.4 % (9.0-44.0); LYMPHOCYTE # 2.3 TH/MM3 (1.0-4.8); MEAN CELL VOLUME 92.3 FL (80.0-100.0); MEAN CORPUSCULAR HGB CONC 33.6 % (32.0-36.0); MEAN PLATELET VOLUME 9.2 FL (7.0-11.0); MONO % 8.7 % (0.0-8.0); MONOCYTE # 1.1 TH/MM3 (0-0.9); PLATELET COUNT 288 TH/MM3 (150-450); RED BLOOD COUNT 3.83 MIL/MM3 (4.00-5.30); RED CELL DISTRIBUTION WIDTH 12.9 % (11.6-17.2); WHITE BLOOD COUNT 12.4 TH/MM3 (4.0-11.0)
[2017-08-13 04:55] LABS: BICARBONATE 26.2 MEQ/L (21.0-32.0); CALCIUM 9.6 MG/DL (8.5-10.1); CREATININE 1.62 MG/DL (0.50-1.00)
[2017-08-13] MEDS: DEXTROSE 50% IN WATER 50 ML VIAL(D50) IV PUSH PRN (05:46)
[2017-08-13] MEDS: NYSTATIN 100,000 U/GM PWD 15 GM BTL TOPICAL SCH ×3 (05:46→21:46)
[2017-08-13] MEDS: ISOSORBIDE MONONITRATE 30 MG CR TAB (IMDUR) PO SCH (05:46)
[2017-08-13] MEDS: INSULIN ASPART SUPPLEMENTAL SCALE SQ SCH ×4 (08:00→21:00)
[2017-08-13] MEDS: KETOCONAZOLE 2% CREAM 15 GM TOPICAL SCH ×2 (09:00→21:00)
[2017-08-13] MEDS: METOPROLOL TARTRATE 25 MG TAB PO SCH ×2 (10:24→21:45)
[2017-08-13] MEDS: FAMOTIDINE 20 MG TAB PO SCH ×2 (10:24→21:45)
[2017-08-13] MEDS: CLOPIDOGREL 75 MG TAB PO SCH (10:24)
[2017-08-13] MEDS: ASPIRIN 81 MG CHEW TAB CHEW SCH (10:24)
[2017-08-13] MEDS: DOCUSATE SODIUM 50 MG/SENNA 8.6 MG TAB PO SCH ×2 (10:24→21:45)
[2017-08-13] MEDS: amLODIPine BESYLATE 5 MG TAB PO SCH (10:24)
[2017-08-13] MEDS: SULFAMETHOXAZOLE-TRIMETHOPRIM DS 800-160 MG TAB PO SCH ×2 (10:24→21:45)
[2017-08-13] MEDS: HEPARIN SODIUM - SQ 10,000 UNITS/ML VIAL SQ SCH ×2 (10:25→21:46)
[2017-08-13] MEDS: SODIUM CHLORIDE 0.9% FLUSH 10 ML FLUSH IV FLUSH SCH ×2 (10:25→21:00)
[2017-08-13] MEDS ORDERED: INSULIN DETEMIR 100 UNITS/ML VIAL SQ SCH (21:00)
[2017-08-13] MEDS ORDERED: SODIUM CHLOR 0.9% 1000 ML INJ 1,000 ML IV SCH (22:00)
--- NOTE | 2017-08-13 22:05 | HHI.PR ---
Subjective Remarks Patient says she is feeling well. Denies any pain. Somewhat slow speech, however She is alert to month and year. Objective Vital Signs Date Time Temp Pulse Resp B/P (MAP) Pulse Ox O2 Delivery O2 Flow Rate FiO2 08/13/17 20:00 97.9 62 19 129/60 (83) 93 08/13/17 16:00 98.0 59 16 119/56 (77) 95 08/13/17 12:00 98.0 58 16 113/53 (73) 96 08/13/17 08:00 98.1 57 16 122/54 (76) 96 08/13/17 06:11 64 08/13/17 05:14 58 08/13/17 04:52 98.0 82 143/66 (91) 95 08/13/17 04:00 60 08/13/17 03:00 62 08/13/17 02:00 58 08/13/17 01:00 58 08/13/17 00:12 98.5 60 113/56 (75) 94 08/13/17 00:00 58 08/12/17 23:00 56 I/O 08/12/17 08/12/17 08/12/17 08/13/17 08/13/17 08/13/17 07:00 15:00 23:00 07:00 15:00 23:00 Intake Total 50 ml 480 ml 120 ml 560 ml Output Total 250 ml Balance -200 ml 480 ml 120 ml 560 ml Intake Oral 50 ml 480 ml 120 ml 560 ml Output Urine Total 250 ml Emesis 0 ml # Voids 1 4 3 3 # Bowel Movements 2 0 Result Diagram: 08/13/176 08/13/17315 Objective Remarks GENERAL: sitting up in bed. Appears comfortable. SKIN: Warm and dry. HEAD: Normocephalic. EYES: No scleral icterus. No injection or drainage. NECK: Supple, trachea midline. No JVD. CARDIOVASCULAR: Regular rate and rhythm without murmurs, gallops, or rubs. RESPIRATORY: Breath sounds equal bilaterally. No accessory muscle use. GASTROINTESTINAL: Abdomen soft, non-tender, nondistended. MUSCULOSKELETAL: No cyanosis, or edema. BACK: Nontender without obvious deformity. No CVA tenderness. A/P Assessment and Plan 4/14========= //UTI. leukocytosis continues at 12. Continue Bactrim. //Dehydration. Increasing creatinine 1.62. Discussed with nursing. Encourage feeding, fluids. Patient agrees to drink more fluids. Start on IV fluids overnight. //Hypoglycemia in the morning. Likely multifactorial, secondary to poor appetite, insulin. We'll decrease insulin. medical mgt update 08/12/16: held gabapentin per daughter's request (RN notified me), d/c IV rocephin and switched to po Bactrim DS BID as pt did loose IV access although I did request that a new IV be restarted. Rash noted in the groin area, treat w ketoconazole cream and apply nystatin powder. Notified RN to keep area dry as much as possible. CM assisting w d/c planning. 76-year-old female admitted secondary to hypoxia who also had NSTEMI and CVA History of stroke 2 (last CVA in 2011). While in the hospital new CVA diagnosed. MRI shows acute or subacute embolic type infarcts in the distribution of the pericallosal art w areas of diffusion restriction along the roof of both lat ventricles and in scattered areas of the copus callosum. Chronic Left Side Hemiplegia although she seems to move the left lower ext w stimulation. Peripheral neuropathy hold gabapentin 300 mg p.o. 3 times daily per family's request Meclizine discontinued due to lethargy PT following. Plans for d/c to rehab //Acute hypoxemic/hypercapnic respiratory failure Improved,O2 as needed PRN Nebulized treatments //Chest pain //status post NSTEMI //Coronary artery disease //Chronic CHF (diastolic) Con't ASA/Plavix/Imdur/BB/Norvasc Patient adamantly refused invasive management (i.e. cath, consideration of CABG) follow up with Dr. Shell on discharge. 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 No evidence of Afib on telemetry //Hypertension //Pulmonary HTN Continue baseline treatment Follow blood pressures Adjust treatments as needed Daily Norvasc //Hyperlipidemia //Statin intolerance Follow as an outpatient //Chronic kidney disease stage III Follow renal function Avoid nephrotoxins //UTI s/p IV Rocephin and now switched bactrim DS urine cultures growing E. Coli //Diabetes mellitus type 2 Follow blood sugars Insulin sliding scale Diabetic diet Continue detemir //DVT Prophylaxis Heparin Discharge Planning CM assisting w d/c plans. Family would like pt to go to [place] rehab. go to SNF. We'll need antibiotics to complete treatment course. Esequiel Hughes MD Aug 13, 2017 22:05
[2017-08-14] VITALS (9 sets, daily range): BP systolic 113–162; BP diastolic 57–70; PULSE 56–76; RESP 17–21; TEMP 97.9–98.5; O2SAT 92–95
[2017-08-14] MEDS: ISOSORBIDE MONONITRATE 30 MG CR TAB (IMDUR) PO SCH (06:16)
[2017-08-14] MEDS: NYSTATIN 100,000 U/GM PWD 15 GM BTL TOPICAL SCH ×3 (06:16→21:26)
[2017-08-14] MEDS: INSULIN ASPART SUPPLEMENTAL SCALE SQ SCH ×4 (08:00→21:22)
--- NOTE | 2017-08-14 08:31 | HHI.PR ---
Subjective Remarks More awake and alert today. Feels very weak. Decreased appetite no nausea vomiting, diarrhea, did not have a BM Some nonproductive cough no shortness of breath or wheezing wheezing at this time. Objective Vitals Vital Signs Date Time Temp Pulse Resp B/P (MAP) Pulse Ox O2 Delivery O2 Flow Rate FiO2 08/14/17 04:07 56 08/14/17 04:00 97.9 58 19 138/63 (88) 94 08/14/17 00:12 56 08/14/17 00:00 98.5 57 17 135/58 (83) 95 08/13/17 20:38 21 08/13/17 20:08 72 08/13/17 20:00 97.9 62 19 129/60 (83) 93 08/13/17 16:00 98.0 59 16 119/56 (77) 95 08/13/17 12:00 98.0 58 16 113/53 (73) 96 I/O 08/13/17 08/13/17 08/13/17 08/14/17 08/14/17 08/14/17 07:00 15:00 23:00 07:00 15:00 23:00 Intake Total 120 ml 560 ml 717 ml Output Total 4 ml Balance 120 ml 560 ml 713 ml Intake Oral 120 ml 560 ml 100 ml IV Total 617 ml Output Urine Total 4 ml # Voids 3 3 # Bowel Movements 0 Result Diagram: 08/13/17 0316 08/13/17 0316 Imaging Last Impressions Brain MRI 08/11/17 0000 Signed Impressions: Service Date/Time: July 11:02 - CONCLUSION: 1. Acute or subacute embolic type infarcts in the distribution of the pericallosal artery with areas of diffusion restriction along the roof of both lateral ventricles and in scattered areas of the corpus callosum. 2. No acute intracranial hemorrhage. Jan Damon MD Chest X-Ray 08/06/17 0000 Signed Impressions: Service Date/Time: Sunday, August 06, 2017 21:25 - CONCLUSION: Suspected edema. Joe Carrizales MD Head CT 08/05/17 1618 Signed Impressions: Service Date/Time: Saturday, August 05, 2017 16:45 - CONCLUSION: 1. No acute findings in the brain. Trace Carver MD Shoulder X-Ray 08/05/17 0000 Signed Impressions: Service Date/Time: Saturday, August 05, 2017 16:38 - CONCLUSION: 1. Daniel of calcium inferior to the glenoid may be associated with triceps tendon origin/tendinopathy. 2. Otherwise negative. No acute osseous injury. No significant degenerative changes. Jan Damon MD Objective Remarks GENERAL: sitting up in bed. Appears comfortable. SKIN: Warm and dry. HEAD: Normocephalic. EYES: No scleral icterus. No injection or drainage. NECK: Supple, trachea midline. No JVD. CARDIOVASCULAR: Regular rate and rhythm without murmurs, gallops, or rubs. RESPIRATORY: Breath sounds equal bilaterally. No accessory muscle use. GASTROINTESTINAL: Abdomen soft, non-tender, nondistended. MUSCULOSKELETAL: No cyanosis, or edema. BACK: Nontender without obvious deformity. No CVA tenderness. Procedures None A/P Problem List: (1) Fall ICD Code: W19.XXXA - Unspecified fall, initial encounter (2) Elevated troponin ICD Code: R74.8 - Abnormal levels of other serum enzymes Status: Acute Assessment and Plan 76-year-old female admitted secondary to hypoxia who also had NSTEMI and CVA Dehydration. Increasing creatinine 1.62. Discussed with nursing. Encourage feeding, fluids. Patient agrees to drink more fluids. Start on IV fluids overnight. Hypoglycemia. Likely multifactorial, secondary to poor appetite, insulin. Decrease insulin levemir to 25 U BID, held levemir last night and in the morning today. However patient is more awake and started to eat today. Monitor BS and adjust as need insulin. Cutaneous candidiasis Rash in the groin area, treat with ketoconazole cream and apply nystatin powder. Keep area dry. Acute hypoxemic/hypercapnic respiratory failure Improved,O2 as needed PRN Nebulized treatments Chest pain Status post NSTEMI Coronary artery disease Chronic CHF (diastolic) Con't ASA/Plavix/Imdur/BB/Norvasc Patient adamantly refused invasive management (i.e. cath, consideration of CABG) follow up with Dr. Shell on discharge. Outpatient follow up for consideration of intermediate rhythm analysis. No evidence of Afib on telemetry Hypertension Pulmonary HTN Continue baseline treatment Follow blood pressures Adjust treatments as needed Daily Norvasc Hyperlipidemia Statin intolerance Follow as an outpatient Chronic kidney disease stage III Follow renal function Avoid nephrotoxins UTI s/p IV Rocephin and now switched bactrim DS urine cultures growing E. Coli Diabetes mellitus type 2 Follow blood sugars Insulin sliding scale Diabetic diet Continue detemir History of stroke 2 (last CVA in 2011). While in the hospital new CVA diagnosed. MRI shows acute or subacute embolic type infarcts in the distribution of the pericallosal art w areas of diffusion restriction along the roof of both lat ventricles and in scattered areas of the corpus callosum. Chronic Left Side Hemiplegia, some movement of the left lower ext with stimulation. Peripheral neuropathy hold gabapentin 300 mg p.o. 3 times daily per family's request Meclizine discontinued due to lethargy PT following. Plans for d/c to rehab DVT Prophylaxis Heparin Discharge Planning CM assisting w d/c plans. Plan to DC to SNF. We'll need antibiotics to complete treatment course. Kristina Haley MD Aug 14, 2017 08:30
[2017-08-14] MEDS: CLOPIDOGREL 75 MG TAB PO SCH (09:13)
[2017-08-14] MEDS: FAMOTIDINE 20 MG TAB PO SCH ×2 (09:13→21:22)
[2017-08-14] MEDS: ASPIRIN 81 MG CHEW TAB CHEW SCH (09:13)
[2017-08-14] MEDS: METOPROLOL TARTRATE 25 MG TAB PO SCH ×2 (09:13→21:23)
[2017-08-14] MEDS: amLODIPine BESYLATE 5 MG TAB PO SCH (09:13)
[2017-08-14] MEDS: DOCUSATE SODIUM 50 MG/SENNA 8.6 MG TAB PO SCH ×2 (09:13→21:22)
[2017-08-14] MEDS: SULFAMETHOXAZOLE-TRIMETHOPRIM DS 800-160 MG TAB PO SCH ×2 (09:13→21:22)
[2017-08-14] MEDS: HEPARIN SODIUM - SQ 10,000 UNITS/ML VIAL SQ SCH ×2 (09:14→21:23)
[2017-08-14] MEDS: KETOCONAZOLE 2% CREAM 15 GM TOPICAL SCH ×2 (09:14→21:00)
[2017-08-14] MEDS: SODIUM CHLORIDE 0.9% FLUSH 10 ML FLUSH IV FLUSH SCH ×2 (09:14→21:00)
[2017-08-14] MEDS: INSULIN DETEMIR 100 UNITS/ML VIAL SQ SCH (21:22)
[2017-08-14] MEDS ORDERED: LORazepam 2 MG/ML VIAL IV PUSH ONE (22:15)
[2017-08-15] VITALS (13 sets, daily range): BP systolic 123–157; BP diastolic 59–66; PULSE 52–61; RESP 18–20; TEMP 97.5–98.2; O2SAT 90–95
[2017-08-15] MEDS: NYSTATIN 100,000 U/GM PWD 15 GM BTL TOPICAL SCH ×3 (06:00→20:56)
[2017-08-15] MEDS: ISOSORBIDE MONONITRATE 30 MG CR TAB (IMDUR) PO SCH (06:13)
[2017-08-15] MEDS: INSULIN ASPART SUPPLEMENTAL SCALE SQ SCH ×4 (08:00→20:56)
--- NOTE | 2017-08-15 08:06 | HHI.PR ---
Subjective Remarks Patient is more sleepy today. He was able to eat some breakfast. He denies chest pain or shortness of breath no nausea no vomiting no diarrhea or constipation. Objective Vitals Vital Signs Date Time Temp Pulse Resp B/P (MAP) Pulse Ox O2 Delivery O2 Flow Rate FiO2 08/15/17 04:00 98.0 58 20 137/59 (85) 94 08/15/17 04:00 Room Air 08/15/17 03:55 57 08/15/17 00:10 55 08/15/17 00:00 97.9 54 19 137/62 (87) 93 08/15/17 00:00 Room Air 08/14/17 20:02 64 08/14/17 20:00 98.1 68 17 162/70 (100) 94 08/14/17 20:00 Room Air 08/14/17 16:00 98.4 63 20 125/58 (80) 94 08/14/17 12:00 97.9 67 20 113/65 (81) 94 I/O 08/14/17 08/14/17 08/14/17 08/15/17 08/15/17 08/15/17 07:00 15:00 23:00 07:00 15:00 23:00 Intake Total 717 ml 480 ml 100 ml Output Total 4 ml Balance 713 ml 480 ml 100 ml Intake Oral 100 ml 480 ml 100 ml IV Total 617 ml Output Urine Total 4 ml # Voids 4 4 # Bowel Movements 0 1 Result Diagram: 08/13/17 0316 08/13/17 0316 Imaging Last Impressions Brain MRI 08/11/17 0000 Signed Impressions: Service Date/Time: July 11:02 - CONCLUSION: 1. Acute or subacute embolic type infarcts in the distribution of the pericallosal artery with areas of diffusion restriction along the roof of both lateral ventricles and in scattered areas of the corpus callosum. 2. No acute intracranial hemorrhage. Jan Damon MD Chest X-Ray 08/06/17 0000 Signed Impressions: Service Date/Time: Sunday, August 06, 2017 21:25 - CONCLUSION: Suspected edema. Joe Carrizales MD Head CT 08/05/17 1618 Signed Impressions: Service Date/Time: Saturday, August 05, 2017 16:45 - CONCLUSION: 1. No acute findings in the brain. Trace Carver MD Shoulder X-Ray 08/05/17 0000 Signed Impressions: Service Date/Time: Saturday, August 05, 2017 16:38 - CONCLUSION: 1. Daniel of calcium inferior to the glenoid may be associated with triceps tendon origin/tendinopathy. 2. Otherwise negative. No acute osseous injury. No significant degenerative changes. Jan Damon MD Objective Remarks GENERAL: sitting up in bed. Appears comfortable. SKIN: Warm and dry. HEAD: Normocephalic. EYES: No scleral icterus. No injection or drainage. NECK: Supple, trachea midline. No JVD. CARDIOVASCULAR: Regular rate and rhythm without murmurs, gallops, or rubs. RESPIRATORY: Breath sounds equal bilaterally. No accessory muscle use. GASTROINTESTINAL: Abdomen soft, non-tender, nondistended. MUSCULOSKELETAL: No cyanosis, or edema. BACK: Nontender without obvious deformity. No CVA tenderness. Procedures None A/P Problem List: (1) Fall ICD Code: W19.XXXA - Unspecified fall, initial encounter (2) Elevated troponin ICD Code: R74.8 - Abnormal levels of other serum enzymes Status: Acute Assessment and Plan 76-year-old female admitted secondary to hypoxia who also had NSTEMI and CVA Dehydration. Increasing creatinine 1.62. Discussed with nursing. Encourage feeding, fluids. Patient agrees to drink more fluids. Start on IV fluids overnight. Hypoglycemia. Likely multifactorial, secondary to poor appetite, insulin. Decrease insulin levemir to 25 U BID, held levemir last night and in the morning today. However patient is more awake and started to eat today. Monitor BS and adjust as need insulin. Cutaneous candidiasis Rash in the groin area, treat with ketoconazole cream and apply nystatin powder. Keep area dry. Acute hypoxemic/hypercapnic respiratory failure Improved,O2 as needed PRN Nebulized treatments Chest pain Status post NSTEMI Coronary artery disease Chronic CHF (diastolic) Con't ASA/Plavix/Imdur/BB/Norvasc Patient adamantly refused invasive management (i.e. cath, consideration of CABG) follow up with Dr. Shell on discharge. Outpatient follow up for consideration of intermediate rhythm analysis. No evidence of Afib on telemetry Hypertension Pulmonary HTN Continue baseline treatment Follow blood pressures Adjust treatments as needed Daily Norvasc Hyperlipidemia Statin intolerance Follow as an outpatient Chronic kidney disease stage III Follow renal function Avoid nephrotoxins UTI s/p IV Rocephin and now switched bactrim DS urine cultures growing E. Coli Diabetes mellitus type 2 Follow blood sugars Insulin sliding scale Diabetic diet Continue detemir History of stroke 2 (last CVA in 2011). While in the hospital new CVA diagnosed. MRI shows acute or subacute embolic type infarcts in the distribution of the pericallosal art w areas of diffusion restriction along the roof of both lat ventricles and in scattered areas of the corpus callosum. Chronic Left Side Hemiplegia, some movement of the left lower ext with stimulation. Peripheral neuropathy hold gabapentin 300 mg p.o. 3 times daily per family's request Meclizine discontinued due to lethargy PT following. Plans for d/c to rehab DVT Prophylaxis Heparin Discharge Planning CM assisting with DC plans. DC to SNF when arrangements are done We'll need antibiotics to complete treatment course. Kristina Haley MD Aug 15, 2017 08:06
[2017-08-15] MEDS: SULFAMETHOXAZOLE-TRIMETHOPRIM DS 800-160 MG TAB PO SCH ×2 (08:41→20:52)
[2017-08-15] MEDS: DOCUSATE SODIUM 50 MG/SENNA 8.6 MG TAB PO SCH ×2 (08:42→20:52)
[2017-08-15] MEDS: amLODIPine BESYLATE 5 MG TAB PO SCH (08:42)
[2017-08-15] MEDS: CLOPIDOGREL 75 MG TAB PO SCH (08:42)
[2017-08-15] MEDS: ASPIRIN 81 MG CHEW TAB CHEW SCH (08:42)
[2017-08-15] MEDS: FAMOTIDINE 20 MG TAB PO SCH ×2 (08:42→20:52)
[2017-08-15] MEDS: HEPARIN SODIUM - SQ 10,000 UNITS/ML VIAL SQ SCH ×2 (08:43→20:53)
[2017-08-15] MEDS: METOPROLOL TARTRATE 25 MG TAB PO SCH ×2 (08:43→20:52)
[2017-08-15] MEDS: INSULIN DETEMIR 100 UNITS/ML VIAL SQ SCH ×2 (08:45→20:52)
[2017-08-15] MEDS: SODIUM CHLORIDE 0.9% FLUSH 10 ML FLUSH IV FLUSH SCH ×2 (08:45→20:56)
[2017-08-15] MEDS: KETOCONAZOLE 2% CREAM 15 GM TOPICAL SCH ×2 (08:47→20:56)
[2017-08-15 10:18] LABS: BICARBONATE 21.2 MEQ/L (21.0-32.0); CALCIUM 9.5 MG/DL (8.5-10.1); CREATININE 1.76 MG/DL (0.50-1.00)
[2017-08-15 11:29] LABS: AUTOMATED NEUTROPHIL # 8.9 TH/MM3 (1.8-7.7); BASOPHIL # 0.1 TH/MM3 (0-0.2); BASOPHIL % 0.8 % (0.0-2.0); EOSINOPHIL # 0.3 TH/MM3 (0-0.4); EOSINOPHIL % 2.7 % (0.0-4.0); HEMATOCRIT 35.5 % (35.0-46.0); HEMOGLOBIN 11.8 GM/DL (11.6-15.3); LYMPH % 16.1 % (9.0-44.0); MEAN CELL VOLUME 94.4 FL (80.0-100.0); MEAN CORPUSCULAR HEMOGLOBIN 31.2 PG (27.0-34.0); MEAN CORPUSCULAR HGB CONC 33.1 % (32.0-36.0); MEAN PLATELET VOLUME 9.1 FL (7.0-11.0); MONO % 6.8 % (0.0-8.0); MONOCYTE # 0.8 TH/MM3 (0-0.9); NEUT % 73.6 % (16.0-70.0); PLATELET COUNT 303 TH/MM3 (150-450); RED BLOOD COUNT 3.76 MIL/MM3 (4.00-5.30); RED CELL DISTRIBUTION WIDTH 13.2 % (11.6-17.2); WHITE BLOOD COUNT 12.1 TH/MM3 (4.0-11.0)
[2017-08-15] MEDS: SODIUM CHLOR 0.45% 1000 ML INJ 1,000 ML IV SCH (17:39)
[2017-08-16] VITALS (9 sets, daily range): BP systolic 132–156; BP diastolic 58–67; PULSE 51–63; RESP 18–20; TEMP 97.4–98; O2SAT 92–96
[2017-08-16] MEDS: SODIUM CHLOR 0.45% 1000 ML INJ 1,000 ML IV SCH ×2 (05:24→18:30)
[2017-08-16] MEDS: NYSTATIN 100,000 U/GM PWD 15 GM BTL TOPICAL SCH ×3 (06:00→21:54)
[2017-08-16] MEDS: ISOSORBIDE MONONITRATE 30 MG CR TAB (IMDUR) PO SCH (06:29)
[2017-08-16 07:18] LABS: AUTOMATED NEUTROPHIL # 8.4 TH/MM3 (1.8-7.7); BASOPHIL # 0.1 TH/MM3 (0-0.2); BASOPHIL % 1.2 % (0.0-2.0); EOSINOPHIL # 0.4 TH/MM3 (0-0.4); EOSINOPHIL % 3.5 % (0.0-4.0); HEMATOCRIT 33.2 % (35.0-46.0); HEMOGLOBIN 11.3 GM/DL (11.6-15.3); LYMPH % 15.3 % (9.0-44.0); LYMPHOCYTE # 1.8 TH/MM3 (1.0-4.8); MEAN CELL VOLUME 92.2 FL (80.0-100.0); MEAN CORPUSCULAR HEMOGLOBIN 31.4 PG (27.0-34.0); MEAN CORPUSCULAR HGB CONC 34.1 % (32.0-36.0); MEAN PLATELET VOLUME 8.5 FL (7.0-11.0); MONO % 7.2 % (0.0-8.0); MONOCYTE # 0.8 TH/MM3 (0-0.9); NEUT % 72.8 % (16.0-70.0); PLATELET COUNT 308 TH/MM3 (150-450); RED CELL DISTRIBUTION WIDTH 13.2 % (11.6-17.2); WHITE BLOOD COUNT 11.6 TH/MM3 (4.0-11.0)
[2017-08-16 07:36] LABS: CREATININE 1.64 MG/DL (0.50-1.00)
[2017-08-16 07:37] LABS: BICARBONATE 22.8 MEQ/L (21.0-32.0)
[2017-08-16] MEDS: INSULIN ASPART SUPPLEMENTAL SCALE SQ SCH ×4 (08:00→21:00)
[2017-08-16] MEDS: FAMOTIDINE 20 MG TAB PO SCH ×2 (08:55→21:53)
[2017-08-16] MEDS: CLOPIDOGREL 75 MG TAB PO SCH (08:55)
[2017-08-16] MEDS: amLODIPine BESYLATE 5 MG TAB PO SCH (08:55)
[2017-08-16] MEDS: SULFAMETHOXAZOLE-TRIMETHOPRIM DS 800-160 MG TAB PO SCH ×2 (08:55→21:54)
[2017-08-16] MEDS: ASPIRIN 81 MG CHEW TAB CHEW SCH (08:56)
[2017-08-16] MEDS: SODIUM CHLORIDE 0.9% FLUSH 10 ML FLUSH IV FLUSH SCH ×2 (08:56→21:00)
[2017-08-16] MEDS: DOCUSATE SODIUM 50 MG/SENNA 8.6 MG TAB PO SCH ×2 (08:56→21:54)
[2017-08-16] MEDS: HEPARIN SODIUM - SQ 10,000 UNITS/ML VIAL SQ SCH ×2 (08:58→21:54)
[2017-08-16] MEDS: METOPROLOL TARTRATE 25 MG TAB PO SCH ×2 (08:58→21:53)
[2017-08-16] MEDS: KETOCONAZOLE 2% CREAM 15 GM TOPICAL SCH ×2 (09:00→21:00)
--- NOTE | 2017-08-16 11:24 | HHI.PR ---
Subjective Remarks Patient is with on/off mentation. Low BS, DC Levemir. More awake and alert today. Ate all breakfast. Family( daughter at bedside). No tremors. No diaphoresis. Patient denies cp, sob, n/v/d/c. Objective Vitals Vital Signs Date Time Temp Pulse Resp B/P (MAP) Pulse Ox O2 Delivery O2 Flow Rate FiO2 08/16/17 08:00 97.4 62 20 156/66 (96) 95 08/16/17 04:00 97.4 55 18 132/58 (82) 95 08/16/17 03:43 59 08/16/17 00:00 98.0 55 18 138/65 (89) 94 08/15/17 23:47 52 08/15/17 20:00 98.0 59 18 157/65 (95) 95 08/15/17 20:00 Room Air 08/15/17 19:41 58 08/15/17 16:24 93 08/15/17 16:00 98.0 58 18 123/66 (85) 95 08/15/17 12:09 98.2 61 18 138/62 (87) 91 I/O 08/15/17 08/15/17 08/15/17 08/16/17 08/16/17 08/16/17 07:00 15:00 23:00 07:00 15:00 23:00 Intake Total 100 ml 240 ml 1240 ml Balance 100 ml 240 ml 1240 ml Intake Oral 100 ml 240 ml 240 ml IV Total 1000 ml # Voids 4 4 3 # Bowel Movements 1 0 Result Diagram: 08/16/17 0655 08/16/17 0655 Imaging Last Impressions Brain MRI 08/11/17 0000 Signed Impressions: Service Date/Time: July 11:02 - CONCLUSION: 1. Acute or subacute embolic type infarcts in the distribution of the pericallosal artery with areas of diffusion restriction along the roof of both lateral ventricles and in scattered areas of the corpus callosum. 2. No acute intracranial hemorrhage. Jan Damon MD Chest X-Ray 08/06/17 0000 Signed Impressions: Service Date/Time: Sunday, August 06, 2017 21:25 - CONCLUSION: Suspected edema. Joe Carrizales MD Head CT 08/05/17 1618 Signed Impressions: Service Date/Time: Saturday, August 05, 2017 16:45 - CONCLUSION: 1. No acute findings in the brain. Trace Carver MD Shoulder X-Ray 08/05/17 0000 Signed Impressions: Service Date/Time: Saturday, August 05, 2017 16:38 - CONCLUSION: 1. Daniel of calcium inferior to the glenoid may be associated with triceps tendon origin/tendinopathy. 2. Otherwise negative. No acute osseous injury. No significant degenerative changes. Jan Damon MD Objective Remarks GENERAL: sitting up in bed. Appears comfortable. SKIN: Warm and dry. HEAD: Normocephalic. EYES: No scleral icterus. No injection or drainage. NECK: Supple, trachea midline. No JVD. CARDIOVASCULAR: Regular rate and rhythm without murmurs, gallops, or rubs. RESPIRATORY: Breath sounds equal bilaterally. No accessory muscle use. GASTROINTESTINAL: Abdomen soft, non-tender, nondistended. MUSCULOSKELETAL: No cyanosis, or edema. BACK: Nontender without obvious deformity. No CVA tenderness. Procedures None A/P Problem List: (1) Fall ICD Code: W19.XXXA - Unspecified fall, initial encounter (2) Elevated troponin ICD Code: R74.8 - Abnormal levels of other serum enzymes Status: Acute Assessment and Plan 76-year-old female admitted secondary to hypoxia who also had NSTEMI and CVA Dehydration. Increasing creatinine 1.62. Discussed with nursing. Encourage feeding, fluids. Patient agrees to drink more fluids. Start on IV fluids overnight. Hypoglycemia. Likely multifactorial, secondary to poor appetite, insulin. DC insulin Levemir 25 U BID, Monitor BS and adjust as need insulin. On ISS if need. Patient is eating on /off. Cutaneous candidiasis Rash in the groin area, treat with ketoconazole cream and apply nystatin powder. Keep area dry. Acute hypoxemic/hypercapnic respiratory failure Improved,O2 as needed PRN Nebulized treatments Chest pain Status post NSTEMI Coronary artery disease Chronic CHF (diastolic) Con't ASA/Plavix/Imdur/BB/Norvasc Patient adamantly refused invasive management (i.e. cath, consideration of CABG) follow up with Dr. Shell on discharge. Outpatient follow up for consideration of snf rhythm analysis. No evidence of Afib on telemetry Hypertension Pulmonary HTN Continue baseline treatment Follow blood pressures Adjust treatments as needed Daily Norvasc Hyperlipidemia Statin intolerance Follow as an outpatient Chronic kidney disease stage III Follow renal function Avoid nephrotoxins UTI s/p IV Rocephin and now switched bactrim DS urine cultures growing E. Coli Diabetes mellitus type 2 Follow blood sugars Insulin sliding scale Diabetic diet Continue detemir History of stroke 2 (last CVA in 2011). While in the hospital new CVA diagnosed. MRI shows acute or subacute embolic type infarcts in the distribution of the pericallosal art w areas of diffusion restriction along the roof of both lat ventricles and in scattered areas of the corpus callosum. Chronic Left Side Hemiplegia, some movement of the left lower ext with stimulation. Peripheral neuropathy hold gabapentin 300 mg p.o. 3 times daily per family's request Meclizine discontinued due to lethargy PT following. Plans for d/c to rehab DVT Prophylaxis Heparin Discharge Planning CM assisting with DC plans. However the family doesn't want SNF and wants [facility] [place] rehab. Discussed with the daughter [facility] Dr [facility]. Spoke with Litzy as patient is refused to inpatient rehab. Antibiotics to complete treatment course. DC Levemir as patient not eating much and noted low BS. Monitor BS Encouraged PT/OT Kristina Haley MD Aug 16, 2017 11:24
[2017-08-17] VITALS (10 sets, daily range): BP systolic 130–189; BP diastolic 61–78; PULSE 52–74; RESP 18–20; TEMP 97–98.5; O2SAT 93–95
[2017-08-17] MEDS: NYSTATIN 100,000 U/GM PWD 15 GM BTL TOPICAL SCH ×3 (06:00→20:12)
[2017-08-17] MEDS: SODIUM CHLOR 0.45% 1000 ML INJ 1,000 ML IV SCH ×2 (06:09→13:06)
[2017-08-17] MEDS: ISOSORBIDE MONONITRATE 30 MG CR TAB (IMDUR) PO SCH (06:10)
[2017-08-17 07:30] LABS: AUTOMATED NEUTROPHIL # 9.4 TH/MM3 (1.8-7.7); BASOPHIL # 0.1 TH/MM3 (0-0.2); BASOPHIL % 0.7 % (0.0-2.0); EOSINOPHIL # 0.3 TH/MM3 (0-0.4); EOSINOPHIL % 2.4 % (0.0-4.0); HEMATOCRIT 32.1 % (35.0-46.0); HEMOGLOBIN 10.9 GM/DL (11.6-15.3); LYMPH % 14.1 % (9.0-44.0); LYMPHOCYTE # 1.7 TH/MM3 (1.0-4.8); MEAN CELL VOLUME 91.3 FL (80.0-100.0); MEAN CORPUSCULAR HEMOGLOBIN 30.9 PG (27.0-34.0); MEAN CORPUSCULAR HGB CONC 33.9 % (32.0-36.0); MEAN PLATELET VOLUME 9.1 FL (7.0-11.0); MONO % 4.9 % (0.0-8.0); MONOCYTE # 0.6 TH/MM3 (0-0.9); NEUT % 77.9 % (16.0-70.0); PLATELET COUNT 299 TH/MM3 (150-450); RED BLOOD COUNT 3.52 MIL/MM3 (4.00-5.30); RED CELL DISTRIBUTION WIDTH 13.2 % (11.6-17.2)
[2017-08-17] MEDS: INSULIN ASPART SUPPLEMENTAL SCALE SQ SCH ×4 (07:38→22:36)
[2017-08-17 08:14] LABS: BICARBONATE 21.3 MEQ/L (21.0-32.0); CALCIUM 9.2 MG/DL (8.5-10.1); CREATININE 1.58 MG/DL (0.50-1.00)
[2017-08-17] MEDS: ASPIRIN 81 MG CHEW TAB CHEW SCH (08:31)
[2017-08-17] MEDS: CLOPIDOGREL 75 MG TAB PO SCH (08:31)
[2017-08-17] MEDS: HEPARIN SODIUM - SQ 10,000 UNITS/ML VIAL SQ SCH ×2 (08:32→20:12)
[2017-08-17] MEDS: DOCUSATE SODIUM 50 MG/SENNA 8.6 MG TAB PO SCH ×2 (08:32→20:11)
[2017-08-17] MEDS: SULFAMETHOXAZOLE-TRIMETHOPRIM DS 800-160 MG TAB PO SCH ×2 (08:33→20:11)
[2017-08-17] MEDS: amLODIPine BESYLATE 5 MG TAB PO SCH (08:33)
[2017-08-17] MEDS: SODIUM CHLORIDE 0.9% FLUSH 10 ML FLUSH IV FLUSH SCH ×2 (08:33→20:12)
[2017-08-17] MEDS: METOPROLOL TARTRATE 25 MG TAB PO SCH ×2 (08:34→20:11)
[2017-08-17] MEDS: FAMOTIDINE 20 MG TAB PO SCH ×2 (08:34→20:11)
[2017-08-17] MEDS: KETOCONAZOLE 2% CREAM 15 GM TOPICAL SCH ×2 (08:38→20:12)
--- NOTE | 2017-08-17 18:24 | HHI.PR ---
Subjective Remarks The patient is more awake and alert today. Willing to do more physical therapy. Eating better. Not drinking much water. She is with a dry mucous membranes. No nausea or vomiting no diarrhea or constipation. Blood sugar is better. No fever or chills. No cough. Objective Vitals Vital Signs Date Time Temp Pulse Resp B/P (MAP) Pulse Ox O2 Delivery O2 Flow Rate FiO2 08/17/17 15:00 Room Air 2.00 21 08/17/17 12:06 97.2 64 20 132/68 (89) 95 08/17/17 12:00 66 08/17/17 12:00 Room Air 2.00 21 08/17/17 08:06 97.1 63 20 130/69 (89) 94 08/17/17 08:00 60 08/17/17 07:00 Room Air 2.00 21 08/17/17 04:00 98.5 61 20 144/63 (90) 93 08/17/17 03:39 62 08/17/17 00:00 Room Air 08/17/17 00:00 98.5 52 18 135/61 (85) 94 08/16/17 23:42 51 08/16/17 20:00 98.0 60 18 156/67 (96) 95 08/16/17 20:00 Room Air 08/16/17 19:44 58 I/O 08/16/17 08/16/17 08/16/17 08/17/17 08/17/17 08/17/17 06:59 14:59 22:59 06:59 14:59 22:59 Intake Total 1240 ml 1000 ml Balance 1240 ml 1000 ml Intake Oral 240 ml IV Total 1000 ml 1000 ml # Voids 3 2 2 # Bowel Movements 0 1 Result Diagram: 08/17/17 0616 08/17/17 0616 Imaging Last Impressions Brain MRI 08/11/17 0000 Signed Impressions: Service Date/Time: July 11:02 - CONCLUSION: 1. Acute or subacute embolic type infarcts in the distribution of the pericallosal artery with areas of diffusion restriction along the roof of both lateral ventricles and in scattered areas of the corpus callosum. 2. No acute intracranial hemorrhage. Jan Damon MD Chest X-Ray 08/06/17 0000 Signed Impressions: Service Date/Time: Sunday, August 06, 2017 21:25 - CONCLUSION: Suspected edema. Joe Carrizales MD Head CT 08/05/17 1618 Signed Impressions: Service Date/Time: Saturday, August 05, 2017 16:45 - CONCLUSION: 1. No acute findings in the brain. Trace Carver MD Shoulder X-Ray 08/05/17 0000 Signed Impressions: Service Date/Time: Saturday, August 05, 2017 16:38 - CONCLUSION: 1. Daniel of calcium inferior to the glenoid may be associated with triceps tendon origin/tendinopathy. 2. Otherwise negative. No acute osseous injury. No significant degenerative changes. Jan Damon MD Objective Remarks GENERAL: sitting up in bed. Appears comfortable. SKIN: Warm and dry. HEAD: Normocephalic. EYES: No scleral icterus. No injection or drainage. NECK: Supple, trachea midline. No JVD. CARDIOVASCULAR: Regular rate and rhythm without murmurs, gallops, or rubs. RESPIRATORY: Breath sounds equal bilaterally. No accessory muscle use. GASTROINTESTINAL: Abdomen soft, non-tender, nondistended. MUSCULOSKELETAL: No cyanosis, or edema. BACK: Nontender without obvious deformity. No CVA tenderness. Procedures None A/P Problem List: (1) Fall ICD Code: W19.XXXA - Unspecified fall, initial encounter (2) Elevated troponin ICD Code: R74.8 - Abnormal levels of other serum enzymes Status: Acute Assessment and Plan 76-year-old female admitted secondary to hypoxia who also had NSTEMI and CVA Dehydration. Increasing creatinine 1.62. Discussed with nursing. Encourage feeding, fluids. Patient agrees to drink more fluids. Start on IV fluids overnight. Hypoglycemia. Likely multifactorial, secondary to poor appetite, insulin. DC insulin Levemir 25 U BID, Monitor BS and adjust as need insulin. On ISS if need. Patient is eating on /off. Cutaneous candidiasis Rash in the groin area, treat with ketoconazole cream and apply nystatin powder. Keep area dry. Acute hypoxemic/hypercapnic respiratory failure Improved,O2 as needed PRN Nebulized treatments Chest pain Status post NSTEMI Coronary artery disease Chronic CHF (diastolic) Con't ASA/Plavix/Imdur/BB/Norvasc Patient adamantly refused invasive management (i.e. cath, consideration of CABG) follow up with Dr. Shell on discharge. Outpatient follow up for consideration of longterm rhythm analysis. No evidence of Afib on telemetry Hypertension Pulmonary HTN Continue baseline treatment Follow blood pressures Adjust treatments as needed Daily Norvasc Hyperlipidemia Statin intolerance Follow as an outpatient Chronic kidney disease stage III Follow renal function Avoid nephrotoxins UTI s/p IV Rocephin and now switched bactrim DS urine cultures growing E. Coli Diabetes mellitus type 2 Follow blood sugars Insulin sliding scale Diabetic diet Continue detemir History of stroke 2 (last CVA in 2011). While in the hospital new CVA diagnosed. MRI shows acute or subacute embolic type infarcts in the distribution of the pericallosal art w areas of diffusion restriction along the roof of both lat ventricles and in scattered areas of the corpus callosum. Chronic Left Side Hemiplegia, some movement of the left lower ext with stimulation. Peripheral neuropathy hold gabapentin 300 mg p.o. 3 times daily per family's request Meclizine discontinued due to lethargy PT following. Plans for d/c to rehab DVT Prophylaxis Heparin Discharge Planning CM assisting with DC plans. However the family doesn't want SNF and wants [facility]. [facility]iscussed with the daughter [facility] Dr [facility]. Spoke with Litzy as patient is refused to inpatient rehab. Antibiotics to complete treatment course. DC Levemir as patient not eating much and noted low BS. Monitor BS Encouraged PT/OT Kristina Haley MD Aug 17, 2017 18:24
--- NOTE | 2017-08-17 19:21 | PD.CONS ---
HPI Service Rehabilitation Medicine Consult Requested By Reason for Consult Comprehensive rehabilitation evaluation. Primary Care Physician Unknown Past Family Social History Allergies: Coded Allergies: Lactobacillus acidophilus (Verified Allergy, Severe, 08/05/17) Lactobacillus bulgaricus (Verified Allergy, Severe, 08/05/17) Lactobacillus gasseri (Verified Allergy, Severe, 08/05/17) Streptococcus thermophilus (Verified Allergy, Severe, 08/05/17) lovastatin (Verified Allergy, Severe, 08/05/17) N/V Current Medications Current Medications Medications (Trade) Dose Ordered Sig/Helene Route Start Time Stop Time Status Last Admin (NS Flush) 2 ml UNSCH PRN IV FLUSH 08/05/17 18:30 (NS Flush) 2 ml BID IV FLUSH 08/05/17 21:00 08/17/17 08:33 (Tylenol) 650 mg Q4H PRN PO 08/05/17 18:30 (Zofran Inj) 4 mg Q6H PRN IVP 08/05/17 18:30 (Narcan Inj) 0.4 mg UNSCH PRN IV PUSH 08/05/17 18:30 (Nelly-Colace) 1 tab BID PO 08/05/17 21:00 08/17/17 08:32 (Milk Of Magnesia Liq) 30 ml Q12H PRN PO 08/05/17 18:30 (Senokot) 17.2 mg Q12H PRN PO 08/05/17 18:30 08/10/17 06:19 (Dulcolax Supp) 10 mg DAILY PRN RECTAL 08/05/17 18:30 (Lactulose Liq) 30 ml DAILY PRN PO 08/05/17 18:30 (Aspirin Chew) 81 mg DAILY CHEW 08/06/17 09:00 08/17/17 08:31 (Plavix) 75 mg DAILY PO 08/06/17 09:00 08/17/17 08:31 (Neurontin) 300 mg BID PO 08/05/17 21:00 Future Hold 08/11/17 09:25 (D50w (Vial) Inj) 50 ml UNSCH PRN IV PUSH 08/05/17 20:30 08/13/17 05:46 (Glucagon Inj) 1 mg UNSCH PRN OTHER 08/05/17 20:30 (NovoLOG SUPPLEMENTAL SCALE) 1 ACHS SLIDING SCALE SQ 08/05/17 21:00 08/14/17 21:22 (Nitrostat Sl) 0.4 mg Q5M PRN SL 08/06/17 21:15 08/06/17 21:56 Miscellaneous Information Patient in critical care unit? Ass... Q361D .XX 08/06/17 23:00 (Trandate Inj) 10 mg Q4H PRN IV PUSH 08/06/17 23:30 (Norvasc) 5 mg DAILY PO 08/07/17 09:00 08/17/17 08:33 (Pepcid) 10 mg BID PO 08/07/17 09:00 08/17/17 08:34 (Lopressor) 12.5 mg Q12HR PO 08/07/17 21:00 08/17/17 08:34 (Imdur) 30 mg DAILY@07 PO 08/08/17 07:00 08/17/17 06:10 (Pill Splitter) 1 ea UNSCH PRN OTHER 08/07/17 15:00 (Benadryl 2% Cream) 1 applic TID PRN TOPICAL 08/08/17 14:15 08/17/17 18:52 (Nizoral 2% Cream) 1 applic Q12HR TOPICAL 08/12/17 09:00 08/17/17 08:38 (Mycostatin Powder) 1 applic Q8HR TOPICAL 08/12/17 10:00 08/17/17 13:07 (Bactrim Ds 800-160 Mg) 1 tab Q12HR PO 08/12/17 10:00 08/17/17 08:33 (Heparin Inj) 5,000 units Q12HR SQ 08/12/17 21:00 08/17/17 08:32 Sodium Chloride 1,000 ml @ 84 mls/hr [id number] IV 08/15/17 15:00 08/17/17 06:09 Exam I&O / VS 08/17/17 08/17/17 08/18/17 15:00 23:00 07:00 Output Total 1000 ml Balance -1000 ml Output Urine Total 1000 ml Vital Signs Date Time Temp Pulse Resp B/P (MAP) Pulse Ox O2 Delivery O2 Flow Rate FiO2 08/17/17 15:00 Room Air 2.00 21 08/17/17 12:06 97.2 64 20 132/68 (89) 95 4/18/18 12:00 66 08/17/17 12:00 Room Air 2.00 21 08/17/17 08:06 97.1 63 20 130/69 (89) 94 08/17/17 08:00 60 08/17/17 07:00 Room Air 2.00 21 08/17/17 04:00 98.5 61 20 144/63 (90) 93 08/17/17 03:39 62 08/17/17 00:00 Room Air 08/17/17 00:00 98.5 52 18 135/61 (85) 94 08/16/17 23:42 51 08/16/17 20:00 98.0 60 18 156/67 (96) 95 08/16/17 20:00 Room Air 08/16/17 19:44 58 General: No acute distress Respiratory: Lungs CTA, Non-labored respirations, BS equal Gastrointestinal: Positive Bowel Sounds, Non-Distended, Non-Tender Cardiovascular: Normal rate, Regular Rhythm Musculoskeletal: ROM (Within functional limits), Swelling (None in distal LE), No calf tenderness Psychiatric: Cooperative, Appropriate mood & affect Orientation: oriented to Self, oriented to Place, oriented to Time (with cues) , oriented to Situation Neurologic: Pupils (PERRLA), EOM (Track right and left), Facial Symmetry (Left facial droop), Speech (Dysarthric but intelligible) Motor: Right Upper Extremity (4+/5), Left Upper Extremity (4-/5), Right Lower Extremity (4/5), Left Lower Extremity (3+/5) Sensory Intact to light touch Babinski: Positive (Left) Clonus: Negative Balance: Sitting (Retropulsion) Judy Kunz MD Aug 17, 2017 19:21
[2017-08-18] VITALS (8 sets, daily range): BP systolic 147–177; BP diastolic 67–81; PULSE 53–104; RESP 18–20; TEMP 97.5–98.4; O2SAT 93–99
[2017-08-18] MEDS: SODIUM CHLOR 0.45% 1000 ML INJ 1,000 ML IV SCH ×2 (05:19→14:06)
[2017-08-18] MEDS: NYSTATIN 100,000 U/GM PWD 15 GM BTL TOPICAL SCH ×3 (05:19→22:14)
[2017-08-18] MEDS: ISOSORBIDE MONONITRATE 30 MG CR TAB (IMDUR) PO SCH (05:22)
[2017-08-18 06:58] LABS: HEMATOCRIT 33.1 % (35.0-46.0); HEMOGLOBIN 11.4 GM/DL (11.6-15.3); MEAN CELL VOLUME 91.2 FL (80.0-100.0); MEAN CORPUSCULAR HEMOGLOBIN 31.4 PG (27.0-34.0); MEAN CORPUSCULAR HGB CONC 34.4 % (32.0-36.0); MEAN PLATELET VOLUME 9.3 FL (7.0-11.0); PLATELET COUNT 292 TH/MM3 (150-450); RED BLOOD COUNT 3.62 MIL/MM3 (4.00-5.30); RED CELL DISTRIBUTION WIDTH 13.5 % (11.6-17.2); WHITE BLOOD COUNT 10.9 TH/MM3 (4.0-11.0)
[2017-08-18] MEDS: INSULIN ASPART SUPPLEMENTAL SCALE SQ SCH ×4 (08:00→22:15)
[2017-08-18] MEDS: SULFAMETHOXAZOLE-TRIMETHOPRIM DS 800-160 MG TAB PO SCH ×2 (08:45→22:10)
[2017-08-18] MEDS: ASPIRIN 81 MG CHEW TAB CHEW SCH (08:45)
[2017-08-18] MEDS: amLODIPine BESYLATE 5 MG TAB PO SCH (08:45)
[2017-08-18] MEDS: METOPROLOL TARTRATE 25 MG TAB PO SCH ×2 (08:45→22:11)
[2017-08-18] MEDS: DOCUSATE SODIUM 50 MG/SENNA 8.6 MG TAB PO SCH ×2 (08:45→22:10)
[2017-08-18] MEDS: CLOPIDOGREL 75 MG TAB PO SCH (08:45)
[2017-08-18] MEDS: FAMOTIDINE 20 MG TAB PO SCH ×2 (08:45→22:10)
[2017-08-18] MEDS: HEPARIN SODIUM - SQ 10,000 UNITS/ML VIAL SQ SCH ×2 (08:46→22:11)
[2017-08-18] MEDS: KETOCONAZOLE 2% CREAM 15 GM TOPICAL SCH ×2 (08:46→22:14)
[2017-08-18] MEDS: SODIUM CHLORIDE 0.9% FLUSH 10 ML FLUSH IV FLUSH SCH ×2 (08:46→21:00)
--- NOTE | 2017-08-18 15:44 | HHI.PR ---
Subjective Remarks She is in bed she is more awake and alert. Still very weak, tolerates physical therapy. Eating better no more episodes of hypoglycemia. No fever or chills. No nausea vomiting. Objective Vitals Vital Signs Date Time Temp Pulse Resp B/P (MAP) Pulse Ox O2 Delivery O2 Flow Rate FiO2 08/18/17 12:00 53 08/18/17 08:00 Room Air 08/18/17 08:00 98.3 60 18 161/70 (100) 95 08/18/17 08:00 57 08/18/17 04:00 62 08/18/17 04:00 Room Air 08/18/17 04:00 98.2 60 18 147/67 (93) 93 08/18/17 00:00 Room Air 08/18/17 00:00 97.6 76 19 162/70 (100) 93 08/18/17 00:00 73 08/17/17 20:00 Room Air 08/17/17 20:00 73 08/17/17 20:00 97.9 74 20 189/78 (115) 93 08/17/17 16:06 97.0 66 19 132/68 (89) 95 08/17/17 16:00 67 I/O 08/17/17 08/17/17 08/17/17 08/18/17 08/18/17 08/18/17 06:59 14:59 22:59 06:59 14:59 22:59 Intake Total 1000 ml 740 ml 1668 ml Output Total 1800 ml 600 ml Balance 1000 ml -1060 ml 1068 ml Intake Oral 740 ml 680 ml IV Total 1000 ml 988 ml Output Urine Total 1800 ml 600 ml # Voids 2 4 2 # Bowel Movements 1 2 1 Result Diagram: 08/18/17 0550 08/17/17 0616 Imaging Last Impressions Brain MRI 08/11/17 0000 Signed Impressions: Service Date/Time: July 11:02 - CONCLUSION: 1. Acute or subacute embolic type infarcts in the distribution of the pericallosal artery with areas of diffusion restriction along the roof of both lateral ventricles and in scattered areas of the corpus callosum. 2. No acute intracranial hemorrhage. Jan Damon MD Chest X-Ray 08/06/17 0000 Signed Impressions: Service Date/Time: Sunday, August 06, 2017 21:25 - CONCLUSION: Suspected edema. Joe Carrizales MD Head CT 08/05/17 1618 Signed Impressions: Service Date/Time: Saturday, August 05, 2017 16:45 - CONCLUSION: 1. No acute findings in the brain. Trace Carver MD Shoulder X-Ray 08/05/17 0000 Signed Impressions: Service Date/Time: Saturday, August 05, 2017 16:38 - CONCLUSION: 1. Daniel of calcium inferior to the glenoid may be associated with triceps tendon origin/tendinopathy. 2. Otherwise negative. No acute osseous injury. No significant degenerative changes. Jan Damon MD Objective Remarks GENERAL: sitting up in bed. Appears comfortable. SKIN: Warm and dry. HEAD: Normocephalic. EYES: No scleral icterus. No injection or drainage. NECK: Supple, trachea midline. No JVD. CARDIOVASCULAR: Regular rate and rhythm without murmurs, gallops, or rubs. RESPIRATORY: Breath sounds equal bilaterally. No accessory muscle use. GASTROINTESTINAL: Abdomen soft, non-tender, nondistended. MUSCULOSKELETAL: No cyanosis, or edema. BACK: Nontender without obvious deformity. No CVA tenderness. Procedures None A/P Problem List: (1) Fall ICD Code: W19.XXXA - Unspecified fall, initial encounter (2) Elevated troponin ICD Code: R74.8 - Abnormal levels of other serum enzymes Status: Acute Assessment and Plan She is to be is 1 76-year-old female admitted secondary to hypoxia who also had NSTEMI and CVA Dehydration. Increasing creatinine. Discussed with nurse. Encourage feeding, fluids. Patient agrees to drink more fluids. Continue on IV fluids. Hypoglycemia. Likely multifactorial, secondary to poor appetite, insulin. DC insulin Levemir 25 U BID, Monitor BS and adjust as need insulin. On ISS if need. Patient is eating better now. BS is better controlle dno more episodes of hypoglycemia. Cutaneous candidiasis Rash in the groin area, treat with ketoconazole cream and apply nystatin powder. Keep area dry. Acute hypoxemic/hypercapnic respiratory failure Improved,O2 as needed PRN Nebulized treatments Chest pain Status post NSTEMI Coronary artery disease Chronic CHF (diastolic) Con't ASA/Plavix/Imdur/BB/Norvasc Patient adamantly refused invasive management (i.e. cath, consideration of CABG) follow up with Dr. Shell on discharge. Outpatient follow up for consideration of oysterman rhythm analysis. No evidence of Afib on telemetry Hypertension Pulmonary HTN Continue baseline treatment Follow blood pressures Adjust treatments as needed Daily Norvasc Hyperlipidemia Statin intolerance Follow as an outpatient Chronic kidney disease stage III Follow renal function Avoid nephrotoxins UTI s/p IV Rocephin and now switched bactrim DS urine cultures growing E. Coli Diabetes mellitus type 2 Follow blood sugars Insulin sliding scale Diabetic diet Continue detemir History of stroke 2 (last CVA in 2011). While in the hospital new CVA diagnosed. MRI shows acute or subacute embolic type infarcts in the distribution of the pericallosal art w areas of diffusion restriction along the roof of both lat ventricles and in scattered areas of the corpus callosum. Chronic Left Side Hemiplegia, some movement of the left lower ext with stimulation. Peripheral neuropathy hold gabapentin 300 mg p.o. 3 times daily per family's request Meclizine discontinued due to lethargy PT following. Plans for d/c to rehab DVT Prophylaxis Heparin Discharge Planning CM assisting with DC plans. However the family doesn't want SNF and wants [facility] rehab. Discussed with the daughter [facility] Dr [facility]. Spoke with [employer] as patient is refused to inpatient rehab. Antibiotics to complete treatment course. DC Levemir as patient not eating much and noted low BS. Monitor BS Encouraged PT/OT Kristina Haley MD Aug 18, 2017 15:44
[2017-08-18] MEDS: NITROGLYCERIN 0.4 MG SL 25 TABS/BTL SL PRN ×3 (18:02→18:12)
[2017-08-18] MEDS ORDERED: LORazepam 2 MG/ML VIAL IV PUSH ONE (23:15)
--- NOTE | 2017-08-18 23:35 | RADRPT ---
EXAM DATE/TIME: 08/18/2017 23:18 [facility] COMPARISON: CHEST SINGLE AP, August 06, 2017, 21:25. INDICATIONS : Chest pain and shortness of breath. MEDICAL HISTORY : Diabetes mellitus type 2. Congestive heart failure. Renal failure, chronic. SURGICAL HISTORY : section. ENCOUNTER: Subsequent ACUITY: 1 day PAIN SCORE: 5/10 LOCATION: Bilateral chest FINDINGS: 2 portable frontal views the chest show diffuse basilar pulmonary infiltrates. More pronounced from t he prior study. No different or effusions. The heart is enlarged. Pulmonary vascular engorgement note d. CONCLUSION: Intra-alveolar pulmonary edema. Trace Flood Jr., MD on August 18, 2017 at 23:33 Board Certified Radiologist. This report was verified electronically.
[2017-08-19] VITALS (9 sets, daily range): BP systolic 101–152; BP diastolic 53–68; PULSE 47–100; RESP 17–20; TEMP 97.3–97.8; O2SAT 95–99
[2017-08-19] MEDS ORDERED: FUROSEMIDE 40 MG/4 ML VIAL IV PUSH ONE (00:15)
[2017-08-19] MEDS: NYSTATIN 100,000 U/GM PWD 15 GM BTL TOPICAL SCH ×3 (05:42→22:38)
[2017-08-19] MEDS: ISOSORBIDE MONONITRATE 30 MG CR TAB (IMDUR) PO SCH (05:42)
[2017-08-19 07:49] LABS: CALCIUM 9.7 MG/DL (8.5-10.1); CREATININE 1.59 MG/DL (0.50-1.00); MAGNESIUM 1.8 MG/DL (1.5-2.5)
[2017-08-19 07:59] LABS: BASOPHIL # 0.1 TH/MM3 (0-0.2); BASOPHIL % 0.7 % (0.0-2.0); EOSINOPHIL % 0.1 % (0.0-4.0); HEMATOCRIT 35.9 % (35.0-46.0); LYMPH % 14.3 % (9.0-44.0); LYMPHOCYTE # 1.8 TH/MM3 (1.0-4.8); MEAN CELL VOLUME 91.1 FL (80.0-100.0); MEAN CORPUSCULAR HEMOGLOBIN 30.4 PG (27.0-34.0); MEAN CORPUSCULAR HGB CONC 33.3 % (32.0-36.0); MEAN PLATELET VOLUME 10.3 FL (7.0-11.0); MONO % 4.9 % (0.0-8.0); MONOCYTE # 0.6 TH/MM3 (0-0.9); PLATELET COUNT 246 TH/MM3 (150-450); RED BLOOD COUNT 3.94 MIL/MM3 (4.00-5.30); RED CELL DISTRIBUTION WIDTH 13.3 % (11.6-17.2); WHITE BLOOD COUNT 12.5 TH/MM3 (4.0-11.0)
[2017-08-19] MEDS: INSULIN ASPART SUPPLEMENTAL SCALE SQ SCH ×4 (08:00→21:00)
--- NOTE | 2017-08-19 08:02 | HHI.PR ---
Subjective Remarks Awake and alert. She says she feels much better. Able to do physical therapy. She is saturating well on room air. Denies any shortness of breath or chest pain no nausea or vomiting no diarrhea or constipation. Improving with physical therapy. Eating better. No chest pain or shortness of breath. Objective Vitals Vital Signs Date Time Temp Pulse Resp B/P (MAP) Pulse Ox O2 Delivery O2 Flow Rate FiO2 08/19/17 04:00 97.8 64 19 146/68 (94) 98 08/19/17 00:00 75 08/19/17 00:00 97.5 100 20 124/59 (80) 95 08/19/17 00:00 Nasal Cannula 4.00 08/18/17 23:39 96 Nasal Cannula 4.00 08/18/17 20:59 96 Nasal Cannula 4.00 08/18/17 20:00 97.5 104 19 160/74 (102) 96 08/18/17 20:00 92 08/18/17 20:00 98 Nasal Cannula 4.00 08/18/17 19:01 96 Nasal Cannula 4.00 08/18/17 16:00 57 08/18/17 16:00 98.4 66 18 177/81 (113) 93 08/18/17 12:00 97.9 62 20 176/68 (104) 99 08/18/17 12:00 53 08/18/17 08:00 Room Air 08/18/17 08:00 98.3 60 18 161/70 (100) 95 08/18/17 08:00 57 I/O 08/18/17 08/18/17 08/18/17 08/19/17 08/19/17 08/19/17 07:00 15:00 23:00 07:00 15:00 23:00 Intake Total 1668 ml 480 ml 0 ml Output Total 600 ml 550 ml Balance 1068 ml -70 ml 0 ml Intake Oral 680 ml 480 ml 0 ml IV Total 988 ml Output Urine Total 600 ml 550 ml # Voids 2 5 # Bowel Movements 1 1 0 Result Diagram: 08/18/17 0550 08/19/17 0650 Imaging Last Impressions Chest X-Ray 08/18/17 0000 Signed Impressions: Service Date/Time: July 23:18 - CONCLUSION: Intra- alveolar pulmonary edema. Trace Flood Jr., MD Brain MRI 4/12/18 0000 Signed Impressions: Service Date/Time: July 11:02 - CONCLUSION: 1. Acute or subacute embolic type infarcts in the distribution of the pericallosal artery with areas of diffusion restriction along the roof of both lateral ventricles and in scattered areas of the corpus callosum. 2. No acute intracranial hemorrhage. Jan Damon MD Head CT 08/05/17 1618 Signed Impressions: Service Date/Time: Saturday, August 05, 2017 16:45 - CONCLUSION: 1. No acute findings in the brain. Trace Carver MD Shoulder X-Ray 08/05/17 0000 Signed Impressions: Service Date/Time: Saturday, August 05, 2017 16:38 - CONCLUSION: 1. Daniel of calcium inferior to the glenoid may be associated with triceps tendon origin/tendinopathy. 2. Otherwise negative. No acute osseous injury. No significant degenerative changes. Jan Damon MD Objective Remarks GENERAL: sitting up in bed. Appears comfortable. SKIN: Warm and dry. HEAD: Normocephalic. EYES: No scleral icterus. No injection or drainage. NECK: Supple, trachea midline. No JVD. CARDIOVASCULAR: Regular rate and rhythm without murmurs, gallops, or rubs. RESPIRATORY: Breath sounds equal bilaterally. No accessory muscle use. GASTROINTESTINAL: Abdomen soft, non-tender, nondistended. MUSCULOSKELETAL: No cyanosis, or edema. BACK: Nontender without obvious deformity. No CVA tenderness. Procedures None A/P Problem List: (1) Fall ICD Code: W19.XXXA - Unspecified fall, initial encounter (2) Elevated troponin ICD Code: R74.8 - Abnormal levels of other serum enzymes Status: Acute Assessment and Plan 76-year-old female admitted secondary to hypoxia who also had NSTEMI and CVA Dehydration. Increasing creatinine. Discussed with nurse. Encourage feeding, fluids. Patient agrees to drink more fluids. Continue on IV fluids. Hypoglycemia. Likely multifactorial, secondary to poor appetite, insulin. DC insulin Levemir 25 U BID. Monitor BS and adjust as need insulin. On ISS if need. Patient is eating better now. BS is better controlled no more episodes of hypoglycemia. Cutaneous candidiasis Rash in the groin area, treat with ketoconazole cream and apply nystatin powder. Keep area dry. Acute hypoxemic/hypercapnic respiratory failure Improved,O2 as needed PRN Nebulized treatments Chest pain Status post NSTEMI Coronary artery disease Chronic CHF (diastolic) Con't ASA/Plavix/Imdur/BB/Norvasc Patient adamantly refused invasive management (i.e. cath, consideration of CABG) follow up with Dr. Shell on discharge. Outpatient follow up for consideration of fortune teller rhythm analysis. No evidence of Afib on telemetry With chest pain 08/18, trop neg Hypertension Pulmonary HTN Continue baseline treatment Follow blood pressures Adjust treatments as needed Daily Norvasc Hyperlipidemia Statin intolerance Follow as an outpatient Chronic kidney disease stage III Follow renal function Avoid nephrotoxins UTI s/p IV Rocephin and now switched bactrim DS urine cultures growing E. Coli Diabetes mellitus type 2 Follow blood sugars Insulin sliding scale Diabetic diet Continue detemir History of stroke 2 (last CVA in 2011). While in the hospital new CVA diagnosed. MRI shows acute or subacute embolic type infarcts in the distribution of the pericallosal art w areas of diffusion restriction along the roof of both lat ventricles and in scattered areas of the corpus callosum. Chronic Left Side Hemiplegia, some movement of the left lower ext with stimulation. Peripheral neuropathy hold gabapentin 300 mg p.o. 3 times daily per family's request Meclizine discontinued due to lethargy PT following. Plans for d/c to rehab DVT Prophylaxis Heparin Discharge Planning CM assisting with DC plans. However the family doesn't want SNF and wants [place] rehab. Discussed with the daughter [facility] Dr Ram[facility]. Spoke with [employer] as patient is refused to inpatient rehab. Antibiotics to complete treatment course. DC Levemir as patient not eating much and noted low BS. Monitor BS Encouraged PT/OT Patient improved. Discharged to rehab inpatient when arrangements done. Kristina Haley MD Aug 19, 2017 08:02
[2017-08-19] MEDS: KETOCONAZOLE 2% CREAM 15 GM TOPICAL SCH ×2 (09:00→22:38)
[2017-08-19] MEDS: SODIUM CHLORIDE 0.9% FLUSH 10 ML FLUSH IV FLUSH SCH ×2 (09:00→22:55)
[2017-08-19] MEDS: FAMOTIDINE 20 MG TAB PO SCH ×2 (09:25→22:37)
[2017-08-19] MEDS: CLOPIDOGREL 75 MG TAB PO SCH (09:27)
[2017-08-19] MEDS: amLODIPine BESYLATE 5 MG TAB PO SCH (09:27)
[2017-08-19] MEDS: DOCUSATE SODIUM 50 MG/SENNA 8.6 MG TAB PO SCH ×2 (09:28→22:37)
[2017-08-19] MEDS: METOPROLOL TARTRATE 25 MG TAB PO SCH ×2 (09:28→22:37)
[2017-08-19] MEDS: ASPIRIN 81 MG CHEW TAB CHEW SCH (09:29)
[2017-08-19] MEDS: SULFAMETHOXAZOLE-TRIMETHOPRIM DS 800-160 MG TAB PO SCH ×2 (09:29→22:37)
[2017-08-19] MEDS: HEPARIN SODIUM - SQ 10,000 UNITS/ML VIAL SQ SCH ×2 (09:32→22:37)
--- NOTE | 2017-08-19 18:48 | HHI.DS ---
Discharge Summary Admission Date Aug 06, 2017 at 21:13 Discharge Date: Aug 19, 2017 Admitting Diagnosis Fall/dizziness/elevated troponin . (1) Fall ICD Code: W19.XXXA - Unspecified fall, initial encounter Diagnosis: Principal (2) Elevated troponin ICD Code: R74.8 - Abnormal levels of other serum enzymes Diagnosis: Principal Status: Acute Procedures None Brief History - From Admission Mrs. Louie is a 76-year-old female with a history of CVA 2, TIA 3, congestive heart failure, hypertension, arthritis, and diabetes who presents to the emergency room on 08/05/2017 reporting that she had fallen while trying to get out of bed, hit her head, and has been having dizziness since that time. Laboratory studies revealed elevated troponin in the emergency room and the patient was admitted to the hospitalist service for further evaluation. Head CT with no acute findings in the brain. Chest x-ray shows no acute abnormalities. Right shoulder x-ray shows a daniel of calcium inferior to the glenoid that might be associated with triceps tendon origin tendinopathy, otherwise a negative study. The patient is seen in the CDU. She reports that she has been feeling dizzy for about the past 4-5 months. She reports that she became so dizzy upon standing up today that she fell despite having a walker to steady her. She continued to feel dizzy in the CDU and I ordered some meclizine for her and she does report improvement at the time of my visit. She also reports that she has been having chest pain since last year that is intermittent and worse when laying flat. She was not having chest pain at the time of her fall. She did hit her head and had a CT scan which was negative. She also hurt her right arm in the shoulder area and the x-ray was negative with the exception of a daniel of calcium inferior to the glenoid. She denies any associated fever, chills, shortness of breath, diaphoresis, nausea, vomiting, hematuria, dysuria, or frequency. CBC/BMP: 08/19/17 0652 08/19/17 0650 Significant Findings Laboratory Tests Test 08/17/17 06:16 4/19/18 05:50 08/18/17 18:30 08/18/17 23:20 White Blood Count 12.0 TH/MM3 (4.0-11.0) Red Blood Count 3.52 MIL/MM3 (4.00-5.30) 3.62 MIL/MM3 (4.00-5.30) Hemoglobin 10.9 GM/DL (11.6-15.3) 11.4 GM/DL (11.6-15.3) Hematocrit 32.1 % (35.0-46.0) 33.1 % (35.0-46.0) Neutrophils (%) (Auto) 77.9 % (16.0-70.0) Neutrophils # (Auto) 9.4 TH/MM3 (1.8-7.7) Blood Urea Nitrogen 24 MG/DL (7-18) Creatinine 1.58 MG/DL (0.50-1.00) Random Glucose 117 MG/DL (74-106) Estimat Glomerular Filtration Rate 32 ML/MIN (>89) Troponin I LESS THAN 0.02 NG/ML Blood Gas HCO3 16 mmol/L (22-26) Blood Gas Base Excess -9.7 mmol/L (-2-2) Arterial Blood pH 7.27 (7.380-7.420) Arterial Blood Partial Pressure CO2 36 mmHg (38-42) Test 08/19/17 06:50 08/19/17 06:52 08/19/17 11:46 Blood Urea Nitrogen 27 MG/DL (7-18) Creatinine 1.59 MG/DL (0.50-1.00) Random Glucose 129 MG/DL (74-106) Sodium Level 134 MEQ/L (136-145) Estimat Glomerular Filtration Rate 31 ML/MIN (>89) White Blood Count 12.5 TH/MM3 (4.0-11.0) Red Blood Count 3.94 MIL/MM3 (4.00-5.30) Neutrophils (%) (Auto) 80.0 % (16.0-70.0) Neutrophils # (Auto) 10.0 TH/MM3 (1.8-7.7) Blood Gas HCO3 20 mmol/L (22-26) Blood Gas Base Excess -4.0 mmol/L (-2-2) Arterial Blood Partial Pressure CO2 34 mmHg (38-42) Imaging Last Impressions Chest X-Ray 08/18/17 0000 Signed Impressions: Service Date/Time: July 23:18 - CONCLUSION: Intra- alveolar pulmonary edema. Trace Flood Jr., MD Brain MRI 08/11/17 0000 Signed Impressions: Service Date/Time: July 11:02 - CONCLUSION: 1. Acute or subacute embolic type infarcts in the distribution of the pericallosal artery with areas of diffusion restriction along the roof of both lateral ventricles and in scattered areas of the corpus callosum. 2. No acute intracranial hemorrhage. Jan Damon MD Head CT 08/05/17 1618 Signed Impressions: Service Date/Time: Saturday, August 05, 2017 16:45 - CONCLUSION: 1. No acute findings in the brain. Trace Carver MD Shoulder X-Ray 08/05/17 0000 Signed Impressions: Service Date/Time: Saturday, August 05, 2017 16:38 - CONCLUSION: 1. Daniel of calcium inferior to the glenoid may be associated with triceps tendon origin/tendinopathy. 2. Otherwise negative. No acute osseous injury. No significant degenerative changes. Jan Damon MD PE at Discharge GENERAL: sitting up in bed. Appears comfortable. SKIN: Warm and dry. HEAD: Normocephalic. EYES: No scleral icterus. No injection or drainage. NECK: Supple, trachea midline. No JVD. CARDIOVASCULAR: Regular rate and rhythm without murmurs, gallops, or rubs. RESPIRATORY: Breath sounds equal bilaterally. No accessory muscle use. GASTROINTESTINAL: Abdomen soft, non-tender, nondistended. MUSCULOSKELETAL: No cyanosis, or edema. BACK: Nontender without obvious deformity. No CVA tenderness. Hospital Course 76-year-old female admitted secondary to hypoxia who also had NSTEMI and CVA Dehydration. Increasing creatinine. Discussed with nurse. Encourage feeding, fluids. Patient agrees to drink more fluids. Continue on IV fluids. Hypoglycemia. Likely multifactorial, secondary to poor appetite, insulin. DC insulin Levemir 25 U BID. Monitor BS and adjust as need insulin. On ISS if need. Patient is eating better now. BS is better controlled no more episodes of hypoglycemia. Monitor BS and adjust insulin as needed. Cutaneous candidiasis Rash in the groin area, treat with ketoconazole cream and apply nystatin powder. Keep area dry. Acute hypoxemic/hypercapnic respiratory failure Improved,O2 as needed PRN Nebulized treatments Chest pain Status post NSTEMI Coronary artery disease Chronic CHF (diastolic) Con't ASA/Plavix/Imdur/BB/Norvasc Patient adamantly refused invasive management (i.e. cath, consideration of CABG) follow up with Dr. Shell on discharge. Outpatient follow up for consideration of remote computer terminal operator rhythm analysis. No evidence of Afib on telemetry With chest pain 08/18, trop neg Hypertension Pulmonary HTN Continue baseline treatment Follow blood pressures Adjust treatments as needed Daily Norvasc Hyperlipidemia Statin intolerance Follow as an outpatient Chronic kidney disease stage III Follow renal function Avoid nephrotoxins UTI s/p IV Rocephin and now switched bactrim DS urine cultures growing E. Coli Diabetes mellitus type 2 Follow blood sugars Insulin sliding scale Diabetic diet Continue detemir History of stroke 2 (last CVA in 2011). While in the hospital new CVA diagnosed. MRI shows acute or subacute embolic type infarcts in the distribution of the pericallosal art w areas of diffusion restriction along the roof of both lat ventricles and in scattered areas of the corpus callosum. Chronic Left Side Hemiplegia, some movement of the left lower ext with stimulation. Peripheral neuropathy hold gabapentin 300 mg p.o. 3 times daily per family's request Meclizine discontinued due to lethargy PT following. Plans for DC to rehab DVT Prophylaxis Heparin Discharge Planning CM assisting with DC plans. However the family doesn't want SNF and wants [place] [facility]. Discussed with the daughter she [facility] Consult Dr Ram[facility]. Spoke with [facility] as patient is refused to inpatient rehab. Antibiotics to complete treatment course. DC Levemir as patient not eating much and noted low BS. Monitor BS Encouraged PT/OT Patient improved. Discharged to rehab inpatient in stable condition to follow up as OP with PCP and consultants. Pt Condition on Discharge: Stable Discharge Disposition: Discharge to SNF Discharge Time: > 30 minutes Discharge Instructions DIET: Follow Instructions for: Heart Healthy Diet Activities you can perform: Regular-No Restrictions Other Activity Instructions: With PT Follow up Referrals: Cardiology - 2 Weeks Cardiology, Interventional @ [facility] @ PCP Follow-up - 2 Weeks PCP Follow-up @ [facility] New Medications: Sulfamethoxazole-Trimethoprim (Bactrim DS) 800-160 Mg Tab 1 TAB PO BID for Infection, #10 TAB 0 Refills Isosorbide Mononitrate ER (Isosorbide Mononitrate ER) 30 Mg Conrad 30 MG PO DAILY@07 for Cardiac Medicine, #30 TAB Magnesium Hydroxide (Qc Milk of Magnesia) 400 Mg/5 Ml Ivon 30 ML PO Q12H PRN for Mild constipation, #1 BOTTLE Metoprolol Tartrate (Metoprolol Tartrate) 25 Mg Tab 12.5 MG PO Q12HR for Blood Pressure Management, #60 TAB Continued Medications: Amlodipine (Norvasc) 5 Mg Tab 5 MG PO DAILY for Blood Pressure Management, #30 TAB 1 Refill Aspirin (Aspirin) 81 Mg Chew 81 MG CHEW DAILY, TAB 0 Refills Clopidogrel (Plavix) 75 Mg Tab 75 MG PO DAILY for Blood Clot Prevention, #30 TAB 0 Refills Folic Acid (Folic Acid) 400 Mcg Tab 400 MCG PO DAILY for Nutritional Supplement, TAB 0 Refills Gabapentin (Gabapentin) 300 Mg Cap 300 MG PO BID, #60 CAP 0 Refills Insulin Aspart Inj (Novolog Inj) 1,000 Unit/10 Ml Vial 0 SQ DIRECTED for Blood Sugar Management, ML 0 Refills Sliding Scale as directed. Insulin Detemir Inj (Levemir Inj) 1,000 unit/ 10 ML Vial 56 UNITS SQ BID for Blood Sugar Management, VIAL 0 Refills Do not mix with any other Insulin. Nitroglycerin SL (Nitroglycerin SL) 0.4 Mg Subl 0.4 MG SL DIRECTED PRN for CHEST PAIN, #100 TAB.SL 0 Refills ONE TABLET UNDER THE TONGUE NEEDED FOR CHEST PAIN, MAY REPEAT EVERY FIVE MINUTES FOR A TOTAL OF 3 DOSES OR CALL 911 IF NO RELIEF Kristina Haley MD Aug 19, 2017 18:48
[2017-08-19] MEDS ORDERED: BACT800T5 PO (18:53)
[2017-08-20] VITALS (7 sets, daily range): BP systolic 113–164; BP diastolic 56–75; PULSE 50–70; RESP 16–20; TEMP 96.5–98.2; O2SAT 97–100
[2017-08-20] MEDS: NYSTATIN 100,000 U/GM PWD 15 GM BTL TOPICAL SCH ×3 (05:27→19:54)
[2017-08-20] MEDS: INSULIN ASPART SUPPLEMENTAL SCALE SQ SCH ×4 (08:00→19:51)
[2017-08-20] MEDS: DOCUSATE SODIUM 50 MG/SENNA 8.6 MG TAB PO SCH ×2 (08:52→19:52)
[2017-08-20] MEDS: CLOPIDOGREL 75 MG TAB PO SCH (08:53)
[2017-08-20] MEDS: FAMOTIDINE 20 MG TAB PO SCH ×2 (08:53→19:53)
[2017-08-20] MEDS: ASPIRIN 81 MG CHEW TAB CHEW SCH (08:53)
[2017-08-20] MEDS: KETOCONAZOLE 2% CREAM 15 GM TOPICAL SCH ×2 (08:54→19:53)
[2017-08-20] MEDS: METOPROLOL TARTRATE 25 MG TAB PO SCH ×3 (08:54→20:24)
[2017-08-20] MEDS: SULFAMETHOXAZOLE-TRIMETHOPRIM DS 800-160 MG TAB PO SCH (08:54)
[2017-08-20] MEDS: HEPARIN SODIUM - SQ 10,000 UNITS/ML VIAL SQ SCH ×2 (08:54→19:53)
[2017-08-20] MEDS: amLODIPine BESYLATE 5 MG TAB PO SCH (08:54)
[2017-08-20] MEDS: SODIUM CHLORIDE 0.9% FLUSH 10 ML FLUSH IV FLUSH SCH ×2 (09:00→19:54)
--- NOTE | 2017-08-20 09:13 | EKG ---
Date Performed: 08/18/2017 Time Performed: 18:15:40 PTAGE: 76 years EKG: Atrial fibrillation. Rightward axis Inferior/lateral ST-T changes are nonspecific Abnormal ECG NO PREVIOUS TRACING DOCTOR: Jeffery Yan Interpretating Date/Time 08/20/2017 09:10:07
--- NOTE | 2017-08-20 09:18 | HHI.PR ---
Subjective Remarks Pt see and examined. VS reviewed. Reports she is feeling well. Denies CP, SOB, abdominal pain, N/V, GUTIERREZ, or visual changes. Toleratring PO. Breathing at baseline. States her daughter [facility]. Objective Vital Signs Date Time Temp Pulse Resp B/P (MAP) Pulse Ox O2 Delivery O2 Flow Rate FiO2 08/20/17 04:00 57 08/20/17 04:00 97.5 56 16 164/75 (104) 100 08/20/17 00:00 55 08/20/17 00:00 97.3 60 17 152/66 (94) 98 08/19/17 20:00 Nasal Cannula 4.00 08/19/17 20:00 97.3 60 17 152/66 (94) 98 08/19/17 20:00 59 08/19/17 16:06 97.4 55 19 113/55 (74) 97 08/19/17 16:00 57 08/19/17 12:06 97.5 51 18 101/53 (69) 97 08/19/17 12:00 50 I/O 08/19/17 08/19/17 08/19/17 08/20/17 08/20/17 08/20/17 07:00 15:00 23:00 07:00 15:00 23:00 Intake Total 0 ml 360 ml 60 ml Balance 0 ml 360 ml 60 ml Intake Oral 0 ml 360 ml 60 ml # Voids 5 2 3 # Bowel Movements 0 0 Result Diagram: 08/19/17 0652 08/19/17 0650 Objective Remarks GENERAL: Elderly female laying comfortably in bed in [facility]. SKIN: Warm and dry. HEENT: AT/NC. Pupils equal and round. MMM. NECK: Supple no tender LAD or JVD. HEART: RRR no m/r/g. LUNGS: CTAB without wheezes or crackles. ABDOMEN: +BS, soft, NT, ND. EXTREMITIES: No LE edema. Diminished pedal pulses. NEURO: Awake and alert. Oriented x 4. LUE and LLE strength 4+/5, R side is 5/5. CN II-XII intact. Sensation intact. PSYCH: Appropriate mood and affect. A/P Assessment and Plan 76-year-old female with a history of CVA x 2 with left sided residual weakness, CHF, CAD with known triple vessel disease but adamantly refusing invasive management, CKD, and DM admitted on 08/05 after falling and hitting her head. Initial CT head was negative and patient was initially admitted to CDU because of a slightly elevated troponin of 0.21. On the evening of 08/06 a HaliCat was called secondary to respiratory distress and hypoxia after the patient got up to the use the bathroom. She required a nonrebreather and also began complaining of CP and diaphoresis. EKG demonstrated lateral ST depression in V4-V6 that was present on prior tracing back in 2016. She was started on a nitro and heparin drip. CXR showed vascular congestion and ABG showed hypercapnic respiratory failure with pH 7.23 and PCO2 64. Critical care was consulted and BiPAP was initiated. Troponin peaked at 0.89 and cardiology was consulted. Because the patient declined any invasive procedure such as cardiac catheterization or possible CABG, cardiology signed off. She was medically stable for discharge on 08/10 but her daughter asked for additional neurology consultation. An MRI was performed on 08/11 showing acute embolic infarcts of corpus callosum. She has been medically clear for discharge but daughter is appealing [employer] as they declined the patient from going to [facility]. 1. CVA - Neuro consulted and MRI showing acute or subacute embolic type infarcts in the distribution of the pericallosal artery with areas of diffusion restriction along the roof of both lateral ventricles and in scattered areas of the [place] callosum - Last CVA prior was in 2011 with chronic left-sided hemiplegia - PT following - Plan to D/C to rehab - Continue ASA and Plavix 2. NSTEMI with known three vessel CAD - ST depression in V4-V6 stable from prior comparison in 04/2017 - Cardiology consulted but patient adamantly refusing cath or possibility of CABG - Continue medical management with ASA, Plavix, Imdur, BB, and Norvasc 3. HTN - BPs somewhat labile - Continue metoprolol, amlodipine, and Imdur 4. DM - Home Levemir held in light of hypoglycemia - Blood sugars have been normal and has rarely been requiring any sliding scale coverage - SSI per protocol - Caution with continuing insulin on discharge as home insulin would likely bottom her out - Check A1c 5. Chronic CHF - Currently euvolemic 6. UTI - U/A on admission with large leukocyte esterase and nitrite - Culture growing E. coli - S/P treatment with 7 day course of Bactrim 7. CKD - Creatinine stable - Avoid nephrotoxic agents - Renally dose meds 8. GERD - Continue Pepcid 9. Cutaneous candidiasis - Continue Nystatin powder DVT Prophylaxis: Heparin Discharge Planning Cleared for D/C but patient's daughter wanting her to go to [facility] and she has initiated an appeal with patient's insurance since she was denied. Process could apparently take up to a week Tika Lwarence MD Aug 20, 2017 09:18
[2017-08-20] MEDS: ISOSORBIDE DINITRATE 10 MG TAB PO SCH ×2 (14:57→19:54)
[2017-08-21] VITALS: BP 175/73; PULSE 68; PULSE 70; RESP 20; TEMP 97.4; O2SAT 96
[2017-08-21 04:00] VITALS: BP 123/78; PULSE 68; PULSE 70; RESP 20; TEMP 97; O2SAT 95
[2017-08-21] MEDS: ISOSORBIDE DINITRATE 10 MG TAB PO SCH (05:10)
[2017-08-21] MEDS: NYSTATIN 100,000 U/GM PWD 15 GM BTL TOPICAL SCH (05:10)
[2017-08-21 07:17] LABS: HEMATOCRIT 35.2 % (35.0-46.0); HEMOGLOBIN 12.2 GM/DL (11.6-15.3); MEAN CELL VOLUME 90.6 FL (80.0-100.0); MEAN CORPUSCULAR HEMOGLOBIN 31.3 PG (27.0-34.0); MEAN CORPUSCULAR HGB CONC 34.6 % (32.0-36.0); PLATELET COUNT 350 TH/MM3 (150-450); RED BLOOD COUNT 3.88 MIL/MM3 (4.00-5.30); RED CELL DISTRIBUTION WIDTH 13.1 % (11.6-17.2); WHITE BLOOD COUNT 10.9 TH/MM3 (4.0-11.0)
[2017-08-21 08:00] VITALS: BP 155/67; PULSE 65; RESP 15; TEMP 97.6; O2SAT 100
[2017-08-21] MEDS: INSULIN ASPART SUPPLEMENTAL SCALE SQ SCH ×2 (08:00→11:57)
[2017-08-21] MEDS: CLOPIDOGREL 75 MG TAB PO SCH (08:23)
[2017-08-21] MEDS: FAMOTIDINE 20 MG TAB PO SCH (08:23)
[2017-08-21] MEDS: HEPARIN SODIUM - SQ 10,000 UNITS/ML VIAL SQ SCH (08:23)
[2017-08-21] MEDS: amLODIPine BESYLATE 5 MG TAB PO SCH (08:23)
[2017-08-21] MEDS: ASPIRIN 81 MG CHEW TAB CHEW SCH (08:24)
[2017-08-21] MEDS: SODIUM CHLORIDE 0.9% FLUSH 10 ML FLUSH IV FLUSH SCH (08:24)
[2017-08-21] MEDS: DOCUSATE SODIUM 50 MG/SENNA 8.6 MG TAB PO SCH (08:24)
--- NOTE | 2017-08-21 08:53 | HHI.PR ---
Subjective Remarks Pt see and examined. VS reviewed. Reports she is feeling well just tired. Denies CP, SOB, abdominal pain, N/V, GUTIERREZ, or visual changes. Tolerating PO. Objective Vital Signs Date Time Temp Pulse Resp B/P (MAP) Pulse Ox O2 Delivery O2 Flow Rate FiO2 08/21/17 04:00 97.0 70 20 123/78 (93) 95 08/21/17 04:00 68 08/21/17 04:00 Nasal Cannula 4.00 08/21/17 00:00 68 08/21/17 00:00 97.4 70 20 175/73 (107) 96 08/21/17 00:00 Nasal Cannula 4.00 08/20/17 20:00 Nasal Cannula 4.00 08/20/17 20:00 64 08/20/17 20:00 98.2 70 20 151/69 (96) 97 08/20/17 18:17 98 Nasal Cannula 2.00 08/20/17 18:17 57 08/20/17 16:00 97.6 57 18 113/56 (75) 98 08/20/17 12:00 50 08/20/17 12:00 98.0 55 18 163/63 (96) 97 I/O 08/20/17 08/20/17 08/20/17 08/21/17 08/21/17 08/21/17 07:00 15:00 23:00 07:00 15:00 23:00 Intake Total 60 ml 480 ml 380 ml Balance 60 ml 480 ml 380 ml Intake Oral 60 ml 480 ml 380 ml # Voids 3 2 2 # Bowel Movements 0 Result Diagram: 08/21/17 0629 08/19/17 0650 Objective Remarks GENERAL: Elderly female laying comfortably in bed in [facility]. SKIN: Warm and dry. HEENT: AT/NC. Pupils equal and round. MMM. NECK: Supple no tender LAD or JVD. HEART: RRR no m/r/g. LUNGS: CTAB without wheezes or crackles. ABDOMEN: +BS, soft, NT, ND. EXTREMITIES: No LE edema. Diminished pedal pulses. NEURO: Awake and alert. Oriented x 4. LUE and LLE strength 4+/5, R side is 5/5. CN II-XII intact. Sensation intact. PSYCH: Appropriate mood and affect. A/P Assessment and Plan 76-year-old female with a history of CVA x 2 with left sided residual weakness, CHF, CAD with known triple vessel disease but adamantly refusing invasive management, CKD, and DM admitted on 08/05 after falling and hitting her head. Initial CT head was negative and patient was initially admitted to CDU because of a slightly elevated troponin of 0.21. On the evening of 08/06 a HaliCat was called secondary to respiratory distress and hypoxia after the patient got up to the use the bathroom. She required a nonrebreather and also began complaining of CP and diaphoresis. EKG demonstrated lateral ST depression in V4-V6 that was present on prior tracing back in 2016. She was started on a nitro and heparin drip. CXR showed vascular congestion and ABG showed hypercapnic respiratory failure with pH 7.23 and PCO2 64. Critical care was consulted and BiPAP was initiated. Troponin peaked at 0.89 and cardiology was consulted. Because the patient declined any invasive procedure such as cardiac catheterization or possible CABG, cardiology signed off. She was medically stable for discharge on 08/10 but her daughter asked for additional neurology consultation. An MRI was performed on 08/11 showing acute embolic infarcts of corpus callosum. She has been medically clear for discharge but daughter is appealing [employer] as they declined the patient from going to [facility]. 1. CVA - Neuro consulted and MRI showing acute or subacute embolic type infarcts in the distribution of the pericallosal artery with areas of diffusion restriction along the roof of both lateral ventricles and in scattered areas of the corpus callosum - Last CVA prior was in 2011 with chronic left-sided hemiplegia - PT following - Plan to D/C to rehab - Continue ASA and Plavix 2. NSTEMI with known three vessel CAD - ST depression in V4-V6 stable from prior comparison in 04/2017 - Cardiology consulted but patient adamantly refusing cath or possibility of CABG - Continue medical management with ASA, Plavix, Imdur, BB, and Norvasc 3. HTN - BPs somewhat labile - Continue metoprolol, amlodipine, and Imdur 4. DM - Home Levemir held in light of hypoglycemia - Blood sugars have been normal and has rarely been requiring any sliding scale coverage - SSI per protocol - Caution with continuing insulin on discharge as home insulin would likely bottom her out - A1c pending 5. Chronic CHF - Currently euvolemic 6. UTI - U/A on admission with large leukocyte esterase and nitrite - Culture growing E. coli - S/P treatment with 7 day course of Bactrim 7. CKD - Creatinine stable - Avoid nephrotoxic agents - Renally dose meds 8. GERD - Continue Pepcid 9. Cutaneous candidiasis - Continue Nystatin powder DVT Prophylaxis: Heparin Discharge Planning Cleared for D/C but patient's daughter wanting her to go to [facility] and she has initiated an appeal with patient's insurance since she was denied. Authorization is received and patient can be discharged to [facility] once they accept her. Hopefully today Tika Lawrence MD Aug 21, 2017 08:53
[2017-08-21] MEDS: KETOCONAZOLE 2% CREAM 15 GM TOPICAL SCH (09:00)
[2017-08-21] MEDS: METOPROLOL TARTRATE 25 MG TAB PO SCH (09:27)
[2017-08-22 16:56] LABS: HEMOGLOBIN A1C 7.4 % (4.3-6.0)
== END 2017-08-21 12:00 | DRG 604 ==
LOC: NEPC 13:52 → NEDA 18:31 → NEPFCDU 19:49 → OBSVTOIN 08-06 21:13 → HIMW 08-06 22:35 → HCPC 08-07 19:29 → N04A 08-13 07:41
PROVIDERS: ADMIT Family Medicine; ATTEND Family Medicine
PROC: 5A09357 Assistance with Respiratory Ventilation, Less than 24 Consecutive Hours, Continuous Positive Airway Pressure (ICD-10-PCS; principal; 2017-08-06)
DX: S00.03XA Contusion of scalp, initial encounter (principal); J96.02 Acute respiratory failure with hypercapnia; I21.4 Non-ST elevation (NSTEMI) myocardial infarction; I63.9 Cerebral infarction, unspecified; J96.01 Acute respiratory failure with hypoxia; I50.32 Chronic diastolic (congestive) heart failure; I13.0 Hypertensive heart and chronic kidney disease with heart failure and stage 1 through stage 4 chronic kidney disease, or unspecified chronic kidney disease; E11.22 Type 2 diabetes mellitus with diabetic chronic kidney disease; I48.91 Unspecified atrial fibrillation; I27.20 Pulmonary hypertension, unspecified; B37.2 Candidiasis of skin and nail; N39.0 Urinary tract infection, site not specified; I69.354 Hemiplegia and hemiparesis following cerebral infarction affecting left non-dominant side; E11.42 Type 2 diabetes mellitus with diabetic polyneuropathy; E86.0 Dehydration; E11.649 Type 2 diabetes mellitus with hypoglycemia without coma; I25.10 Atherosclerotic heart disease of native coronary artery without angina pectoris; W06.XXXA Fall from bed, initial encounter; M19.90 Unspecified osteoarthritis, unspecified site; N18.3 Chronic kidney disease, stage 3 (moderate); E78.5 Hyperlipidemia, unspecified; E66.9 Obesity, unspecified; R47.1 Dysarthria and anarthria; R21 Rash and other nonspecific skin eruption; K21.9 Gastro-esophageal reflux disease without esophagitis; M25.511 Pain in right shoulder; Y92.003 Bedroom of unspecified non-institutional (private) residence as the place of occurrence of the external cause; I25.2 Old myocardial infarction; Z79.82 Long term (current) use of aspirin; Z98.61 Coronary angioplasty status; Z87.891 Personal history of nicotine dependence; Z68.30 Body mass index [BMI] 30.0-30.9, adult; I69.391 Dysphagia following cerebral infarction; Z79.4 Long term (current) use of insulin; Z79.899 Other long term (current) drug therapy
CPT/HCPCS: 36600; 70450; 70551; 71045; 73030; 80048; 80053; 80061; 81001; 82550; 82552; 82805; 82948; 83036; 83735; 84484; 85025; 85027; 85379; 85610; 85730; 87077; 87086; 87186; 87641; 93005; 93306; 94640; 94664; G8987-GP; G8988-GP; J0696; J1644; J1815; J1940; J2060; J7030